=== PATIENT | male | born 1940 | race Caucasian/White ===

== ENCOUNTER 2023-02-25 11:55 | Emergency (ER) | payer MEDICARE, SELFPAY ==
[2023-02-25 12:07] VITALS: BP 155/83; PULSE 55; RESP 20; TEMP 36.6; O2SAT 96; BMI 21.4
--- NOTE | 2023-02-25 12:32 | ED.MALEGU1 ---
HPI - Male Genitourinary General Chief complaint: Urogenital-Male Stated complaint: ZULETA WHEN URINATING/GENERAL MALAISE Time Seen by Provider: 02/25/23 12:24 Source: patient Mode of arrival: walk-in Limitations: no limitations History of Present Illness HPI Narrative: Patient is an 82-year-old male presents to the Emergency Room with concerns of irritation to the tip of his penis. Patient states for the past two days he has noticed a burning sensation at the head when he urinates. Describes it is irritating and feels the area surrounding the glans of his penis is more red than usual. He denies any penile discharge. He is a patient of Dr. Lundberg and has known history of prostate hypertrophy and is on Flomax. Patient states his bladder empties as normal. Denies blood in his urine and denies any pain in his lower pelvis. Patient reports no symptoms at rest and no fever. Patient concerns about the possibility of infection and went to the urgent care and was told his urinalysis looked fine and to follow-up with urology or Emergency Room. Patient denies any testicular pain. He appears no distress. Reviewed triage note and discussed with patient, he denies abdominal pain states the discomfort is only to the tip/ head of his penis when urinating. Location: Reports penis Related Data Home Medications Medication Instructions Recorded Confirmed Lactobacillus acidophilus 10 100 mmu cells PO DAILY 02/25/23 02/25/23 billion cell capsule (Probacap) baclofen 10 mg tablet 10 mg PO DAILY 02/25/23 02/25/23 cholecalciferol (vitamin D3) 50 50 mcg PO DAILY 02/25/23 02/25/23 mcg (2,000 unit) capsule (D3-2000) gabapentin 600 mg tablet 600 mg PO DAILY 02/25/23 02/25/23 meloxicam 15 mg tablet 15 mg PO DAILY 02/25/23 02/25/23 omeprazole 20 mg capsule,delayed 20 mg PO DAILY 02/25/23 02/25/23 release polyethylene glycol 3350 17 gram 17 g PO DAILY 02/25/23 02/25/23 oral powder packet (Miralax) tamsulosin 0.4 mg capsule 0.4 mg PO DAILY 02/25/23 02/25/23 Allergies Allergy/AdvReac Type Severity Reaction Status Date / Time doxycycline Allergy Severe swelling Verified 02/25/23 12:07 to penis Review of Systems ROS Constitutional Reports: malaise; Denies: fever, chills or night sweats Eyes Denies: change in vision Ears, nose, mouth, and throat Denies: throat pain or neck pain Cardiovascular Denies: chest pain or palpitations Respiratory Denies: shortness of breath or cough Gastrointestinal Denies: abdominal pain, nausea or vomiting Genitourinary Reports: painful urination (Only with urination, irritation noted to the glans of the penis); Denies: urinary frequency, urinary urgency or penile discharge Integumentary/Breast Reports: rash, itching and redness Neurological Denies: headache Psychiatric Denies: anxiety or mood swings Hematologic/Lymphatic Denies: easy bruising PFSH PFSH Social History Smoking status: Former smoker Exam Narrative Exam Narrative: Nurses notes and vital signs reviewed and patient is not hypoxic. General: The patient appears well and in no apparent distress. Patient is resting comfortably on cart. Skin: Warm, dry, no pallor noted. No evidence of rash noted Head: Normocephalic, atraumatic Neck: Supple, trachea mid-line, no tenderness, no lymphadenopathy Eye: Pupils are equal, round and reactive to light, EOMI Ears, Nose, Mouth, and Throat: External exam unremarkable Cardiovascular: Regular Rate and Rhythm Respiratory: Patient is in no distress, no accessory muscle use, lungs are clear to auscultation, no wheezing, rales or rhonchi. Back: non-tender, no CVA tenderness Musculoskeletal: normal ROM, no tenderness, no swelling GI: Normal bowel sounds, no tenderness to palpation, no masses appreciated. No rebound, guarding, or rigidity noted. : Patient is a uncircumcised male, the glans of the penis with foreskin retracted noted for multiple erythematous satellite lesions concerning for yeast process, the skin is without evidence of cellulitis. There is no streaking or discharge. Patient has no tenderness to the bilateral testicles and no palpable inguinal hernia. No external rash appreciated. There are no vesicles. Neurological: A&O x4 Psychiatric: Cooperative Constitutional Vital Signs, click to edit/add: Last Vital Signs Temp 98 F 02/25/23 12:07 Pulse 60 02/25/23 14:08 Resp 18 02/25/23 14:08 BP 155/83 H 02/25/23 12:07 Pulse Ox 96 02/25/23 12:07 Course Vital Signs Vital signs: Vital Signs Temperature 98 F 02/25/23 12:07 Pulse Rate 55 L 02/25/23 12:07 Respiratory Rate 20 02/25/23 12:07 Blood Pressure 155/83 H 02/25/23 12:07 Pulse Oximetry 96 02/25/23 12:07 Temperature 98 F 02/25/23 12:07 Pulse Rate 60 02/25/23 14:08 Respiratory Rate 18 02/25/23 14:08 Blood Pressure 155/83 H 02/25/23 12:07 Pulse Oximetry 96 02/25/23 12:07 MDM - Male Genitourinary MDM Narrative Medical decision making narrative: Patient presents with burning only noted on urination, clinical exam concerning for balanitis given irritation to the glans of the penis or patient has his localized symptoms. He is given one pill of Diflucan 150 mg oral, may use topical hydrocortisone cream for irritation. Recommend keeping the area clean and dry. We'll obtain urinalysis to confirm no evidence of infection. Patient denies any acute symptoms of urinary obstruction. Patient has no CVA tenderness. Rechecked patient to discuss treatment with Diflucan.. Patient is drinking fluids but states he does not yet have the urge to urinate after recently providing a sample to the urgent care. Patient's significant other bedside expressed concerns about the patient's feeling of malaise. He denies any chest pain or shortness of breath, denies any nausea or vomiting or diarrhea. States he has felt warm at different times throughout the day. We discussed his age and medications and we'll check some labs to see if there is anything correlating given vague complaints... Discussed laboratory studies, chest x-ray and urinalysis. Patient will observe his symptoms. He may return to the Emergency Room symptoms worsen or new symptoms develop. We discussed treatment for his balanitis. Lab Data Labs: Lab Results 02/25/23 02/25/23 02/25/23 Range/Units 13:06 13:13 14:00 WBC 6.0 (4.0-11.0) 10^3/uL RBC 4.24 L (4.70-6.10) 10^6/uL Hgb 12.4 L (14.0-18.0) g/dL Hct 36.7 L (42.0-54.0) % MCV 86.6 (80.0-94.0) fL MCH 29.2 (25.9-34.0) pg MCHC 33.8 (29.9-35.2) g/dL RDW 13.5 (11.0-15.0) % Plt Count 165 (150-450) 10^3/uL MPV 9.7 (9.5-13.5) fL Neut % (Auto) 72.4 (43.0-75.0) % Lymph % (Auto) 13.1 L (20.5-60.0) % [place] % (Auto) 9.8 (1.7-12.0) % Eos % (Auto) 4.0 (0.9-7.0) % Baso % (Auto) 0.5 (0.2-2.0) % Neut # (Auto) 4.4 (1.4-6.5) 10^3/uL Lymph # (Auto) 0.8 L (1.2-3.8) 10^3/uL [place] # (Auto) 0.6 (0.3-0.8) 10^3/uL Eos # (Auto) 0.2 (0.0-0.7) 10^3/uL Baso # (Auto) 0.0 (0.0-0.1) 10^3/uL Abs Immat Gran (auto) 0.01 (0.00-0.03) 10^3/uL Imm/Tot Granulo (auto) 0.2 (0.0-0.5) % Sodium 135 L (136-145) mmol/L Potassium 4.2 (3.5-5.1) mmol/L Chloride 101 (98-107) mmol/L Carbon Dioxide 29.1 (21.0-32.0) mmol/L Anion Gap 9.1 BUN 15.0 (7.0-18.0) mg/dL Creatinine 0.83 (0.70-1.30) mg/dL Est GFR ( Amer) >60 (>=60) Est GFR (Non-Af Amer) >60 (>=60) BUN/Creatinine Ratio 18.1 Glucose 112 H (74-106) mg/dL Lactate 0.8 (0.4-2.0) mmol/L Calcium 8.2 L (8.5-10.1) mg/dL Total Bilirubin 0.3 (0.2-1.0) mg/dL AST 11 L (15-37) U/L ALT 17 (16-63) U/L Alkaline Phosphatase 82 (46-116) U/L Troponin I High Sens 4.5 (4.0-76.1) pg/mL Total Protein 6.0 L (6.4-8.2) g/dL Albumin 3.3 L (3.4-5.0) g/dL Globulin 2.7 g/dL Albumin/Globulin Ratio 1.2 TSH 1.229 (0.358-3.740) uIU/mL Urine Color Lt. yellow (YELLOW) Urine Clarity Clear (CLEAR) Urine pH 7.0 (5.0-9.0) Ur Specific [place] 1.010 (1.005-1.025) Urine Protein Negative (NEG/TRACE) mg/dL Urine Glucose (UA) Negative (NEGATIVE) mg/dL Urine Ketones Negative (NEGATIVE) mg/dL Urine Occult Blood Negative (NEGATIVE) Urine Nitrite Negative (NEGATIVE) Urine Bilirubin Negative (NEGATIVE) Urine Urobilinogen 1.0 (0.2-1.0) EU/dL Ur Leukocyte Esterase Negative (NEGATIVE) POC Glucose 109 H (74-106) mg/dL Imaging Data Chest x-ray: Radiologist's impression: Procedure: XR chest 1V EXAM: XR chest 1V HISTORY: fatigue COMPARISON: None. TECHNIQUE: AP view of the chest. FINDINGS: The cardiomediastinal silhouette is normal. The lungs are clear. There is no pneumothorax. No pleural effusion is noted. The osseous structures are intact. XR/XR chest 1V IMPRESSION: No acute cardiopulmonary process. Electronically authenticated by: MARNIE MANE Date: 02/25/2023 13:31 ECG Data Attestation: I personally reviewed and interpreted this ECG as follows: Interpretation: EKG interpretation: Emergency Department physician interpretation, normal sinus bradycardia, 47 bpm, first-degree AV block. No ectopy, no ST segment elevation, normal axis. Discharge Plan Discharge Chief Complaint: Urogenital-Male Clinical Impression: Balanitis, Anemia, Malaise and fatigue Patient Disposition: Home, Self-Care Time of Disposition Decision: 14:47 Condition: Good Prescriptions / Home Meds: No Action baclofen 10 mg tablet 10 mg PO DAILY gabapentin 600 mg tablet 600 mg PO DAILY meloxicam 15 mg tablet 15 mg PO DAILY tamsulosin 0.4 mg capsule 0.4 mg PO DAILY omeprazole 20 mg capsule,delayed release(DR/EC) 20 mg PO DAILY polyethylene glycol 3350 [Miralax] 17 gram powder in packet 17 g PO DAILY cholecalciferol (vitamin D3) [D3-2000] 50 mcg (2,000 unit) capsule 50 mcg PO DAILY Probacap 10 billion cell capsule 100 mmu cells PO DAILY Instructions: Jaylyn (ED) Additional Instructions: Hydrocortisone one percent two times a day to the glans of the penis. Apply scant thin amount. Allow for here to reach this region. Thoroughly dry after bathing. Recommend recheck with family doctor for malaise symptoms Tuesday or Tuesday Stand Alone Forms: Portal Instructions Referrals: KARISHMA RODRIGUEZ [Other] - As soon as possible Randy Lundberg MD [Physician] - 1 week
--- NOTE | 2023-02-25 12:54 | XR_ITS ---
The [address] [address] Patient Name: SEN ULLOA MRN: [id number] date: 1940 Sex: M Assigned Patient Location: ER Current Patient Location: ER Accession/Order Number: [id number] Exam Date: 02/25/2023 13:15 Report Date: 02/25/2023 13:31 At the request of: SKYE HERRERA Procedure: XR chest 1V EXAM: XR chest 1V HISTORY: fatigue COMPARISON: None. TECHNIQUE: AP view of the chest. FINDINGS: The cardiomediastinal silhouette is normal. The lungs are clear. There is no pneumothorax. No pleural effusion is noted. The osseous structures are intact. XR/XR chest 1V IMPRESSION: No acute cardiopulmonary process. Electronically authenticated by: MARNIE MANE Date: 02/25/2023 13:31
--- NOTE | 2023-02-25 12:54 | ECG_ITS ---
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
[2023-02-25] MEDS: FLUCONAZOLE 150 MG TABLET PO (13:02)
[2023-02-25 13:08] LABS: Glucometer 109 mg/dL (74-106)
[2023-02-25 13:19] LABS: Basophils Percent Auto 0.5 % (0.2-2.0); Eosinophils Absolute Auto 0.2 10^3/uL (0.0-0.7); Hematocrit 36.7 % (42.0-54.0); Hemoglobin 12.4 g/dL (14.0-18.0); Immature Granulocytes Abs Auto 0.01 10^3/uL (0.00-0.03); Immature Granulocytes Pct Auto 0.2 % (0.0-0.5); Lymphocytes Absolute Auto 0.8 10^3/uL (1.2-3.8); Lymphocytes Percent Auto 13.1 % (20.5-60.0); Mean Corpuscular HGB Conc 33.8 g/dL (29.9-35.2); Mean Corpuscular Hemoglobin 29.2 pg (25.9-34.0); Mean Corpuscular Volume 86.6 fL (80.0-94.0); Mean Platelet Volume 9.7 fL (9.5-13.5); Monocytes Absolute Auto 0.6 10^3/uL (0.3-0.8); Monocytes Percent Auto 9.8 % (1.7-12.0); Neutrophils Absolute Auto 4.4 10^3/uL (1.4-6.5); Neutrophils Percent Auto 72.4 % (43.0-75.0); Platelet Count 165 10^3/uL (150-450); Red Blood Count 4.24 10^6/uL (4.70-6.10); Red Cell Distribution Width 13.5 % (11.0-15.0)
[2023-02-25 13:37] LABS: Alanine Aminotransferase 17 U/L (16-63); Albumin Globulin Ratio 1.2; Albumin Level 3.3 g/dL (3.4-5.0); Alkaline Phosphatase 82 U/L (46-116); Anion Gap 9.1; Aspartate Amino Transferase 11 U/L (15-37); BUN Creatinine Ratio 18.1; Bilirubin Total 0.3 mg/dL (0.2-1.0); Calcium 8.2 mg/dL (8.5-10.1); Carbon Dioxide 29.1 mmol/L (21.0-32.0); Chloride 101 mmol/L (98-107); Estimated GFR (African America >60 (>=60); Estimated GFR (Non-African Ame >60 (>=60); Globulin 2.7 g/dL; Glucose 112 mg/dL (74-106); Potassium 4.2 mmol/L (3.5-5.1); Sodium 135 mmol/L (136-145)
[2023-02-25 13:46] LABS: Thyroid Stimulating Hormone 1.229 uIU/mL (0.358-3.740); Troponin I High Sensitivity 4.5 pg/mL (4.0-76.1)
[2023-02-25 14:08] VITALS: PULSE 60; RESP 18
[2023-02-25 14:09] LABS: Lactate/Lactic Acid 0.8 mmol/L (0.4-2.0)
[2023-02-25 14:37] LABS: Bilirubin Urine NEGATIVE (NEGATIVE); Blood Urine NEGATIVE (NEGATIVE); Clarity Urine CLEAR (CLEAR); Color Urine LT. YELLOW (YELLOW); Glucose Urine UA NEGATIVE (NEGATIVE); Ketones Urine NEGATIVE (NEGATIVE); Leukocyte Esterase Urine NEGATIVE (NEGATIVE); Nitrite Urine NEGATIVE (NEGATIVE); Protein Urine NEGATIVE (NEG/TRACE); Urine Microscopic Indicated NO
[2023-02-25 15:02] VITALS: BP 151/77
== END 2023-02-25 15:05 | disposition home or self-care (01) ==
PROVIDERS: Personal Emergency Response Attendant; Emergency Provider Emergency Medicine Emergency Medical Services
DX: N48.1 Balanitis (principal); D64.9 Anemia, unspecified; R53.81 Other malaise; R53.83 Other fatigue; Z79.899 Other long term (current) drug therapy
CPT/HCPCS: 36415; 71045; 80053; 81003; 82948; 83605; 84443; 84484; 85025; 93005; 99285

== ENCOUNTER 2023-08-12 11:11 | Outpatient (OUT) | payer MEDICARE, SELFPAY ==
[2023-08-12 13:08] LABS: Prostate Specific Antigen Dx 2.44 ng/mL (<=4.00)
== END 2023-08-12 11:12 | disposition home or self-care (01) ==
LOC: LAB 11:13
PROVIDERS: Visit Provider Urology
DX: N40.1 Benign prostatic hyperplasia with lower urinary tract symptoms (principal); N40.2 Nodular prostate without lower urinary tract symptoms; N41.1 Chronic prostatitis
CPT/HCPCS: 36415; 84153

== ENCOUNTER 2024-08-13 09:02 | Outpatient (OUT) | payer MEDICARE, SELFPAY ==
--- OUTSIDE RECORDS SUMMARY | 2024-08-13 09:13 | XMS_ITS | CCD ---
Author Organization [facility] Care Team Providers Care Clinic Nurse Name Role Phone Sondra SMITH Unavailable Unavailable ALLEN PARDO (TAYLOR) Unavailable Unavail able ALLEN PARDO (TAYLOR) Unavailable Unavail able Sondra SMITH Unavailable Unavailable SMITH R LOUIE Unavailable Unavailable LUIS R LOUIE Unavailable Unavailable Sondra SMITH Unavailable Unavailable JAZMIN MAN Unavailable Unavailabl e MARTIN, DR CANDIDO Brown Admitting Unavailable MARTIN, DR CANDIDO Brown Attending Unavailable CAS CROSS Consulting Unavailable MISC, DR DE SANTIAGO Primary Care Unavailable JOSELYN, DR BARRON Admitting Unavailable JOSELYN, DR BARRON Consulting Unavailable JOSELYN, DR BARRON Attending Unavailable MISC, DR DE SANTIAGO Primary Care Unavailable JOSELYN, DR BARRON Admitting Unavailable JOSELYN, DR BARRON Consulting Unavailable JOSELYN, DR BARRON Attending Unavailable MISC, DR DE SANTIAGO Primary Care Unavailable MISC, DR DE SANTIAGO Consulting Unavailable MARTIN, DR CANDIDO Brown Attending Unavailable MARTIN, DR CANDIDO Brown Admitting Unavailable CLINCAS EDMONDS Consulting Unavailable MISC, DR ED SANTIAGO Primary Care Unavailable ALLEN LUCAS Primary Care Physician Karishma Reddy Primary Care Physician Unavail able Karen Borja Unavailable Karen Borja Attending Unavailable Karen Borja Admitting Unavailable Karishma Reddy Primary Care Physician Unavail able DO Karishma Reddy Referring Unavailable Shahnaz Galvin Admitting Unavailable Shahnaz Galvin Attending Unavailable DO Karishma Reddy Referring Unavailable Shahnaz Galvin Attending Unavailable TAYLOR Galvin Admitting Unavailabl e Yared Zavala Referring Unavailable Yared Zavala Attending Unavailable DO Yared Zavala Admitting Unavailabl e Shahnaz Galvin Admitting Unavailable Shahnaz Galvin Referring Unavailable Shahnaz Galvin Attending Unavailable Shahnaz Galvin Attending Unavailable Shahnaz Galvin Admitting Unavailable DO Karishma Reddy Attending Unavailable DO Karishma Reddy Admitting Unavailable Bruno Abe Antonio Admitting Unavailable Bruno Abe Antonio Attending Unavailable Maureen, DO Karishma Robert Referring Unavailable Yared Zavala Attending Unavailable Yared Zavala Referring Unavailable Yared Zavala Attending Unavailable DO Yared Zavala Admitting Unavailabl e Yared Zavala Attending Unavailable Yared Zavala Referring Unavailable Beatrice ALVES Attending Unavailable Beatrice ALVES Attending Unavailable Maureen, DO Karishma Robert Referring Unavailable MD Abe Carr Admitting Unavailable Abe Carr Attending Unavailable Yared Zavala Admitting Unavailable Yared Zavala Attending Unavailable Maureen, DO Karishma Robert Referring Unavailable Kristel Churchill Referring Unavailable Shahnaz Galvin Attending Unavailable TAYLOR Galvin Shahnaz Admitting Unavailabl e Cromley, DO Karishma Robert Attending Unavailable Cromley, DO Karishma Robert Attending Unavailable Cromley, DO Karishma Robert Attending Unavailable Cromley, DO Karishma Robert Attending Unavailable Isabelmley, DO Karishma Robert Attending Unavailable Isabelmley, DO Karishma Robert Attending Unavailable Nickey, DO Karishma Robert Referring Unavailable Shahnaz Galvin Attending Unavailable TAYLOR Galvin Shahnaz Admitting Unavailabl e Yaerd Zavala Attending Unavailable Maureen, DO Karishma Robert Referring Unavailable DO Yared Zavala Admitting Unavailabl e Yared Zavala Attending Unavailable Yared Zavala Admitting Unavailable Yared Zavala Referring Unavailable MD Abe Carr Admitting Unavailable Bruno Abe Antonio Referring Unavailable Bruno Abe Antonio Attending Unavailable MD Abe Carr Admitting Unavailable Bruno Abe Antonio Referring Unavailable Heidi Carrshherminia Alvarez Attending Unavailable Maureen, DO Karishma Robert Referring Unavailable Shahnaz Galvin Admitting Unavailable Shahnaz Galvin Attending Unavailable Maureen, DO Karishma Robert Referring Unavailable Bruno Abe D Admitting Unavailable Bruno Abe Antonio Attending Unavailable Allergies Allergy Classification Reported Allergen(s) Allergy Type Date of Onset Reaction(s) Facility (20 sources) doxycycline; Translations: [DOXYCYCLINE] Drug Allergy 5 Swelling (morphologic abnormality), SWELLING [facility] Repository (20 sources) Penicillins; Translations: [PENICILLINS] Propensity to adverse reactions to drug (disorder) 5 AOF, Unknown [facility] Other [place] Repository (20 sources) Clindamycin; Translations: [clindamycin] Drug Allergy Swelling (finding) [facility] [place] Medications Current Medications Medication Drug Class(es) Dates Sig (Normalized) Sig (Original) Acetaminophen / Codeine (17 sources) Opioid Agonist Start: 11-24-2023 Tylenol with Codeine #3 Refill(s) 0 Start Date: 11/24/23 Status: Ordered Start: 02-21-2023 Tylenol with C odeine #3 oral tablet See Instructions, 45 tab(s), Refill(s) 0, 1 tab(s) po bid prn pain, [facility], 183, cm, 02/21/23 13:14:00 EDT, Height/Length Dosing, 71.3, kg, 02/17/23 11:31:00 EDT, Weight Dosing Start Date: 02/21/23 Status: Ordered Acetaminophen-Co deine #3 Active acetaminophen 325 mg / HYDROcodone bitartrate 5 mg oral tablet (20 sources) Opioid Agonist Start: 06-08-2022 take 1 tablet by mouth three times daily for pain [place] 325 mg-5 mg oral tablet 1 tab(s), Oral, TID for pain, 45 tab(s), Refill(s) 0, [facility], 183, cm, 05/17/22 8:51:00 EST, Height/Length Dosing, 72.6, kg, 04/06/22 7:59:00 EDT, Weight Dosing Start Date: 06/08/22 Status: Ordered Start: 02-09-2021 take 1 tablet by char th every six hours as needed for pain [place] 325 mg-5 mg oral tablet 1 tab(s), Oral, q6hr as needed for pain, 42 tab(s), Refill(s) 0, [facility], 183, cm, 01/27/21 7:56:00 EDT, Height/Length Dosing, 80.7, kg, 12/12/20 15:22:00 EDT, Weight Dosing Start Date: 02/09/21 Status: Ordered acetaminophen 325 mg / oxyCODONE hydrochloride 5 mg oral tablet (4 sources) Opioid Agonist Start: 06-21-2023 take 1 tablet by mouth every six hours Percocet 5 mg-325 mg oral tablet 1 tab(s), Oral, q6hr, 28 tab(s), Refill(s) 0, [facility], 183, cm, 06/21/23 12:01:00 EST, Height/Length Dosing, 69.6, kg, 05/20/23 8:22:00 EST, Weight Dosing Start Date: 06/21/23 Status: Ordered Azithromycin 3 Day Dose Pack 500 mg oral tablet (1 source) Start: 04-27-2022 Azithromycin 3 Day Dose Pack 500 mg oral tablet 500 mg = 1 tab(s), Oral, Daily, # 3 tab(s), Refills(s) 0, Pharmacy: [facility], 183, cm, 04/06/22 7:59:00 EDT, Height/Length Dosing, 72.6, kg, 04/06/22 7:59:00 EDT, Weight Dosing Start Date: 04/27/22 Status: Ordered baclofen 10 mg oral tablet (20 sources) gamma-Aminobut yric Acid-ergic Agonist Start: 02-08-2024 take 1 tablet by mouth at bedtime baclofen 10 mg Tab 10 mg = 1 tab(s), Oral, Bedtime, # 90 tab(s), Refills(s) 4, Pharmacy: [facility], 183, cm, 02/08/24 9:30:00 EDT, Height/Length Dosing, 71.6, kg, 02/08/24 9:30:00 EDT, Weight Dosing Start Date: 02/08/24 Status: Ordered Start: 03-15-2023 take 1 tablet by char th three times daily baclofen 10 mg Tab 10 mg = 1 tab(s), Oral, TID, # 270 tab(s), Refills(s) 1, Pharmacy: [facility] ([facility]), 183, cm, 02/21/23 13:14:00 EDT, Height/Length Dosing, 71.3, kg, 02/17/23 11:31:00 EDT, Weight Dosing Start Date: 03/15/23 Status: Ordered Start: 02-17-2023 baclofen Oral, Bedtime, Refills(s) 0 Start Date: 02/17/23 Status: Ordered Start: 07-28-2021 End: 01-06-2023 take 1 tablet by mouth once daily baclofen 10 mg Tab 10 mg = 1 tab(s), Oral, Daily, X 90 day(s), # 90 tab(s), Refills(s) 0, Pharmacy: [facility] 183, cm, 10/08/22 11:08:00 EDT, Height/Length Dosing, 71.6, kg, 10/08/22 11:08:00 EDT, Weight Dosing Start Date: 10/08/22 Stop Date: 01/06/23 Status: Ordered cephalexin 500 mg oral capsule (1 source) Cephalosporin Antibacterial Start: 06-21-2023 End: 06-28-2023 take 1 capsule by mouth every six hours Keflex 500 mg Cap 500 mg = 1 cap(s), Oral, q6hr, X 7 day(s), # 28 cap(s), Refills(s) 0, Pharmacy: [facility], 183, cm, 06/21/23 12:01:00 EST, Height/Length Dosing, 69.6, kg, 05/20/23 8:22:00 EST, Weight Dosing Start Date: 06/21/23 Stop Date: 06/28/23 Status: Ordered clindamycin 300 mg oral capsule (1 source) Lincosamide Antibacterial Start: 04-12-2023 End: 04-19-2023 take 1 capsule by mouth every six hours clindamycin 300 mg oral cap 300 mg = 1 cap(s), Oral, q6hr, X 7 day(s), # 28 cap(s), Refills(s) 0, Pharmacy: [facility], 183, cm, 04/12/23 7:39:00 EDT, Height/Length Dosing, 71.3, kg, 02/17/23 11:31:00 EDT, Weight Dosing Start Date: 04/12/23 Stop Date: 04/19/23 Status: Ordered diclofenac sodium 75 mg delayed release oral tablet (7 sources) Nonsteroidal Anti-inflammatory Drug Start: 06-30-2020 take 1 tablet by mouth twice daily Diclofenac 75mg Tab-DR 75 mg, Oral, BID, Inflammation Start Date: 06/30/20 Status: Ordered Diclofenac 75mg Tab-DR (7 sources) Start: 06-30-2020 take 1 tablet by mouth twice daily Diclofenac 75mg Tab-DR 75 mg, Oral, BID, Inflammation Start Date: 06/30/20 Status: Ordered gabapentin 600 mg oral tablet (20 sources) Anti-epileptic Agent Start: 12-13-2023 End: 07-21-2024 take 1 tablet by mouth three times daily gabapentin 600 mg Tab 600 mg = 1 tab(s), Oral, TID, # 270 tab(s), Refills(s) 4, Pharmacy: [facility], 183, cm, 02/08/24 9:30:00 EDT, Height/Length Dosing, 71.6, kg, 02/08/24 9:30:00 EDT, Weight Dosing Start Date: 02/08/24 Status: Ordered Start: 06-14-2023 End: 12-11-2023 take 1 tablet by mouth three times daily gabapentin 600 mg Tab 600 mg = 1 tab(s), Oral, TID, X 90 day(s), # 270 tab(s), Refills(s) 1, Pharmacy: [facility], 183, cm, 06/14/23 10:18:00 EST, Height/Length Dosing, 69.6, kg, 05/20/23 8:22:00 EST, Weight Dosing Start Date: 06/14/23 Stop Date: 12/11/23 Status: Ordered Start: 03-15-2023 take 1 tablet by char th three times daily gabapentin 600 mg Tab 600 mg = 1 tab(s), Oral, TID, # 270 tab(s), Refills(s) 1, Pharmacy: [facility] ([facility]), 183, cm, 02/21/23 13:14:00 EDT, Height/Length Dosing, 71.3, kg, 02/17/23 11:31:00 EDT, Weight Dosing Start Date: 03/15/23 Status: Ordered Start: 07-28-2021 take 1 tablet by char th three times daily gabapentin 600 mg Tab 600 mg = 1 tab(s), Oral, TID, # 270 tab(s), Refills(s) 1, Pharmacy: [facility] ([facility] ), 183, cm, 09/06/22 8:14:00 EST, Height/Length Dosing, 72.6, kg, 08/31/22 10:25:00 EST, Weight Dosing Start Date: 09/06/22 Status: Ordered LORazepam 0.5 mg oral tablet (7 sources) Benzodiazepine Start: 05-20-2023 take 0.5 tablet by mouth once daily at bedtime LORazepam 0.5 mg Tab See Instructions, 1/2 tab(s) Oral Once a day (at bedtime), # 15 tab(s), Refills(s) 2, Pharmacy: [facility], 183, cm, 05/20/23 8:22:00 EST, Height/Length Dosing, 69.6, kg, 05/20/23 8:22:00 EST, Weight Dosing Start Date: 05/20/23 Status: Ordered meloxicam 15 mg oral tablet (20 sources) Nonsteroidal Anti-inflammatory Drug Start: 02-08-2024 take 1 tablet by mouth once daily meloxicam 15 mg Tab 15 mg = 1 tab(s), Oral, Daily, # 90 tab(s), Refills(s) 4, Pharmacy: [facility], 183, cm, 02/08/24 9:30:00 EDT, Height/Length Dosing, 71.6, kg, 02/08/24 9:30:00 EDT, Weight Dosing Start Date: 02/08/24 Status: Ordered Start: 10-31-2023 take 1 tablet by char th once daily meloxicam 15 mg Tab 15 mg = 1 tab(s), Oral, Daily, # 90 tab(s), Refills(s) 4, Pharmacy: [facility], 183, cm, 09/30/23 12:50:00 EDT, Height/Length Dosing, 69, kg, 09/30/23 12:50:00 EDT, Weight Dosing Start Date: 10/31/23 Status: Ordered Start: 07-30-2022 take 1 tablet by char th once daily meloxicam 15 mg Tab 15 mg = 1 tab(s), Oral, Daily, # 90 tab(s), Refills(s) 4, Pharmacy: [facility] ([facility] 183, cm, 10/08/22 11:08:00 EDT, Height/Length Dosing, 71.6, kg, 10/08/22 11:08:00 EDT, Weight Dosing Start Date: 10/08/22 Status: Ordered MiraLax 17 GM/SCOOP (1 source) MiraLax 17 GM/SC OOP 1 scoop mixed with 8 ounces of fluid Orally Once a day Active Miralax 17 gram packet (20 sources) Start: 10-14-2020 take 17 g by mouth once daily Miralax 17 gram packet 17 gram, Oral, Daily, dissolve in water before taking, # 255 gram, Refills(s) 0 Start Date: 10/14/20 Status: Ordered omeprazole 20 mg delayed release oral capsule (20 sources) Proton Pump Inhibitor Start: 04-06-2022 take 1 capsule by mouth once daily as needed omeprazole 20 mg Cap-DR 20 mg = 1 cap(s), Oral, Daily, PRN Control of stomach acid, Refills(s) 0 Start Date: 04/06/22 Status: Ordered take 1 tablet by mouth once aurelia y PriLOSEC OTC 20 MG 1 tablet 30 minutes before morning meal Orally Once a day Active pantoprazole 20 mg delayed release oral tablet (9 sources) Proton Pump Inhibitor Start: 12-13-2023 take 20 mg by mouth once daily pantoprazole 20 mg, Oral, Daily, Refills(s) 0 Start Date: 12/13/23 Status: Ordered Start: 11-07-2023 take 1 tablet by char th once daily Pantoprazole [address] Tab 20 mg = 1 tab(s), Oral, Daily, Refills(s) 0 Start Date: 11/07/23 Status: Ordered Miralax (15 sources) Osmotic Laxative Start: 11-24-2023 MiraLax Refil l(s) 0 Start Date: 11/24/23 Status: Ordered Start: 10-14-2020 take 17 g by mouth once daily Miralax 17 gram packet 17 gram, Oral, Daily, dissolve in water before taking, # 255 gram, Refills(s) 0 Start Date: 10/14/20 Status: Ordered Probiotic & Acidophilus Ex St - (1 source) Probiotic & Acidophilus Ex St - as directed Orally Active Probiotic Formula (Bacillus Coagulans) (20 sources) Start: take 1 capsule by mouth once daily Probiotic Formula (Bacillus Coagulans) 1 cap(s), Oral, Daily, Refill(s) 0, Prophylaxis Start Date: 10/14/20 Status: Ordered tamsulosin hydrochloride 0.4 mg oral capsule (20 sources) alpha-Adrenergic Pedro Pablo Start: take 1 capsule by mouth twice daily tamsulosin 0.4 mg Cap 0.4 mg = 1 cap(s), Oral, BID, # 180 cap(s), Refills(s) 4, Pharmacy: [facility], 183, cm, 02/08/24 9:30:00 EDT, Height/Length Dosing, 71.6, kg, 02/08/24 9:30:00 EDT, Weight Dosing Start Date: 02/08/24 Status: Ordered Start: 01-23-2024 take 1 capsule by mo uth twice daily tamsulosin 0.4 mg Cap 0.4 mg = 1 cap(s), Oral, BID, TAKE ONE CAPSULE BY MOUTH TWICE A DAY, # 180 cap(s), Refills(s) 3, Pharmacy: [facility], 183, cm, 01/17/24 9:51:00 EDT, Height/Length Dosing, 69.5, kg, 11/24/23 13:06:00 EDT, Weight Dosing Start Date: 01/23/24 Status: Ordered Start: 03-15-2023 take 1 capsule by mo uth twice daily tamsulosin 0.4 mg Cap 0.4 mg = 1 cap(s), Oral, BID, TAKE ONE CAPSULE BY MOUTH TWICE A DAY, # 180 cap(s), Refills(s) 3, Pharmacy: [facility] ([facility]), 183, cm, 02/21/23 13:14:00 EDT, Height/Length Dosing, 71.3, kg, 02/17/23 11:31:00 EDT, Weight Dosing Start Date: 03/15/23 Status: Ordered Start: 11-30-2021 take 1 capsule by mo uth twice daily tamsulosin 0.4 mg Cap 0.4 mg = 1 cap(s), Oral, BID, TAKE ONE CAPSULE BY MOUTH TWICE A DAY, # 180 cap(s), Refills(s) 3, Pharmacy: [facility], 183, cm, 02/15/22 9:24:00 EDT, Height/Length Dosing, 77.1, kg, 02/15/22 9:24:00 EDT, Weight Dosing Start Date: 02/15/22 Status: Ordered Vitamin D (20 sources) Start: 10-14-2020 Vitamin D 50,0 00 International_Unit, Oral, Daily, Refills(s) 0 Start Date: 10/14/20 Status: Ordered Vitamin D (Cholecalciferol) 50 MCG (2000 UT) (1 source) take 1 capsule by mouth once daily Vitamin D (Cholecalciferol) 50 MCG (2000 UT) 1 capsule Orally Once a day Active Problems Active Problems Problem Classification Problem Date Documented Da te Episodic/Chronic Abdominal pain (20 sources) Right lower quadrant pain 12-12-2020 Episodic Deficiency and other anemia (1 source) Anemia; Translations: [Anemia, unspecified] Onset: 05-20-2023 Episodic Deficiency and other anemia (20 sources) Normocytic anemia 05-20-2023 Episodic Genitourinary symptoms and ill-defined conditions (5 sources) Unspecified symptoms and signs involving the genitourinary system; Translations: [Dysuria] Onset: 07-31-2021 Episodic Headache; including migraine (20 sources) Headache 12-12-2020 Episodic Hyperplasia of prostate (20 sources) Benign prostatic hyperplasia with lower urinary tract symptoms; Translations: [Nodular prostate without lower urinary tract symptoms] Onset: 08-10-2021 Chronic Inflammatory conditions of male genital organs (20 sources) Chronic prostatitis; Translations: [Chronic prostatitis] Onset: 08-16-2022 Chronic Inflammatory conditions of male genital organs (20 sources) Prostatitis; Translations: [Inflammatory disease of prostate, unspecified] Onset: 02-12-2022 08-17-2021 Episodic Malaise and fatigue (20 sources) Fatigue; Translations: [Other fatigue] Onset: 05-20-2023 Episodic Osteoarthritis (20 sources) Arthritis; Translations: [Osteoarthritis] Onset: 05-19-2023 06-30-2020 Chronic Other acquired deformities (3 sources) Other biomechanical lesions of lumbar region; Translations: [Spondylolisthesis, lumbar region] Onset: 10-01-2014 Episodic Other bone disease and musculoskeletal deformities (20 sources) Segmental and somatic dysfunction; Translations: [Segmental and somatic dysfunction of sacral region] Onset: 06-25-2022 Episodic Other bone disease and musculoskeletal deformities (20 sources) Somatic dysfunction of lower limb 06-25-2022 Episodic Other bone disease and musculoskeletal deformities (20 sources) Somatic dysfunction of lumbar region 06-25-2022 Episodic Other bone disease and musculoskeletal deformities (20 sources) Somatic dysfunction of sacral spine 06-25-2022 Episodic Other bone disease and musculoskeletal deformities (20 sources) Somatic dysfunction of thoracic region 06-25-2022 Episodic Other bone disease and musculoskeletal deformities (20 sources) Cervical somatic dysfunction 12-28-2022 Episodic Other bone disease and musculoskeletal deformities (20 sources) Somatic dysfunction of head region 12-28-2022 Episodic Other connective tissue disease (4 sources) Spasm; Translations: [Other muscle spasm] Onset: 12-28-2022 Episodic Other connective tissue disease (20 sources) Muscle spasm of cervical muscle of neck 12-28-2022 Episodic Other connective tissue disease (3 sources) Spasm of cervical paraspinous muscle 02-07-2024 Episodic Other diseases of kidney and ureters (5 sources) Urinary tract obstruction; Translations: [Other obstructive and reflux uropathy] Onset: 02-12-2022 Episodic Other ear and sense organ disorders (20 sources) Hearing loss; Translations: [Unspecified hearing loss, unspecified ear] Onset: 08-11-2023 06-30-2020 Chronic Other ear and sense organ disorders (3 sources) External hearing aid in situ; Translations: [Presence of external hearing-aid] Onset: 08-11-2023 Episodic Other ear and sense organ disorders (14 sources) Does use hearing aid 08-11-2023 Episodic Other gastrointestinal disorders (5 sources) Digestive system finding; Translations: [Other specified symptoms and signs involving the digestive system and abdomen] Onset: 06-28-2022 Episodic Other gastrointestinal disorders (20 sources) Abdominal weakness 06-28-2022 Episodic Other gastrointestinal disorders (4 sources) Other constipation; Translations: [Other constipation] Onset: 08-31-2022 Episodic Other gastrointestinal disorders (20 sources) Chronic constipation 08-31-2022 Episodic Other lower respiratory disease (1 source) Cough; Translations: [Cough] Episodic Other nervous system disorders (1 source) Chronic pain syndrome; Translations: [CHRONIC PAIN SYNDROME] Onset: 09-05-2020 Chronic Other nervous system disorders (2 sources) Sciatic nerve lesion; 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, unspecified lower limb] Onset: 06-25-2022 Chronic Other nervous system disorders (20 sources) Piriformis syndrome 06-25-2022 Chronic Other nervous system disorders (1 source) Chronic pain; Translations: [Other chronic pain] Chronic Other nutritional; endocrine; and metabolic disorders (1 source) Hypocalcemia; Translations: [Hypocalcemia] Onset: 05-20-2023 Chronic Other nutritional; endocrine; and metabolic disorders (20 sources) Hypocalcemia 05-20-2023 Chronic Other nutritional; endocrine; and metabolic disorders (1 source) Abnormal weight loss; Translations: [Abnormal weight loss] Onset: 07-30-2022 Episodic Other nutritional; endocrine; and metabolic disorders (8 sources) Unexplained weight loss 07-30-2022 Episodic Other upper respiratory infections (1 source) Sinusitis; Translations: [Chronic infection of sinus NOS] Chronic Residual codes; unclassified (8 sources) Body mass index 20-24 - normal; Translations: [Body mass index (BMI) 21.0-21.9, adult] Onset: 07-30-2022 Episodic Residual codes; unclassified (20 sources) Insomnia; Translations: [Insomnia, unspecified] Onset: 08-31-2022 Episodic Spondylosis; intervertebral disc disorders; other back problems (20 sources) Spondylosis without myelopathy or radiculopathy, lumbar region; Translations: [Post-laminectomy syndrome] Onset: 09-05-2020 12-12-2020 Chronic Spondylosis; intervertebral disc disorders; other back problems (20 sources) Low back pain; Translations: [Low back pain] Onset: 09-01-2020 Episodic Unclassified (1 source) Unknown / UNK(Unknown) Onset: 10-17-2017 Unclassified (20 sources) Spondylosis of thoracolumbar spine 06-25-2022 Past or Other Problems Problem Classification Problem Date Documented Date Episodic/Chronic Medical examination/evaluatio n (2 sources) Encounter for other preprocedural examination; Translations: [Encounter for other preprocedural examination] Onset: 10-01-2014 Episodic Results Test Name Value Interpretation Reference Range Facil ity Ambulatory Visit Summaryon 0 02-23-2024 Ambulatory Visit Summary Ambulatory Visit Summary ESN ULLOA :1940 Visit Date:02/23/2024 Ambulatory Visit Instructions Your Diagnosis Encounter for annual wellness visit (AWV) in Medicare patient BPH with urinary obstruction Sacroiliitis Insomnia Wears hearing aid in both ears Other obstructive and reflux uropathy Your Care Team Attending Physician - Karishma Reddy DO Primary Care Physician - Karishma Reddy DO This Is Your Medications List bacillus coagulans-inulin (Probiotic Formula (Bacillus Coagulans)) baclofen (baclofen 10 mg Tab) ergocalciferol (Vitamin D) gabapentin (gabapentin 600 mg Tab) meloxicam (meloxicam 15 mg Tab) pantoprazole polyethylene glycol 3350 (MiraLax) tamsulosin (tamsulosin 0.4 mg Cap) Procedures Performed Injection into facet joint of cervical spine using fluoroscopic guidance (12/13/2023), Injection into facet joint of cervical spine using fluoroscopic guidance (11/21/2023), Implantation of permanent spinal cord stimulator (06/21/2023), Spinal cord stimulator trial (06/21/2023), Spinal cord stimulator trial (04/12/2023), Injection of sacroiliac joint using fluoroscopic guidance (02/01/2023), Radiofrequency ablation of medial branch of lumbar nerve using fluoroscopic guidance (11/09/2022), Injection of sacroiliac joint using fluoroscopic guidance (09/14/2022), Injection of hip using ultrasound (US) guidance (03/23/2022), Radiofrequency ablation of medial branch of lumbar nerve using fluoroscopic guidance (01/25/2022), Injection of facet joint using fluoroscopic guidance (01/04/2022), Injection of facet joint using fluoroscopic guidance (11/30/2021), Injection of sacroiliac joint using fluoroscopic guidance (10/19/2021), Radiofrequency ablation of medial branch of lumbar nerve using fluoroscopic guidance (04/28/2021), Injection of facet joint using fluoroscopic guidance (03/23/2021), Injection of facet joint using fluoroscopic guidance (02/23/2021), Revisional laminectomy excision of lumbar intervertebral disc (12/16/2020), Injection of nerve root of lumbar spine using fluoroscopic guidance (09/30/2020), Injection of nerve root of lumbar spine using fluoroscopic guidance (09/30/2020), Trigger point injection (08/04/2020), TRUS - Transrectal ultrasonography (07/31/2020), Radiofrequency ablation of medial branch of lumbar nerve using fluoroscopic guidance (07/15/2020), Radiofrequency ablation of medial branch of lumbar nerve using fluoroscopic guidance (07/08/2020), Injection of facet joint using fluoroscopic guidance (05/06/2020), Injection of facet joint using fluoroscopic guidance (03/18/2020), TPI - Trigger point injection (01/28/2020), History of lumbar discectomy (2017), Cataract, Colonoscopy, Injection of nerve root of lumbar spine using fluoroscopic guidance, Post-surgery back pain. Discharge Vitals Heart Rate (Peripheral) 50 Respiratory Rate 16 Blood Pressure 120/70 Height 183 cm Height 72 in Weight 72 kg Weight 158.4 lb BMI 21.5 What to do next Scheduled Follow-Up Appointments Tuesday 9:30 AM EDT With: Yared Zavala DO Where: [facility] Tuesday 9:15 AM EST With: Beatrice ALVES MD Where: [facility] [address] [place] [id number]- Tuesday 8:30 AM EDT With: Where: [place] [address] [address] [place] [address]- Tuesday 9:00 AM EDT With: Karishma Reddy DO Where: [place] [address] [address] [facility] [address] [place] [address]- Medications What How Much When Why Instructions Unchanged bacillus coagulans-inulin (Probiotic Formula (Bacillus Coagulans)) 1 Capsules By Mouth Every day Unchanged baclofen (baclofen 10 mg Tab) 1 Tablets By Mouth At bedtime Lumbar post-laminectomy syndrome Unchanged ergocalciferol (Vitamin D) 50,000 International unit By Mouth Every day Unchanged gabapentin (gabapentin 600 mg Tab) 1 Tablets By Mouth 3 times a day Chronic pain Cervical arthritis Unchanged meloxicam (meloxicam 15 mg Tab) 1 Tablets By Mouth Every day Sacroiliitis Unchanged pantoprazole 20 Milligram By Mouth Every day Unchanged polyethylene glycol 3350 (MiraLax) Unchanged tamsulosin (tamsulosin 0.4 mg Cap) 1 Capsules By Mouth 2 times a day BPH with urinary obstruction Allergies clindamycin (Swelling) penicillins (Unknown) doxycycline (Swelling) Problems Ongoing - Any problem that you are currently receiving treatment for. Abdominal weakness Arthritis BPH with urinary obstruction Cervical arthritis Chronic constipation Chronic prostatitis Fatigue Hard of hearing Hypocalcemia Insomnia Normocytic anemia Piriformis syndrome Prostate nodule Sacroiliitis Somatic dysfunction of cervical region Somatic dysfunction of head region Somatic dysfunction of lower extremiti (more content not included)... Normal [facility] Family Medicine Office/Clini c Noteon 02-23-2024 Family Medicine Office/Clinic Note Family Medicine Office/Clinic Note Chief Complaint Subsequent AWV History of Present Illness I was in the office and available for consultation and to provide direct supervision at the time of this visit. I have provided supervision of the care team and have reviewed this chart and office note and agree with the plan of care. Review of Systems PHQ Score Initial Depression Screen Score: 0 SCORE Physical Exam Vitals & Measurements HR: 50(Peripheral) RR: 16 BP: 120/70 SpO2: 97% HT: 183 cm HT: 72 in WT: 72 kg WT: 158.4 lb BMI: 21.5 Assessment/Plan 1. Encounter for annual wellness visit (AWV) in Medicare patient (Z00.00: Encounter for general adult medical examination without abnormal findings) The patient was given a customized and personalized print out of all the current AHRQ USPSTF?s recommendations for preventative services and all current CDC recommended immunizations, relevant risk recommendations and the following patient brochures were given. Reviewed What can I expect during my Medicare preventative care visit CDC-Falls Prevention and home safety screening reviewed. Patient denies any falls in last 12 months, voices no worry about falling, exhibits no problems with sitting and standing. Pt voices understanding with keeping walk way area free of clutter to prevent tripping and/or falling. [place] Advance Directives reviewed, on file in chart. No changes are needed. Patient denies any problems with ADL?s and Instrumental ADL?s. Cognitive screening completed with memory and clock face drawing. Immunization Record reviewed with the patient. Discussed Shingrix vaccine with educational handout and availability. COVID vaccines have been administered, immunization record is up to date. Allergies and medications reviewed and up to date. Patient denies concerns with taking medication as prescribed, reviewed OTC medications with patient with medication list up to date. Blood tests were reviewed: Discussed what tests need to be updated. [facility] Colonoscopy up to date, due for repeat PRN. Reviewed concerns with bladder control over past 6 months with no concerns. Pt follows Urologist, Dr. Alves. Reviewed pain symptoms with patient: 0/10, sees pain management Reviewed all outside providers that patient follows. Last visit summary notes available in chart and/or have been requested. Follow up scheduled 02/27/2025 AWV has been scheduled 02/27/2025 Medicare provides yearly screening for alcohol and depression concerns. This is completed during our Medicare wellness visit for those who do not have a current diagnosis of depression or concerns with alcohol use. I spent a total of 10 minutes on this date of service which included preparing to see the patient, face to face patient care, completing clinical documentation, obtaining and/or reviewing separately obtained history, counseling and educating the patient with handouts. Explanations were provided with reviewing questionnaires. AUDIT risk assessment screening completed, risk score (2) with patient denying concerns with use. Completed PHQ-2 risk assessment for depression with risk score (0), negative findings. Patient has been reminded to notify the provider if there would be a change or concerns with symptoms with fear, unable to sleep, worrying too much or feeling down and/or sad with lost of interest with daily activities. Will continue to monitor with screening yearly during Medicare wellness visits. 2. BPH with urinary obstruction (N40.1: Benign prostatic hyperplasia with lower urinary tract symptoms) Pt is currently seeing Urology and taking Tamsulosin daily as directed. No concerns with urinary issues today. Pt to follow up with Urology and PCP as directed. 3. Sacroiliitis (M46.1: Sacroiliitis, not elsewhere classified) Pain level today is a 0/10 Pt taking Meloxicam and Gabapentin daily as directed. P to follow up with PCP as directed. 4. Insomnia (G47.00: Insomnia, unspecified) Pt is currently taking Baclofen at bedtime. Pt voices effectiveness and is sleeping well throughout the night. Pt follows with PCP as directed. 5. Wears hearing aid in both ears (Z97.4: Presence of external hearing-aid) Stable. Other obstructive and reflux uropathy (N13.8: Other obstructive and reflux uropathy) See # 2. Follow-up No qualifying data available Patient Education Preventive Care 65 Years and Older, Male Benign Prostatic Hyperplasia Problem List/Past Medical History Ongoing Abdominal weakness Arthritis BPH with urinary obstruction Cervical arthritis Chronic constipation Chronic prostatitis Fatigue Hard of hearing Hypocalcemia Insomnia Normocytic anemia Piriformis syndrome Prostate nodule Sacroiliitis Somatic dysfunction of cervical region Somatic dysfunction of head region Somatic dysfunction of lower extremities Somatic dysfunction of lumbar region Somatic dysfunction of sacral spine Somatic dysfunction of tho (more content not included)... Normal [facility] Comment on above: Result Comment: Elec tronically Signed By: Salvatore Mccrary DO\.br\Date and Time Signed: 02/23/24 11:28 EDT\.br\Electronically Co-Signed By: Arpan Gilliam LPN\.br\Date and Time Co-Signed: 02/23/24 10:38 EDT Family Medicine Office/Clini c Noteon 02-10-2024 Family Medicine Office/Clinic Note Family Medicine Office/Clinic Note Chief Complaint 6 Month F/U HPI Staff Patient here for 6 month F/U Insomnia, Fatigue,LBP CLAUDIA 08/12/23 Labs 05/20/23 No real concerns today Interval: RFA done 01/17/24 left RFA Done 01/31/24 right History of Present Illness 83 Years old Male here for 6 mo f/u for med review HPI staff / Chief Complaint confirmed with the patient Social: Patient is to [employer] Patient is retired since age 58; worked in [employer] in [place] for a year, then worked at [employer] for 37 years The patient has child(di) - Shahnaz Galvin who works in pain management 2 grandchild(di) his is here today Screening: aged out of screening *urology is monitoring PSA Smokers/ former smokers: Low dose lung CT: _ List of Providers: Pain management - Dr. Walter Zavala Pain management - Shahnaz Galvin Urologist - Dr. Beatrice Alves To do list: _ HPI staff / Chief Complaint confirmed with the patient Interval history: left side of his neck is feeling better right side of his neck still feels like it's burning more sore than anything 1/10 minimal pain deep in the neck fatigue has improved sleep is better January 31, 2024 - Pain management - Dr. Walter Zavala procedure note right cervical medial branch radiofrequency ablation to target C3-4 and C4-5 facet joints January 17, 2024-pain management-Dr. Walter Zavala Procedure note Left cervical medial branch radiofrequency ablation to target the sensory innervation of left C3-4 and C4-5 facet joints December 15, 2023-pain management-silvia Zavala History of cervical spondyloarthropathy and lumbar postlaminectomy pain syndrome Recent bilateral C3-5 medial branch blocks on December 13, 2023 resulted in 100% relief for several hours Pain has returned and rated 6 out of 10 in severity nonradiating in nature Dull ache that can occasionally be sharp and stabbing localized to his axial cervical spine Agreeable to proceed with radiofrequency ablation Continue gabapentin and baclofen Stop meloxicam prior to the ablations Follow-up 1 month postinjection Noted that the patient should turn off his spinal cord stimulator prior to the ablation December 13, [address] Walter Zavala Procedure note Bilateral diagnostic cervical medial branch block targeting C3-C4 and C5 November 24, 2023-pain management-Dr. Walter Zavala Recent bilateral C3-5 medial branch blocks performed on November 21, 2023 Resulted in 100% relief of his pain for 3 hours Patient would like to proceed with a second block Pain rated 4 out of 10 At worst can be 7 out of 10 Continues to be aggravated with turning bending On gabapentin 600 mg 3 times daily as well as baclofen Follow-up 1 month after procedure November 21, 2023-pain management-Dr. Walter Zavala Procedure note Bilateral diagnostic and cervical medial branch blocks targeting C3, C4, C5 November 06/2024- Pain management - Shahnaz Galvin Follow-up after recent cervical MRI Continues to have neck pain No radicular symptoms Worse with turning his head Worse with looking certain ways Is difficult for him to get comfortable Has undergone therapy in the past without any long-term benefit Continues to do stretching at home Rates his pain 6 out of 10 both sides of his neck On gabapentin and meloxicam Tries to avoid [place] or Tylenol with codeine because it causes significant constipation Recommend diagnostic medial branch block follow-up 2 weeks after procedure September 30, 2023- Pain management - Shahnaz Galvin Postop follow-up after undergoing spinal cord stimulator implant on 06/21/2023 Mary implant was placed Doing well No complaints No pain However he does now complain of increased neck pain rated 8 out of 10 with significant effect on his life Taking baclofen 10 mg 3 times a day Taking gabapentin 600 mg 3 times a day Also taking meloxicam daily Noted that he tries to avoid [place] is much as possible due to significant constipation Noted that physical therapy did not make much of a difference for his neck in the past Continues to perform exercises at home though they do not provide lasting relief Recommend cervical MRI Follow-up after MRI August 19, 2023 - Urologist - Dr. Beatrice Alves BPH with urinary obstruction taking tamsulosin 0.4 mg twice daily No voiding or urinary complaints Continue tamsulosin Prostate nodule biopsy negative in 2020 PSA stable Continue to monitor PSA in 1 year August 12, 2023-last appointment here *see tagged info below Insomnia improved with gabapentin Fatigue improved; recent labs all within normal months Trap spasm continue with baclofen 10 mg 3 times daily, meloxicam 15 mg daily OMT as needed Sacroiliitis significant improvement with spinal cord stimulator Hard of hearing-wears hearing aid in both ears Follow-up 6 months (anything tagged from the patients medical record will be at the bottom of this section) LABS Cr/eGFR: eGFR: >6 (more content not included)... Normal [facility] Comment on above: Result Comment: Elec tronically Signed By: Karishma Reddy DO\.br\Date and Time Signed: 02/10/24 18:35 EDT Ambulatory Visit Summaryon 0 02-08-2024 Ambulatory Visit Summary Ambulatory Visit Summary SEN ULLOA KARISHMA CARVAJALB:1940 Visit Date:02/08/2024 Ambulatory Visit Instructions Your Diagnosis Cervical arthritis Sacroiliitis Wears hearing aid in both ears BPH with urinary obstruction Fatigue Insomnia Spasm of cervical paraspinous muscle BMI 21.0-21.9, adult Chronic pain Lumbar post-laminectomy syndrome Other obstructive and reflux uropathy Your Care Team Attending Physician - Karishma Reddy DO Primary Care Physician - Karishma Reddy DO This Is Your Medications List baclofen (baclofen 10 mg Tab) gabapentin (gabapentin 600 mg Tab) meloxicam (meloxicam 15 mg Tab) pantoprazole tamsulosin (tamsulosin 0.4 mg Cap) Contact prescribing physician if questions or concerns acetaminophen-hydrocodone ([place] 325 mg-5 mg oral tablet) bacillus coagulans-inulin (Probiotic Formula (Bacillus Coagulans)) ergocalciferol (Vitamin D) polyethylene glycol 3350 (MiraLax) Procedures Performed Injection into facet joint of cervical spine using fluoroscopic guidance (12/13/2023), Injection into facet joint of cervical spine using fluoroscopic guidance (11/21/2023), Implantation of permanent spinal cord stimulator (06/21/2023), Spinal cord stimulator trial (06/21/2023), Spinal cord stimulator trial (04/12/2023), Injection of sacroiliac joint using fluoroscopic guidance (02/01/2023), Radiofrequency ablation of medial branch of lumbar nerve using fluoroscopic guidance (11/09/2022), Injection of sacroiliac joint using fluoroscopic guidance (09/14/2022), Injection of hip using ultrasound (US) guidance (03/23/2022), Radiofrequency ablation of medial branch of lumbar nerve using fluoroscopic guidance (01/25/2022), Injection of facet joint using fluoroscopic guidance (01/04/2022), Injection of facet joint using fluoroscopic guidance (11/30/2021), Injection of sacroiliac joint using fluoroscopic guidance (10/19/2021), Radiofrequency ablation of medial branch of lumbar nerve using fluoroscopic guidance (04/28/2021), Injection of facet joint using fluoroscopic guidance (03/23/2021), Injection of facet joint using fluoroscopic guidance (02/23/2021), Revisional laminectomy excision of lumbar intervertebral disc (12/16/2020), Injection of nerve root of lumbar spine using fluoroscopic guidance (09/30/2020), Injection of nerve root of lumbar spine using fluoroscopic guidance (09/30/2020), Trigger point injection (08/04/2020), TRUS - Transrectal ultrasonography (07/31/2020), Radiofrequency ablation of medial branch of lumbar nerve using fluoroscopic guidance (07/15/2020), Radiofrequency ablation of medial branch of lumbar nerve using fluoroscopic guidance (07/08/2020), Injection of facet joint using fluoroscopic guidance (05/06/2020), Injection of facet joint using fluoroscopic guidance (03/18/2020), TPI - Trigger point injection (01/28/2020), History of lumbar discectomy (2017), Cataract, Colonoscopy, Injection of nerve root of lumbar spine using fluoroscopic guidance, Post-surgery back pain. Discharge Vitals Heart Rate (Peripheral) 63 Blood Pressure 104/54 Height 183 cm Height 72 in Weight 71.6 kg Weight 157.52 lb BMI 21.38 What to do next Scheduled Follow-Up Appointments 2023 9:30 AM EDT With: Where: [facility] [place] [address] [facility] [address] [place] [address]- Tuesday 9:30 AM EDT With: Yared Zavala DO Where: [facility] Tuesday 9:15 AM EST With: JOSELYN GALEANA, Beatrice Amaro Where: [facility] [address] [place] [address] [place] [address]- You Need to Schedule the Following Appointments Follow Up with Karishma Reddy DO, FAM, PED When: Within 1 year Comments: To go instructions: Ok to take tylenol on bad days *When you see providers outside of [facility], please request that they send office visit notes every time you're seen there - this helps us take better care of you Screening guidelines: Colon cancer screening starts at age 45 for most people; cologuard every three years or colonoscopy every ten years (for average risk patients) Prostate cancer screening with PSA should begin at age 50 Dental exams and cleanings every 6 months is recommended - oral health is a predictor of your future Smokers who have averaged a pack a day for over twenty years should have annual low dose Chest CT to screen for lung cancer starting at age 50 Follow up 1 year Where: [address] [facility] [address] [place] [id number] Medications What How Much When Why Instructions Changed baclofen (baclofen 10 mg Tab) 1 Tablets By Mouth At bedtime Lumbar post-laminectomy syndrome Pickup at [facility] Changed gabapentin (gabapentin 600 mg Tab) 1 Tablets By Mouth 3 times a day Chronic pain Cervical arthritis Pickup at [facility] Changed tamsulosin (tamsulosin 0.4 mg Cap) 1 Capsul (more content not included)... Normal [facility] Ambulatory Visit Summary Ambulatory Visit Summary SEN ULLOA :1940 Visit Date:02/08/2024 Ambulatory Visit Instructions Your Diagnosis Cervical arthritis Sacroiliitis Wears hearing aid in both ears BPH with urinary obstruction Fatigue Insomnia Spasm of cervical paraspinous muscle BMI 21.0-21.9, adult Chronic pain Lumbar post-laminectomy syndrome Other obstructive and reflux uropathy Your Care Team Attending Physician - Karishma Reddy DO Primary Care Physician - Karishma Reddy DO This Is Your Medications List baclofen (baclofen 10 mg Tab) gabapentin (gabapentin 600 mg Tab) meloxicam (meloxicam 15 mg Tab) pantoprazole tamsulosin (tamsulosin 0.4 mg Cap) Contact prescribing physician if questions or concerns acetaminophen-hydrocodone ([place] 325 mg-5 mg oral tablet) bacillus coagulans-inulin (Probiotic Formula (Bacillus Coagulans)) ergocalciferol (Vitamin D) polyethylene glycol 3350 (MiraLax) Procedures Performed Injection into facet joint of cervical spine using fluoroscopic guidance (12/13/2023), Injection into facet joint of cervical spine using fluoroscopic guidance (11/21/2023), Implantation of permanent spinal cord stimulator (06/21/2023), Spinal cord stimulator trial (06/21/2023), Spinal cord stimulator trial (04/12/2023), Injection of sacroiliac joint using fluoroscopic guidance (02/01/2023), Radiofrequency ablation of medial branch of lumbar nerve using fluoroscopic guidance (11/09/2022), Injection of sacroiliac joint using fluoroscopic guidance (09/14/2022), Injection of hip using ultrasound (US) guidance (03/23/2022), Radiofrequency ablation of medial branch of lumbar nerve using fluoroscopic guidance (01/25/2022), Injection of facet joint using fluoroscopic guidance (01/04/2022), Injection of facet joint using fluoroscopic guidance (11/30/2021), Injection of sacroiliac joint using fluoroscopic guidance (10/19/2021), Radiofrequency ablation of medial branch of lumbar nerve using fluoroscopic guidance (04/28/2021), Injection of facet joint using fluoroscopic guidance (03/23/2021), Injection of facet joint using fluoroscopic guidance (02/23/2021), Revisional laminectomy excision of lumbar intervertebral disc (12/16/2020), Injection of nerve root of lumbar spine using fluoroscopic guidance (09/30/2020), Injection of nerve root of lumbar spine using fluoroscopic guidance (09/30/2020), Trigger point injection (08/04/2020), TRUS - Transrectal ultrasonography (07/31/2020), Radiofrequency ablation of medial branch of lumbar nerve using fluoroscopic guidance (07/15/2020), Radiofrequency ablation of medial branch of lumbar nerve using fluoroscopic guidance (07/08/2020), Injection of facet joint using fluoroscopic guidance (05/06/2020), Injection of facet joint using fluoroscopic guidance (03/18/2020), TPI - Trigger point injection (01/28/2020), History of lumbar discectomy (2017), Cataract, Colonoscopy, Injection of nerve root of lumbar spine using fluoroscopic guidance, Post-surgery back pain. Discharge Vitals Heart Rate (Peripheral) 63 Blood Pressure 104/54 Height 183 cm Height 72 in Weight 71.6 kg Weight 157.52 lb BMI 21.38 What to do next Scheduled Follow-Up Appointments 2023 9:30 AM EDT With: Where: [facility] [place] [address] [address] [place] [address]- Tuesday 9:30 AM EDT With: Yared Zavala DO Where: [facility] Tuesday 9:15 AM EST With: Beatrice ALVES MD Where: [facility] [address] [facility] [place] [address]- You Need to Schedule the Following Appointments Follow Up with Karishma Reddy DO, FAM, PED When: Within 1 year Comments: To go instructions: Ok to take tylenol on bad days *When you see providers outside of [facility], please request that they send office visit notes every time you're seen there - this helps us take better care of you Screening guidelines: Colon cancer screening starts at age 45 for most people; cologuard every three years or colonoscopy every ten years (for average risk patients) Prostate cancer screening with PSA should begin at age 50 Dental exams and cleanings every 6 months is recommended - oral health is a predictor of your future Smokers who have averaged a pack a day for over twenty years should have annual low dose Chest CT to screen for lung cancer starting at age 50 Follow up 1 year Where: [address] [place] [id number] Medications What How Much When Why Instructions Changed baclofen (baclofen 10 mg Tab) 1 Tablets By Mouth At bedtime Lumbar post-laminectomy syndrome Pickup at [facility] Changed gabapentin (gabapentin 600 mg Tab) 1 Tablets By Mouth 3 times a day Chronic pain Cervical arthritis Pickup at [facility] Changed tamsulosin (tamsulosin 0.4 mg Cap) 1 Capsul (more content not included)... Normal [facility] Main OR Intraoperative Recor don 01-31-2024 Main OR Intraoperative Record Main OR Intraoperative Record IntraOp Document Type FTPM Summary Primary Physician: Yared Zavala DO Finalized Date/Time: 01/31/24 13:42:36 Pt. Name: SEN ULLOA/Sex: 1940 Male Med Rec #: [id number] Physician: Yared Zavala DO Financial #: [id number] Pt. Type: P Room/Bed: / Admit/Disch: 01/31/24 11:24:57 - Institution: Case Times FTPM Entry 1 Patient Times In Room 01/31/24 13:26:00 Out Room 01/31/24 13:43:00 Procedure Times Start 01/31/24 13:29:00 Stop 01/31/24 13:42:00 Anesthesia Times Last Modified By: Marry Beltran RN 01/31/24 13:42:23 Case Attendance FTPM Entry 1 Entry 2 Entry 3 Case Attendee Yared Zavala DO, RN, Marry Frazier RN, [facility] Role Performed Surgeon - Primary Salesperson [employer] - Primary Scrub - Primary Time In 01/31/24 13:26:00 01/31/24 13:26:00 01/31/24 13:26:00 Time Out 01/31/24 13:43:00 01/31/24 13:43:00 01/31/24 13:43:00 Procedure CERVICAL RADIO CERVICAL RADIO CERVICAL RADIO FREQUENCY FREQUENCY FREQUENCY ABLATION(Right) ABLATION(Right) ABLATION(Right) Comments Last Modified By: Devin MAHMOOD, Marry Beltran RN, Marry Mart RN 01/31/24 13:42:24 01/31/24 13:42:24 01/31/24 13:42:24 Entry 4 Entry 5 Case Attendee Sony MAHMOOD, Angelic FALK, Hi P Role Performed Embossing Machine Tender Embossing Machine Tender Time In 01/31/24 13:26:00 01/31/24 13:26:00 Time Out 01/31/24 13:43:00 01/31/24 13:43:00 Procedure CERVICAL RADIO CERVICAL RADIO FREQUENCY FREQUENCY ABLATION(Right) ABLATION(Right) Comments Last Modified By: Devin MAHMOOD, Marry Beltran RN, Marry Robert 01/31/24 13:42:24 01/31/24 13:42:24 Perioperative Protocols FTPM Pre-Care Text: Implements protective measures prior to operative or invasive procedure, confirms identity before the operative or invasive procedure, verifies operative procedure, surgical site, and laterality Entry 1 Procedure(s) CERVICAL RADIO Patient Identity Birthday, ID Band FREQUENCY Verified (select at Check, Patient ABLATION(Right) least 2): Participation Consents / H and P H&P, Surgery/Procedure Operative Site Present Verified Consent Marking Verified Surgical Site Yes Laterality Verified Yes Verified Procedure Verified Yes Correct Patient Yes Position Verified Availability Equipment, Medication, Prep Dry Yes Verified (If X-ray Applicable) PreOp Antibiotic No Time Out Yared Zavala DO, Given Participants Devin MAHMOOD, Freddie Hollingsworth RN, Sony Gastelum RN, Terri Atwood, Hi P Time Out Complete 01/31/24 13:26:00 Outcomes Met? Yes Last Modified By: Marry Beltran RN 01/31/24 13:29:07 Post-Care Text: The patient is free from signs and symptoms of injury caused by extraneous objects Allergy Information FTPM Pre-Care Text: Verifies allergies Entry 1 Allergies Reviewed? Yes Allergies Reviewed Self/Patient With Outcomes Met? Yes Last Modified By: Marry Beltran RN 01/31/24 13:23:07 Post-Care Text: The patient received appropriate medication(s) safely administered during the perioperative period Surgical Procedures FTPM Entry 1 Procedure Description Procedure CERVICAL RADIO Modifiers Right FREQUENCY ABLATION Surgeon Description C3-5 MBB RFA FOR C3/4 + C4/5 FACETS Primary Procedure Yes Primary Surgeon Yared Zavala DO Start 01/31/24 13:29:00 Stop 01/31/24 13:42:00 Anesthesia Type None Surgical Service Pain Management Wound Class 1 - Clean Last Modified By: Marry Beltran RN 01/31/24 13:42:32 General Case Data FTPM Pre-Care Text: Classifies surgical wound, implements aseptic technique, initiates traffic control Entry 1 Case Information OR Pain Proc Room Case Level Level 2 Wound Class 1 - Clean Specialty Pain Management Preop Diagnosis M47.812 Postop Same As Preop Yes Postop Diagnosis M47.812 Outcomes Met? Yes Last Modified By: Marry Beltran RN 01/31/24 13:29:20 Post-Care Text: The patient is free from signs and symptoms of infection Skin Assessment (Pre Procedure) FTPM Pre-Care Text: Implements protective measures to prevent skin/ tissue injury due to thermal or mechanical sources Evaluates for signs and symptoms of physical injury to skin and tissue Entry 1 Skin Integrity Intact, Marceline, Warm, & Skin Abnormality No Dry Outcomes Met? Yes Last Modified By: Marry Beltran RN 01/31/24 13:23:14 Post-Care Text: The patient is free from signs and symptoms of injury caused by extraneous objects Patient Positioning FTPM Pre-Care Text: Identifies physical alterations that require additional precautions for procedure-specific positioning, verifies presence of prosthetics or corrective devices, positions the patient, evaluates the patient for signs and symptoms of injury as a result of positioning Entry 1 Procedure CERVICAL RADIO Body Position Prone FREQUENCY ABLATION(Right) Feet Uncrossed? Yes Left Arm Position Resting at Side Right (more content not included)... Normal [facility] Main OR Preoperative Recordo n 01-31-2024 Main OR Preoperative Record Main OR Preoperative Record Holding Area Document Type FT Summary Primary Physician: Yared Zavala DO Finalized Date/Time: 01/31/24 11:35:27 Pt. Name: SEN ULLOA/Sex: 1940 Male Med Rec #: [id number] Physician: Yared Zavala DO Financial #: [id number] Pt. Type: P Room/Bed: / Admit/Disch: 01/31/24 11:24:57 - Institution: Case Times Holding FTPM Pre-Care Text: Verifies consent for planned procedure, identifies individual values and wishes concerning care, includes family members in perioperative teaching Secures patient's records' belongings, and valuables, maintains patient's dignity and privacy, and maintains patient confidentiality Entry 1 In Holding 01/31/24 11:33:00 Outcomes Met? Yes Last Modified By: Ana Carrillo RN 01/31/24 11:33:36 Post-Care Text: The patient participates in decisions affecting his or her perioperative plan of care The patient's right to privacy is maintained Surgery Checklist FTPM Entry 1 Patient Birthday, ID Band Procedure History and Physical, Identification: Check, Patient Verification: Surgical Consent, With Participation Patient NPO after Midnight: No Date/Time: 01/31/24 11:33:00 Results Reviewed 0630 eggs, sweet Personal Items: Cataract Lens Implant, Comments: potatoes and coffee Dentures Personal Items Pt. wearing upper Complaints of Pain: Yes Comment: partial. He has a history of bilateral cataract lens implants. Pain Comment: 8/10 right neck pain Operative Site Yes Marking: Marked By: Dr. Zavala Location: right C3-C5 Availability Equipment, X-Ray Verified: Does Patient Smoke No Patient states Yes Comment - Adult -Yolanda postop adult Supervision supervision available Case Cancelled in No Holding Area see comments below for reason Last Modified By: Ana Carrillo RN 01/31/24 11:35:23 Finalized By: Ana Carrillo RN Document Signatures Signed By: Ana Carrillo RN 01/31/24 11:35 Normal [facility] Operative Reporton 4 Operative Report Operative Report Diagnosis: M47.812, cervical spondyloarthropathy Procedure: Right cervical medial branch radiofrequency ablation to target the C3/4 and C4/5 facet joints Anesthesia: Local Complications: None After informed consent was obtained, the patient was brought to the procedure room and placed in the prone position. The back area is prepped and draped in usual sterile fashion. The patient was placed on monitors via the anesthesia team. Using fluoroscopic guidance skin and subcutaneous tissue overlying needle trajectories to the target sites were anesthetized with 2% lidocaine. 20-gauge radiofrequency needles were advanced under fluoroscopic guidance to the appropriate anatomic landmarks. Needle tip position was confirmed on both sides in both the AP and lateral views. Next, all levels were stimulated at 2Hz for motor stimulation at 2.0V with no upper extremity motor contractions. Next 0.5mL of 2.0% lidocaine was injected through each needle tip. Thereafter, radiofrequency lesioning was carried out at 80 degrees for 80 seconds twice. Next 0.5mL of 2.0% lidocaine was injected through each needle tip. Thereafter, radiofrequency lesioning was carried out at 80 degrees for 80 seconds twice. The needles were removed. The patient was then transferred to the recovery room in stable condition. Postprocedure upper and lower extremity strength 5/5 bilaterally. Follow-up: Discharge instructions provided. The patient agrees to continue currently prescribed/recommended therapies. [facility] Comment on above: Result Comment: Elec tronically Signed By: Yared Zavala DO\.br\Date and Time Signed: 01/31/24 13:45 EDT Main OR Intraoperative Recor don 01-17-2024 Main OR Intraoperative Record Main OR Intraoperative Record IntraOp Document Type FTPM Summary Primary Physician: Yared Zavala DO Finalized Date/Time: 01/17/24 11:42:04 Pt. Name: SEN ULLOA/Sex: 1940 Male Med Rec #: [id number] Physician: Yared Zaavla DO Financial #: [id number] Pt. Type: P Room/Bed: / Admit/Disch: 01/17/24 09:38:26 - Institution: Case Times FTPM Entry 1 Patient Times In Room 01/17/24 11:13:00 Out Room 01/17/24 11:35:00 Procedure Times Start 01/17/24 11:16:00 Stop 01/17/24 11:34:00 Anesthesia Times Last Modified By: Marry Beltran RN 01/17/24 11:34:39 Case Attendance FTPM Entry 1 Entry 2 Entry 3 Case Attendee Yared Zavala DO, RN, Marry Frazier RN, Woodlyn Bertrand Role Performed Surgeon - Primary Salesperson [employer] - Primary Scrub - Primary Time In 01/17/24 11:13:00 01/17/24 11:13:00 01/17/24 11:13:00 Time Out 01/17/24 11:35:00 01/17/24 11:35:00 01/17/24 11:35:00 Procedure CERVICAL RADIO CERVICAL RADIO CERVICAL RADIO FREQUENCY ABLATION(Left) FREQUENCY ABLATION(Left) FREQUENCY ABLATION(Left) Comments Last Modified By: Marry Beltran RN, RN, Marry Mart RN 01/17/24 11:34:40 01/17/24 11:34:40 01/17/24 11:34:40 Entry 4 Case Attendee Geovanna HICKS)Jennifer Role Performed Embossing Machine Tender Time In 01/17/24 11:13:00 Time Out 01/17/24 11:35:00 Procedure CERVICAL RADIO FREQUENCY ABLATION(Left) Comments Last Modified By: Marry Beltran RN 01/17/24 11:34:40 Perioperative Protocols FTPM Pre-Care Text: Implements protective measures prior to operative or invasive procedure, confirms identity before the operative or invasive procedure, verifies operative procedure, surgical site, and laterality Entry 1 Procedure(s) CERVICAL RADIO Patient Identity Birthday, ID Band FREQUENCY ABLATION(Left) Verified (select at Check, Patient least 2): Participation Consents / H and P HandP, Surgery/Procedure Operative Site Present Verified Consent Marking Verified Surgical Site Yes Laterality Verified Yes Verified Procedure Verified Yes Correct Patient Yes Position Verified Availability Equipment, Medication, Prep Dry Yes Verified (If X-ray Applicable) PreOp Antibiotic No Time Out Marry Beltran RN, Given Nixon Frazier RN, Lucas Gastelum DO, Bradford A., Christman RT(R)Jennifer Time Out Complete 01/17/24 11:13:00 Outcomes Met? Yes Last Modified By: Marry Beltran RN 01/17/24 11:15:09 Post-Care Text: The patient is free from signs and symptoms of injury caused by extraneous objects Allergy Information FTPM Pre-Care Text: Verifies allergies Entry 1 Allergies Reviewed? Yes Allergies Reviewed Self/Patient With Outcomes Met? Yes Last Modified By: Marry Beltran RN 01/17/24 11:10:34 Post-Care Text: The patient received appropriate medication(s) safely administered during the perioperative period Surgical Procedures FTPM Entry 1 Procedure Description Procedure CERVICAL RADIO Modifiers Left FREQUENCY ABLATION Surgeon Description C3-5 MBB RFA FOR C3/4+5/5 FACETS Primary Procedure Yes Primary Surgeon Yared Zavala DO Start 01/17/24 11:16:00 Stop 01/17/24 11:34:00 Anesthesia Type None Surgical Service Pain Management Wound Class 1 - Clean Last Modified By: Marry Beltran RN 01/17/24 11:34:41 General Case Data FTPM Pre-Care Text: Classifies surgical wound, implements aseptic technique, initiates traffic control Entry 1 Case Information OR Pain Proc Room Case Level Level 2 Wound Class 1 - Clean Specialty Pain Management Preop Diagnosis M47.812 Postop Same As Preop Yes Postop Diagnosis M47.812 Outcomes Met? Yes Last Modified By: Marry Beltran RN 01/17/24 11:15:41 Post-Care Text: The patient is free from signs and symptoms of infection Skin Assessment (Pre Procedure) FTPM Pre-Care Text: Implements protective measures to prevent skin/ tissue injury due to thermal or mechanical sources Evaluates for signs and symptoms of physical injury to skin and tissue Entry 1 Skin Integrity Intact, Marceline, Warm, and Skin Abnormality No Dry Outcomes Met? Yes Last Modified By: Marry Beltran RN 01/17/24 11:10:42 Post-Care Text: The patient is free from signs and symptoms of injury caused by extraneous objects Patient Positioning FTPM Pre-Care Text: Identifies physical alterations that require additional precautions for procedure-specific positioning, verifies presence of prosthetics or corrective devices, positions the patient, evaluates the patient for signs and symptoms of injury as a result of positioning Entry 1 Procedure CERVICAL RADIO Body Position Prone FREQUENCY ABLATION(Left) Feet Uncrossed? Yes Left Arm Position Resting at Side Right Arm Position Resting at Side Left Leg Position Extended Right Leg Position Extended Positioning Device Pillow Under Head Large, Safety Strap, Pillow Large Under Knees (more content not included)... Normal [facility] Main OR Preoperative Recordo n 01-17-2024 Main OR Preoperative Record Main OR Preoperative Record Holding Area Document Type FT Summary Primary Physician: Yared Zavala DO Finalized Date/Time: 01/17/24 09:45:07 Pt. Name: SEN ULLOA Jelly/Sex: 1940 Male Med Rec #: [id number] Physician: Yared Zavala DO Financial #: [id number] Pt. Type: P Room/Bed: / Admit/Disch: 01/17/24 09:38:26 - Institution: Case Times Holding FTPM Pre-Care Text: Verifies consent for planned procedure, identifies individual values and wishes concerning care, includes family members in perioperative teaching Secures patient's records' belongings, and valuables, maintains patient's dignity and privacy, and maintains patient confidentiality Entry 1 In Holding 01/17/24 09:43:00 Outcomes Met? Yes Last Modified By: Ana Carrillo RN 01/17/24 09:43:22 Post-Care Text: The patient participates in decisions affecting his or her perioperative plan of care The patient's right to privacy is maintained Surgery Checklist FTPM Entry 1 Patient Birthday, ID Band Procedure History and Physical, Identification: Check, Patient Verification: Surgical Consent, With Participation Patient NPO after Midnight: No Date/Time: 01/17/24 09:43:00 Results Reviewed 0700 toast, eggs and Personal Items: Cataract Lens Implant, Comments: coffee Dentures Personal Items Pt. wearing upper Complaints of Pain: Yes Comment: partial. He has a history of bilateral cataract lens implants. Pain Comment: 01/17 neck pain Operative Site Yes Marking: Marked By: Dr. Zavala Location: left C3-C5 Availability Equipment, X-Ray Verified: Does Patient Smoke No Patient states Yes Comment - Adult -Yolanda postop adult Supervision supervision available Case Cancelled in No Holding Area see comments below for reason Last Modified By: Ana Carrillo RN 01/17/24 09:45:06 Finalized By: Ana Carrillo RN Document Signatures Signed By: Ana Carrillo RN 01/17/24 09:45 Normal [facility] Operative Reporton Operative Report Operative Report Diagnosis: M47.812, cervical spondyloarthropathy Procedure: Left cervical medial branches radiofrequency ablation to target the sensory innervation of left C3/4 and C4/5 facet joints Anesthesia: Local Complications: None After informed consent was obtained, the patient was brought to the procedure room and placed in the prone position. The back area is prepped and draped in usual sterile fashion. The patient was placed on monitors via the anesthesia team. Using fluoroscopic guidance skin and subcutaneous tissue overlying needle trajectories to the target sites were anesthetized with 2% lidocaine. 20-gauge radiofrequency needles were advanced under fluoroscopic guidance to the appropriate anatomic landmarks. Needle tip position was confirmed on both sides in both the AP and lateral views. Next, all levels were stimulated at 2Hz for motor stimulation at 2.0V with no upper extremity motor contractions. Next 0.5mL of 2.0% lidocaine was injected through each needle tip. Thereafter, radiofrequency lesioning was carried out at 80 degrees for 80 seconds twice. Next 0.5mL of 2.0% lidocaine was injected through each needle tip. Thereafter, radiofrequency lesioning was carried out at 80 degrees for 80 seconds twice. The needles were removed. The patient was then transferred to the recovery room in stable condition. Postprocedure upper and lower extremity strength 5/5 bilaterally. Follow-up: Discharge instructions provided. The patient agrees to continue currently prescribed/recommended therapies. [facility] Comment on above: Result Comment: Elec tronically Signed By: Yared Zavala DO.br\Date and Time Signed: 01/17/24 11:36 EDT Patient Correspondenceon Patient Correspondence [id number]#1.00TIFF [facility] Insurance Correspondence Off iceon 12-16-2023 Insurance Correspondence Office [id number]#1.00TIFF [facility] Consent for Treatmenton Consent for Treatment [id number]#1.00TIFF [facility] Consultation Noteon 12-15-19 Consultation Note Patient is presentin g with with a history of cervical spondyloarthropathy and lumbar postlaminectomy pain syndrome. He recently underwent bilateral C3-5 medial branch blocks target the C3/4 and C4/5 facet joints under fluoroscopic guidance on 12/13/2023. This was his second medial branch block of these levels and resulted in 100% relief for several hours. Unfortunately his pain is since returned and he rates it as a 6/10 in severity, nonradiating in nature, describes a dull ache that can be sharp/stabbing. Purely localized to his axial cervical spine. He feels that these medial branches were very helpful would like to proceed with the ablation at these levels. He would like to perform the left side first as we discussed that performing bilateral procedures can result in proprioceptive disturbances for several weeks and we would like to avoid this for him. In addition we discussed continuation of gabapentin as well as baclofen as well as stopping meloxicam prior to this injection in the neck. DIANN Score: 31% PHQ-2: 0 Patient denies any symptoms of progressively worsening upper/lower extremity weakness, progressively worsening gait abnormality, new onset bowel/bladder incontinence/ urinary retention, or saddle anesthesia. No new or worsening symptoms of fever, chills, night sweats. 14 Point Review of systems negative unless otherwise noted. General: No acute distress. Patient appears well-nourished. HEENT: Head is normocephalic and external ears are normal in appearance. Cardiovascular: No signs of poor perfusion and no peripheral edema Pulmonary: Nonlabored breathing, symmetric chest movement. GI: Abdomen nondistended Integumentary: No lesions Neurologic: Alert, oriented x3. 5/5 strength grossly in the bilateral upper extremities. Sensation intact to light touch in the bilateral upper extremities. MSK/Special Testing: Negative Anh sign bilaterally, tenderness palpation cervical paraspinal musculature with pain reproduced with cervical facet loading bilaterally. History, physical examination, and personal review of pertinent imaging results indicate a diagnosis of: -Cervical spondyloarthropathy -Lumbar postlaminectomy pain syndrome Plan: -Patient agree response to bilateral cervical medial branch blocks to target the C3/4 and C4-6/5 facet joints under fluoroscopic guidance, we will plan to perform a left-sided cervical medial branch radiofrequency ablation to target the C3/4 and C4/5 facet joints under fluoroscopic guidance. We will then perform a right-sided procedure at the exact same levels at a later date if he still has persistent pain to avoid any component of proprioceptive disturbances that may occur when performing these procedures bilaterally as an ablation. -Continue gabapentin and baclofen, discussed stopping meloxicam prior to these ablations -Follow-up 1 month postinjection or sooner if needed Patient was counseled on the above diagnosis and treatment, all questions were answered and patient agrees to adhere to the plan above. Risk and benefits of appropriate procedures and medications were reviewed as well with patient, who voiced understanding and agreeance. Patient was counseled on appropriate use of opioids if prescribed or renewed today and naloxone was offered to patient if opioids were prescribed or maintained at this visit. PHQ-2 scoring reviewed with patient and discussed seeking treatment for depression or mood disorder as appropriate. Patient was counseled on smoking cessation and/or continuing to abstain from nicotine/tobacco products as appropriate based on history; as smoking/nicotine can contribute to increased pain overall and decreased wound healing. Patient counseled on maintaining a healthy BMI as part of the total treatment of their pain and to reduce stress/strain on joints. Patient invited to return or call with any questions or concerns that arise. In addition patient will have to turn off his spinal cord stimulator for this ablation. [facility] Comment on above: Result Comment: Elec tronically Signed By: Lucas CARVAJAL, Yared Lagunas.br\Date and Time Signed: 12/15/23 16:06 EDT Office/Clinic Note-Physician on 12-15-2023 Office/Clinic Note-Physician [id number]#1.00TIFF [facility] Patient Correspondenceon Patient Correspondence [id number]#1.00TIFF [facility] Patient Correspondence [id number]#1.00TIFF [facility] Patient Correspondence [id number]#1.00TIFF [facility] Patient History Officeon Patient History Office [id number]#1.00TIFF [facility] Consent for Procedure/Surger yon 12-14-2023 Consent for Procedure/Surgery [id number]#1.00TIFF [facility] Discharge Instructionson Discharge Instructions [id number]#1.00TIFF Normal [facility] IntraOperative Documentson 0 12-14-2023 IntraOperative Documents [id number]#1.00TIFF Normal [facility] IntraOperative Documents [id number]#1.00TIFF Normal [facility] Consent for Treatmenton 0 Consent for Treatment [id number]#1.00TIFF Normal [facility] Main OR Intraoperative Recor don 12-13-2023 Main OR Intraoperative Record IntraOp Document Type FTPM Summary Primary Physician: Yared Zavala DO Finalized Date/Time: 12/13/23 14:32:42 Pt. Name: SEN ULLOA/Sex: 1940 Male Med Rec #: [id number] Physician: Yared Zavala DO Financial #: [id number] Pt. Type: P Room/Bed: / Admit/Disch: 12/13/23 12:57:26 - Institution: Case Times FTPM Entry 1 Patient Times In Room 12/13/23 14:16:00 Out Room 12/13/23 14:32:00 Procedure Times Start 12/13/23 14:19:00 Stop 12/13/23 14:31:00 Anesthesia Times Last Modified By: Marry Beltran RN 12/13/23 14:32:31 Case Attendance FTPM Entry 1 Entry 2 Entry 3 Case Attendee Yared Zavala DO, RN, Angelic Burnham RN Role Performed Surgeon - Primary Salesperson Automobiles - Primary Scrub - Primary Time In 12/13/23 14:16:00 12/13/23 14:16:00 12/13/23 14:16:00 Time Out 12/13/23 14:32:00 12/13/23 14:32:00 12/13/23 14:32:00 Procedure MEDIAL BRANCH MEDIAL BRANCH MEDIAL BRANCH BLOCK(Bilateral) BLOCK(Bilateral) BLOCK(Bilateral) Comments Last Modified By: Marry Beltran RN, RN, Marry Mart RN 12/13/23 14:32:31 12/13/23 14:32:31 12/13/23 14:32:31 Entry 4 Case Attendee Eva Do Role Performed Embossing Machine Tender Time In 12/13/23 14:16:00 Time Out 12/13/23 14:32:00 Procedure MEDIAL BRANCH BLOCK(Bilateral) Comments Last Modified By: Marry Beltran RN 12/13/23 14:32:31 Perioperative Protocols FTPM Pre-Care Text: Implements protective measures prior to operative or invasive procedure, confirms identity before the operative or invasive procedure, verifies operative procedure, surgical site, and laterality Entry 1 Procedure(s) MEDIAL BRANCH Patient Identity Birthday, ID Band BLOCK(Bilateral) Verified (select at Check, Patient least 2): Participation Consents / H and P HandP, Surgery/Procedure Operative Site Present Verified Consent Marking Verified Surgical Site Yes Laterality Verified Yes Verified Procedure Verified Yes Correct Patient Yes Position Verified Availability Equipment, Medication, Prep Dry Yes Verified (If X-ray Applicable) PreOp Antibiotic No Time Out Marry Beltran RN, Given Participants Smith RN, Lucas Atwood DO, Bradford A., Daniel, Alissa M Time Out Complete 12/13/23 14:16:00 Outcomes Met? Yes Last Modified By: Marry Beltran RN 12/13/23 14:17:05 Post-Care Text: The patient is free from signs and symptoms of injury caused by extraneous objects Allergy Information FTPM Pre-Care Text: Verifies allergies Entry 1 Allergies Reviewed? Yes Allergies Reviewed Self/Patient With Outcomes Met? Yes Last Modified By: Marry Beltran RN 12/13/23 14:14:53 Post-Care Text: The patient received appropriate medication(s) safely administered during the perioperative period Surgical Procedures FTPM Entry 1 Procedure Description Procedure MEDIAL BRANCH BLOCK Modifiers Bilateral Surgeon Description C3-5 MBB Primary Procedure Yes Primary Surgeon Yared Zavala DO Start 12/13/23 14:19:00 Stop 12/13/23 14:31:00 Anesthesia Type None Surgical Service Pain Management Wound Class 1 - Clean Last Modified By: Marry Beltran RN 12/13/23 14:32:39 General Case Data FTPM Pre-Care Text: Classifies surgical wound, implements aseptic technique, initiates traffic control Entry 1 Case Information OR Pain Proc Room Case Level Level 2 Wound Class 1 - Clean Specialty Pain Management Preop Diagnosis M47.812 Postop Same As Preop Yes Postop Diagnosis M47.812 Outcomes Met? Yes Last Modified By: Marry Beltran RN 12/13/23 14:17:18 Post-Care Text: The patient is free from signs and symptoms of infection Skin Assessment (Pre Procedure) FTPM Pre-Care Text: Implements protective measures to prevent skin/ tissue injury due to thermal or mechanical sources Evaluates for signs and symptoms of physical injury to skin and tissue Entry 1 Skin Integrity Intact, Marceline, Warm, and Skin Abnormality No Dry Outcomes Met? Yes Last Modified By: Marry Beltran RN 12/13/23 14:15:01 Post-Care Text: The patient is free from signs and symptoms of injury caused by extraneous objects Patient Positioning FTPM Pre-Care Text: Identifies physical alterations that require additional precautions for procedure-specific positioning, verifies presence of prosthetics or corrective devices, positions the patient, evaluates the patient for signs and symptoms of injury as a result of positioning Entry 1 Procedure MEDIAL BRANCH Body Position Prone BLOCK(Bilateral) Feet Uncrossed? Yes Left Arm Position Resting at Side Right Arm Position Resting at Side Left Leg Position Extended Right Leg Position Extended Positioning Device Pillow Under Head Large, Safety Strap, Pillow Large Under Knees Press Points Checked Yes By Marry Beltran RN Outcomes Met? Yes Last Modified By: Marry Beltran RN 12/13/23 14:17:26 Post-Care Text: Th (more content not included)... Normal [facility] Main OR Preoperative Recordo n 12-13-2023 Main OR Preoperative Record Holding Area Document Type FTPM Summary Primary Physician: Yared Zavala DO Finalized Date/Time: 12/13/23 13:23:19 Pt. Name: SEN ULLOA/Sex: 1940 Male Med Rec #: [id number] Physician: Yared Zavala DO Financial #: [id number] Pt. Type: P Room/Bed: / Admit/Disch: 12/13/23 12:57:26 - Institution: Case Times Holding FTPM Pre-Care Text: Verifies consent for planned procedure, identifies individual values and wishes concerning care, includes family members in perioperative teaching Secures patient's records' belongings, and valuables, maintains patient's dignity and privacy, and maintains patient confidentiality Entry 1 In Holding 12/13/23 13:21:00 Outcomes Met? Yes Last Modified By: Ana Carrillo RN 12/13/23 13:21:34 Post-Care Text: The patient participates in decisions affecting his or her perioperative plan of care The patient's right to privacy is maintained Surgery Checklist FTPM Entry 1 Patient Birthday, ID Band Procedure History and Physical, Identification: Check, Patient Verification: Surgical Consent, With Participation Patient NPO after Midnight: No Date/Time: 12/13/23 13:21:00 Results Reviewed 1000 banana Personal Items: Cataract Lens Implant, Comments: Dentures Personal Items Pt. wearing upper Complaints of Pain: Yes Comment: dentures. He has a history of bilateral cataract lens implants. Pain Comment: 02/17 neck pain Operative Site Yes Marking: Marked By: Dr. Zavala Location: bilateral C3-C5 Availability Equipment, X-Ray Verified: Does Patient Smoke No Patient states Yes Comment - Adult -Yolanda postop adult Supervision supervision available Case Cancelled in No Holding Area see comments below for reason Last Modified By: Ana Carrillo RN 12/13/23 13:23:16 Finalized By: Ana Carrillo RN Document Signatures Signed By: Ana Carrillo RN 12/13/23 13:23 Ana Carrillo RN 12/13/23 13:23 [facility] Patient Correspondenceon Patient Correspondence [id number]#1.00TIFF [facility] Consent for Treatmenton 11-08 Consent for Treatment [id number]#1.00TIFF [facility] Consultation Noteon 11-24-19 Consultation Note Patient is presentin g with a past medical history of cervical spine stenosis, cervical spondyloarthropathy, lumbar postlaminectomy pain syndrome. He is status post bilateral C3-5 medial branch blocks to target the C3/4 and C4/5 facet joints bilaterally, this was performed on 11/21/2023. He received 100% relief from this injection for 3 hours. He had no pain in his neck. Overall he feels that this was a significant result and he would like to proceed with a second test block. At present his pain is returned and he rates it as a 4/10 now but it can be a 7/10 when significantly exacerbated for him. This is still worse with twisting turning bending and nonradiating in nature and is secondary to his spondyloarthropathy. We did review his cervical spine MRI again with him today. We discussed medications and if any changes are needed, patient is stable on gabapentin 600 mg 3 times daily as well as baclofen to be taken as needed for muscle spasticity. Overall he feels that this area of his neck is making forward progress with these injections and he would like to continue with this therapy and treatment DIANN Score: 20% Patient denies any symptoms of progressively worsening upper/lower extremity weakness, progressively worsening gait abnormality, new onset bowel/bladder incontinence/ urinary retention, or saddle anesthesia. No new or worsening symptoms of fever, chills, night sweats. 14 Point Review of systems negative unless otherwise noted. General: No acute distress. Patient appears well-nourished. HEENT: Head is normocephalic and external ears are normal in appearance. Cardiovascular: No signs of poor perfusion and no peripheral edema Pulmonary: Nonlabored breathing, symmetric chest movement. GI: Abdomen nondistended Integumentary: No lesions Neurologic: Alert, oriented x3. 5/5 strength grossly in the bilateral upper extremities. Sensation intact to light touch in the bilateral upper extremities. 5/5 strength grossly in the bilateral lower extremities. Sensation intact to light touch in the bilateral lower extremities. MSK/Special Testing: Negative Anh sign bilaterally, tenderness palpation cervical paraspinal musculature bilaterally, cervical spine facet loading did reproduce axial pain bilaterally. History, physical examination, and personal review of pertinent imaging results indicate a diagnosis of: -Bilateral cervical spondyloarthropathy -Cervical spine stenosis -Lumbar postlaminectomy pain syndrome Plan: -Patient on XR sponsored bilateral C3-5 medial branch blocks to target the C3/4 and C4/5 facet joints, we will plan to repeat cervical spine medial branch block at C3-5 for second time in anticipation of radiofrequency ablation as long as this provides significant lasting relief -We also discussed his gabapentin medication we will continue this at 60 mg 3 times daily as well as continue his baclofen -Will follow-up as soon as able postinjection to evaluate his response and consideration of radiofrequency ablation Patient was counseled on the above diagnosis and treatment, all questions were answered and patient agrees to adhere to the plan above. Risk and benefits of appropriate procedures and medications were reviewed as well with patient, who voiced understanding and agreeance. Patient was counseled on appropriate use of opioids if prescribed or renewed today and naloxone was offered to patient if opioids were prescribed or maintained at this visit. PHQ-2 scoring reviewed with patient and discussed seeking treatment for depression or mood disorder as appropriate. Patient was counseled on smoking cessation and/or continuing to abstain from nicotine/tobacco products as appropriate based on history; as smoking/nicotine can contribute to increased pain overall and decreased wound healing. Patient counseled on maintaining a healthy BMI as part of the total treatment of their pain and to reduce stress/strain on joints. Patient invited to return or call with any questions or concerns that arise. Spinal cord: The visualized spinal cord is normal in signal and caliber. Paraspinal soft tissues: Paraspinal soft tissues are unremarkable. Craniovertebral junction: Visualized posterior fossa structures and craniovertebral junction are unremarkable. C2-3: Mild hypertrophic facet changes, without central spinal stenosis, neural foraminal narrowing, or a discrete disc protrusion. C3-4: Mild disc space narrowing, mild to moderate posterolateral endplate osteophytosis with associated broad-based disc protrusion and mild to moderate hypertrophic facet changes, which results in mild central spinal stenosis and moderate to marked right neural foraminal narrowing. C4-5: Mild left and moderate to marked right hypertrophic facet changes, which results in moderate to marked right neural foraminal narrowing. C5-6: Mild disc space narrowing, mild to moderate posterolateral endplate osteophytosis with associated broad-based disc protrusion and mild to moder (more content not included)... Normal [facility] Comment on above: Result Comment: Elec tronically Signed By: Yared Zavala DO.br\Date and Time Signed: 11/24/23 13:51 EDT Office/Clinic Note-Physician on 11-24-2023 Office/Clinic Note-Physician [id number]#1.00TIFF Normal [facility] Patient Correspondenceon Patient Correspondence [id number]#1.00TIFF Normal [facility] Patient Correspondence [id number]#1.00TIFF Normal [facility] Patient Correspondence [id number]#1.00TIFF Normal [facility] Patient History Officeon Patient History Office [id number]#1.00TIFF Normal [facility] Consent for Procedure/Surger yon 11-21-2023 Consent for Procedure/Surgery [id number]#1.00TIFF Normal [facility] Consent for Treatmenton 11-08 Consent for Treatment [id number]#1.00TIFF Normal [facility] Discharge Instructionson Discharge Instructions [id number]#1.00TIFF Normal [facility] IntraOperative Documentson 0 11-21-2023 IntraOperative Documents [id number]#1.00TIFF Normal [facility] IntraOperative Documents [id number]#1.00TIFF Normal [facility] Main OR Intraoperative Recor don 11-21-2023 Main OR Intraoperative Record IntraOp Document Type [facility] Summary Primary Physician: Yared Zavala DO Finalized Date/Time: 11/21/23 08:51:05 Pt. Name: SEN ULLAO/Sex: 1940 Male Med Rec #: [id number] Physician: Yared Zavala DO Financial #: [id number] Pt. Type: P Room/Bed: / Admit/Disch: 11/21/23 07:20:26 - Institution: Case Times FTPM Entry 1 Patient Times In Room 11/21/23 08:36:00 Out Room 11/21/23 08:51:00 Procedure Times Start 11/21/23 08:39:00 Stop 11/21/23 08:50:00 Anesthesia Times Last Modified By: Marry Beltran RN 11/21/23 08:50:51 Case Attendance FTPM Entry 1 Entry 2 Entry 3 Case Attendee Yared Zavala DO, RN, Marry Cardoza RN, Angelic Role Performed Surgeon - Primary [employer]person [employer] - Primary Scrub - Primary Time In 11/21/23 08:36:00 11/21/23 08:36:00 11/21/23 08:36:00 Time Out 11/21/23 08:51:00 11/21/23 08:51:00 11/21/23 08:51:00 Procedure MEDIAL BRANCH MEDIAL BRANCH MEDIAL BRANCH BLOCK(Bilateral) BLOCK(Bilateral) BLOCK(Bilateral) Comments Last Modified By: Devin MAHMOOD, Marry Beltran RN, Marry Mart RN 11/21/23 08:50:52 11/21/23 08:50:52 11/21/23 08:50:52 Entry 4 Case Attendee Calvin Rogers Role Performed Embossing Machine Tender Time In 11/21/23 08:36:00 Time Out 11/21/23 08:51:00 Procedure MEDIAL BRANCH BLOCK(Bilateral) Comments Last Modified By: Marry Beltran RN 11/21/23 08:50:52 Perioperative Protocols FTPM Pre-Care Text: Implements protective measures prior to operative or invasive procedure, confirms identity before the operative or invasive procedure, verifies operative procedure, surgical site, and laterality Entry 1 Procedure(s) MEDIAL BRANCH Patient Identity Birthday, ID Band BLOCK(Bilateral) Verified (select at Check, Patient least 2): Participation Consents / H and P HandP, Surgery/Procedure Operative Site Present Verified Consent Marking Verified Surgical Site Yes Laterality Verified Yes Verified Procedure Verified Yes Correct Patient Yes Position Verified Availability Equipment, Medication, Prep Dry Yes Verified (If X-ray Applicable) PreOp Antibiotic No Time Out Marry Beltran RN, Karen Cardoza RN, Lucas Atwood DO, Bradford A., Calvin Rogers Time Out Complete 11/21/23 08:36:00 Outcomes Met? Yes Last Modified By: Marry Beltran RN 11/21/23 08:37:31 Post-Care Text: The patient is free from signs and symptoms of injury caused by extraneous objects Allergy Information FTPM Pre-Care Text: Verifies allergies Entry 1 Allergies Reviewed? Yes Allergies Reviewed Self/Patient With Outcomes Met? Yes Last Modified By: Marry Beltran RN 11/21/23 08:37:38 Post-Care Text: The patient received appropriate medication(s) safely administered during the perioperative period Surgical Procedures FTPM Entry 1 Procedure Description Procedure MEDIAL BRANCH BLOCK Modifiers Bilateral Surgeon Description C3/4 + C4/5 MBB Primary Procedure Yes Primary Surgeon Yared Zavala DO Start 11/21/23 08:39:00 Stop 11/21/23 08:50:00 Anesthesia Type None Surgical Service Pain Management Wound Class 1 - Clean Last Modified By: Marry Beltran RN 11/21/23 08:51:02 General Case Data FTPM Pre-Care Text: Classifies surgical wound, implements aseptic technique, initiates traffic control Entry 1 Case Information OR Pain Proc Room Case Level Level 2 Wound Class 1 - Clean Specialty Pain Management Preop Diagnosis M47.812 Postop Same As Preop Yes Postop Diagnosis M47.812 Outcomes Met? Yes Last Modified By: Marry Beltran RN 11/21/23 08:38:17 Post-Care Text: The patient is free from signs and symptoms of infection Skin Assessment (Pre Procedure) FTPM Pre-Care Text: Implements protective measures to prevent skin/ tissue injury due to thermal or mechanical sources Evaluates for signs and symptoms of physical injury to skin and tissue Entry 1 Skin Integrity Intact, Marceline, Warm, and Skin Abnormality No Dry Outcomes Met? Yes Last Modified By: Marry Beltran RN 11/21/23 08:38:25 Post-Care Text: The patient is free from signs and symptoms of injury caused by extraneous objects Patient Positioning FTPM Pre-Care Text: Identifies physical alterations that require additional precautions for procedure-specific positioning, verifies presence of prosthetics or corrective devices, positions the patient, evaluates the patient for signs and symptoms of injury as a result of positioning Entry 1 Procedure MEDIAL BRANCH Body Position Prone BLOCK(Bilateral) Feet Uncrossed? Yes Left Arm Position Resting at Side Right Arm Position Resting at Side Left Leg Position Extended Right Leg Position Extended Positioning Device Pillow Under Head Large, Safety Strap, Pillow Large Under Knees Press Points Checked Yes By Marry Beltran RN Outcomes Met? Yes Last Modified By: Marry Beltran RN 11/21/23 08:38:32 Post-Care Text: (more content not included)... Normal [facility] Main OR Preoperative Recordo n 11-21-2023 Main OR Preoperative Record Holding Area Document Type FTPM Summary Primary Physician: Yared Zavala DO Finalized Date/Time: 11/21/23 07:33:31 Pt. Name: SEN ULLOA KARISHMA Mosqueda./Sex: 1940 Male Med Rec #: [id number] Physician: Yared Zavala DO Financial #: [id number] Pt. Type: P Room/Bed: / Admit/Disch: 11/21/23 07:20:26 - Institution: Case Times Holding FTPM Pre-Care Text: Verifies consent for planned procedure, identifies individual values and wishes concerning care, includes family members in perioperative teaching Secures patient's records' belongings, and valuables, maintains patient's dignity and privacy, and maintains patient confidentiality Entry 1 In Holding 11/21/23 07:29:00 Outcomes Met? Yes Last Modified By: Shama Cleaning RN 11/21/23 07:29:08 Post-Care Text: The patient participates in decisions affecting his or her perioperative plan of care The patient's right to privacy is maintained Surgery Checklist FTPM Entry 1 Patient Birthday, ID Band Procedure History and Physical, Identification: Check, Patient Verification: Surgical Consent, With Participation Patient NPO after Midnight: No Date/Time: 11/21/23 07:29:00 Results Reviewed coffee Personal Items: Cataract Lens Implant, Comments: Dentures Personal Items bilateral cataract sx, Complaints of Pain: Yes Comment: SCS, x2 rings, watch and partial denture Pain Comment: 01/17 neck pain Operative Site Yes Marking: Marked By: Dr Zavala Location: bilateral C3-5 MBB Availability Equipment, X-Ray Verified: Does Patient Smoke No Patient states Yes Comment - Adult -ken postop adult Supervision supervision available Case Cancelled in No Holding Area see comments below for reason Last Modified By: Shama Cleaning RN 11/21/23 07:31:18 Finalized By: Shama Cleaning RN Document Signatures Signed By: Shama Cleaning RN 11/21/23 07:33 Normal [facility] Patient Correspondenceon Patient Correspondence [id number]#1.00TIFF [facility] Insurance Correspondence Off iceon 11-08-2023 Insurance Correspondence Office [id number]#1.00TIFF [facility] Consent for Treatmenton 10-10 Consent for Treatment [id number]#1.00TIFF [facility] Consultation Noteon 11-07-19 Consultation Note Patient: LETY ULLOA Age: 83 years Sex: Male : 1940 Associated Diagnoses: None Author: Shahnaz Galvin PA-C Subjective Chief complaint 11/07/2023 8:51 EDT neck pain . Patient is an 83-year-old male. He presents today for follow-up after undergoing a cervical MRI scan. He continues to have neck pain. No radicular symptoms. It is worse with turning his head. It is worse with looking certain ways. This affects his ability to get comfortable and do things. He has undergone therapy in the past without any long-term relief. He continues to do stretching at home. Unfortunate, he still has pain that is a 6/10. Bilateral on both sides of his neck. Sometimes 1 side hurts more than the other but both are present. Both affect his ability to get comfortable. It is a stabbing type discomfort. He is on meloxicam as well. Gabapentin. He has not been using the [place] or the Tylenol with codeine because it causes constipation. He does not want to take these any longer if he does not have to. Health Status Allergies: Allergic Reactions (Selected) Moderate Clindamycin- Swelling. Mild Penicillins- Unknown. Severity Not Documented Doxycycline- Swelling., Allergies (3) Active Severity Reaction clindamycin Moderate Swelling penicillins Mild Unknown doxycycline Swelling Current medications: (Selected) Prescriptions Prescribed [place] 325 mg-5 mg oral tablet: 1 tab(s), Oral, TID for pain, 45 tab(s), Refill(s) 0, [facility], 183, cm, 05/17/22 8:51:00 EST, Height/Length Dosing, 72.6, kg, 04/06/22 7:59:00 EDT, Weight Dosing baclofen 10 mg Tab: 10 mg = 1 tab(s), Oral, TID, # 270 tab(s), Refills(s) 1, Pharmacy: [facility] ([facility]), 183, cm, 02/21/23 13:14:00 EDT, Height/Length Dosing, 71.3, kg, 02/17/23 11:31:00 EDT, Weight Dosing gabapentin 600 mg Tab: 600 mg = 1 tab(s), Oral, TID, X 90 day(s), # 270 tab(s), Refills(s) 1, Pharmacy: [facility], 183, cm, 06/14/23 10:18:00 EST, Height/Length Dosing, 69.6, kg, 05/20/23 8:22:00 EST, Weight Dosing meloxicam 15 mg Tab: 15 mg = 1 tab(s), Oral, Daily, # 90 tab(s), Refills(s) 4, Pharmacy: [facility], 183, cm, 09/30/23 12:50:00 EDT, Height/Length Dosing, 69, kg, 09/30/23 12:50:00 EDT, Weight Dosing tamsulosin 0.4 mg Cap: 0.4 mg = 1 cap(s), Oral, BID, TAKE ONE CAPSULE BY MOUTH TWICE A DAY, # 180 cap(s), Refills(s) 3, Pharmacy: [facility] ([facility]), 183, cm, 02/21/23 13:14:00 EDT, Height/Length Dosing, 71.3, kg, 02/17/23 11:31:00 EDT, Weight Dosing... 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 Prostate nodule / SNOMED CT 6593746038 / Confirmed Piriformis syndrome / SNOMED CT 114239461 / Confirmed Spondylosis of thoracolumbar spine / SNOMED CT 9158726628 / Confirmed Sacroiliitis / SNOMED CT 47330944 / Confirmed Somatic dysfunction of lower extremities / SNOMED CT 3281586032 / Confirmed Somatic dysfunction of sacral spine / SNOMED CT 0583263108 / Confirmed Somatic dysfunction of lumbar region / SNOMED CT 7868560919 / Confirmed Somatic dysfunction of thoracic region / SNOMED CT 4422791411 / Confirmed Spasm of lumbar paraspinous muscle / SNOMED CT 4441994310 / Confirmed Abdominal weakness / SNOMED CT 772689116 / Confirmed Chronic prostatitis / SNOMED CT 72107125 / Confirmed Insomnia / SNOMED CT 173625184 / Confirmed Chronic constipation / SNOMED CT 403164009 / Confirmed Cervical arthritis / SNOMED CT 3774081682 / Confirmed Trapezius muscle spasm / SNOMED CT 4629869328 / Confirmed Somatic dysfunction of head region / SNOMED CT 3385745824 / Confirmed Somatic dysfunction of cervical region / SNOMED CT 7598319769 / Confirmed Normocytic anemia / SNOMED CT 561452782 / Confirmed Hypocalcemia / SNOMED CT 7809495 / Confirmed Fatigue / SNOMED CT 285853383 / Confirmed Hard of hearing / SNOMED CT 12696663 / Confirmed Wears hearing aid in both ears / SNOMED CT 328586846 / Confirmed Resolved: Headache / SNOMED CT 64934918 Resolved: Right lower quadrant pain / SNOMED CT 513147756 Canceled: Deafness / SNOMED CT 95638637 Canceled: Prostatitis / SNOMED CT 88291468 Canceled: Unexplained weight loss / SNOMED CT 6485190556 Objective Vital Signs 11/07/2023 8:51 EDT Peripheral Pulse Rate 51 bpm LOW Respiratory Rate 16 br/min Systolic Blood Pressure 130 mmHg Diastolic Blood Pressure 70 mmHg Mean Arterial Pressure, Cuff 90 mmHg General: Alert and oriented, No acute distress. Eye: Normal conjunctiva. HENT: Normocep (more content not included)... Normal [facility] Comment on above: Result Comment: Elec tronically Signed By: Shahnaz Galvin PA-C\.br\Date and Time Signed: 11/07/23 09:22 EDT\.br\Electronically Co-Signed By: Yared Zavala DO\.br\Date and Time Co-Signed: 11/07/23 11:01 EDT MRI Spine Cervical w/o Contr prerna 11-07-2023 MRI Spine Cervical w/o Contrast Exam Date/Time: 11/03/2023 12:29 EDT Reason for Exam: M54.12 Report IMPRESSION: MULTILEVEL CERVICAL SPONDYLOSIS AND DEGENERATIVE DISC DISEASE, DESCRIBED IN DETAIL. CLINICAL HISTORY: M54.12. COMPARISON: Cervical spine radiographs 01/10/2023. TECHNIQUE: Multiplanar MR imaging of the cervical spine was performed. FINDINGS: The spine is visualized from the craniovertebral junction nearly through the T2 level. Alignment: Mild levoscoliosis similar to 01/10/2023. Approximately 2 to 3 mm retrolisthesis of C3 over C4 and anterolisthesis of C5 over C6. Bone marrow signal/fracture: Minimal degenerative endplate changes. Otherwise unremarkable. Spinal cord: The visualized spinal cord is normal in signal and caliber. Paraspinal soft tissues: Paraspinal soft tissues are unremarkable. Craniovertebral junction: Visualized posterior fossa structures and craniovertebral junction are unremarkable. C2-3: Mild hypertrophic facet changes, without central spinal stenosis, neural foraminal narrowing, or a discrete disc protrusion. C3-4: Mild disc space narrowing, mild to moderate posterolateral endplate osteophytosis with associated broad-based disc protrusion and mild to moderate hypertrophic facet changes, which results in mild central spinal stenosis and moderate to marked right neural foraminal narrowing. C4-5: Mild left and moderate to marked right hypertrophic facet changes, which results in moderate to marked right neural foraminal narrowing. C5-6: Mild disc space narrowing, mild to moderate posterolateral endplate osteophytosis with associated broad-based disc protrusion and mild to moderate hypertrophic facet changes, which results in borderline central spinal stenosis and borderline to mild neural foraminal narrowing, greater on the right. C6-7: Mild to moderate hypertrophic facet changes, without central spinal stenosis, neural foraminal narrowing, or a discrete disc protrusion. Report C7-T1: Mild hypertrophic facet changes, without central spinal stenosis, neural foraminal narrowing, or a discrete disc protrusion. T1-T2: Mild hypertrophic facet changes, without central spinal stenosis, neural foraminal narrowing, or a discrete disc protrusion. Ordering Provider: Shahnaz Galvin FINAL REPORT Dictated: 11/07/2023 8:33 am Ruben Nice MD Signed (Electronic Signature): 11/07/2023 8:33 am Signed by: Ruben Nice MD Transcribed by: BENITA Technologist: JOSE FRANCISCO Normal [facility] Office/Clinic Note-Physician on 11-07-2023 Office/Clinic Note-Physician [id number]#1.00TIFF Normal [facility] Patient Correspondenceon Patient Correspondence [id number]#1.00TIFF Normal [facility] Patient Correspondence [id number]#1.00TIFF Normal [facility] Patient History Officeon Patient History Office [id number]#1.00TIFF Normal [facility] Clipboard Summaryon 11-05-19 24 Clipboard Summary {[id number]}XML Normal [facility] Consent for Treatmenton 10-10 Consent for Treatment [id number]#1.00TIFF Normal [facility] RAD - MRI Screening Formon 0 11-03-2023 RAD - MRI Screening Form [id number]#1.00TIFF Normal [facility] Physician Orderon 10-20-2023 Physician Order [id number]#1.00TIFF Normal [facility] Insurance Correspondence Off iceon 10-10-2023 Insurance Correspondence Office [id number]#1.00TIFF Normal [facility] Physician Orderon 10-10-2023 Physician Order [id number]#1.00TIFF [facility] Consent for Treatmenton 09-09 Consent for Treatment [id number]#1.00TIFF [facility] Consultation Noteon 09-30-19 Consultation Note Patient: LETY ULLOA Age: 83 years Sex: Male : 1940 Associated Diagnoses: None Author: Shahnaz Galvin PA-C Subjective Chief complaint 09/30/2023 12:40 EDT neck . Patient is an 82-year-old male. He presents today for another postoperative follow-up after undergoing a spinal cord stimulator implant on 06/21/2023. Hunt implant was placed. In regards to this, he is doing well. He has no pain. He has no complaints. He feels that the stimulator is working very well. Unfortunate, he is once again noticing the neck pain. It is just below the base of his skull. Worse with certain maneuvers but not always. It just kind of comes and goes. He cannot always predict it. He cannot control it. Nothing really makes it better or worse it just resolves on its own. He continues on baclofen 10 mg 3 times a day as needed and gabapentin 60 mg 3 times a day. He also has meloxicam and [place]. He does not like to take the [place] as it makes him constipated. He uses this very rarely. He underwent therapy last summer for his neck. It did not really make any differences. He continues to do home exercises daily. This unfortunately does not give him any long-term relief either. Health Status Allergies: Allergic Reactions (Selected) Moderate Clindamycin- Swelling. Mild Penicillins- Unknown. Severity Not Documented Doxycycline- Swelling., Allergies (3) Active Severity Reaction clindamycin Moderate Swelling penicillins Mild Unknown doxycycline Swelling Current medications: (Selected) Prescriptions Prescribed Elysburg 325 mg-5 mg oral tablet: 1 tab(s), Oral, TID for pain, 45 tab(s), Refill(s) 0, [facility], 183, cm, 05/17/22 8:51:00 EST, Height/Length Dosing, 72.6, kg, 04/06/22 7:59:00 EDT, Weight Dosing baclofen 10 mg Tab: 10 mg = 1 tab(s), Oral, TID, # 270 tab(s), Refills(s) 1, Pharmacy: [facility] ([facility]), 183, cm, 02/21/23 13:14:00 EDT, Height/Length Dosing, 71.3, kg, 02/17/23 11:31:00 EDT, Weight Dosing gabapentin 600 mg Tab: 600 mg = 1 tab(s), Oral, TID, X 90 day(s), # 270 tab(s), Refills(s) 1, Pharmacy: [facility], 183, cm, 06/14/23 10:18:00 EST, Height/Length Dosing, 69.6, kg, 05/20/23 8:22:00 EST, Weight Dosing meloxicam 15 mg Tab: 15 mg = 1 tab(s), Oral, Daily, # 90 tab(s), Refills(s) 4, Pharmacy: [facility] ([facility] ), 183, cm, 10/08/22 11:08:00 EDT, Height/Length Dosing, 71.6, kg, 10/08/22 11:08:00 EDT, Weight Dosing tamsulosin 0.4 mg Cap: 0.4 mg = 1 cap(s), Oral, BID, TAKE ONE CAPSULE BY MOUTH TWICE A DAY, # 180 cap(s), Refills(s) 3, Pharmacy: [facility] ([facility]), 183, cm, 02/21/23 13:14:00 EDT, Height/Length Dosing, 71.3, kg, 02/17/23 11:31:00 EDT, Weight Dosing... Documented Medications Documented Probiotic Formula (Bacillus Coagulans): 1 cap(s), Oral, Daily, Refill(s) 0, Prophylaxis Vitamin D: 50,000 International_Unit, Oral, Daily, Refills(s) 0 omeprazole 20 mg Cap-DR: 20 mg = 1 cap(s), Oral, Daily, PRN Control of stomach acid, Refills(s) 0 Problem list: All Problems Lower back pain / SNOMED CT 789370982 / Confirmed Post laminectomy syndrome / SNOMED CT 952444601 / Confirmed Arthritis / SNOMED CT 4157649 / Confirmed BPH with urinary obstruction / SNOMED CT 9646089447 / Confirmed Prostate nodule / SNOMED CT 9434964814 / Confirmed Piriformis syndrome / SNOMED CT 843656380 / Confirmed Spondylosis of thoracolumbar spine / SNOMED CT 4120273325 / Confirmed Sacroiliitis / SNOMED CT 66268675 / Confirmed Somatic dysfunction of lower extremities / SNOMED CT 0766294542 / Confirmed Somatic dysfunction of sacral spine / SNOMED CT 5773504945 / Confirmed Somatic dysfunction of lumbar region / SNOMED CT 9368492056 / Confirmed Somatic dysfunction of thoracic region / SNOMED CT 2048737313 / Confirmed Spasm of lumbar paraspinous muscle / SNOMED CT 9742236992 / Confirmed Abdominal weakness / SNOMED CT 439506731 / Confirmed Chronic prostatitis / SNOMED CT 88625652 / Confirmed Insomnia / SNOMED CT 091061125 / Confirmed Chronic constipation / SNOMED CT 635578445 / Confirmed Cervical arthritis / SNOMED CT 2892240247 / Confirmed Trapezius muscle spasm / SNOMED CT 2887254929 / Confirmed Somatic dysfunction of head region / SNOMED CT 6142159910 / Confirmed Somatic dysfunction of cervical region / SNOMED CT 6491519103 / Confirmed Normocytic anemia / SNOMED CT 635012400 / Confirmed Hypocalcemia / SNOMED CT 2998573 / Confirmed Fatigue / SNOMED CT 615183330 / Confirmed Hard of hearing / SNOMED CT 13909194 / Confirmed Wears hearing aid in both ears / SNOMED CT 647975853 / Confirmed Resolved: Headache / SNOMED CT 06073609 Resolved: Right lower quadrant pain / SNOMED CT 544996934 Canceled: Deafness / SNOMED CT 34678004 Canceled: Prostatitis / SNOMED CT 46226726 Canceled: Unexplained weight loss / SNOMED CT 3491825171 Objective Vital Signs 09/30/2023 12:40 EDT Peripheral Pulse Rate 60 bpm (more content not included)... Normal [facility] Comment on above: Result Comment: Elec tronically Signed By: Glenis VAZQUEZ, Shahnaz\.br\Date and Time Signed: 09/30/23 13:19 EDT Office/Clinic Note-Nurseon 0 09-30-2023 Office/Clinic Note-Nurse [id number]#1.00TIFF [facility] Office/Clinic Note-Physician on 09-30-2023 Office/Clinic Note-Physician [id number]#1.00TIFF [facility] Patient Correspondenceon Patient Correspondence [id number]#1.00TIFF [facility] Patient Correspondence [id number]#1.00TIFF [facility] Patient History Officeon Patient History Office [id number]#1.00TIFF [facility] Ambulatory Visit Summaryon 0 08-19-2023 Ambulatory Visit Summary SEN ULLOA :1940 Visit Date:08/19/2023 Ambulatory Visit Instructions Your Diagnosis BPH with urinary obstruction Prostate nodule Chronic prostatitis Your Care Team Attending Physician - JOSELYN GALEANA, Beatrice Amaro Primary Care Physician - Karishma Reddy DO This Is Your Medications List tamsulosin (tamsulosin 0.4 mg Cap) Contact prescribing physician if questions or concerns acetaminophen-hydrocodone ([place] 325 mg-5 mg oral tablet) bacillus coagulans-inulin (Probiotic Formula (Bacillus Coagulans)) baclofen (baclofen 10 mg Tab) ergocalciferol (Vitamin D) gabapentin (gabapentin 600 mg Tab) meloxicam (meloxicam 15 mg Tab) omeprazole (omeprazole 20 mg Cap-DR) Procedures Performed Implantation of permanent spinal cord stimulator (06/21/2023), Spinal cord stimulator trial (06/21/2023), Spinal cord stimulator trial (04/12/2023), Injection of sacroiliac joint using fluoroscopic guidance (02/01/2023), Radiofrequency ablation of medial branch of lumbar nerve using fluoroscopic guidance (11/09/2022), Injection of sacroiliac joint using fluoroscopic guidance (09/14/2022), Injection of hip using ultrasound (US) guidance (03/23/2022), Radiofrequency ablation of medial branch of lumbar nerve using fluoroscopic guidance (01/25/2022), Injection of facet joint using fluoroscopic guidance (01/04/2022), Injection of facet joint using fluoroscopic guidance (11/30/2021), Injection of sacroiliac joint using fluoroscopic guidance (10/19/2021), Radiofrequency ablation of medial branch of lumbar nerve using fluoroscopic guidance (04/28/2021), Injection of facet joint using fluoroscopic guidance (03/23/2021), Injection of facet joint using fluoroscopic guidance (02/23/2021), Revisional laminectomy excision of lumbar intervertebral disc (12/16/2020), Injection of nerve root of lumbar spine using fluoroscopic guidance (09/30/2020), Injection of nerve root of lumbar spine using fluoroscopic guidance (09/30/2020), Trigger point injection (08/04/2020), TRUS - Transrectal ultrasonography (07/31/2020), Radiofrequency ablation of medial branch of lumbar nerve using fluoroscopic guidance (07/15/2020), Radiofrequency ablation of medial branch of lumbar nerve using fluoroscopic guidance (07/08/2020), Injection of facet joint using fluoroscopic guidance (05/06/2020), Injection of facet joint using fluoroscopic guidance (03/18/2020), TPI - Trigger point injection (01/28/2020), History of lumbar discectomy (2018), Cataract, Colonoscopy, Injection of nerve root of lumbar spine using fluoroscopic guidance, Post-surgery back pain. Discharge Vitals Heart Rate (Peripheral) 70 Respiratory Rate 16 Blood Pressure 132/76 Height 183 cm Height 72 in Weight 76.1 kg Weight 167.42 lb BMI 22.72 What to do next Scheduled Follow-Up Appointments Tuesday 10:15 AM EDT With: Shahnaz Galvin PA-C Where: [facility] Tuesday 9:20 AM EDT With: Karishma Reddy DO Where: [facility] [place] Invalid Interpretation Code [address] [place] [address]-\.br\ Tuesday 9:15 AM EST \.br\ With: Beatrice ALVES MD\.br\ Where: [facility] Patient Educationon 08-19-19 Patient Education Oncology Prostate Cancer Screening Prostate cancer screening is testing that is done to check for the presence of prostate cancer in men. The prostate gland is a walnut-sized gland that is located below the bladder and in front of the rectum in males. The function of the prostate is to add fluid to semen during ejaculation. Prostate cancer is one of the most common types of cancer in men. Who should have prostate cancer screening? Screening recommendations vary based on age and other risk factors, as well as between the professional organizations who make the recommendations. In general, screening is recommended if: ? You are age 50 to 70 and have an average risk for prostate cancer. You should talk with your health care provider about your need for screening and how often screening should be done. Because most prostate cancers are slow growing and will not cause , screening in this age group is generally reserved for men who have a 10- to 15-year life expectancy. ? You are younger than age 50, and you have these risk factors: ? Having a father, brother, or uncle who has been diagnosed with prostate cancer. The risk is higher if your family member's cancer occurred at an early age or if you have multiple family members with prostate cancer at an early age. ? Being a male who is Black or is of [place] or sub-Saharan descent. In general, screening is not recommended if: ? You are younger than age 40. ? You are between the ages of 40 and 49 and you have no risk factors. ? You are 70 years of age or older. At this age, the risks that screening can cause are greater than the benefits that it may provide. If you are at high risk for prostate cancer, your health care provider may recommend that you have screenings more often or that you start screening at a younger age. How is screening for prostate cancer done? The recommended prostate cancer screening test is a blood test called the prostate-specific antigen (PSA) test. PSA is a protein that is made in the prostate. As you age, your prostate naturally produces more PSA. Abnormally high PSA levels may be caused by: ? Prostate cancer. ? An enlarged prostate that is not caused by cancer (benign prostatic hyperplasia, or BPH). This condition is very common in older men. ? A prostate gland infection (prostatitis) or urinary tract infection. ? Certain medicines such as male hormones (like testosterone) or other medicines that raise testosterone levels. A rectal exam may be done as part of prostate cancer screening to help provide information about the size of your prostate gland. When a rectal exam is performed, it should be done after the PSA level is drawn to avoid any effect on the results. Depending on the PSA results, you may need more tests, such as: ? A physical exam to check the size of your prostate gland, if not done as part of screening. ? Blood and imaging tests. ? A procedure to remove tissue samples from your prostate gland for testing (biopsy). This is the only way to know for certain if you have prostate cancer. What are the benefits of prostate cancer screening? ? Screening can help to identify cancer at an early stage, before symptoms start and when the cancer can be treated more easily. ? There is a small chance that screening may lower your risk of dying from prostate cancer. The chance is small because prostate cancer is a slow-growing cancer, and most men with prostate cancer from a different cause. What are the risks of prostate cancer screening? The main risk of prostate cancer screening is diagnosing and treating prostate cancer that would never have caused any symptoms or problems. This is called overdiagnosisand overtreatment. PSA screening cannot tell you if your PSA is high due to cancer or a different cause. A prostate biopsy is the only procedure to diagnose prostate cancer. Even the results of a biopsy may not tell you if your cancer needs to be treated. Slow-growing prostate cancer may not need any treatment other than monitoring, so diagnosing and treating it may cause unnecessary stress or other side effects. Questions to ask your health care provider ? When should I start prostate cancer screening? ? What is my risk for prostate cancer? ? How often do I need screening? ? What type of screening tests do I need? ? How do I get my test results? ? What do my results mean? ? Do I need treatment? Where to find more information ? The [place] [employer]: www.cancer.org ? [place] [employer]: www.auanet.org Contact a health care provider if: ? You have difficulty urinating. ? You have pain when you urinate or ejaculate. ? You have blood in your urine or semen. ? You have pain in your back or in the area of your prostate. Summary ? Prostate cancer is a common type of cancer in men. The prostate gland is located below the bladder and in front of the rectum. This gland adds flu (more content not included)... Normal [facility] Urology Office/Clinic Noteon 08-19-2023 Urology Office/Clinic Note Chief Complaint BPH with urinary obstruction, prostate nodule HPI Staff 1 year with PSA. Dx: BPH with urinary obstruction, prostate nodule right apex (negative bx 07/31/20) and chronic prostatitis. Tamsulosin 0.4mg BID PSA: 08/12/23 is 2.44 Dysuria: no Incomplete bladder emptying: no Hematuria: no Frequency: no Urgency: no Nocturia: 0-1 Stream: good steady no straining Leaking: no Post void dripping: no Wearing pads/ Depends: no Urge incontinence: no Stress incontinence: no Incontinence without Sensory Awareness: no Abdominal pain: no Flank pain: no Sexual complaints: no History of Present Illness Tests reviewed: reviewed UA, PSA I have reviewed the previous health record information and history for this patient from Dr. Alves. I have reviewed and verified the staff HPI to be accurate for this encounter. Review of Systems PHQ Score Initial Depression Screen Score: 0 SCORE ROS - Provider Constitutional: denies weight loss, denies hot flashes. Eyes: denies eye problems. Gastrointestinal: denies nausea, denies vomiting. Cardiovascular: denies chest pain or angina. Integumentary: no dryness Musculoskeletal: denies musculoskeletal symptoms. ENMT: denies otolaryngeal symptoms. Respiratory: no shortness of breath. Heme/Lymph: denies easy bleeding tendency, denies easy bruising tendency. Psychiatric: no confusion, no anxiety. Genitourinary: See HPI. Physical Exam Vitals & Measurements HR: 70(Peripheral) RR: 16 BP: 132/76 HT: 72 in HT: 183 cm WT: 76.1 kg WT: 167.42 lb BMI: 22.72 General Appearance: alert, no distress, well nourished, well developed male. Genitourinary: normal scrotum, normal testes, normal urethra, normal epididymis, normal vas deferens/spermatic cord. Flank Pain: none. Bladder: nonpalpable. Assessment/Plan 1. BPH with urinary obstruction (N40.1: Benign prostatic hyperplasia with lower urinary tract symptoms) Pt has spinal cord stimulator implant, has not affected urination UA today negative for blood and infection. Taking Tamsulosin 0.4mg bid. Works well. Not voicing any urinary complaints. -Cont Tamsulosin wo changes, pt to call for refills 2. Prostate nodule (N40.2: Nodular prostate without lower urinary tract symptoms) TRUS/bx 07/31/20 - neg. Nodule at Rt apex found 06/30/20 but resolved after that visit. JULIEN 08/16/22: 35g, no nodule. PSA 07/28/20 - 4.76 08/10/21 - 2.65 08/16/22 - 2.40 08/12/23 - 2.44 Discussed PSA level w/ pt, remains stable. Will continue to monitor. -PSA in 1 yr 3. Chronic prostatitis (N41.1: Chronic prostatitis) Asymptomatic. -Cont sx monitoring Follow-up With When Contact Information JOSELYN GALEANA, JOY Sebastian In 1 year [facility] [address], [place] [address]- [phone] Additional Instructions: w/ PSA Patient Education Prostate Cancer Screening I, Joyce Viera, personally scribed for Dr. Alves on 08/19/2023 09:02:13. . Documentation recorded by the scribe, Joyce Viera, accurately reflects the services(s) I performed and decisions made by me. Authenticated by Dr. Alves on 08/19/2023 09:06:32. Problem List/Past Medical History Ongoing Abdominal weakness Arthritis BPH with urinary obstruction Cervical arthritis Chronic constipation Chronic prostatitis Fatigue Hard of hearing Hypocalcemia Insomnia Normocytic anemia Piriformis syndrome Prostate nodule Sacroiliitis Somatic dysfunction of cervical region Somatic dysfunction of head region Somatic dysfunction of lower extremities Somatic dysfunction of lumbar region Somatic dysfunction of sacral spine Somatic dysfunction of thoracic region Spasm of lumbar paraspinous muscle Spondylosis of thoracolumbar spine Trapezius muscle spasm Wears hearing aid in both ears Historical Headache Right lower quadrant pain Procedure/Surgical History Implantation of permanent spinal cord stimulator (06/21/2023), Spinal cord stimulator trial (06/21/2023), Spinal cord stimulator trial (04/12/2023), Injection of sacroiliac joint using fluoroscopic guidance (02/01/2023), Radiofrequency ablation of medial branch of lumbar nerve using fluoroscopic guidance (11/09/2022), Injection of sacroiliac joint using fluoroscopic guidance (09/14/2022), Injection of hip using ultrasound (US) guidance (03/23/2022), Radiofrequency ablation of medial branch of lumbar nerve using fluoroscopic guidance (01/25/2022), Injection of facet joint using fluoroscopic guidance (01/04/2022), Injection of facet joint using fluoroscopic guidance (11/30/2021), Injection of sacroiliac joint using fluoroscopic guidance (10/19/2021), Radiofrequency ablation of medial branch of lumbar nerve using fluoroscopic guidance (04/28/2021), Injection of facet joint using fluoroscopic guidance (03/23/2021), Injection of facet joint using fluoroscopic guidance (02/23/2021), Revisional laminectomy excision of lumba (more content not included)... Normal [facility] Comment on above: Result Comment: Elec tronically Signed By: Beatrice ALVES MD\.br\Date and Time Signed: 08/19/23 09:06 EST\.br\Electronically Co-Signed By: Joyce Viera.br\Date and Time Co-Signed: 08/19/23 09:02 EST Lab Reportson 08-15-2023 Lab Reports [id number]#1.00TIFF Normal [facility] Laboratory Outside Office Co pyon 08-15-2023 Laboratory Outside Office Copy [id number]#1.00TIFF Normal [facility] Ambulatory Visit Summaryon 0 08-12-2023 Ambulatory Visit Summary SEN ULLOA :1940 Visit Date:08/12/2023 Ambulatory Visit Instructions Your Diagnosis Fatigue Insomnia Hypocalcemia Normocytic anemia Hard of hearing Wears hearing aid in both ears BMI 21.0-21.9, adult Your Care Team Attending Physician - Karishma Reddy DO Primary Care Physician - Karishma Reddy DO This Is Your Medications List Contact prescribing physician if questions or concerns acetaminophen-codeine (Tylenol with Codeine #3 oral tablet) acetaminophen-hydrocodone ([place] 325 mg-5 mg oral tablet) acetaminophen-oxycodone (Percocet 5 mg-325 mg oral tablet) bacillus coagulans-inulin (Probiotic Formula (Bacillus Coagulans)) baclofen (baclofen 10 mg Tab) ergocalciferol (Vitamin D) gabapentin (gabapentin 600 mg Tab) meloxicam (meloxicam 15 mg Tab) omeprazole (omeprazole 20 mg Cap-DR) polyethylene glycol 3350 (Miralax 17 gram packet) tamsulosin (tamsulosin 0.4 mg Cap) [Image Removed: STOP]Stop taking these medications lorazepam (LORazepam 0.5 mg Tab) Procedures Performed Spinal cord stimulator trial (06/21/2023), Spinal cord stimulator trial (04/12/2023), Injection of sacroiliac joint using fluoroscopic guidance (02/01/2023), Radiofrequency ablation of medial branch of lumbar nerve using fluoroscopic guidance (11/09/2022), Injection of sacroiliac joint using fluoroscopic guidance (09/14/2022), Injection of hip using ultrasound (US) guidance (03/23/2022), Radiofrequency ablation of medial branch of lumbar nerve using fluoroscopic guidance (01/25/2022), Injection of facet joint using fluoroscopic guidance (01/04/2022), Injection of facet joint using fluoroscopic guidance (11/30/2021), Injection of sacroiliac joint using fluoroscopic guidance (10/19/2021), Radiofrequency ablation of medial branch of lumbar nerve using fluoroscopic guidance (04/28/2021), Injection of facet joint using fluoroscopic guidance (03/23/2021), Injection of facet joint using fluoroscopic guidance (02/23/2021), Revisional laminectomy excision of lumbar intervertebral disc (12/16/2020), Injection of nerve root of lumbar spine using fluoroscopic guidance (09/30/2020), Injection of nerve root of lumbar spine using fluoroscopic guidance (09/30/2020), Trigger point injection (08/04/2020), TRUS - Transrectal ultrasonography (07/31/2020), Radiofrequency ablation of medial branch of lumbar nerve using fluoroscopic guidance (07/15/2020), Radiofrequency ablation of medial branch of lumbar nerve using fluoroscopic guidance (07/08/2020), Injection of facet joint using fluoroscopic guidance (05/06/2020), Injection of facet joint using fluoroscopic guidance (03/18/2020), TPI - Trigger point injection (01/28/2020), History of lumbar discectomy (2017), Cataract, Colonoscopy, Injection of nerve root of lumbar spine using fluoroscopic guidance, Post-surgery back pain. Discharge Vitals Heart Rate (Peripheral) 58 Blood Pressure 110/54 Height 183 cm Height 72 in Weight 71.3 kg Weight 156.86 lb BMI 21.29 What to do next Scheduled Follow-Up Appointments Tuesday 8:15 AM EST With: JOSELYN GALEANA, Beatrice Amaro Where: [facility] [address] [place] [address]-\.br\ Medications\.br \ What How Much When Why Instructions\.b r\ Unchanged acetaminophen-c odeine (Tylenol with Codeine #3 oral tablet) See instructions Lumbar post-laminectom y syndrome 1 tab(s) po bid prn pain Contact prescribing physician if questions or concerns \.br\ Unchanged acetaminophen-h ydrocodone ([place]lysburg 325 mg-5 mg oral tablet) 1 Tablets By Mouth 3 times a day as needed for for pain Failed back syndrome, lumbar Contact prescribing physician if questions or concerns \.br\ Unchanged acetaminophen-o xycodone (Percocet 5 mg-325 mg oral tablet) 1 Tablets By Mouth Every 6 hours Post-op pain Contact prescribing physician if questions or concerns \.br\ Unchanged bacillus coagulans-inuli n (Probiotic Formula (Bacillus Coagulans)) 1 Capsules By Mouth Every day Contact prescribing physician if questions or concerns \.br\ Unchanged baclofen (baclofen 10 mg Tab) 1 Tablets By Mouth 3 times a day Lumbar post-laminectom y syndrome Contact prescribing physician if questions or concerns \.br\ Unchanged ergocalciferol (Vitamin D) 50,000 International unit By Mouth Every day Contact prescribing physician if questions or concerns \.br\ Unchanged gabapentin (gabapentin 600 mg Tab) 1 Tablets By Mouth 3 times a day Chronic pain Duration: 90 Days Contact prescribing physician if questions or concerns \.br\ Unchanged meloxicam (meloxicam 15 mg Tab) 1 Tablets By Mouth Every day Sacroiliitis Contact prescribing physician if questions or concerns \.br\ Unchanged omeprazole (omeprazole 20 mg Cap-DR) 1 Capsules By Mouth Every day as needed for Control of stomach acid Contact prescribing physician if questions or concerns \.br\ Unchanged polyethylene glycol 3350 (Miralax 17 gram packet) 17 Gram By Mouth Every day dissolve in water before taking Contact prescribing physician if questions or concerns \.br\ Unchanged tamsulosin (tamsulosin 0.4 mg Cap) 1 Capsules By Mouth 2 times a day TAKE ONE CAPSULE BY MOUTH TWICE A DAY Contact prescribing physician if questions or concerns \.br\ \.br\ What How Much When Why Comments\.br\ Stop Taking lorazepam (LORazepam 0.5 mg Tab) See instructions Insomnia 1/ 2 tab(s) Oral Once a day (at bedtime) \.br\ Allergies\.br\ clindamycin (Swelling)\.br\ penicillins (Unknown)\.br\ doxycycline (Swelling)\.br\ Problems\.br\ Ongoing - Any problem that you are currently receiving treatment for.\.br\ Abdominal weakness\.br\ Arthritis\.br\ BPH with urinary obstruction\.br \ Cervical arthritis\.br\ Chronic constipation\.b r\ Chronic prostatitis\.br \ Fatigue\.br\ Hard of hearing\.br\ Hypocalcemia\.b r\ Insomnia\.br\ Normocytic anemia\.br\ Piriformis syndrome\.br\ Prostate nodule\.br\ Sacroiliitis\.b r\ Somatic dysfunction of cervical region\.br\ Somatic dysfunction of head region\.br\ Somatic dysfunction of lower extremities\.br \ Somatic dysfunction of lumbar region\.br\ Somatic dysfunction of sacral spine\.br\ Somatic dysfunction of thoracic region\.br\ Spasm of lumbar paraspinous muscle\.br\ Spondylosis of thoracolumbar spine\.br\ Trapezius muscle spasm\.br\ Wears hearing aid in both ears\.br\ Historical - Any problem that you are no longer receiving treatment for.\.br\ Headache\.br\ Right lower quadrant pain\.br\ Patient Survey\.br\ You may receive a survey via text or e-mail asking about your office visit. Please share your experience with us by completing your survey. We appreciate your feedback and thank you for choosing us for your care.\.br\ \.br\ [facility] Family Medicine Office/Clini c Noteon 08-12-2023 Family Medicine Office/Clinic Note Chief Complaint F/U HPI Staff Patient here today for 3 month F/U on chronic care. CLAUDIA 05/20/23 Labs 05/20/23 Spinal cord stimulator implanted 06/21/23 Patient states his back pain is much improved but still having neck issues Not taking Lorazepam any longer History of Present Illness Sen Ulloa is a 82 y/o M with PMHx of insomnia, arthritis, and recent spinal cord stimulator placement presenting for 3 month f/u. Social Hx: Patient is to Shiv Patient is retired since age 58; worked in [employer] in [place] for a year, then worked at [employer] for 37 years Other Providers: Pain Management -- Dr. Carr Interval Hx: He is here with his today Insomnia Not taking lorazepam Averaging 6 hours a night, no more than 7 says he is not as restless Back Pain On had spinal cord stimulator placed Has had multiple follow ups with pain management, states everything is going well Still has some pain, but very manageable He is still taking Gabapentin 600mg TID, Meloxicam 15mg daily, and Baclofen 10mg TID Now goes walking and shopping Want to travel around local areas in his [place] They have a late fall [employer] cruise scheduled Neck Pain Described as a left sided sudden shooting pain Rates it as 5/10 at worst Not having any pain right now He has done PT in the past Gets a massage once a month to neck and uses ice, which provides relief says he sometimes falls asleep with his head hanging from last note: his back pain continues to be slightly better than before his butt pain continues to be better he experienced some general malaise for several weeks energy is about back to normal now waxed the mustang still taking the gabapentin during the day and two at night; sleep is good [1] Review of Systems PHQ Score Initial Depression Screen Score: 0 SCORE 13 Point ROS is negative except for HPI Physical Exam Vitals & Measurements HR: 58(Peripheral) BP: 110/54 SpO2: 92% HT: 72 in HT: 183 cm WT: 71.3 kg WT: 156.86 lb BMI: 21.29 Constitutional: Well appearing, NAD Integumentary: Skin is warm and dry Head: NC/AT Neck: Soft. Good ROM with flexion. Slightly restricted extension and sidebending. Cardio: HRRR. No murmurs, rubs or gallops Respiratory: Lungs CTAB. No wheezes, rales, or rhonchi Abdomen: Soft, nondistended MSK: Gait is normal. Neuro: Alert and oriented. Speech is clear. Psych: Appropriate mood and affect. Cooperative. Assessment/Plan 1. Insomnia (G47.00: Insomnia, unspecified) Chronic Improving Continue gabapentin 600 mg TID since it is helping with insomnia F/U in 6 months 2. Fatigue (R53.83: Other fatigue) Improved Labs on 05/20/23 showed no evidence of anemia Iron, ferritin, B12, folate and thyroid levels were WNL F/U in 6 months 3. 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 Sacroiliitis (M46.1: Sacroiliitis, not elsewhere classified) Chronic Much Improved following spinal cord stimulator Continue gabapentin 600mg TID, meloxicam 15mg daily, and Baclofen 10mg TID F/U with pain management as scheduled 5. Hard of hearing (H91.90: Unspecified hearing loss, unspecified ear) 6. Wears hearing aid in both ears (Z97.4: Presence of external hearing-aid) BMI 21.0-21.9, adult (Z68.21: Body mass index [BMI] 21.0-21.9, adult) Total time spent TODAY preparing the chart, face to face with the patient and family and time spent documenting, reviewing, and ordering tests was 30 mins. Follow-up No qualifying data available Problem List/Past Medical History Ongoing Abdominal weakness Arthritis BPH with urinary obstruction Cervical arthritis Chronic constipation Chronic prostatitis Fatigue Hard of hearing Hypocalcemia Insomnia Normocytic anemia Piriformis syndrome Prostate nodule Sacroiliitis Somatic dysfunction of cervical region Somatic dysfunction of head region Somatic dysfunction of lower extremities Somatic dysfunction of lumbar region Somatic dysfunction of sacral spine Somatic dysfunction of thoracic region Spasm of lumbar paraspinous muscle Spondylosis of thoracolumbar spine Trapezius muscle spasm Wears hearing aid in both ears Historical Headache Right lower quadrant pain Procedure/Surgical History Spinal cord stimulator trial (06/21/2023), Spinal cord stimulator trial (04/12/2023), Injection of sacroiliac joint using fluoroscopic guidance (02/01/2023), Radiofrequency ablation of medial branch of lumbar nerve using fluoroscopic guidance (11/09/2022), Injection of sacroiliac joint using fluoroscopic guidance (09/14/2022), Injection of hip u (more content not included)... [facility] Comment on above: Result Comment: Elec tronically Signed By: Karishma Reddy DO\.br\Date and Time Signed: 08/12/23 18:23 EST\.br\Electronically Co-Signed By: Hortencia Walter\.br\Date and Time Co-Signed: 08/12/23 10:46 EST Consent for Treatmenton 07-12 Consent for Treatment [id number]#1.00TIFF [facility] Consent for Treatment [id number]#1.00TIFF [facility] Consultation Noteon 08-08-19 Consultation Note Patient: LETY ULLOA Age: 82 years Sex: Male : 1940 Associated Diagnoses: None Author: Shahnaz Galvin PA-C Subjective Chief complaint 08/08/2023 13:38 EST Back pain . Patient is an 82-year-old male. He presents today for another postoperative follow-up after undergoing a spinal cord stimulator implant on 06/21/2023. Hunt implant was placed. He is feeling well and doing well. He is comfortable and happy. He does not require any refills at this time. He feels that things are overall going well. He has some intermittent left-sided neck pain but at this time, he states that this is not anything he feels he needs to do anything about. Health Status Allergies: Allergic Reactions (Selected) Moderate Clindamycin- Swelling. Mild Penicillins- Unknown. Severity Not Documented Doxycycline- Swelling., Allergies (3) Active Reaction clindamycin Swelling penicillins Unknown doxycycline Swelling Current medications: (Selected) Prescriptions Prescribed LORazepam 0.5 mg Tab: See Instructions, 1/2 tab(s) Oral Once a day (at bedtime), # 15 tab(s), Refills(s) 2, Pharmacy: [facility], 183, cm, 05/20/23 8:22:00 EST, Height/Length Dosing, 69.6, kg, 05/20/23 8:22:00 EST, Weight Dosing Elysburg 325 mg-5 mg oral tablet: 1 tab(s), Oral, TID for pain, 45 tab(s), Refill(s) 0, [facility], 183, cm, 05/17/22 8:51:00 EST, Height/Length Dosing, 72.6, kg, 04/06/22 7:59:00 EDT, Weight Dosing Percocet 5 mg-325 mg oral tablet: 1 tab(s), Oral, q6hr, 28 tab(s), Refill(s) 0, [facility], 183, cm, 06/21/23 12:01:00 EST, Height/Length Dosing, 69.6, kg, 05/20/23 8:22:00 EST, Weight Dosing Tylenol with Codeine #3 oral tablet: See Instructions, 45 tab(s), Refill(s) 0, 1 tab(s) po bid prn pain, [facility], 183, cm, 02/21/23 13:14:00 EDT, Height/Length Dosing, 71.3, kg, 02/17/23 11:31:00 EDT, Weight Dosing baclofen 10 mg Tab: 10 mg = 1 tab(s), Oral, TID, # 270 tab(s), Refills(s) 1, Pharmacy: [facility] ([facility] 183, cm, 02/21/23 13:14:00 EDT, Height/Length Dosing, 71.3, kg, 02/17/23 11:31:00 EDT, Weight Dosing gabapentin 600 mg Tab: 600 mg = 1 tab(s), Oral, TID, X 90 day(s), # 270 tab(s), Refills(s) 1, Pharmacy: [facility], 183, cm, 06/14/23 10:18:00 EST, Height/Length Dosing, 69.6, kg, 05/20/23 8:22:00 EST, Weight Dosing meloxicam 15 mg Tab: 15 mg = 1 tab(s), Oral, Daily, # 90 tab(s), Refills(s) 4, Pharmacy: [facility] ([facility] 183, cm, 10/08/22 11:08:00 EDT, Height/Length Dosing, 71.6, kg, 10/08/22 11:08:00 EDT, Weight Dosing tamsulosin 0.4 mg Cap: 0.4 mg = 1 cap(s), Oral, BID, TAKE ONE CAPSULE BY MOUTH TWICE A DAY, # 180 cap(s), Refills(s) 3, Pharmacy: [facility] ([facility]), 183, cm, 02/21/23 13:14:00 EDT, Height/Length Dosing, 71.3, kg, 02/17/23 11:31:00 EDT, Weight Dosing... Documented Medications Documented Miralax 17 gram packet: 17 gram, Oral, Daily, dissolve in water before taking, # 255 gram, Refills(s) 0 Probiotic Formula (Bacillus Coagulans): 1 cap(s), Oral, Daily, Refill(s) 0, Prophylaxis Vitamin D: 50,000 International_Unit, Oral, Daily, Refills(s) 0 omeprazole 20 mg Cap-DR: 20 mg = 1 cap(s), Oral, Daily, PRN Control of stomach acid, Refills(s) 0 Problem list: All Problems Lower back pain / SNOMED CT 552816318 / Confirmed Post laminectomy syndrome / SNOMED CT 929429942 / Confirmed Arthritis / SNOMED CT 5165771 / Confirmed Deafness / SNOMED CT 13394961 / Confirmed BPH with urinary obstruction / SNOMED CT 3863665026 / Confirmed Prostate nodule / SNOMED CT 6871009948 / Confirmed Prostatitis / SNOMED CT 81719053 / Confirmed Piriformis syndrome / SNOMED CT 857107857 / Confirmed Spondylosis of thoracolumbar spine / SNOMED CT 3157985718 / Confirmed Sacroiliitis / SNOMED CT 93309381 / Confirmed Somatic dysfunction of lower extremities / SNOMED CT 3995413103 / Confirmed Somatic dysfunction of sacral spine / SNOMED CT 0456112882 / Confirmed Somatic dysfunction of lumbar region / SNOMED CT 1585333508 / Confirmed Somatic dysfunction of thoracic region / SNOMED CT 9174217998 / Confirmed Spasm of lumbar paraspinous muscle / SNOMED CT 9011997126 / Confirmed Abdominal weakness / SNOMED CT 175250901 / Confirmed Chronic prostatitis / SNOMED CT 25526783 / Confirmed Insomnia / SNOMED CT 799909228 / Confirmed Chronic constipation / SNOMED CT 518740552 / Confirmed Cervical arthritis / SNOMED CT 1583734781 / Confirmed Trapezius muscle spasm / SNOMED CT 5447616863 / Confirmed Somatic dysfunction of head region / SNOMED CT 9957134252 / Confirmed Somatic dysfunction of cervical region / SNOMED CT 1385739046 / Confirmed Normocytic anemia / SNOMED CT 838957670 / Confirmed Hypocalcemia / SNOMED CT 4647623 / Confirmed Fatigue / SNOMED CT 538757386 / Confirmed Resolved: Headache / SNOMED CT 32729982 Resolved: Right lower quadrant pain / SNOMED CT 063007438 Canceled: Unexplaine (more content not included)... Normal [facility] Comment on above: Result Comment: Elec tronically Signed By: Glenis VAZQUEZ, Shahnaz\.br\Date and Time Signed: 08/08/23 14:17 EST In office Testingon 08-08-19 In office Testing [id number]#1.00TIFF Normal [facility] Legal Correspondence Officeo n 08-08-2023 Legal Correspondence Office [id number]#1.00TIFF Normal [facility] Office/Clinic Note-Physician on 08-08-2023 Office/Clinic Note-Physician [id number]#1.00TIFF Normal [facility] Orders Officeon 08-08-2023 Orders Office [id number]#1.00TIFF Normal [facility] 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 Drug Screen-LCon 024 Test Name [id number] Invalid Interpretation Code [facility] Comment on above: Performed By: #### 1 [id number] ####[facility] [id number] [place] [address] Patient Correspondenceon Patient Correspondence [id number]#1.00TIFF Normal [facility] Patient Correspondence [id number]#1.00TIFF Normal [facility] Patient Correspondence [id number]#1.00TIFF Normal [facility] Patient Correspondence [id number]#1.00TIFF Normal [facility] Patient History Officeon Patient History Office [id number]#1.00TIFF Normal [facility] Reference Laboratory Testing Ordered By: Tyra Wang on 08-08-2023 Test Name [id number] Invalid Interpretation Code [facility] SendOutsSS Consent for Treatmenton 06-11 Consent for Treatment [id number]#1.00TIFF [place] [facility] Consultation Noteon 06-29-20 Consultation Note Patient: LETY ULLOA Age: 82 years Sex: Male : 1940 Associated Diagnoses: None Author: Shahnaz Galvin PA-C Subjective Chief complaint 06/29/2023 12:28 EST SCS implant f/u . Patient is an 82-year-old male. He presents today for a 1 week postoperative follow-up after undergoing a spinal cord stimulator implant on 06/21/2023. Hunt implant was placed. He states that things are overall going well. He feels that the stimulator is overall very helpful. He rates his discomfort a 0/10. He feels that his pain is overall very well-controlled. The rep is here today to work with him but at this time, he states that he is off almost all of his medications and at this time is very pleased with how things are going. Health Status Allergies: Allergic Reactions (Selected) Moderate Clindamycin- Swelling. Mild Penicillins- Unknown. Severity Not Documented Doxycycline- Swelling., Allergies (3) Active Reaction clindamycin Swelling penicillins Unknown doxycycline Swelling Current medications: (Selected) Prescriptions Prescribed LORazepam 0.5 mg Tab: See Instructions, 1/2 tab(s) Oral Once a day (at bedtime), # 15 tab(s), Refills(s) 2, Pharmacy: [facility], 183, cm, 05/20/23 8:22:00 EST, Height/Length Dosing, 69.6, kg, 05/20/23 8:22:00 EST, Weight Dosing E[place] 325 mg-5 mg oral tablet: 1 tab(s), Oral, TID for pain, 45 tab(s), Refill(s) 0, [facility], 183, cm, 05/17/22 8:51:00 EST, Height/Length Dosing, 72.6, kg, 04/06/22 7:59:00 EDT, Weight Dosing Percocet 5 mg-325 mg oral tablet: 1 tab(s), Oral, q6hr, 28 tab(s), Refill(s) 0, [facility], 183, cm, 06/21/23 12:01:00 EST, Height/Length Dosing, 69.6, kg, 05/20/23 8:22:00 EST, Weight Dosing Tylenol with Codeine #3 oral tablet: See Instructions, 45 tab(s), Refill(s) 0, 1 tab(s) po bid prn pain, [facility], 183, cm, 02/21/23 13:14:00 EDT, Height/Length Dosing, 71.3, kg, 02/17/23 11:31:00 EDT, Weight Dosing baclofen 10 mg Tab: 10 mg = 1 tab(s), Oral, TID, # 270 tab(s), Refills(s) 1, Pharmacy: [facility] ([facility] 183, cm, 02/21/23 13:14:00 EDT, Height/Length Dosing, 71.3, kg, 02/17/23 11:31:00 EDT, Weight Dosing gabapentin 600 mg Tab: 600 mg = 1 tab(s), Oral, TID, X 90 day(s), # 270 tab(s), Refills(s) 1, Pharmacy: [facility], 183, cm, 06/14/23 10:18:00 EST, Height/Length Dosing, 69.6, kg, 05/20/23 8:22:00 EST, Weight Dosing meloxicam 15 mg Tab: 15 mg = 1 tab(s), Oral, Daily, # 90 tab(s), Refills(s) 4, Pharmacy: [facility] ([facility] 183, cm, 10/08/22 11:08:00 EDT, Height/Length Dosing, 71.6, kg, 10/08/22 11:08:00 EDT, Weight Dosing tamsulosin 0.4 mg Cap: 0.4 mg = 1 cap(s), Oral, BID, TAKE ONE CAPSULE BY MOUTH TWICE A DAY, # 180 cap(s), Refills(s) 3, Pharmacy: [facility] ([facility]), 183, cm, 02/21/23 13:14:00 EDT, Height/Length Dosing, 71.3, kg, 02/17/23 11:31:00 EDT, Weight Dosing... Documented Medications Documented Miralax 17 gram packet: 17 gram, Oral, Daily, dissolve in water before taking, # 255 gram, Refills(s) 0 Probiotic Formula (Bacillus Coagulans): 1 cap(s), Oral, Daily, Refill(s) 0, Prophylaxis Vitamin D: 50,000 International_Unit, Oral, Daily, Refills(s) 0 omeprazole 20 mg Cap-DR: 20 mg = 1 cap(s), Oral, Daily, PRN Control of stomach acid, Refills(s) 0 Problem list: All Problems Lower back pain / SNOMED CT 045016301 / Confirmed Post laminectomy syndrome / SNOMED CT 263408687 / Confirmed Arthritis / SNOMED CT 7305089 / Confirmed Deafness / SNOMED CT 77281995 / Confirmed BPH with urinary obstruction / SNOMED CT 9824106382 / Confirmed Prostate nodule / SNOMED CT 6734055381 / Confirmed Prostatitis / SNOMED CT 67110043 / Confirmed Piriformis syndrome / SNOMED CT 330418364 / Confirmed Spondylosis of thoracolumbar spine / SNOMED CT 5158431845 / Confirmed Sacroiliitis / SNOMED CT 52024947 / Confirmed Somatic dysfunction of lower extremities / SNOMED CT 5450987966 / Confirmed Somatic dysfunction of sacral spine / SNOMED CT 5126347552 / Confirmed Somatic dysfunction of lumbar region / SNOMED CT 0820235545 / Confirmed Somatic dysfunction of thoracic region / SNOMED CT 3475910205 / Confirmed Spasm of lumbar paraspinous muscle / SNOMED CT 8682065057 / Confirmed Abdominal weakness / SNOMED CT 695215322 / Confirmed Chronic prostatitis / SNOMED CT 62224256 / Confirmed Insomnia / SNOMED CT 216639161 / Confirmed Chronic constipation / SNOMED CT 313766757 / Confirmed Cervical arthritis / SNOMED CT 9441442229 / Confirmed Trapezius muscle spasm / SNOMED CT 1359832036 / Confirmed Somatic dysfunction of head region / SNOMED CT 5479205892 / Confirmed Somatic dysfunction of cervical region / SNOMED CT 1575822209 / Confirmed Normocytic anemia / SNOMED CT 070426312 / Confirmed Hypocalcemia / SNOMED CT 3889272 / Confirmed Fatigue / SNOMED CT 632754943 / Confirmed Resolved: Headache / SNOMED CT 62060654 Resolve (more content not included)... Normal [facility] Comment on above: Result Comment: Elec tronically Signed By: Glenis VAZQUEZ, Shahnaz\.br\Date and Time Signed: 06/29/23 13:50 EST Office/Clinic Note-Physician on 06-29-2023 Office/Clinic Note-Physician [id number]#1.00TIFF Normal [facility] Patient Correspondenceon Patient Correspondence [id number]#1.00TIFF Normal [facility] Patient Correspondence [id number]#1.00TIFF Normal [facility] Patient History Officeon Patient History Office [id number]#1.00TIFF [facility] IntraOperative Documentson 1 08-23-2022 IntraOperative Documents [id number]#1.00TIFF [facility] Consent for Anesthesiaon Consent for Anesthesia [id number]#1.00TIFF [facility] Consent for Procedure/Surger yon 06-21-2023 Consent for Procedure/Surgery [id number]#1.00TIFF [facility] Consent for Treatmenton 06-10 Consent for Treatment [id number]#1.00TIFF [facility] Discharge Instructionson Discharge Instructions [id number]#1.00TIFF [facility] Insurance Correspondence Off iceon 06-21-2023 Insurance Correspondence Office [id number]#2.00TIFF [facility] IntraOperative Documentson 1 08-22-2022 IntraOperative Documents [id number]#1.00TIFF [place] [facility] Main OR Intraoperative Recor darby 06-21-2023 Main OR Intraoperative Record IntraOp Document Type FTPM Summary Primary Physician: Abe Carr MD Finalized Date/Time: 06/21/23 13:59:02 Pt. Name: SEN ULLOA Jelly/Sex: 1940 Male Med Rec #: [id number] Physician: Abe Carr MD Financial #: [id number] Pt. Type: P Room/Bed: / Admit/Disch: 06/21/23 10:57:04 - Institution: Case Times FTPM Entry 1 Patient Times In Room 06/21/23 12:51:00 Out Room 06/21/23 13:58:00 Procedure Times Start 06/21/23 12:54:00 Stop 06/21/23 13:46:00 Anesthesia Times Start 06/21/23 12:51:00 Stop 06/21/23 13:58:00 Last Modified By: Devin MAHMOOD, Marry Robert 06/21/23 13:58:11 Case Attendance FTPM Entry 1 Entry 2 Entry 3 Case Attendee Therese Mccracken CRNA, MD, Abe Beltran RN, Marry Robert Role Performed Anesthesiologist Surgeon - Primary Salesperson Automobiles - Primary Passenger Service Agent Time In 06/21/23 12:51:00 06/21/23 12:51:00 06/21/23 12:51:00 Time Out 06/21/23 13:58:00 06/21/23 13:58:00 06/21/23 13:58:00 Procedure SPINAL CORD STIMULATOR SPINAL CORD STIMULATOR SPINAL CORD STIMULATOR IMPLANT(.) IMPLANT(.) IMPLANT(.) Comments Last Modified By: Devin MAHMOOD, Marry Beltran RN, Marry Mart RN 06/21/23 13:58:15 06/21/23 13:58:15 06/21/23 13:58:15 Entry 4 Entry 5 Entry 6 Case Attendee Freddie MAHMOOD, Dana Austin RT(R), Padilla Huynh Jr., DO Role Performed Scrub - Primary Embossing Machine Tender Anesthesiologist of Record Time In 06/21/23 12:51:00 06/21/23 12:51:00 06/21/23 12:51:00 Time Out 06/21/23 13:58:00 06/21/23 13:58:00 06/21/23 13:58:00 Procedure SPINAL CORD STIMULATOR SPINAL CORD STIMULATOR SPINAL CORD STIMULATOR IMPLANT(.) IMPLANT(.) IMPLANT(.) Comments Last Modified By: Devin MAHMOOD, Marry Beltran RN, Marry Mart RN 06/21/23 13:58:15 06/21/23 13:58:15 06/21/23 13:58:15 Entry 7 Case Attendee Jazmin Grover Role Performed PLANER HAND/SA Time In 06/21/23 12:51:00 Time Out 06/21/23 13:58:00 Procedure SPINAL CORD STIMULATOR IMPLANT(.) Comments Last Modified By: Marry Beltran RN 06/21/23 13:58:15 Perioperative Protocols FTPM Pre-Care Text: Implements protective measures prior to operative or invasive procedure, confirms identity before the operative or invasive procedure, verifies operative procedure, surgical site, and laterality Entry 1 Procedure(s) SPINAL CORD STIMULATOR Patient Identity Birthday, ID Band IMPLANT(.) Verified (select at Check, Patient least 2): Participation Consents / H and P Anesthesia Consent, Operative Site Present Verified HandP, Surgery/Procedure Marking Verified Consent Surgical Site Yes Laterality Verified Yes Verified Procedure Verified Yes Correct Patient Yes Position Verified Availability Equipment, Medication, Prep Dry Yes Verified (If X-ray Applicable) PreOp Antibiotic Yes Time Out Devin MAHMOOD, Marry Robert, Given Participants Freddie MAHMOOD, Bruno Gastelum MD, Geovanna Armstrong RT(R), Nawaf Rodriguez CRNA, Brandy J., Boyer, James W Time Out Complete 06/21/23 12:52:00 Outcomes Met? Yes Last Modified By: Marry Beltran RN 06/21/23 13:00:01 Post-Care Text: The patient is free from signs and symptoms of injury caused by extraneous objects Allergy Information FTPM Pre-Care Text: Verifies allergies Entry 1 Allergies Reviewed? Yes Allergies Reviewed Self/Patient With Outcomes Met? Yes Last Modified By: Marry Beltran RN 06/21/23 12:36:04 Post-Care Text: The patient received appropriate medication(s) safely administered during the perioperative period Surgical Procedures FTPM Entry 1 Procedure Description Procedure SPINAL CORD STIMULATOR Modifiers . IMPLANT Surgeon Description SCS IMPLANT Primary Procedure Yes Primary Surgeon Abe Carr MD Start 06/21/23 12:52:00 Stop 06/21/23 13:46:00 Anesthesia Type MAC Surgical Service Pain Management Wound Class 1 - Clean Last Modified By: Marry Beltran RN 06/21/23 13:58:19 General Case Data FTPM Pre-Care Text: Classifies surgical wound, implements aseptic technique, initiates traffic control Entry 1 Case Information OR Pain Proc Room Case Level Level 2 Wound Class 1 - Clean Specialty Pain Management ASA Class 2 Preop Diagnosis M96.1, G89.29 Postop Same As Preop Yes Postop Diagnosis M96.1, G89.29 Outcomes Met? Yes Last Modified By: Marry Beltran RN 06/21/23 13:02:44 Post-Care Text: The patient is free from signs and symptoms of infection Skin Assessment (Pre Procedure) FTPM Pre-Care Text: Implements protective measures to prevent skin/ tissue injury due to thermal or mechanical sources Evaluates for signs and symptoms of physical injury to skin and tissue Entry 1 Skin Integrity Intact, Marceline, Warm, and Skin Abnormality Yes Dry, Rash (See Comments) Abnormality Location lateral lumbar sides of Abnormality Type Rash back-rash noted Outcomes Met? Yes Last Modified By: Marry Beltran RN 06/21/23 13:43:41 Po (more content not included)... Normal [facility] Main OR Preoperative Recordo n 06-21-2023 Main OR Preoperative Record Holding Area Document Type FTPM Summary Primary Physician: Abe Carr MD Finalized Date/Time: 06/21/23 12:21:42 Pt. Name: SEN ULLOA/Sex: 1940 Male Med Rec #: [id number] Physician: Abe Carr MD Financial #: [id number] Pt. Type: P Room/Bed: / Admit/Disch: 06/21/23 10:57:04 - Institution: Case Times Holding FTPM Pre-Care Text: Verifies consent for planned procedure, identifies individual values and wishes concerning care, includes family members in perioperative teaching Secures patient's records' belongings, and valuables, maintains patient's dignity and privacy, and maintains patient confidentiality Entry 1 In Holding 06/21/23 12:16:00 Outcomes Met? Yes Last Modified By: Ana Carrillo RN 06/21/23 12:16:39 Post-Care Text: The patient participates in decisions affecting his or her perioperative plan of care The patient's right to privacy is maintained Surgery Checklist FTPM Entry 1 Patient Birthday, ID Band Procedure History and Physical, Identification: Check, Patient Verification: Surgical Consent, With Participation Patient NPO after Midnight: Yes Date/Time: 06/21/23 12:16:00 Results Reviewed N/A Personal Items: Cataract Lens Implant, Comments: Jewelry Personal Items Pt. wearing upper Complaints of Pain: Yes Comment: partial. He has a history of bilateral cataract lens implants. Pain Comment: 12/18 lower back pain Operative Site Yes Marking: Marked By: Dr. Carr Location: SCS implant Availability Equipment, X-Ray Verified: Does Patient Smoke No Patient states Yes Comment - Adult -Yolanda postop adult Supervision supervision available Case Cancelled in No Holding Area see comments below for reason Last Modified By: Ana Carrillo RN 06/21/23 12:18:40 General Comments: Used CHG wipes to cleanse pt's entire back Finalized By: Ana Carrillo RN Document Signatures Signed By: Ana Carrillo RN 06/21/23 12:18 Ana Carrillo RN 06/21/23 12:21 Normal [facility] Operative Reporton 3 Operative Report Patient: LETY ULLOA Age: 82 years Sex: Male : 1940 Associated Diagnoses: None Author: Bruno GALEANA, Abe Alvarez Procedure Procedure: Spinal Cord Stimulator Implant with Fluoroscopic Guidance - Hunt Evoke Closed Loop Stimulator, 2 x 12 contact Evoke CAP-12 Percutaneous 60cm leads. Diagnosis: Lumbar Post-laminectomy Syndrome, chronic pain Anesthesia: MAC MAC anesthesia is medically necessary for the procedure due to the procedure requiring the patient to remain in a painful position for a prolonged period of time. Patient was responsive throughout the procedure. The increased risk of the procedure with use of sedation was discussed with the patient. The patient wished to proceed. Pre-op antibiotics were administered 30 minutes prior to incision. The patient was identified in the pre-op area. The procedure, including risks benefits and alternatives was discussed with the patient. The patient agreed to proceed. Informed consent was obtained and the site(s) marked. The patient was brought to the procedure room and placed in the prone position with padding under the abdomen to reduce lumbar lordosis. Time out was taken. The back was prepped and draped in surgical sterile fashion. Skin and subcutaneous tissues were anesthetized with 16 mL of Lidocaine 2% with epinephrine combined in a 50/50 mixture with 0.5% bupivacaine through a 25G needle. A 3 cm incision was made in the midline. Bovie cautery was used to dissect to the interspinous ligament. The T12/L1 epidural space was entered using a 14G Touhy needle using loss of resistance technique. The first 12-contact Hunt epidural lead was advanced in the posterior aspect of the epidural space to right of midline where the top of the lead overlied the bottom third of T7 vertebral body to the right of midline. A second 14G Touhy needle then was used to enter the T12/L1 epidural space using the same technique. A second 12-contact Hunt lead was then advanced under fluoroscopic guidance in the posterior aspect of the epidural space to where the tip of the lead overlied the bottom third of T7 to the left of midline. Complex intraoperative programming then took place for less than 30 minutes. The patient noted paresthesias in the areas of pain. The leads were then anchored to interspinous ligament using Evoke Active Anchors x2 and Fixate devicex1 and 2-0 silk suture x1. The generator pocket was then formed after first anesthetizing the skin and subcutaneous tissues with 10ml of the anesthetic mixture using bovie cautery and blunt dissection.. The leads were tunneled from the midline incision to the generator pocket. Both sites were irrigated with antibiotic irrigation. Impedances were checked and were ok. The leads were then fixed to the generator with the hex wrench. The pulsed generator was then placed in the pocket. Both sites were closed in layered fashion with Vicryl suture and liquiband. Antibiotic ointment and sterile dressing was then applied and the patient transferred to the recovery area. The patient was awakened and brought to the recovery room in good condition. IVF: 1000ml Blood loss: minimal Complications: none Specimens: none The patient was brought to the recovery area in stable condition and then monitored for an appropriate period of time. Further programming and education then took place with the telephone claims representative. The patient was discharged home in good condition with post-procedure instructions and antibiotics sent to the patient's pharmacy. Epidural injection procedure Physical Exam: vital signs Vital Signs 06/21/2023 12:01 EST Heart Rate Monitored 63 bpm SpO2 98 % 06/21/2023 12:00 EST Systolic Blood Pressure 143 mmHg HI Diastolic Blood Pressure 74 mmHg Mean Arterial Pressure, Monitered 97 mmHg 06/21/2023 11:59 EST Respiratory Rate 14 br/min 06/21/2023 11:59 EST Temperature Axillary 36.5 DegC . Normal [facility] Comment on above: Result Comment: Elec tronically Signed By: Abe Carr MD\.br\Date and Time Signed: 06/21/23 13:53 EST Progress Note-Physicianon Progress Note-Physician Patient: SEN ULLOA Age: 82 years Sex: Male : 1940 Associated Diagnoses: None Author: Padilla Burns Jr., DO Postoperative Information Postoperative disposition: Postoperative disposition: To PACU. Optimetrix number: Optimetrix number [id number]. Anesthetic utilized: Monitored anesthesia care. Physical Examination Vital signs stable. Pain Assessment: Controlled. General: Awake, Alert, Appropriate. Respiratory: Adequate air exchange, Equal bilateral chest wall expansion, Non-labored. Cardiovascular: Stable, Normal peripheral perfusion. Neurological: Normal sensory function. Assessment Anesthetic outcome No anesthetic complications noted. Review / Management Condition: Stable. Plan Transfer/Discharge: Transfer/Discharge Discharge when meets criteria. Normal [facility] Comment on above: Result Comment: Elec tronically Signed By: Padilla Burns Jr., DO\.br\Date and Time Signed: 06/21/23 15:03 EST Progress Note-Physician Patient: SEN ULLOA Age: 82 years Sex: Male : 1940 Associated Diagnoses: None Author: Padilla Burns Jr., DO Preoperative Information NPO after midnight Review of Systems Eye Respiratory: Negative except as documented in history of present illness. Cardiovascular: Negative except as documented in history of present illness. Health Status Allergies: Allergic Reactions (Selected) Moderate Clindamycin- Swelling. Mild Penicillins- Unknown. Severity Not Documented Doxycycline- Swelling., Allergies (3) Active Reaction clindamycin Swelling penicillins Unknown doxycycline Swelling Current medications: (Selected) Prescriptions Prescribed LORazepam 0.5 mg Tab: See Instructions, 1/2 tab(s) Oral Once a day (at bedtime), # 15 tab(s), Refills(s) 2, Pharmacy: [facility], 183, cm, 05/20/23 8:22:00 EST, Height/Length Dosing, 69.6, kg, 05/20/23 8:22:00 EST, Weight Dosing [place] 325 mg-5 mg oral tablet: 1 tab(s), Oral, TID for pain, 45 tab(s), Refill(s) 0, [facility], 183, cm, 05/17/22 8:51:00 EST, Height/Length Dosing, 72.6, kg, 04/06/22 7:59:00 EDT, Weight Dosing Tylenol with Codeine #3 oral tablet: See Instructions, 45 tab(s), Refill(s) 0, 1 tab(s) po bid prn pain, [facility], 183, cm, 02/21/23 13:14:00 EDT, Height/Length Dosing, 71.3, kg, 02/17/23 11:31:00 EDT, Weight Dosing baclofen 10 mg Tab: 10 mg = 1 tab(s), Oral, TID, # 270 tab(s), Refills(s) 1, Pharmacy: [facility] 183, cm, 02/21/23 13:14:00 EDT, Height/Length Dosing, 71.3, kg, 02/17/23 11:31:00 EDT, Weight Dosing gabapentin 600 mg Tab: 600 mg = 1 tab(s), Oral, TID, X 90 day(s), # 270 tab(s), Refills(s) 1, Pharmacy: [facility], 183, cm, 06/14/23 10:18:00 EST, Height/Length Dosing, 69.6, kg, 05/20/23 8:22:00 EST, Weight Dosing meloxicam 15 mg Tab: 15 mg = 1 tab(s), Oral, Daily, # 90 tab(s), Refills(s) 4, Pharmacy: [facility] ([facility] 183, cm, 10/08/22 11:08:00 EDT, Height/Length Dosing, 71.6, kg, 10/08/22 11:08:00 EDT, Weight Dosing tamsulosin 0.4 mg Cap: 0.4 mg = 1 cap(s), Oral, BID, TAKE ONE CAPSULE BY MOUTH TWICE A DAY, # 180 cap(s), Refills(s) 3, Pharmacy: [facility] ([facility]), 183, cm, 02/21/23 13:14:00 EDT, Height/Length Dosing, 71.3, kg, 02/17/23 11:31:00 EDT, Weight Dosing... Documented Medications Documented Miralax 17 gram packet: 17 gram, Oral, Daily, dissolve in water before taking, # 255 gram, Refills(s) 0 Probiotic Formula (Bacillus Coagulans): 1 cap(s), Oral, Daily, Refill(s) 0, Prophylaxis Vitamin D: 50,000 International_Unit, Oral, Daily, Refills(s) 0 omeprazole 20 mg Cap-DR: 20 mg = 1 cap(s), Oral, Daily, PRN Control of stomach acid, Refills(s) 0, Home Medications (11) Active baclofen 10 mg Tab 10 mg = 1 tab(s), Oral, TID gabapentin 600 mg Tab 600 mg = 1 tab(s), Oral, TID LORazepam 0.5 mg Tab See Instructions meloxicam 15 mg Tab 15 mg = 1 tab(s), Oral, Daily Miralax 17 gram packet 17 gram, Oral, Daily [place] 325 mg-5 mg oral tablet 1 tab(s), PRN, Oral, TID omeprazole 20 mg Cap-DR 20 mg = 1 cap(s), PRN, Oral, Daily Probiotic Formula (Bacillus Coagulans) 1 cap(s), Oral, Daily tamsulosin 0.4 mg Cap 0.4 mg = 1 cap(s), Oral, BID Tylenol with Codeine #3 oral tablet See Instructions Vitamin D 50,000 International_Unit, Oral, Daily , No qualifying data available Problem list: All Problems Abdominal weakness / SNOMED CT 027275936 / Confirmed Arthritis / SNOMED CT 2686792 / Confirmed 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 Cervical arthritis / SNOMED CT 0784938847 / Confirmed Chronic constipation / SNOMED CT 997623117 / Confirmed Chronic prostatitis / SNOMED CT 40666013 / Confirmed Deafness / SNOMED CT 44815523 / Confirmed Fatigue / SNOMED CT 018047040 / Confirmed Hypocalcemia / SNOMED CT 7430643 / Confirmed Insomnia / SNOMED CT 291514261 / Confirmed Lower back pain / SNOMED CT 053386956 / Confirmed Normocytic anemia / SNOMED CT 615558514 / Confirmed Piriformis syndrome / SNOMED CT 269370206 / Confirmed Post laminectomy syndrome / SNOMED CT 979386109 / Confirmed Prostate nodule / SNOMED CT 2757431249 / Confirmed Prostatitis / SNOMED CT 84603706 / Confirmed Sacroiliitis / SNOMED CT 68069652 / Confirmed Somatic dysfunction of cervical region / SNOMED CT 6999640682 / Confirmed Somatic dysfunction of head region / SNOMED CT 1326112106 / Confirmed Somatic dysfunction of lower extremities / SNOMED CT 6457643508 / Confirmed Somatic dysfunction of lumbar region / SNOMED CT 2058558432 / Confirmed Somatic dysfunction of sacral spine / SNOMED CT 1607115260 / Confirmed Somatic dysfunction of thoracic region / SNOMED CT 0371242836 / Confirmed Spasm of lumbar paraspinous muscle / SNOMED CT 9662056706 / Confirmed Spondylosis of thoracolumbar spine / SNOMED CT 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 Normal [facility] Comment on above: Result Comment: Elec tronically Signed By: Padilla Burns Jr., DO.br\Date and Time Signed: 06/21/23 10:13 EST MRSA Screenon 06-16-2023 MRSA DNA NIKKI+probe Ql (Unsp spec) Microbiology PROCEDURE: MRSA Screen [R1] SOURCE: Nasal BODY SITE: COLLECTED DATE/TIME: 06/14/2023 10:32 EST RECEIVED DATE/TIME: 06/14/2023 10:55 EST START DATE/TIME: 06/14/2023 10:55 EST FREE TEXT SOURCE: Bruno GALEANA, Abe Carr MD, Abe Alvarez FINAL REPORTS Final Report [] Verified Date/Time: 06/16/2023 07:10 EST MRSA Negative. Performing Locations R1: This test was performed at: [facility], [address] [place] [address], [address] [place] [address], [facility] Comment on above: Performed By: #### 1 [id number] ####[facility] [address] [place] [address] Consent for Treatmenton Consent for Treatment [id number]#1.00TIFF [facility] Consent for Treatment [id number]#1.00TIFF [facility] Physician Orderon 06-14-2023 Physician Order [id number]#1.00TIFF [facility] Physician Order [id number]#1.00TIFF [facility] Physician Orderon 06-13-2023 Physician Order [id number]#1.00TIFF [facility] Pre-Certification Formon Pre-Certification Form [id number]#1.00TIFF [facility] Erythropoiet Lvlon Erythropoietin (EPO) Qn 8.2 mIU/mL Invalid Interpretation Code 2.6-18.5 [facility] Comment on above: Result Comment: Decalog DxI 800 Immunoassay System Values obtained with different assay methods or kits cannot be used interchangeably. Results cannot be interpreted as absolute evidence of the presence or absence of malignant disease. Performed at: [address] [id number] PhD Regine Lucas Performed By: #### 5 [id number], 4471193, 8051524, 2441626, 8997879, 4734621, 2744242, 42968042, 7878290, 50590394, 1997974, 8942384 ####[facility] [address] [place] [address] Ionized Calciumon 05-23-2023 Calcium.ionized ISE [Mass/Vol] 4.8 mg/dL Invalid Interpretation Code 4.5-5.6 [facility] Comment on above: Result Comment: Perf ormed at: [address] [id number] PhD Regine Lucas Performed By: #### 5 [id number], 6748250, 9647867, 1267200, 9934158, 3426304, 2757156, 85611722, 4156130, 63066567, 1565403, 4600998 ####[facility] [address] [place] [address] PTH Intacton 05-21-2023 Parathyrin.intact [Mass/Vol] 33 pg/mL Invalid Interpretation Code 15-65 [facility] Comment on above: Result Comment: Perf ormed at: [address] [id number] PhD Regine Lucas Performed By: #### 1 [id number] ####[facility] [address] [place] [address] T3 Totalon 05-21-2023 T3 [Mass/Vol] 119 ng/dL Invalid Interpretation Code 71-180 [facility] Comment on above: Result Comment: Perf ormed at: [address] [id number] PhD Regine Lucas Performed By: #### 1 [id number] ####[facility] [address] [place] [address] Auto Diffon 05-20-2023 Basophils/100 WBC (Bld) 0.4 % Normal 0.0-2.0 [facility] Comment on above: Order Comment: Order Added by Discern Expert. Performed By: #### 5 [id number], 2475391, 6723533, 2124054, 7211931, 9596553, 5182263, 82727615, 3550723, 08902620, 2182659, 1015875 #### [facility] [address] [place] [address] Basophils/Leukocyt es Auto (Bld) [Pure # fraction] 0.0 E9/L Normal 0.0-0.2 [facility] Comment on above: Order Comment: Order Added by Discern Expert. Performed By: #### 5 [id number], 6954543, 7121905, 3504975, 1579484, 9008288, 8938224, 55670330, 8460278, 31244120, 9823228, 4355278 #### [facility] [address] [place] [address] Eosinophils/100 WBC (Bld) 3.4 % Normal 0.0-8.0 [facility] Comment on above: Order Comment: Order Added by Discern Expert. Performed By: #### 5 [id number], 7889951, 9796699, 4931840, 3126624, 2458621, 4132875, 39574624, 9494225, 28533803, 0642973, 5338177 #### [facility] [address] [place] [address] Eosinophils/Leukoc ytes Auto (Bld) [Pure # fraction] 0.2 E9/L Normal 0.0-0.5 [facility] Comment on above: Order Comment: Order Added by Discern Expert. Performed By: #### 5 [id number], 0390950, 2115795, 7748909, 1206661, 6607133, 1046892, 14184240, 4435839, 92276871, 4953296, 5653410 #### [facility] [address] [place] [address] Lymphocytes/100 WBC (Bld) 17.8 % Normal 14.0-50.0 [facility] Comment on above: Order Comment: Order Added by Discern Expert. Performed By: #### 5 [id number], 1012149, 9287703, 7687333, 7289713, 9316436, 1138027, 65217581, 2715934, 25438040, 5864304, 2866311 #### [facility] [address] [place] [address] Lymphocytes/Leukoc ytes Auto (Bld) [Pure # fraction] 0.8 E9/L Low 1.0-4.0 [facility] Comment on above: Order Comment: Order Added by Discern Expert. Performed By: #### 5 [id number], 7680292, 9105451, 4651374, 3823729, 5381356, 9129617, 29858318, 6029758, 84798360, 5206133, 4400412 #### [facility] [address] [place] [address] Monocytes/100 WBC (Bld) 15.2 % High 4.0-14.0 [facility] Comment on above: Order Comment: Order Added by Discern Expert. Performed By: #### 5 [id number], 3730987, 7185595, 3908480, 2640762, 8408540, 4899541, 19483706, 1114423, 71822508, 5732769, 2420528 #### [facility] [address] [place] [address] Monocytes/Leukocyt es Auto (Bld) [Pure # fraction] 0.7 E9/L Normal 0.2-1.0 [facility] Comment on above: Order Comment: Order Added by Discern Expert. Performed By: #### 5 [id number], 3907604, 8724466, 4712440, 6604386, 4355594, 7333514, 24356644, 4651782, 73530285, 9487282, 5925579 #### [facility] [address] [place] [address] Neutrophils/100 WBC (Bld) 63.2 % Normal 36.0-75.0 [facility] Comment on above: Order Comment: Order Added by Discern Expert. Performed By: #### 5 [id number], 9477672, 5829625, 0394253, 8387675, 1724900, 9716260, 02816269, 8884099, 17819922, 5088627, 4154577 #### [facility] [address] [place] [address] Neutrophils/Leukoc ytes Auto (Bld) [Pure # fraction] 2.9 E9/L Normal 2.0-7.5 [facility] Comment on above: Order Comment: Order Added by Discern Expert. Performed By: #### 5 [id number], 7352482, 7367850, 6581634, 7391215, 6902369, 1761683, 25690945, 2428223, 05800269, 6440942, 9621145 #### [facility] [address] [place] [address] CBC w/ Auto Diffon 3 Erythrocyte distribution width (RBC) [Ratio] 15.4 % High 10.9-14.2 [facility] Comment on above: Performed By: #### 5 19539384, 8989202, 6215702, 2686637, 5767722, 1870793, 4553844, 62110335, 0010251, 73115348, 8467971, 3553014 #### [facility] [address] [place] [address] Hematocrit (Bld) [Volume fraction] 41.2 % Normal 37.7-49.0 [facility] Comment on above: Performed By: #### 5 [id number], 9962485, 9631596, 5897268, 4104880, 1477656, 9564136, 36297286, 5154710, 25023202, 1829018, 0196726 #### [facility] [address] [place] [address] Hemoglobin (Bld) [Mass/Vol] 13.5 g/dL Normal 13.5-17.5 [facility] Comment on above: Performed By: #### 5 [id number], 0613949, 9625355, 7088410, 7930650, 5476061, 3234845, 35388661, 8494737, 42403988, 6587028, 7297951 #### [facility] [address] [place] [address] MCH (RBC) [Entitic mass] 28.6 pg Normal 27.0-34.0 [facility] Comment on above: Performed By: #### 5 [id number], 0378740, 1974982, 1031455, 8635530, 7222140, 5753838, 33938685, 6992947, 31456125, 0349309, 3470559 #### [facility] [address] [place] [address] MCHC (RBC) [Mass/Vol] 32.7 g/dL Normal 31.4-36.0 [facility] Comment on above: Performed By: #### 5 [id number], [id number], 3643236, 2466493, 1590238, 0238406, 5164194, 39567072, 9138475, 67165987, 2460317, 4932633 #### [facility] [address] [place] [address] MCV (RBC) [Entitic vol] 87.3 fL Normal 80.0-100.0 [facility] Comment on above: Performed By: #### 5 [id number], 9112157, 7707709, 1951925, 7364314, 8108504, 0871938, 45711401, 4705600, 32966088, 2893064, 5560432 #### [facility] [address] [place] [address] Platelet mean volume (Bld) [Entitic vol] 8.2 fL Normal 6.4-10.8 [facility] Comment on above: Performed By: #### 5 [id number], 8936570, 3981294, 8164230, 7943433, 7244309, 3402900, 63150166, 2393539, 73378942, 6633749, 5384165 #### [facility] [address] [place] [address] Platelets (Bld) [#/Vol] 198.0 E9/L Normal 150.0-500.0 [facility] Comment on above: Performed By: #### 5 [id number], 9097250, 1867428, 6232586, 0912663, 3210361, 5720048, 05932045, 2171179, 21877311, 3729450, 6034362 #### [facility] [address] [place] [address] RBC (Bld) [#/Vol] 4.7 E12/L Normal 4.3-5.9 [facility] Comment on above: Performed By: #### 5 [id number], 4067756, 3709924, 8509730, 4234600, 1137234, 1856871, 63394703, 7740266, 77532187, 9227892, 7975942 #### [facility] [address] [place] [address] WBC corrected for nucl RBC Auto (Bld) [#/Vol] 4.6 E9/L Normal 4.0-11.0 [facility] Comment on above: Performed By: #### 5 [id number], 4575960, 9111881, 0117275, 0553453, 5205242, 0984335, 51600794, 7600044, 65879723, 7677152, 5722568 #### [facility] [address] [place] [address] CHEMISTRYOrdered By: SYSTEM SYSTEM on 05-20-2023 25-hydroxyvitamin D3 [Mass/Vol] 54.1 ng/mL Normal 30.0 - 100.0 ng/mL [facility] Comment on above: Interpretive Data: Vitamin D deficiency has been defined as a level of serum 25-OH vitamin D less than 20 ng/mL (1,2) by the [place] of [employer] and an Endocrine Society practice guideline. The Endocrine Society further defined vitamin D insufficiency as a level between 21 and 29 ng/mL (2). 1. IOM ([place] of [employer]). 2010. Dietary reference intakes for calcium and D. [place]: The National Academies Press. 2. Shiv MF, Maximus ACOSTA, Ely VERMA, et al. Evaluation, treatment, and prevention of vitamin D deficiency: an Endocrine Society clinical practice guideline. JCEM. 2010; 96 (7):1911-30. Cobalamin (Vitamin B12) [Mass/Vol] 206 pg/mL Normal 50 - 1500 pg/mL [facility] Ferritin [Mass/Vol] 113 ng/mL Normal 24 - 336 ng/mL [facility] Comment on above: Interpretive Data: N ORMALS MEN <30 YRS 16-132 ng/mL MEN >30 YRS 8-338 ng/mL WOMEN (PREMEN) 6-104 ng/mL WOMEN (POSTMEN) 12-210 ng/mL Folate [Mass/Vol] 13.8 ng/mL Normal >=6.7ng/mL [facility] Iron [Mass/Vol] 63 ug/dL Normal 35 - 153 mcg/dL [facility] Phosphate [Mass/Vol] 3.5 mg/dL Normal 1.9 - 4.6 mg/dL [facility] TSH Qn 2.18 m[IU]/L Normal 0.34 - 5.60 mcIU/mL [facility] Consent for Treatmenton 05-11 Consent for Treatment [id number]#1.00TIFF Normal [facility] Family Medicine Office/Clini c Noteon 05-20-2023 Family Medicine Office/Clinic Note Chief Complaint F/U HPI Staff Patient here for 3 month F/U chronic pain and insomnia. LOV12/28/22 labs Patient states he has been seen for UA symptoms in February ended up in ER/ [place] didn't find anything really but labs showed anemic, calcium ,sodium low. wants to F/U on that. Also having neck pain History of Present Illness 82 Years old Male here to f/u for 3 month f/u chronic mksa HPI staff / Chief Complaint confirmed with the patient Interval history: after the February 25 appt - went to the [facility] had a CBC which revealed anemia a few other electrolytes were low spinal stimulator was removed a day early his back pain continues to be slightly better than before his butt pain continues to be better he experienced some general malaise for several weeks energy is about back to normal now waxed the lavonneang still taking the gabapentin during the day and two at night; sleep is good April 18, 2023-pain management-[place] Spinal cord stimulator lead removal Trial performed on 04/12/2023-reports 100% relief since the implant trial was placed However his wrist and neck pain resumed while off meloxicam Requesting to have the trial leads removed to get back on meloxicam His quality of life and ability to walk further distances increased while on the spinal cord stimulator Awaiting insurance authorization February 25, 2023-urgent care-[facility] Dysuria-UA negative in the office Sent for culture February 08, 2023-OMT Noted that physical therapy seem to help his neck pain and posture Noted that SI joint injection performed by Dr. Carr on February 01 was successful Continue meloxicam Insomnia has improved on gabapentin Manipulation performed and tolerated well Physical Exam Vitals & Measurements HR: 58(Peripheral) BP: 110/56 SpO2: 92% HT: 72 in HT: 183 cm WT: 69.6 kg WT: 153.12 lb BMI: 20.78 PHYSICAL EXAM Constitutional: Vital signs reviewed; ESN ULLOA is well nourished, no acute distress Lungs: Clear to auscultation, non-labored respiration - expansion is symmetric Heart: Normal rate and rhythm, normal peripheral perfusion Lymph: Deferred Abd: Deferred : Deferred MSK: Normal gait and station Skin: Warm, dry Neurologic: Awake, alert and oriented, speech is normal, no focal deficits, CN II-XII grossly intact Psychiatric: Cooperative, appropriate mood and affect, judgement is appropriate Assessment/Plan 1. Sacroiliitis (M46.1: Sacroiliitis, not elsewhere classified) Impression Acute on chronic Sub-optimal control of symptoms - overall improved This appears to be a combination of weak abdominals, poor posture, with significant arthritis OMT has been helpful in the past Plan: Continue with gabapentin and baclofen and meloxicam await spinal stimulator placement f/u PRN 2. Insomnia (G47.00: Insomnia, unspecified) Chronic Improved on gabapentin Briefly discussed behavioral techniques to modify behaviors which may undermine sleep quality Discussed how poor sleep can affect blood pressure, chronic pain, energy levels, daily cortisol/stress hormone levels Poor sleep can also undermine the patient's ability to maintain a healthy weight Patient reports understanding Continue gabapentin F/u 1 month 3. Arthritis (M19.90: Unspecified osteoarthritis, unspecified site) Chronic Sub-optimal control Discussed the rationale for NSAIDs and tylenol PRN in managing symptoms *avoid NSAIDS in patients who have contraindications Discussed the rationale for PRN meds vs scheduled vs maximal dosing per recs Topical vs oral meds discussed Discussed the rational for PT; deferred today Continue meloxicam F/u PRN 4. Hypocalcemia (E83.51: Hypocalcemia) mild on CMP prior derangement of vitamin D will check PTH, ionized calcium, vit D and phosphorus f/u 1 month Ordered: Calcium Level Ionized Phosphorus Level PTH Intact Vitamin D 25 Hydroxy 5. Fatigue (R53.83: Other fatigue) subacute improving slightly back to near baseline will address other labs as results come in f/u 3 months Ordered: T3 Total TSH With T4fr Reflex 6. Normocytic anemia (D64.9: Anemia, unspecified) New to me Unclear etiology Will re-check CBC Also, check iron, ferritin, B12 and folate F/u 1 month Ordered: CBC w/ Auto Diff Erythropoietin Level Ferritin Folate Level Iron Level Reticulocyte Count Vitamin B12 Level BMI 20.0-20.9, adult (Z68.20: Body mass index [BMI] 20.0-20.9, adult) Ordered: Body Mass Index (BMI) documented 3008F Current tobacco non-user 1036F Depression Screening Negative 3352F Fall Risk Screen 2 or more w/injury 1100F Influenza immunization administered or previously received 4274F Most recent diastolic blood pressure <80 mm Hg 3078F Systolic BP <130 mm Hg (Most Recent) 3074F Total time spent TODAY preparing the chart, face to face with the patient and family and time (more content not included)... Normal [facility] Comment on above: Result Comment: Elec tronically Signed By: Karishma Reddy DO\Date and Time Signed: 05/20/23 09:07 EST Ferritinon 05-20-2023 Ferritin [Mass/Vol] 113 ng/mL Normal 24-336 [facility] Comment on above: Result Comment: NORM ALS MEN <30 YRS 16-132 ng/mL MEN >30 YRS 8-338 ng/mL WOMEN (PREMEN) 6-104 ng/mL WOMEN (POSTMEN) 12-210 ng/mL Performed By: #### 5 [id number], 8765842, 7367289, 3103148, 2541586, 2384012, 6334691, 19618259, 6705568, 22292687, 9792796, 6153931 ####[facility] [id number] [place] [address] Folateon 05-20-2023 Folate [Mass/Vol] 13.8 ng/mL Normal >=6.7 [facility] Comment on above: Performed By: #### 5 [id number], 0891398, 7876653, 8544265, 9311954, 6624926, 8799238, 08883019, 5660246, 27972322, 6763096, 7937113 ####[facility] [address] [place] [address] HEMATOLOGYOrdered By: SYSTEM SYSTEM on 05-20-2023 Basophils/100 WBC (Bld) 0.4 % Normal 0.0 - 2.0 % [facility] HemeAutoSS Basophils/Leukocyt es Auto (Bld) [Pure # fraction] 0.0 E9/L Normal 0.0 - 0.2 E9/L [facility] HemeAutoSS Eosinophils/100 WBC (Bld) 3.4 % Normal 0.0 - 8.0 % [facility] HemeAutoSS Eosinophils/Leukoc ytes Auto (Bld) [Pure # fraction] 0.2 E9/L Normal 0.0 - 0.5 E9/L [facility]eAutoSS Lymphocytes/100 WBC (Bld) 17.8 % Normal 14.0 - 50.0 % [facility] HemeAutoSS Lymphocytes/Leukoc ytes Auto (Bld) [Pure # fraction] 0.8 E9/L Low 1.0 - 4.0 E9/L [facility]eAutoSS Monocytes/100 WBC (Bld) 15.2 % High 4.0 - 14.0 % [facility] HemeAutoSS Monocytes/Leukocyt es Auto (Bld) [Pure # fraction] 0.7 E9/L Normal 0.2 - 1.0 E9/L [facility]eAutoSS Neutrophils/100 WBC (Bld) 63.2 % Normal 36.0 - 75.0 % [facility] HemeAutoSS Neutrophils/Leukoc ytes Auto (Bld) [Pure # fraction] 2.9 E9/L Normal 2.0 - 7.5 E9/L [facility]eAutoSS HEMATOLOGYOrdered By: Lori Simental on 05-20-2023 Erythrocyte distribution width (RBC) [Ratio] 15.4 % High 10.9 - 14.2 % [facility]eAutoSS Hematocrit (Bld) [Volume fraction] 41.2 % Normal 37.7 - 49.0 % [facility]eAutoSS Hemoglobin (Bld) [Mass/Vol] 13.5 g/dL Normal 13.5 - 17.5 gm/dL [facility] MCH (RBC) [Entitic mass] 28.6 pg Normal 27.0 - 34.0 pg [facility] MCHC (RBC) [Mass/Vol] 32.7 g/dL Normal 31.4 - 36.0 gm/dL [facility] MCV (RBC) [Entitic vol] 87.3 fL Normal 80.0 - 100.0 fL [facility]eAuto[facility] Platelet mean volume (Bld) [Entitic vol] 8.2 fL Normal 6.4 - 10.8 fL [facility]eAutoSS Platelets (Bld) [#/Vol] 198.0 E9/L Normal 150.0 - 500.0 E9/L [facility] RBC (Bld) [#/Vol] 4.7 E12/L Normal 4.3 - 5.9 E12/L [facility] Reticulocytes/100 RBC (Bld) 0.6 % Normal 0.5 - 1.5 % [facility]eAuto[facility] WBC corrected for nucl RBC Auto (Bld) [#/Vol] 4.6 E9/L Normal 4.0 - 11.0 E9/L [facility] HemeAutoSS Ironon 05-20-2023 Iron [Mass/Vol] 63 microgram/dL Normal 35-153 [facility] Comment on above: Performed By: #### 5 [id number], 1560639, 9853275, 5297270, 0946681, 1299190, 4685531, 68445597, 5495692, 13979126, 4029390, 9387354 #### [facility] [address] [place] [address] Phosphoruson 05-20-2023 Phosphate [Mass/Vol] 3.5 mg/dL Normal 1.9-4.6 [facility] Comment on above: Performed By: #### 5 [id number], 4068945, 2778714, 8127871, 8597794, 3538210, 5728474, 09247014, 4215622, 22472546, 4367147, 4090048 #### [facility] [address] [place] [address] Retic Counton 05-20-2023 Reticulocytes/100 RBC (Bld) 0.6 % Normal 0.5-1.5 [facility] Comment on above: Performed By: #### 5 [id number], 0710175, 6911493, 3585637, 0538004, 4240281, 1199479, 96821522, 0696005, 78900534, 2169211, 7478165 #### [facility] [address] [place] [address] TSH With T4fr Reflexon 05-20 TSH Qn 2.18 m[IU]/L Normal 0.34-5.60 [facility] Comment on above: Performed By: #### 5 [id number], 6021186, 3367092, 4046931, 4581110, 2243874, 0913503, 01110282, 9045969, 54108981, 4254291, 1445322 ####[facility] [address] [place] [address] Vit B12on 05-20-2023 Cobalamin (Vitamin B12) [Mass/Vol] 206 pg/mL Normal 50-1500 [facility] Comment on above: Performed By: #### 5 [id number], 8504581, 2292846, 6638413, 7609032, 3304355, 3298689, 19848625, 2847165, 96875034, 2166558, 3348138 ####[facility] [address] [place] [address] Vitamin D 25 Hydroxyon 05-20 25-hydroxyvitamin D3 [Mass/Vol] 54.1 ng/mL Normal 30.0-100.0 [facility] Comment on above: Result Comment: Vit stovall D deficiency has been defined as a level of serum 25-OH vitamin D less than 20 ng/mL (1,2) by the [place] of [employer] and an Endocrine Society practice guideline. The Endocrine Society further defined vitamin D insufficiency as a level between 21 and 29 ng/mL (2). 1. IOM ([place] of [employer]). 2010. Dietary reference intakes for calcium and D. [place]: The National Academies Press. 2. Shiv MF, Maximus ACOSTA, Ely VERMA, et al. Evaluation, treatment, and prevention of vitamin D deficiency: an Endocrine Society clinical practice guideline. JCEM. 2010; 96 (7):1911-30. Performed By: #### 5 [id number], 1455121, 3801550, 3783967, 1007317, 1280148, 2906791, 00075518, 1756366, 78800144, 2304218, 9259473 ####[facility] [address] [place] [address] Consent for Treatmenton Consent for Treatment [id number]#1.00TIFF Normal [facility] Consultation Noteon 04-18-20 Consultation Note Patient: LETY ULLOA Age: 82 years Sex: Male : 1940 Associated Diagnoses: None Author: Shahnaz Galvin PA-C Subjective Chief complaint Here for spinal cord stimulator trial removal. Patient is an 82-year-old male. He is here today for a spinal cord stimulator trial lead removal. He had the spinal cord stimulator trial implant done on 04/12/2023. He states that he has had 100% relief since the implant trial was placed. Unfortunately, after come off of the meloxicam after about a week coming off the meloxicam his wrist and neck have began to bother him. He is here today to have the trial leads removed to get back on the meloxicam. He feels that the stimulator trial was very successful. He was able to walk farther. He was able to walk a few blocks which she has not done for a while. He has been able to do a lot of things that he has not been able to do for quite a while. He was able to help with yard work and he was overall very happy with how much relief of his back and radicular symptoms he obtained. Health Status Allergies: Allergic Reactions (Selected) Mild Penicillins- Unknown. Severity Not Documented Doxycycline- Swelling., Allergies (2) Active Reaction penicillins Unknown doxycycline Swelling Current medications: (Selected) Prescriptions Prescribed [place] 325 mg-5 mg oral tablet: 1 tab(s), Oral, TID for pain, 45 tab(s), Refill(s) 0, [facility], 183, cm, 05/17/22 8:51:00 EST, Height/Length Dosing, 72.6, kg, 04/06/22 7:59:00 EDT, Weight Dosing Tylenol with Codeine #3 oral tablet: See Instructions, 45 tab(s), Refill(s) 0, 1 tab(s) po bid prn pain, [facility], 183, cm, 02/21/23 13:14:00 EDT, Height/Length Dosing, 71.3, kg, 02/17/23 11:31:00 EDT, Weight Dosing baclofen 10 mg Tab: 10 mg = 1 tab(s), Oral, TID, # 270 tab(s), Refills(s) 1, Pharmacy: [facility] 183, cm, 02/21/23 13:14:00 EDT, Height/Length Dosing, 71.3, kg, 02/17/23 11:31:00 EDT, Weight Dosing clindamycin 300 mg oral cap: 300 mg = 1 cap(s), Oral, q6hr, X 7 day(s), # 28 cap(s), Refills(s) 0, Pharmacy: [facility], 183, cm, 04/12/23 7:39:00 EDT, Height/Length Dosing, 71.3, kg, 02/17/23 11:31:00 EDT, Weight Dosing gabapentin 600 mg Tab: 600 mg = 1 tab(s), Oral, TID, # 270 tab(s), Refills(s) 1, Pharmacy: [facility] ([facility]), 183, cm, 02/21/23 13:14:00 EDT, Height/Length Dosing, 71.3, kg, 02/17/23 11:31:00 EDT, Weight Dosing meloxicam 15 mg Tab: 15 mg = 1 tab(s), Oral, Daily, # 90 tab(s), Refills(s) 4, Pharmacy: [facility] ([facility] 183, cm, 10/08/22 11:08:00 EDT, Height/Length Dosing, 71.6, kg, 10/08/22 11:08:00 EDT, Weight Dosing tamsulosin 0.4 mg Cap: 0.4 mg = 1 cap(s), Oral, BID, TAKE ONE CAPSULE BY MOUTH TWICE A DAY, # 180 cap(s), Refills(s) 3, Pharmacy: [facility] ([facility]), 183, cm, 02/21/23 13:14:00 EDT, Height/Length Dosing, 71.3, kg, 02/17/23 11:31:00 EDT, Weight Dosing... Documented Medications Documented Miralax 17 gram packet: 17 gram, Oral, Daily, dissolve in water before taking, # 255 gram, Refills(s) 0 Probiotic Formula (Bacillus Coagulans): 1 cap(s), Oral, Daily, Refill(s) 0, Prophylaxis Vitamin D: 50,000 International_Unit, Oral, Daily, Refills(s) 0 baclofen: Oral, Bedtime, Refills(s) 0 omeprazole 20 mg Cap-DR: 20 mg = 1 cap(s), Oral, Daily, PRN Control of stomach acid, Refills(s) 0 Problem list: All Problems Lower back pain / SNOMED CT 417629351 / Confirmed Post laminectomy syndrome / SNOMED CT 223077539 / Confirmed Arthritis / SNOMED CT 3850636 / Confirmed Deafness / SNOMED CT 75573654 / Confirmed 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 Prostate nodule / SNOMED CT 1910407912 / Confirmed Prostatitis / SNOMED CT 24538835 / Confirmed Piriformis syndrome / SNOMED CT 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 / Confirmed 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 Sacroiliitis / SNOMED CT 50119404 / Confirmed Somatic dysfunction of lower extremities / SNOMED CT 6846721651 / Confirmed Somatic dysfunction of sacral spine / SNOMED CT 8335552812 / Confirmed Somatic dysfunction of lumbar region / SNOMED CT 3485418896 / Confirmed Somatic dysfunction of thoracic region / SNOMED CT 6310023304 / Confirmed Spasm of lumbar paraspinous muscle / SNOMED CT 6085323220 / Confirmed Abdominal weakness / SNOMED CT 097494611 / Confirmed Chronic prostatitis / SNOMED CT 04850325 / Confirmed Insomnia / SNOMED CT 143134638 / Confirmed Chronic constipation / SNOMED CT 037843073 / Confirmed Cervical arthritis / SNOMED CT 2274090605 / Confirmed Trapezius muscle spasm / SNOMED CT 4752408709 / Confirmed Somatic dysfunction of head region / SNOMED CT 9639430525 / Confirmed Somatic dysfunction of cervical region / SNOMED CT 3809481939 / Confirmed Resolved: Headache / SNOMED CT 17282583 Resolved: Right lower quadrant pain / SNOMED CT 313393507 Canceled: (more content not included)... Normal [facility] Comment on above: Result Comment: Elec tronically Signed By: Shahnaz Galvin PA-C\.br\Date and Time Signed: 04/18/23 09:17 EDT\.br\Electronically Co-Signed By: Abe Carr MD\.br\Date and Time Co-Signed: 04/26/23 12:37 EDT Office/Clinic Note-Physician on 04-18-2023 Office/Clinic Note-Physician [id number]#1.00TIFF Normal [facility] Patient Correspondenceon Patient Correspondence [id number]#1.00TIFF Normal [facility] Patient Correspondence [id number]#1.00TIFF Normal [facility] Patient History Officeon Patient History Office [id number]#1.00TIFF [facility] IntraOperative Documentson 1 IntraOperative Documents [id number]#1.00TIFF [facility] Consent for Anesthesiaon Consent for Anesthesia [id number]#1.00CD:127 [facility] Consent for Procedure/Surger yon 04-12-2023 Consent for Procedure/Surgery [id number]#1.00CD:127 [facility] Consent for Treatmenton Consent for Treatment [id number]#1.00CD:127 [facility] Discharge Instructionson Discharge Instructions [id number]#1.00CD:127 [facility] IntraOperative Documentson 1 IntraOperative Documents [id number]#1.00CD:127 [facility] Main OR Intraoperative Recor don 04-12-2023 Main OR Intraoperative Record IntraOp Document Type [facility] Summary Primary Physician: Abe Carr MD Finalized Date/Time: 04/12/23 09:14:18 Pt. Name: SEN ULLOA/Sex: 1940 Male Med Rec #: [id number] Physician: Abe Carr MD Financial #: [id number] Pt. Type: P Room/Bed: / Admit/Disch: 04/12/23 07:01:07 - Institution: Case Times [facility] Entry 1 Patient Times In Room 04/12/23 08:20:00 Out Room 04/12/23 09:04:00 Procedure Times Start 04/12/23 08:23:00 Stop 04/12/23 08:55:00 Anesthesia Times Start 04/12/23 08:20:00 Stop 04/12/23 09:04:00 Last Modified By: Devin MAHMOOD, Marry Robert 04/12/23 09:05:05 Case Attendance [facility] Entry 1 Entry 2 Entry 3 Case Attendee Grant Ramirez DO, Padilla Carr MD, Abe Beltran RN, Marry Robert Role Performed Anesthesiologist of Surgeon - Primary [employer]person [employer] - Primary Record Time In 04/12/23 08:20:00 04/12/23 08:20:00 04/12/23 08:20:00 Time Out 04/12/23 09:04:00 04/12/23 09:04:00 04/12/23 09:04:00 Procedure SPINAL CORD STIMULATOR SPINAL CORD STIMULATOR SPINAL CORD STIMULATOR TRIAL(.) TRIAL(.) TRIAL(.) Comments Last Modified By: Devin MAHMOOD, Marry Beltran RN, Marry Mart RN 04/12/23 09:05:07 04/12/23 09:05:07 04/12/23 09:05:07 Entry 4 Entry 5 Entry 6 Case Attendee Freddie MAHMOOD, Dana Osei RN, Bruna Nunes Role Performed Scrub - Primary Scrub - Relief Embossing Machine Tender Time In 04/12/23 08:20:00 04/12/23 08:20:00 04/12/23 08:20:00 Time Out 04/12/23 09:04:00 04/12/23 09:04:00 04/12/23 09:04:00 Procedure SPINAL CORD STIMULATOR SPINAL CORD STIMULATOR SPINAL CORD STIMULATOR TRIAL(.) TRIAL(.) TRIAL(.) Comments Last Modified By: Devin MAHMOOD, Marry Beltran RN, Marry Beltran RN, Marry Robert 04/12/23 09:05:07 04/12/23 09:05:07 04/12/23 09:05:07 Perioperative Protocols [facility] Pre-Care Text: Implements protective measures prior to operative or invasive procedure, confirms identity before the operative or invasive procedure, verifies operative procedure, surgical site, and laterality Entry 1 Procedure(s) SPINAL CORD STIMULATOR Patient Identity Birthday, ID Band TRIAL(.) Verified (select at Check, Patient least 2): Participation Consents / H and P Surgery/Procedure Operative Site Present Verified Consent Marking Verified Surgical Site Yes Laterality Verified Yes Verified Procedure Verified Yes Correct Patient Yes Position Verified Availability Equipment, Medication, Time Out Padilla Burns Jr., DO Verified (If X-ray Participants G, Devin MAHMOOD, Marry Bahena) Freddie Robert RN, Bruno Gastelum MD, Abe Alvarez Time Out Complete 04/12/23 08:20:00 Outcomes Met? Yes Last Modified By: Marry Beltran RN 04/12/23 09:06:13 Post-Care Text: The patient is free from signs and symptoms of injury caused by extraneous objects Allergy Information [facility] Pre-Care Text: Verifies allergies Entry 1 Allergies Reviewed? Yes Allergies Reviewed Self/Patient With Outcomes Met? Yes Last Modified By: Marry Beltran RN 04/12/23 08:25:07 Post-Care Text: The patient received appropriate medication(s) safely administered during the perioperative period Surgical Procedures [facility] Entry 1 Procedure Description Procedure SPINAL CORD STIMULATOR Modifiers . TRIAL Surgeon Description SCS TRIAL 2 LEADS Primary Procedure Yes Primary Surgeon Bruno GALEANA, Abe Alvarez Start 04/12/23 08:23:00 Stop 04/12/23 08:55:00 Anesthesia Type MAC Surgical Service Pain Management Wound Class 1 - Clean Last Modified By: Marry Beltran RN 04/12/23 09:05:09 General Case Data [facility] Pre-Care Text: Classifies surgical wound, implements aseptic technique, initiates traffic control Entry 1 Case Information OR Pain Proc Room Case Level Level 2 Wound Class 1 - Clean Specialty Pain Management ASA Class 2 Preop Diagnosis M96.1, G89.29 Postop Same As Preop Yes Postop Diagnosis M96.1, G89.29 Outcomes Met? Yes Last Modified By: Marry Beltran RN 04/12/23 08:25:24 Post-Care Text: The patient is free from signs and symptoms of infection Skin Assessment (Pre Procedure) [facility] Pre-Care Text: Implements protective measures to prevent skin/ tissue injury due to thermal or mechanical sources Evaluates for signs and symptoms of physical injury to skin and tissue Entry 1 Skin Integrity Intact, Marceline, Warm, and Skin Abnormality No Dry Outcomes Met? Yes Last Modified By: Marry Beltran RN 04/12/23 08:25:34 Post-Care Text: The patient is free from signs and symptoms of injury caused by extraneous objects Patient Positioning FTPM Pre-Care Text: Identifies physical alterations that require additional precautions for procedure-specific positioning, verifies presence of prosthetics or corrective devices, positions the patient, evaluates the patient for signs and symptoms of injury as a result of positioning Entry 1 Procedure SPINAL CORD STIMULATOR Body Position Prone TRIAL(.) Feet Uncrossed? Yes (more content not included)... Normal [facility] Main OR Preoperative Recordo n 04-12-2023 Main OR Preoperative Record Holding Area Document Type FTPM Summary Primary Physician: Abe Carr MD Finalized Date/Time: 04/12/23 07:42:55 Pt. Name: LAILA SEN KARISHMA Reaves/Sex: 1940 Male Med Rec #: [id number] Physician: Abe Carr MD Financial #: [id number] Pt. Type: P Room/Bed: / Admit/Disch: 04/12/23 07:01:07 - Institution: Case Times Holding FTPM Pre-Care Text: Verifies consent for planned procedure, identifies individual values and wishes concerning care, includes family members in perioperative teaching Secures patient's records' belongings, and valuables, maintains patient's dignity and privacy, and maintains patient confidentiality Entry 1 In Holding 04/12/23 07:35:00 Outcomes Met? Yes Last Modified By: Doris Alvarez RN 04/12/23 07:35:18 Post-Care Text: The patient participates in decisions affecting his or her perioperative plan of care The patient's right to privacy is maintained Surgery Checklist FTPM Entry 1 Patient Birthday, ID Band Procedure History and Physical, Identification: Check, Patient Verification: Surgical Consent, With Participation Patient NPO after Midnight: Yes Date/Time: 04/11/23 18:00:00 Personal Items: Cataract Lens Implant, Personal Items cataract surgery Dentures Comment: bilaterally, partials in Complaints of Pain: Yes Pain Comment: 01/17 to lower back Operative Site Yes Marked By: operative site marked Marking: by Dr. Carr Location: lower back Availability Equipment, X-Ray Verified: Does Patient Smoke No Patient states Yes Comment - Adult Shiv-spouse postop adult Supervision supervision available Case Cancelled in No Holding Area see comments below for reason Last Modified By: Doris Alvarez RN 04/12/23 07:37:36 Finalized By: Doris Alvarez RN Document Signatures Signed By: Doris Alvarez RN 04/12/23 07:42 Normal [facility] Operative Reporton 3 Operative Report Patient: LETY ULLOA Age: 82 years Sex: Male : 1940 Associated Diagnoses: None Author: Abe Carr MD Procedure Procedure: Spinal Cord Stimulator Trial with Fluoroscopic Guidance - Hunt, 2- 12 contact leads, intraoperative programming for <30 minutes Diagnosis: Lumbar Post Laminectomy Syndrome, chronic pain Anesthesia: MAC MAC anesthesia is medically necessary for the procedure due to the procedure requiring the patient to remain in a painful position. The patient was identified in the pre-op area. The procedure, including risks benefits and alternatives was discussed with the patient. The patient agreed to proceed. Informed consent was obtained and the site(s) marked. The patient was brought to the procedure room and placed in the prone position with padding under the abdomen to reduce lumbar lordosis. Time out was taken. The back was prepped and draped in surgical sterile fashion. Skin and subcutaneous tissues were anesthetized with 16 mL of Lidocaine 2% with epinephrine through a 25G needle. The L1/2 epidural space was entered using a 14G Touhy needle using loss of resistance technique. The first 12-contact Hunt epidural lead was advanced in the posterior aspect of the epidural space to where the top of the lead overlied the top of T7 to the right of midline. A second 14G Touhy needle then was used to enter the L1/2 epidural space using the same technique. A second 12-contact Hunt lead was then advanced under fluoroscopic guidance in the posterior aspect of the epidural space to where the tip of the lead overlied the top of T7 to the left of midline. Complex intraoperative programming then took place for less than 30 minutes. The patient noted paresthesias in the areas of her pain. The leads were then anchored to the skin using 2-0 silk suture and Click anchors after removing the needles and stylettes. Antibiotic ointment and sterile dressing was then applied and the patient transferred to the recovery area. The patient was brought to the recovery area in stable condition and then monitored for an appropriate period of time. Further programming and education then took place with the telephone claims representative. The patient was discharged home in good condition with post-procedure instructions and antibiotics sent to her pharmacy. No apparent complications. Epidural injection procedure Physical Exam: vital signs Vital Signs 04/12/2023 9:14 EDT Heart Rate Monitored 55 bpm LOW SpO2 95 % 04/12/2023 9:14 EDT Systolic Blood Pressure 106 mmHg Diastolic Blood Pressure 62 mmHg Mean Arterial Pressure, Monitered 76 mmHg 04/12/2023 9:07 EDT Heart Rate Monitored 54 bpm LOW SpO2 96 % 04/12/2023 9:07 EDT Temperature Axillary 36.6 DegC 04/12/2023 9:07 EDT Respiratory Rate 14 br/min 04/12/2023 9:06 EDT Systolic Blood Pressure 103 mmHg Diastolic Blood Pressure 73 mmHg Mean Arterial Pressure, Monitered 83 mmHg 04/12/2023 8:55 EDT Heart Rate Monitored 56 bpm bpm Systolic Blood Pressure 105 mmHg mmHg Diastolic Blood Pressure 62 mmHg mmHg SpO2 100 % % 04/12/2023 8:50 EDT Heart Rate Monitored 60 bpm bpm Systolic Blood Pressure 114 mmHg mmHg Diastolic Blood Pressure 74 mmHg mmHg SpO2 100 % % 04/12/2023 8:45 EDT Heart Rate Monitored 64 bpm bpm Respiratory Rate 13 br/min br/min Systolic Blood Pressure 111 mmHg mmHg Diastolic Blood Pressure 69 mmHg mmHg SpO2 100 % % 04/12/2023 8:40 EDT Heart Rate Monitored 59 bpm bpm Systolic Blood Pressure 106 mmHg mmHg Diastolic Blood Pressure 63 mmHg mmHg SpO2 99 % % 04/12/2023 8:35 EDT Heart Rate Monitored 63 bpm bpm Systolic Blood Pressure 98 mmHg mmHg Diastolic Blood Pressure 63 mmHg mmHg SpO2 99 % % 04/12/2023 8:30 EDT Heart Rate Monitored 62 bpm bpm Respiratory Rate 14 br/min br/min Systolic Blood Pressure 99 mmHg mmHg Diastolic Blood Pressure 63 mmHg mmHg SpO2 99 % % 04/12/2023 8:25 EDT Heart Rate Monitored 57 bpm bpm Systolic Blood Pressure 104 mmHg mmHg Diastolic Blood Pressure 66 mmHg mmHg SpO2 100 % % 04/12/2023 8:22 EDT Systolic Blood Pressure 126 mmHg mmHg Diastolic Blood Pressure 75 mmHg mmHg 04/12/2023 7:39 EDT Heart Rate Monitored 55 bpm LOW SpO2 96 % 04/12/2023 7:39 EDT Temperature Axillary 36.4 DegC 04/12/2023 7:39 EDT Systolic Blood Pressure 120 mmHg Diastolic Blood Pressure 71 mmHg Mean Arterial Pressure, Monitered 87 mmHg 04/12/2023 7:39 EDT Respiratory Rate 12 br/min LOW . Normal [facility] Comment on above: Result Comment: Elec tronically Signed By: Abe Carr MD\.br\Date and Time Signed: 04/12/23 09:32 EDT Progress Note-Physicianon Progress Note-Physician Patient: SEN ULLOA Age: 82 years Sex: Male : 1940 Associated Diagnoses: None Author: Padilla Burns Jr., DO Postoperative Information Postoperative disposition: Postoperative disposition: To PACU. Optimetrix number: Optimetrix number [id number]. Anesthetic utilized: Monitored anesthesia care. Physical Examination Vital signs stable. Pain Assessment: Controlled. General: Awake, Alert, Appropriate. Respiratory: Adequate air exchange, Equal bilateral chest wall expansion, Non-labored. Cardiovascular: Stable, Normal peripheral perfusion. Neurological: Normal sensory function. Assessment Anesthetic outcome No anesthetic complications noted. Review / Management Condition: Stable. Plan Transfer/Discharge: Transfer/Discharge Discharge when meets criteria. Normal [facility] Comment on above: Result Comment: Elec tronically Signed By: Padilla Burns Jr., DO\.br\Date and Time Signed: 04/12/23 09:47 EDT Progress Note-Physician Patient: SEN ULLOA Age: 82 years Sex: Male : 1940 Associated Diagnoses: None Author: Padilal Burns Jr., DO Preoperative Information NPO after midnight Review of Systems Eye Respiratory: Negative except as documented in history of present illness. Cardiovascular: Negative except as documented in history of present illness. Health Status Allergies: Allergic Reactions (Selected) Mild Penicillins- Unknown. Severity Not Documented Doxycycline- Swelling., Allergies (2) Active Reaction penicillins Unknown doxycycline Swelling Current medications: (Selected) Prescriptions Prescribed [place] 325 mg-5 mg oral tablet: 1 tab(s), Oral, TID for pain, 45 tab(s), Refill(s) 0, [facility], 183, cm, 05/17/22 8:51:00 EST, Height/Length Dosing, 72.6, kg, 04/06/22 7:59:00 EDT, Weight Dosing Tylenol with Codeine #3 oral tablet: See Instructions, 45 tab(s), Refill(s) 0, 1 tab(s) po bid prn pain, [facility], 183, cm, 02/21/23 13:14:00 EDT, Height/Length Dosing, 71.3, kg, 02/17/23 11:31:00 EDT, Weight Dosing baclofen 10 mg Tab: 10 mg = 1 tab(s), Oral, TID, # 270 tab(s), Refills(s) 1, Pharmacy: [facility] 183, cm, 02/21/23 13:14:00 EDT, Height/Length Dosing, 71.3, kg, 02/17/23 11:31:00 EDT, Weight Dosing gabapentin 600 mg Tab: 600 mg = 1 tab(s), Oral, TID, # 270 tab(s), Refills(s) 1, Pharmacy: [facility] ([facility]), 183, cm, 02/21/23 13:14:00 EDT, Height/Length Dosing, 71.3, kg, 02/17/23 11:31:00 EDT, Weight Dosing meloxicam 15 mg Tab: 15 mg = 1 tab(s), Oral, Daily, # 90 tab(s), Refills(s) 4, Pharmacy: [facility] ([facility] 183, cm, 10/08/22 11:08:00 EDT, Height/Length Dosing, 71.6, kg, 10/08/22 11:08:00 EDT, Weight Dosing tamsulosin 0.4 mg Cap: 0.4 mg = 1 cap(s), Oral, BID, TAKE ONE CAPSULE BY MOUTH TWICE A DAY, # 180 cap(s), Refills(s) 3, Pharmacy: [facility] ([facility]), 183, cm, 02/21/23 13:14:00 EDT, Height/Length Dosing, 71.3, kg, 02/17/23 11:31:00 EDT, Weight Dosing... Documented Medications Documented Miralax 17 gram packet: 17 gram, Oral, Daily, dissolve in water before taking, # 255 gram, Refills(s) 0 Probiotic Formula (Bacillus Coagulans): 1 cap(s), Oral, Daily, Refill(s) 0, Prophylaxis Vitamin D: 50,000 International_Unit, Oral, Daily, Refills(s) 0 baclofen: Oral, Bedtime, Refills(s) 0 omeprazole 20 mg Cap-DR: 20 mg = 1 cap(s), Oral, Daily, PRN Control of stomach acid, Refills(s) 0, Home Medications (11) Active baclofen , Oral, Bedtime baclofen 10 mg Tab 10 mg = 1 tab(s), Oral, TID gabapentin 600 mg Tab 600 mg = 1 tab(s), Oral, TID meloxicam 15 mg Tab 15 mg = 1 tab(s), Oral, Daily Miralax 17 gram packet 17 gram, Oral, Daily [place] 325 mg-5 mg oral tablet 1 tab(s), PRN, Oral, TID omeprazole 20 mg Cap-DR 20 mg = 1 cap(s), PRN, Oral, Daily Probiotic Formula (Bacillus Coagulans) 1 cap(s), Oral, Daily tamsulosin 0.4 mg Cap 0.4 mg = 1 cap(s), Oral, BID Tylenol with Codeine #3 oral tablet See Instructions Vitamin D 50,000 International_Unit, Oral, Daily , No qualifying data available Problem list: All Problems Abdominal weakness / SNOMED CT 847851075 / Confirmed Arthritis / SNOMED CT 5070791 / Confirmed BPH with urinary obstruction / SNOMED CT 6047095686 / Confirmed Cervical arthritis / SNOMED CT 4613199052 / Confirmed Chronic constipation / SNOMED CT 638211606 / Confirmed Chronic prostatitis / SNOMED CT 46235101 / Confirmed Deafness / SNOMED CT 31113646 / Confirmed Insomnia / SNOMED CT 997178552 / Confirmed Lower back pain / SNOMED CT 970768421 / Confirmed Piriformis syndrome / SNOMED CT 192595086 / Confirmed Post laminectomy syndrome / SNOMED CT 538250401 / Confirmed Prostate nodule / SNOMED CT 0920736937 / Confirmed Prostatitis / SNOMED CT 16611365 / Confirmed Sacroiliitis / SNOMED CT 99159175 / Confirmed Somatic dysfunction of cervical region / SNOMED CT 6783422902 / Confirmed Somatic dysfunction of head region / SNOMED CT 6885234536 / Confirmed Somatic dysfunction of lower extremities / SNOMED CT 4075661975 / Confirmed Somatic dysfunction of lumbar region / SNOMED CT 0796955421 / Confirmed Somatic dysfunction of sacral spine / SNOMED CT 0123000997 / Confirmed Somatic dysfunction of thoracic region / SNOMED CT 6609710010 / Confirmed Spasm of lumbar paraspinous muscle / SNOMED CT 4571995599 / Confirmed Spondylosis of thoracolumbar spine / SNOMED CT 7015215405 / Confirmed Trapezius muscle spasm / SNOMED CT 7519317964 / Confirmed Resolved: Headache / SNOMED CT 27807674 Resolved: Right lower quadrant pain / SNOMED CT 234733467 Canceled: Unexplained weight loss / SNOMED CT 0834971178 Histories Past Medical History: Resolved Headache (50282149): Resolved. Right lower quadrant pain (738727345): Resolved. Procedure history: Left SIJ ([id number]) on 02/01/2023 at 82 Years. Comments: 02/21/2023 13 (more content not included)... Normal [facility] Comment on above: Result Comment: Elec tronically Signed By: Padilla Burns Jr., DO\.br\Date and Time Signed: 04/12/23 07:01 EDT Insurance Correspondence Off iceon 04-07-2023 Insurance Correspondence Office [id number]#3.00CD:127 [facility] Consent for Treatmenton 03-12 Consent for Treatment [id number]#1.00CD:127 [facility] Patient Correspondenceon Patient Correspondence [id number]#1.00CD:127 [facility] Outside Records Officeon Outside Records Office [id number]#1.00CD:127 [facility] Urine Cultureon 02-25-2023 Bacteria identified Cx Nom (U) No Growth 2 Days PERFORMED BY: [facility] [address] [place] [address] PATHOLOGIST GROUP HOME SUPERVISOR LUCY BHAGAT M.D. Normal [facility] Comment on above: Performed By: #### C UU #### [facility] [address] [id number] [facility] Reference Laboratory Testing Ordered By: Tyra Wang on 02-21-2023 Test Name ToxAssure flex Invalid Interpretation Code [facility] SendOutsSS CHEMISTRYOrdered By: SYSTEM SYSTEM on 08-16-2022 Prostate specific Ag [Mass/Vol] 2.4 ng/mL Normal 0.1 - 3.5 ng/mL [facility] Remisol Reference Laboratory Testing Ordered By: Milly Arroyo on 04-06-2022 Test Name manager cargo urine Invalid Interpretation Code [facility] SendOutsSS CULTURE URINEon 07-31-2021 CULTURE URINE Culture Observations : LIGHT GROWTH OF MIXED SKIN JACKIE. NO POTENTIAL PATHOGENS SEEN. Normal [facility] Comment on above: Performed By: #### U RCX #### [facility] [address] [place] [address] Dr. Belle Edwarsd ANES Kaur 12-29-2017 ANES POST HNO ID: [id number] thor: Mary Ruizervice: AnesthesiologyAuthor Type: AnesthesiologistType: Anesthesia PostOpFiled: 12/29/2017 9:47 AMNote Text:POST ANESTHESIA EVALUATION NOTESERVICE DATE: 12/29/2017SERVICE TIME: 9:47 amDOB: 1940Vitals: 12/29/1808Temp: 36.6 ?C (97.9 ?F) 36.3 ?C (97.3 ?F) 12/29/18085BP: 143/84 142/83 144/84 147/78 12/29/1808Pulse: 76 77 78 75 12/29/1808Resp: 16 16 16 16 12/29/1808SpO2: 95% 95% 96% 99%Validated Vital Signs: YesPOST ANES STATUS: No apparent anesthetic complications. The patient isappropriately hydrated with stable respiratory and cardiovascular status.Patient has safe and adequate airway control. The patient has appropriatepain relief and no significant post operative nausea or vomiting. Thepatient has achieved baseline mental status.Further assessment by Anesthesia Service: NoneOther Remarks:SIGNATURE: Mary Juarez MD PATIENT NAME: Sen JohnsATE: December 29, 2017 : 9:47 AM PAGER/CONTACT #: [phone] [facility] ANES PREOPon 12-29-2017 ANES PREOP HNO ID: [id number] thor: Mary Ruizervice: AnesthesiologyAuthor Type: AnesthesiologistType: Anesthesia PreOpFiled: 12/29/2017 7:26 AMNote Text: ANESTHESIOLOGY DAY OF SURGERY NOTESERVICE DATE: 12/29/2017SERVICE TIME: 714DOB: 3Procedure(s) (LRB):DECOMPRESSION LAMINECTOMY LUMBAR POSTERIOR LEVEL 1 (Right)Surgeon(s):Sondra Powell (Res) SiqueiraEstimated body mass index is 23.33 kg/m? as calculated from the following: Height as of 12/23/17: 182.9 cm (6'). Weight as of 12/23/17: 78 kg (172 lb).Most recent hematocrit and potassium results:Hematocrit 44.8 12/23/2017Potassium 4.7 12/23/2017ANES DOS/PREOP NOTE:Vitals: 651BP: 123/71Pulse: 62Resp: 16Temp: 36.6 ?C (97.9 ?F)TempSrc: Temporal ArterySpO2: 96%ACTIVE PROBLEM LISTArthritisRib FracturesChronic Right Sacroiliac Joint PainForaminal Stenosis of Lumbosacral RegionSpondylolisthesis At L3-L4 LevelRenal CystPre-Op TestingPAST MEDICAL HISTORYDiagnosis Date- Arthritis- Former light cigarette smoker (1-9 per day)- Rib [facility] H[facility]ORYProcedure Laterality Date- COLONOSCOPY- PAST SURGICAL HISTORY OF multiple lumbar injections- WRIST SURGERY HX Right 1990s right sideFAMILY HISTORYProblem Relation Age of Onset- Diabetes Father- heart attack [OTHER] Father 80s- Arthritis Mother- alzheimers [OTHER] MotherSocial History:Social HistorySubstance Use Topics- Smoking status: Former Smoker Years: 20.00 Types: Cigarettes, Pipe, Cigars Quit date: 12/24/1983- Smokeless tobacco: Never Used Comment: 1 pp week (light smoker- Alcohol use Yes Comment: occasionalNo current facility-administered medications on file prior to encounter.Current Outpatient Prescriptions on File Prior to Encounter:diclofenac, EC, (VOLTAREN) 75 mg EC tablet Take 75 mg by mouth once daily.Current Facility-Administered Medications:lidocaine 10 mg/mL (1 %) 1-2 mg injection (XYLOCAINE) 0.1-0.2 mLINTRADERMAL PRN R Louie Orrlactated ringers infusion 5-30 mL/hr INTRAVENOUS CONTINUOUS R Louie OrrLast Rate: 30 mL/hr at 12/29/17 0716 30 mL/hr at 12/29/17 0716ceFAZolin iv piggyback 2 g in D5W (iso-osmotic) 100 mL (ANCEF) 2 gINTRAVENOUS ONCE R Louie OrroxyCODONE-acetaminophen 5-325 mg 1-2 tablet (PERCOCET) 1-2 tablet ORAL q 4H PRN Natasha (Res) SiqueiraAllergies:ALLERGIE SAllergen Reactions- Doxycycline Rash Caused penile ulcers- Penicillins Other: See Comments Syncopal episode age 12 when given an injection of PenicillinDOS EXAM: Adequate NPO status: YesAnesthetic risks, benefits, alternatives, personnel and consent discussed:YesWill accept bloodPatient agrees to proceed: YesPrevious Anesthesia: No history of adverse event.Airway Assessment: MP 3; Neck ROM: Full ROM without neurologic symptoms;Airway Evaluation: No significant abnormalitiesSymptoms of Sleep Apnea: NoneDentition: Dentures: upperRemovable partial: upperAdditional Physical Exam:Lungs: Patient health status unchanged since recent history and physical.See history and physical for exam findings.Cardiac: Patient health status unchanged since recent history andphysical. See history and physical for exam findings.Additional Pertinent Findings: N/ABlood Products: Not anticipated for this procedure.Anesthetic Plan: General, Standard ASA MonitorsPain Management Plan: Parenteral or OralASA Class: 2-error; ASA 3Other Medical Problems: NoneChronic Beta Pedro Pablo medication administered within 24 hours: N/AI have interviewed and examined the patient. I have reviewed the medicalrecord and/or the pre-anesthesia evaluation, pertinent labs, and testresults.Significant changes in the patient's condition since the History andPhysical, not otherwise documented in primary service progress notes: NoThis contains updated information obtained within 48 hours ofSurgery/Procedure.SIGNAT URE: ELLIOTT Ugalde PATIENT NAME: Sen JohnsATE: December 29, 2017 : 7:20 AM CSN: [id number] [facility] BRIEF OP NOTon 12-29-2017 BRIEF OP NOT HNO ID: [id number] thor: Natasha QuesadaService: Orthopaedic SurgeryAuthor Type: ResidentType: Brief Op NoteFiled: 12/29/2017 8:44 AMNote Text:BRIEF OPERATIVE / PROCEDURE NOTELOG ID: [id number]/Procedure Date: 12/29/2017Incision/Procedur e Start Time: 7:57 AMIncision Close/Procedure End Time: 8:36 AMSurgeon(s)/Proceduralist (s) and Passenger Service Agent(s):Surgeon(s) and Role: Ryan Smith - Primary * Natasha Quesada - Resident - Assisting * Jeana Wilks (Fel) - Resident - AssistingProcedure(s):Proc edure(s) (LRB):DECOMPRESSION LAMINECTOMY LUMBAR POSTERIOR LEVEL 1 (Right)Anesthesia: GeneralApproach: PosteriorFindings: see op noteEstimated Blood Loss: 20 mlsSpecimens: NoneComplications: NonePre-Op/Pre-Procedure Diagnosis: Pre-op testing [Z01.818]Foraminal stenosis of lumbosacral region [M99.83]Post-Op/Post-Proce dure Diagnosis: Pre-op testing [Z01.818]Foraminal stenosis of lumbosacral region [M99.83]Weight Bearing Status: Weight Bearing As ToleratedSIGNATURE: NATASHA QUESADA MD PATIENT NAME: Sen JohnsATE: December 29, 2017 : 8:43 AM PAGER/CONTACT #: [facility] NURSING PROGon 12-29-2017 NURSING PROG HNO ID: [id number] thor: Xenia (Rn) MIRELA Adamservice: (none)Author Type: Registered NurseType: Nursing Progress NoteFiled: 12/29/2017 11:49 AMNote Text: Nursing Progress NotePatient Name: Sen KerrN: [id number] Location: [facility]/* Dai ly Note:Attempted to void, not because he needed to, but just as he wasgetting ready to leave. Unable. Dr. Smith notifed, and okayed pt to bedischarged now. Fluids encouraged for home, and pt / aware re: ER ifunable later.This note was completed by: Xenia Adams RN [facility] NURSING PROG HNO ID: [id number] thor: Xenia (Rn) MIRELA Adamservice: (none)Author Type: Registered NurseType: Nursing Progress NoteFiled: 12/29/2017 10:20 AMNote Text: Nursing Progress NotePatient Name: Sen KerrN: [id number] Location: [facility]/* Dai ly Note:Spoke with Dr. Juarez re: pt's pain. She suggested we give himFentanyl 25 mcg to start, and monitor vitals, as pt. Thought he would havedifficulty swallowing a pill. Still sleepy.This note was completed by: Xenia Adams RN [facility] NURSING PROG HNO ID: [id number] thor: Trisha MckeonRn) Kiana Melendezice: (none)Author Type: Registered NurseType: Nursing Progress NoteFiled: 12/29/2017 9:03 AMNote Text:Discharge Status:Patient is Awakening, and is extubated. Skin condition was WNL.Transported to recovery room via cart with siderails up. Accompanied byanesthetist and nurse. [facility] NURSING PROG HNO ID: [id number] thor: Sumeet MckeonRn) MIRELA Brewerervice: NursingAuthor Type: Registered NurseType: Nursing Progress NoteFiled: 12/29/2017 7:35 AMNote Text:Patient transported to the OR via cart, accompanied by TIMOTEO GALLAGHER.Level of consciousness: Alert and Oriented x 3Emotional Status:CalmSensory Impairments: NoLanguage Barrier: NoMobility Impairments: NoAddressed any patient concerns regarding consents, OR environment, andanesthetics.Body temperature maintained by maintaining OR room temperature [id number] degrees F, providing patient with warm bath blankets, limiting areasof exposure and providing warm irrigation fluid. [facility] NURSING PROG HNO ID: [id number] thor: Mirella Leyva) Kiana Pinedaice: (none)Author Type: Registered NurseType: Nursing Progress NoteFiled: 12/29/2017 7:24 AMNote Text: Nursing Progress NotePatient Name: Sen KerrN: [id number] Location: -OPERATING ROOM [place]/* Dai ly Note: Pt aware of procedure. Alert and oriented x 3. Pt states a7/10 pain in the back. 2+ dp/pt pulses bilaterally. Adequate push/pulls inbilateral feet. IV tolerated well. IV fluids running. Safety maintained.This note was completed by: Mirella Pineda RN [facility] OPERATIVE NOon 12-29-2017 OPERATIVE NO HNO ID: [id number] thor: R Louie OrrService: NeurosurgeryAuthor Type: PhysicianType: Operative ReportFiled: 12/30/2017 3:04 PMNote Text:[facility] - Operative ReportSEN ULLOA RDOB: 1940 AGE: 77 SEX: MMRN: [id number] CSN: [id number] SVC: LOCATION: [address] PHYSICIAN: Brandon Smith M.D.,FRCSCDATE OF PROCEDURE: 12/29/2017PREOPERATIVE DIAGNOSIS: Lumbar spinal stenosis.POSTOPERATIVE DIAGNOSIS: Same.NAME OF OPERATION: Right-sided L5-S1 laminotomy and L5 foraminotomy.SURGEON: Brandon Smith M.D.,FRCSCASSISTANT: Dr. Jolie Wilks and Dr. Natasha Quesada.ANESTHESIA: General.INDICATIONS: This 76-year-old male presents, complaining ofactivity-related right lower extremity pain and numbness. Imaginginvestigation shows significant lateral recess stenosis at L5-S1 andsevere L5 foraminal stenosis. Epidural injection at this levelprovided good, but brief pain relief.OPERATIVE NOTE: The patient was brought to the operating roomand under endotracheal general anesthesia, was placed in the proneposition on a Ilia frame. The back prepped and draped in astandard fashion. Presumptive incision was marked and an 18-gaugespinal needle placed at the mid point of the presumptive incision. Skin was infiltrated with local anesthetic. Incision was made.Incision was carried down to the spine, where we exposed the L5-S1 interspace. Repeat check x-ray was taken to confirm levels. Second surgeon confirmation was provided by Dr. Mehul Navarrete. Microscopewas brought in and the remainder of the procedure done undermicroscopic visualization. Small portion of the trailing edge of theL5 lamina was resected with a high-speed tessa. Ligamentum was detachedfrom the trailing edge of the lamina. Ligamentum was resected.Then, utilizing combination of straight and curved Kerrison rongeurs, wedecompressed the lateral recess until we were flushed with the medialborder of the S1 pedicle. We then decompressed the L5 foramen until a4-mm bullet probe would pass easily out the foramen. Wound was thenprofusely irrigated. Gelfoam was placed over the dura. Wound wasclosed in multiple layers. The patient was awakened and discharged tothe recovery room in stable condition.PROCEDURE STATEMENT: I was scrubbed for the entire procedure otherthan the exposure and closure, which were performed by Dr. Lashaun Quesada.SPECIMENS: None.DRAINS: None.ESTIMATED BLOOD LOSS: 30 mL.Incision/Procedure Start Time: 7:57 AMIncision Close/Procedure End Time: 8:36 AMR. Louie Smith M.D.,[facility]ITALrtdav[facility] and medical centeredic SurgeryRDO:[id number]: 12/29/2017 14:23:29T: 12/29/2017 15:37:39Job #: [id number] [facility] PT EDon 12-29-2017 PT ED HNO ID: [id number] thor: Xenia MckeonRn) Kiana Adamsice: (none)Author Type: Registered NurseType: Patient EducationFiled: 12/29/2017 10:45 AMNote Text:PATIENT EDUCATION TOPIC: PROCEDURE / SURGERY: Post-op Teaching:PATIENT NAME: Sen KerrN: [id number] [facility] [place]/*READINESS TO LEARNCOGNITIVE ABILITY: Alert and orientedMOTIVATION TO LEARN: InterestedFAMILY SUPPORT: High - Very involved in pt careINSTRUCTION PROVIDED TO: Patient and family memberPATIENT LEARNS BEST BY: Written Instruction - Hand-outsFACTORS AFFECTING LEARNING: NonePHYSICAL LIMITATIONS AFFECTING LEARNING: NoneLEARNING RESPONSEPATIENT/FAMILY RESPONSE: Verbalizes understanding of: POST-OPERATIVEINSTRUCTIONS -Correct actions to take to reduce postoperative complicationsMETHOD OF INSTRUCTION: Written instruction - handoutsFOLLOW-UP PLAN: Complete - No need for follow-upINSTRUCTIONAL AIDS USED: NASUPPLEMENTAL MATERIAL PROVIDED TO PATIENT: NoneREFERRAL (RECOMMENDATION): NoneElectronically Signed By: Xenia Adams RN [facility] PT ED HNO ID: [id number] thor: Carie MckeonRn) Kiana Hernandezice: (none)Author Type: Registered NurseType: Patient EducationFiled: 12/29/2017 6:21 AMNote Text:PATIENT EDUCATION TOPIC: PROCEDURE / SURGERY: Procedure/Surgery:PATIENT NAME: Sen KerrN: [id number] LOCATION: [facility]-OPERATING ROOM POOL/L*READINESS TO LEARNCOGNITIVE ABILITY: Alert and orientedMOTIVATION TO LEARN: EagerFAMILY SUPPORT: High - Very involved in pt careINSTRUCTION PROVIDED TO: Patient and family memberPATIENT LEARNS BEST BY: Individual InstructionFACTORS AFFECTING LEARNING: NonePHYSICAL LIMITATIONS AFFECTING LEARNING: NoneLEARNING RESPONSEDIAGNOSIS: ADULT:PATIENT/FAMILY RESPONSE: Verbalizes understanding of: PRE-OPERATIVEINSTRUCTIONS- Correct action to take to follow pre-operative instructionsMETHOD OF INSTRUCTION: Verbal instructionFOLLOW-UP PLAN: Complete - No need for follow-upINSTRUCTIONAL AIDS USED: NASUPPLEMENTAL MATERIAL PROVIDED TO PATIENT: NoneREFERRAL (RECOMMENDATION): NoneElectronically Signed By: Carie Hernandez RN [facility] XR LUMBAR SPECIFY 1Von 12-29 XR LUMBAR SPECIFY 1V * * *Final Report* * *DATE OF EXAM: Dec 29 2017 8:13AM [facility] [place] LUMBAR SPECIFY 1V / REASON: Foraminal stenosis of lumbosacral region * * * * Physician Interpretation * * * * Lateral lumbar spineHistory: Intraoperative localization for spinal surgery.Findings: Orthopedic marker is posterior to the L5-S1 disc space level.Algebra Teacher: [employer] Transcribe Date/Time: Dec 29 2017 8:16ADictated by : Keira DHILLON examination was interpreted and the report reviewed and electronically signed by: MARNIE SMYTH MD on Dec 29 2017 8:16AM [id number] [facility] XR LUMBAR SPECIFY 1V * * *Final Report* * *DATE OF EXAM: Dec 29 2017 7:57AM [facility] [place] XR LUMBAR SPECIFY 1V / REASON: Foraminal stenosis of lumbosacral region * * * * Physician Interpretation * * * * Lateral lumbar spineHistory: Intraoperative localization for spinal surgery.Findings: Orthopedic marker is posterior to the S1-S2 level.Algebra Teacher: PSCB Transcribe Date/Time: Dec 29 2017 8:00ADictated by : Keira DHILLON examination was interpreted and the report reviewed and electronically signed by: MARNIE SMYTH MD on Dec 29 2017 8:00AM [id number] [facility] NURSING PROGon 12-26-2017 NURSING PROG HNO ID: [id number] thor: Jacquelyn (Rn) Jalil, RNService: General SurgeryAuthor Type: Registered NurseType: Nursing Progress NoteFiled: 12/26/2017 10:24 AMNote Text:PACC Nurse Progress NoteHistory AND Physical:PACC Visit Date: 8-62-59Ufqzttha HANDP Date: N/AED visit Date: N/AOutside HANDP Scanned Date: N/ALabs Within Last 6 Months:CBC: Date 12-23-17BMP/CMP: Date 8-52-79LLNMOR: Date 12-23-17TYPE AND SCREEN: Date 7-72-51Yoyvzj: Date 1-66-71Kackpi acceptable limits, results in [facility].Imaging Within Last 12 Months:Chest X-ray 9-84-88Azdwxit in [facility].Cardiac Testing:EKG in last 12 Months: Yes: Date: 12-23-17, Comment: Confirmed in [facility].Last Menstrual Period:LMP Date: N/APostmenopausal >1yr: N/A,S/P Hysterectomy: N/ABMI Percentile (PEDS):N/ARisk Assessment:N/AAnesthesia Review:N/ANarrative:N/APre -op Considerations:N/AChart Check:Shalom Jimenes RNJunwilda 2017 10:22 AM [facility] Basic Metabolic Panlon 12-23 Anion gap 9 mmol/L Normal 9-18 [facility] Calcium 8.9 mg/dL Normal 8.6-10.0 [facility] Chloride 104 mmol/L Normal 97-105 [facility] CO2 29 mmol/L Normal 22-30 [facility] Creatinine 1.12 mg/dL Normal 0.73-1.22 [facility] eGFR (non-black) mL/min/{1.73_m2} Normal [facility] Comment on above: Result Comment: eGFR (Estimated GFR) Units of measure: mL/min/1.73 meters squaredeGFR is derived from the reexpressed MDRD Study equation using the following parameters: serum creatinine, age, gender and race. The creatinine assay has been calibrated to be traceable to IDMS.An eGFR <60 mL/min/1.73m2 for >3 months is consistent with chronic kidney disease. Refer to KDOQI guidelines for clinical interpretation.In patients with unstable renal function, e.g. those with acute kidney injury, the eGFR may not accurately reflect actual GFR. Glucose mass conc 93 mg/dL Normal 74-99 [facility] Comment on above: Result Comment: The [place] Diabetes Association (ADA) provides guidance for cutoff values for fasting glucose and random glucose. The ADA defines fasting as no caloric intake for at least 8 hours. Fasting plasma glucose results between 100 to 125 mg/dL indicate increased risk for diabetes (prediabetes).Fasting plasma glucose results greater than or equal to 126 mg/dL meet the criteria for diagnosis of diabetes. In the absence of unequivocal hyperglycemia, results should be confirmed by repeat testing. In a patient with classic symptoms of hyperglycemia or hyperglycemic crisis, random plasma glucose results greater than or equal to 200 mg/dL meet the criteria for diagnosis of diabetes.Reference: Standards of Medical Care in Diabetes 2016, [place] Diabetes Association. Diabetes Care. 2016.39(Suppl 1). Potassium molar conc 4.7 mmol/L Normal 3.7-5.1 [facility] Sodium 142 mmol/L Normal 136-144 [facility] Urea nitrogen 20 mg/dL Normal 9-24 [facility] CBC and Differentialon 12-23 Abs Baso 0.04 k/uL Normal <0.11 [facility] Abs Becker 1.01 k/uL High <0.87 [facility] Abs Neut 7.62 k/uL High 1.45-7.50 [facility] Basophils/100 WBC Auto (Bld) 0.4 % Normal [facility] DTYPE Auto Diff Normal [facility] Eosinophils 0.16 10*3/uL Normal <0.46 [facility] Eosinophils/100 leukocytes 1.5 % Normal [facility] Erythrocyte distribution width Auto Ratio (RBC) 13.3 % Normal 11.5-15.0 [facility] Erythrocytes (RBC) 4.99 10*6/uL Normal 4.20-6.00 [facility] Erythrocytes (RBC) 0.0 /100 WBC Normal 0 [facility] Erythrocytes (RBC) 10*6/uL Normal <0.01 [facility] Hematocrit (HCT) 44.8 % Normal 39.0-51.0 [facility] Hemoglobin mass conc (Bld) 14.8 g/dL Normal 13.0-17.0 [facility] Lymphocytes 1.63 10*3/uL Normal 1.00-4.00 [facility] Lymphocytes/100 leukocytes 15.6 % Normal [facility] MCH 29.7 pG Normal 26.0-34.0 [facility] MCHC mass conc (RBC) 33.0 g/dL Normal 30.5-36.0 [facility] MCV 89.8 fL Normal 80.0-100.0 [facility] Monocytes/100 leukocytes 9.7 % Normal [facility] Neutrophils/100 WBC Auto (Bld) 72.8 % Normal [facility] Platelet mean volume (PMV) 9.6 fL Normal 9.0-12.7 [facility] Platelets 241 10*3/uL Normal 150-400 [facility] WBC (Leukocytes) 10.46 10*3/uL Normal 3.70-11.00 [facility] Confirm Blood Typeon 018 ABO/RH(D) Positive Normal [facility] Comment on above: Performed By: #### C ONABO ####[facility] [phone] EKGon 12-23-2017 EKG NAME : SKINNY ULLOA D : [id number] : 1940 Gender : MaleRace : CaucasianORD : Procedure Date : Dec 23 2017 12:37:37Edit Date : Dec 25 2017 08:04:48 Diagnosis:Sinus bradycardiaIncomplete right bundle branch blockBorderline ECGNo previous ECGs availableConfirmed by ISABELLE MARTÍNEZ M.D. ([id number]) on 12/25/2017 8:04:47 AM Ventricular Rate : 57 BPMAtrial Rate : 57 BPMP-R Interval : 188 msQRS Duration : 110 msQ-T Interval : 418 msQTC Calculation(Bezet) : 406 msP Townsend : 60 degreesR Townsend : 13 degreesT Townsend : 33 degrees Test Reason : Location : [facility] : [facility] Overread By : ISABELLE MARTÍNEZ M.D.Edited By : ISABELLE MARTÍNEZ M.D.Referred By : LUISRAcquired by : Philly corral [facility] HISTORY PHYSICALon 8 HISTORY PHYSICAL HNO ID: [id number] thor: Kiley Platt ([facility]) Sudik, PAService: (none)Author Type: Physician AssistantType: HANDPFiled: 12/23/2017 1:43 PMNote Text:HISTORY AND PHYSICAL EXAMINATIONSERVICE DATE: 12/23/2017SERVICE TIME: 1:14 [facility] PHYSICIAN: SÁNCHEZ Escalera FOR VISIT:Sen Ulloa is a 77 year old male who is scheduled for Right L5-C8kzfiaryfvq, foraminotomy at the request of Dr. Sondra Smith forconsultation. My final recommendation will be communicated back to therequesting physician by way of shared medical record or letter.The patient has the following:ACTIVE PROBLEM LISTArthritisRib FracturesChronic Right Sacroiliac Joint PainForaminal Stenosis of Lumbosacral RegionSpondylolisthesis At L3-L4 LevelRenal CystPre-Op TestingSubjectiveCHIEF COMPLAINT: Back pain and right leg painHPI: This is a 77 year old male who complains of constant lower back painradiating down right leg to knee for the last 3 years. He reports up to10/10 sharp pain and paresthesias. He reports leg numbness with prolongedwalking. 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 History Main Topics Smoking status: Former Smoker Packs/day: 0.00 Years: 20.00 Types: Cigarettes, Pipe, Cigars Quit date: 12/24/1983 Smokeless tobacco: Never Used Comment: 1 pp week (light smoker Alcohol use: Yes Comment: occasional Drug use: NoMEDICATIONS:Prior to Admission medications as of 12/23/17 1309Medication Sig Last Dose TakingHYDROcodone-acetamin ophen (NORCO) 5-325 mg per tablet Yesdiclofenac, EC, (VOLTAREN) 75 mg EC tablet Take 75 mg by mouth once daily.Medication Comments documented by Kiley MckeonPacDANNY Banks on 12/23/2017 [id number].Diclofenac is held for surgeryCURRENT ALLERGIES:ALLERGIESAllerge n Reactions- Doxycycline Rash Caused penile ulcers- Penicillins Other: See Comments Syncopal episode age 12 when given an injection of PenicillinREVIEW OF SYSTEMS:PAIN ASSESSMENT:General: No weight loss, malaise or fevers.Neuro: Postive for past migraines - none recently, Negative for SeizuresStroke-residual deficit Parkinson's Disease Multiple SclerosisRespiratory: Positive for Former light smoker (Quit 34 years ago),Negative for Asthma, COPD, URI < 2 weeksCardiovascular: No history of HTN requiring medication, no history ofangina, CHF, PA, cardiac surgery or stents. Denies rest pain, gangrene orrevascularization/amputa tion for PVD. No history of cardiovascularsymptoms or problems.GI: No history of GI symptoms or problems. No history of esophagealvarices, recent ascites, or ETOH greater than 2 drinks per day.: No history of dysuria, frequency or incontinence,, stones or chronickidney diseaseEndocrine: Medrol dose pack 12/15/2017 to 12/20/[address]to toleratelong car drive home from vacationHematology: No history of bleeding or clotting disorder. Pt is not takinganti-coagulation or platelet medications. No history of hematologicalsymptoms or problems.Oncology: No history of CA metastasis, chemo within 30 days, orradiotherapy within 90 days. Has not lost 10% of body wt in 6 months. Nohistory of oncological symptoms or problems.Psych: No history of psychiatric symptoms or problems.Musculoskeletal: See HPISkin: Negative for lesions, rash and itching.ObjectivePHYSICAL EXAM:VITALS:BP 111/74 Pulse 77 Temp (Src) 98 (Temporal Artery) Resp 16 Ht 6'0 (1.83m) Wt 172 lb (78.0kg) SpO2 97% BMI 23.32 kg/(m2).General: Alert and oriented, No acute distressSkin: Normal color, no rash, no lesions.HEENT: EOM, pupils equal, round and reactive., No carotid bruitsCardiovascular: Normal S1 AND S2, no rubs, murmurs or gallops. No JVD. Pulseregular.Lungs: Normal breath sounds, no wheezes or crackles.Abdomen: Soft, non-tender, no rigidity.Extremities: No deformity, no edema or tenderness, no joint swelling orclubbing.Neurological: Normal cognition and motor skills. Gait normal.Pulses: Carotid and radial pulses normal +2. Pedal pulses normal +2.Diagnostic tests reviewed for today's visit:Labs and CXR are PENDING in [facility] 12/23/2017 (Pending review from physician/electronic parts designer) sinusbradycardia, incomplete RBBBAssessmentASSESSMENTPa sheila has the following medical conditionsHistory of migrainesFormer light smoker for 20 years (quit 34 years ago)History of medrol dose pack taken for back pain 12/15/2017-12/20/2017METS:Wal k a block or two on level ground (2.75 METs)Do moderate work around the house such as vacuuming, sweeping floors, orcarrying in groceries (3.50 METs)Do yardwork, such as raking leaves, weeding,or pushing a power mower (4.50METs)Climb a flight of stairs or walk up a hill (5.50 METs)Patient denies any chest pain or undue shortness of breath with the abovephysical activity.Limited activity due to back pain, Mows the lawn, climbed 3 flights ofrecently without difficultyASA Class: 2ANESTHESIA FINDINGS:Intubation History: No history of difficult intubationSignificant Anesthesia Considerations: NoneAirway Exam: General: Normal appearance Mallampati Score is CLASS III ULBT: Class I - Lower incisors can bite the upper lip above thevermillion line Neck: Normal appearance and function, Distance from hyoid to mentumduring neck extension is at least 3 finger breaths Mouth: Normal tongue size and Mouth opening greater than 2 finger breaths Dentition: Partial, Caps/crowns and BridgeAirway History: No abnormal airway historySTOP BANG Score:Criteria:TiredAge over 50 (77 year old)Male genderScore = 3PLANThis patient is optimally prepared for surgery pending LABS, EKG and CXR.CONSULTS:Patient does not require consults for optimization at this time.The Following Tests/Procedures Have Been Initiated:[facility]hetic: GeneralInstructions Given to Patient:Patient given verbal and written preop instructions and voicescomprehension and compliance.SIGNATURE: Kiley Kaur PA-C PATIENT NAME: Sen JohnsATE: December 23, 2017 : 1:14 PM PAGER/CONTACT #: [facility] PROGRESSon 12-23-2017 PROGRESS HNO ID: [id number] thor: Cecy Platt (Rt) Talon Acunavice: RadiologyAuthor Type: TechnicianType: Progress NotesFiled: 12/23/2017 1:50 PMNote Text: Radiology Service Progress NotePATIENT NAME: Sen DanRN: [id number] OF SERVICE: December 23, 2017TIME: 1:46 PMPATIENT IDENTITY VERIFICATION COMPLETED USING TWO (2) METHODS: Patientconfirmed name verbally and Date of .PATIENT GENDER DATA: MalePATIENT RELEVANT IMPLANT DATA REVIEWED: Not ApplicableRADIOLOGY DEPARTMENT: General X-ray: Exam(s) Completed: Chest X-RayPERIPHERAL IV DATA: Not applicableSIGNED BY: Celena Manuel 2017 1:46 PM [facility] Staph aureus PCRon 8 MRSA PCR Negative [facility] Comment on above: Performed By: #### S APCR ####[facility] [place], [place] [phone] S aureus Spec Source Nasal [facility] Comment on above: Performed By: #### S APCR ####[facility] [place], [place] [phone] Staph aureus PCR Negative [facility] Comment on above: Performed By: #### S APCR ####[place] [address] [place], [place] [phone] Type and SCR (30D)on 018 ABO/RH(D) Positive [facility] Comment on above: Performed By: #### T SCR30 ####[facility] [phone] Antibody Screen Negative [facility] Comment on above: Performed By: #### T SCR30 ####[facility] [phone] XR CHEST 2V FRONTAL/LATon XR CHEST 2V FRONTAL/LAT * * *Final Report* * *DATE OF EXAM: Dec 23 2017 1:50PM VHX [id number] - XR CHEST 2V FRONTAL/LAT / REASON: multiple diagnoses * * * * Physician Interpretation * * * * EXAMINATION: CHEST RADIOGRAPH (2 VIEW FRONTAL and LATERAL)Clinical History: Other biomechanical lesions of lumbar region Encounter for other preprocedural examinationMQ: XC2_5Comparison: NoneRESULT:Lines, tubes, and devices: None.Lungs and pleura: There is mild bibasilar interstitial prominence. No focal infiltrate or pleural effusion.Cardiomediastinal silhouette: Exaggerated cardiomediastinal silhouette.Other: There is mild degenerative change of the thoracic spine.IMPRESSION:NO ACUTE RADIOGRAPHIC ABNORMALITY.Transcriptioni st: PSCB Transcribe Date/Time: Dec 23 2017 11:28PDictated by : LEVI LEES MDThis examination was interpreted and the report reviewed and electronically signed by: LEVI LEES MD on Dec 23 2017 11:29PM [id number] [facility] HOSPon 10-24-2017 HOSP Patient:Sen Ulloa RMRN: Height:6' 0 (1.829 m)Weight:172 lb (78.019 kg)Outpatient Medications as of 12/29/17:oxyCODONE ir (OXYIR) 5 mg capsuledocusate sodium (COLACE) 100 mg capsulediclofenac, EC, (VOLTAREN) 75 mg EC tabletAdmission/Clinic Administered Medications as of 12/29/17:lidocaine 10 mg/mL (1 %) 1-2 mg injection (XYLOCAINE)lactated ringers infusionceFAZolin iv piggyback 2 g in D5W (iso-osmotic) 100 mL (ANCEF)oxyCODONE-acetamino phen 5-325 mg 1-2 tablet (PERCOCET)Problem List:Arthritis [M19.90]Rib fractures [S22.39XA]Chronic right sacroiliac joint pain [M53.3, G89.29]Foraminal stenosis of lumbosacral region [M99.83]Spondylolisthesis at L3-L4 level [M43.16]Renal cyst [N28.1]Pre-op testing [Z01.818]Allergies:Doxycyc linePenicillinsDate Verified: 12/29/17Lab ValuesLab Value Units Date High LowPOTA* 4.7 mmol/L 12/23/2017 5.1 3.7HEMA* 44.8 % 12/23/2017 51.0 39.0Progress Notes ([facility]):Cecy Acuna, OREMAN, Tech 12/23/2017 1:50 PM Signed Radiology Service Progress NotePATIENT NAME: Sen Mcbride: [id number] OF SERVICE: December 23, 2017TIME: 1:46 PMPATIENT IDENTITY VERIFICATION COMPLETED USING TWO (2) METHODS: Patientconfirmed name verbally and Date of .PATIENT GENDER DATA: MalePATIENT RELEVANT IMPLANT DATA REVIEWED: Not ApplicableRADIOLOGY DEPARTMENT: General X-ray: Exam(s) Completed: Chest X-RayPERIPHERAL IV DATA: Not applicableSIGNED BY: Cecy Acuna, RTPerson [facility] 2017 1:46 PMProgress Notes ([facility] REJ):Barbara Urrutia 12/14/2017 9:58 AM SignedPatients spouse Yolanda is calling in regards to the surgery scheduled for12/29/17. Yolanda is requesting a return call to discuss. Please advise.Britt Murphy 12/14/2017 10:09 AM SignedSpoke with . She states she called outside facility to fax MRI report andwas checking to see if we have received it. Report has not been scanned intoEPIC. Will continue to watch for report and contact patient/spouse oncereceived.Britt Murphy 12/15/2017 9:05 AM SignedReports are scanned in [facility] Vital Signs Date Time Vital Sign Value Performing Clinician Facility 02-29-2024 09:20-0400 Diastolic blood pressure 60 mm[Hg] Yared Zavala [facility] 02-29-2024 09:20-0400 Heart rate 67 /min Yared Zvaala [facility] 02-29-2024 09:20-0400 Mean blood pressure 78 mm[Hg] Yared Zavala [facility] 02-29-2024 09:20-0400 Respiratory rate 16 /min Vail Zavala [facility] 02-29-2024 09:20-0400 Systolic blood pressure 113 mm[Hg] Yared Zavala [facility] 02-23-2024 09:40-0400 Blood Pressure Location [facility] 02-23-2024 09:40-0400 Diastolic blood pressure 70 mm[Hg] [facility] 02-23-2024 09:40-0400 Heart rate 50 /min [facility] 02-23-2024 09:40-0400 Respiratory rate 16 /min [facility] 02-23-2024 09:40-0400 SaO2% (BldA) [Mass fraction] 97 % [facility] 02-23-2024 09:40-0400 Systolic blood pressure 120 mm[Hg] [facility] 02-08-2024 09:25-0400 Blood Pressure Location [facility] 02-08-2024 09:25-0400 Diastolic blood pressure 54 mm[Hg] [facility] 02-08-2024 09:25-0400 Heart rate 63 /min [facility] 02-08-2024 09:25-0400 SaO2% (BldA) [Mass fraction] 91 % [facility] 02-08-2024 09:25-0400 Systolic blood pressure 104 mm[Hg] [facility] 01-31-2024 13:46-0400 Heart rate 55 /min Yared Zavala [facility] 01-31-2024 13:46-0400 SaO2% (BldA) [Mass fraction] 98 % Yared Zavala [facility] 01-31-2024 13:45-0400 Diastolic blood pressure 74 mm[Hg] Yared Zavala [facility] 01-31-2024 13:45-0400 Mean blood pressure 92 mm[Hg] Yared Zaavla [facility] 01-31-2024 13:45-0400 Systolic blood pressure 127 mm[Hg] Yared Zavala [facility] 01-31-2024 13:31-0400 Diastolic blood pressure 70 mm[Hg] Vail Lucas [facility] 01-31-2024 13:31-0400 Heart rate 58 /min Yared Zavala [facility] 01-31-2024 13:31-0400 SaO2% (BldA) [Mass fraction] 96 % Yared Zavala [facility] 01-31-2024 13:31-0400 Systolic blood pressure 138 mm[Hg] Yared Zavala [facility] 01-31-2024 11:37-0400 Heart rate 56 /min Vail Lucas [facility] 01-31-2024 11:37-0400 SaO2% (BldA) [Mass fraction] 96 % Yared Lucas [facility] 01-31-2024 11:36-0400 Body temperature 97.52 [degF] Yared Zavala [facility] 01-31-2024 11:36-0400 Diastolic blood pressure 75 mm[Hg] Yared Zavala [facility] 01-31-2024 11:36-0400 Mean blood pressure 98 mm[Hg] Yared Zavala [facility] 01-31-2024 11:36-0400 Systolic blood pressure 143 mm[Hg] Yared Zavala [facility] 01-31-2024 11:36-0400 Respiratory rate 14 /min Yared Zavala [facility] 01-17-2024 11:40-0400 Diastolic blood pressure 73 mm[Hg] Yared Zavala [facility] 01-17-2024 11:40-0400 Heart rate 69 /min Yared Zavala [facility] 01-17-2024 11:40-0400 Respiratory rate 16 /min Yared Zavala [facility] 01-17-2024 11:40-0400 SaO2% (BldA) [Mass fraction] 96 % Yared Zavala [facility] 01-17-2024 11:40-0400 Systolic blood pressure 140 mm[Hg] Yared Zavala [facility] 01-17-2024 11:17-0400 Diastolic blood pressure 90 mm[Hg] Yared Zavala [facility] 01-17-2024 11:17-0400 Heart rate 63 /min Yared Zavala [facility] 01-17-2024 11:17-0400 SaO2% (BldA) [Mass fraction] 97 % Yared Zavala [facility] 01-17-2024 11:17-0400 Systolic blood pressure 145 mm[Hg] Vail Lucas [facility] 01-17-2024 09:50-0400 Heart rate 57 /min Vail Lucas [facility] 01-17-2024 09:50-0400 SaO2% (BldA) [Mass fraction] 96 % Yared Lucas [facility] 01-17-2024 09:50-0400 Body temperature 97.52 [degF] Yared Zavala [facility] 01-17-2024 09:50-0400 Diastolic blood pressure 72 mm[Hg] Yared Zavala [facility] 01-17-2024 09:50-0400 Mean blood pressure 88 mm[Hg] Yared Zavala [facility] 01-17-2024 09:50-0400 Systolic blood pressure 119 mm[Hg] Yared Zavala [facility] 01-17-2024 09:50-0400 Respiratory rate 14 /min Yared Zavala [facility] 12-15-2023 14:54-0400 Diastolic blood pressure 68 mm[Hg] Yared Zavala [facility] 12-15-2023 14:54-0400 Heart rate 56 /min Yared Zavala [facility] 12-15-2023 14:54-0400 Mean blood pressure 86 mm[Hg] Yared Zavala [facility] 12-15-2023 14:54-0400 Systolic blood pressure 123 mm[Hg] Yared Zavala [facility] 12-13-2023 14:35-0400 Heart rate 57 /min Yared Zavala [facility] 12-13-2023 14:35-0400 SaO2% (BldA) [Mass fraction] 97 % Vail Lucas [facility] 12-13-2023 14:35-0400 Diastolic blood pressure 71 mm[Hg] Vail Lucas [facility] 12-13-2023 14:35-0400 Mean blood pressure 89 mm[Hg] Yared Zavala [facility] 12-13-2023 14:35-0400 Systolic blood pressure 126 mm[Hg] Yared Zavala [facility] 12-13-2023 14:35-0400 Respiratory rate 16 /min Yared Zavala [facility] 12-13-2023 14:20-0400 Diastolic blood pressure 68 mm[Hg] Yared Zavala [facility] 12-13-2023 14:20-0400 Heart rate 69 /min Yared Zavala [facility] 12-13-2023 14:20-0400 SaO2% (BldA) [Mass fraction] 95 % Yared Zavala [facility] 12-13-2023 14:20-0400 Systolic blood pressure 142 mm[Hg] Vail Lucas [facility] 12-13-2023 13:20-0400 Heart rate 59 /min Yared Zavala [facility] 12-13-2023 13:20-0400 SaO2% (BldA) [Mass fraction] 96 % Yared Zavala [facility] 12-13-2023 13:20-0400 Respiratory rate 12 /min Yared Zavala [facility] 12-13-2023 13:19-0400 Body temperature 98.06 [degF] Yared Lucas [facility] 12-13-2023 13:19-0400 Diastolic blood pressure 67 mm[Hg] Yared Zavala [facility] 12-13-2023 13:19-0400 Mean blood pressure 87 mm[Hg] Yared Zavala [facility] 12-13-2023 13:19-0400 Systolic blood pressure 128 mm[Hg] [facility]ared Zavala [facility] 11-24-2023 12:55-0400 Diastolic blood pressure 64 mm[Hg] Yared Zavala [facility] 11-24-2023 12:55-0400 Heart rate 59 /min Yared Zavala [facility] 11-24-2023 12:55-0400 Mean blood pressure 83 mm[Hg] Yared Zavala [facility] 11-24-2023 12:55-0400 Respiratory rate 14 /min Yared Zavala [facility] 11-24-2023 12:55-0400 Systolic blood pressure 122 mm[Hg] Yared Zavala [facility] 11-21-2023 08:54-0400 Heart rate 61 /min Yared Zavala [facility] 11-21-2023 08:54-0400 SaO2% (BldA) [Mass fraction] 96 % Yared Zavala [facility] 11-21-2023 08:54-0400 Diastolic blood pressure 78 mm[Hg] Yared Zavala [facility] 11-21-2023 08:54-0400 Mean blood pressure 97 mm[Hg] Yared Zavala [facility] 11-21-2023 08:54-0400 Systolic blood pressure 136 mm[Hg] Yared Zavala [facility] 11-21-2023 08:54-0400 Respiratory rate 16 /min Yared Zavala [facility] 11-21-2023 08:39-0400 Diastolic blood pressure 60 mm[Hg] Yared Zavala [facility] 11-21-2023 08:39-0400 Heart rate 66 /min Yared Zavala [facility] 11-21-2023 08:39-0400 SaO2% (BldA) [Mass fraction] 97 % Yared Zavala [facility] 11-21-2023 08:39-0400 Systolic blood pressure 108 mm[Hg] Yared Zavala [facility] 11-21-2023 07:32-0400 Heart rate 60 /min Yared Zavala [facility] 11-21-2023 07:32-0400 SaO2% (BldA) [Mass fraction] 96 % Yared Zavala [facility] 11-21-2023 07:32-0400 Diastolic blood pressure 72 mm[Hg] Yared Zavala [facility] 11-21-2023 07:32-0400 Mean blood pressure 92 mm[Hg] Yared Zavala [facility] 11-21-2023 07:32-0400 Systolic blood pressure 131 mm[Hg] Yared Zavala [facility] 11-21-2023 07:31-0400 Body temperature 97.88 [degF] Yared Zavala [facility] 11-21-2023 07:31-0400 Respiratory rate 14 /min Yared Zavala [facility] 11-07-2023 08:51-0400 Diastolic blood pressure 70 mm[Hg] Shahnaz Galvin [facility] 11-07-2023 08:51-0400 Heart rate 51 /min Shahnaz Galvin [facility] 11-07-2023 08:51-0400 Mean blood pressure 90 mm[Hg] Shahnaz Galvin [facility] 11-07-2023 08:51-0400 Respiratory rate 16 /min Shahnaz Galvin [facility] 11-07-2023 08:51-0400 Systolic blood pressure 130 mm[Hg] Shahnaz Galvin [facility] 09-30-2023 12:40-0400 Diastolic blood pressure 63 mm[Hg] Shahnaz Galvin [facility] 09-30-2023 12:40-0400 Heart rate 60 /min Shahnaz Galvin [facility] 09-30-2023 12:40-0400 Mean blood pressure 83 mm[Hg] Shahnaz Galvin [facility] 09-30-2023 12:40-0400 Respiratory rate 16 /min Shahnaz Galvin [facility] 09-30-2023 12:40-0400 Systolic blood pressure 122 mm[Hg] Shahnaz Galvin [facility] 08-19-2023 08:27-0500 Blood Pressure Location Beatrice ALVES [facility] 08-19-2023 08:27-0500 Diastolic blood pressure 76 mm[Hg] Beatrice ALVES [facility] 08-19-2023 08:27-0500 Heart rate 70 /min Beatrice ALVES [facility] 08-19-2023 08:27-0500 Respiratory rate 16 /min Betarice ALVES [facility] 08-19-2023 08:27-0500 Systolic blood pressure 132 mm[Hg] Beatrice ALVES [facility] 08-12-2023 09:32-0500 Blood Pressure Location Karishma Reddy [facility] 08-12-2023 09:32-0500 Diastolic blood pressure 54 mm[Hg] Karishma Reddy [facility] 08-12-2023 09:32-0500 Heart rate 58 /min Karishma Hallmley [facility] 08-12-2023 09:32-0500 SaO2% (BldA) [Mass fraction] 92 % [place] Maureen [facility] 08-12-2023 09:32-0500 Systolic blood pressure 110 mm[Hg] [place] Maureen [facility] 06-29-2023 12:28-0500 Diastolic blood pressure 48 mm[Hg] Shahnaz Galvin [facility] 06-29-2023 12:28-0500 Heart rate 56 /min Shahnaz Galvin [facility] 06-29-2023 12:28-0500 Mean blood pressure 72 mm[Hg] Shahnaz kidthing [facility] 06-29-2023 12:28-0500 Systolic blood pressure 120 mm[Hg] Shahnaz kidthing [facility] 06-21-2023 14:09-0500 Heart rate 66 /min Abe Bruno [facility] 06-21-2023 14:09-0500 SaO2% (BldA) [Mass fraction] 94 % Abe Bruno [facility] 06-21-2023 14:09-0500 Body temperature 97.52 [degF] Abe Bruno [facility] 06-21-2023 14:09-0500 Respiratory rate 16 /min Abe Bruno [facility] 06-21-2023 14:08-0500 Diastolic blood pressure 81 mm[Hg] Abe Bruno [facility] 06-21-2023 14:08-0500 Mean blood pressure 100 mm[Hg] Abe Bruno [facility] 06-21-2023 14:08-0500 Systolic blood pressure 137 mm[Hg] Abe Bruno [facility] 06-21-2023 14:01-0500 Heart rate 69 /min Abe Bruno [facility] 06-21-2023 14:01-0500 SaO2% (BldA) [Mass fraction] 97 % Abe Bruno [facility] 06-21-2023 14:01-0500 Diastolic blood pressure 71 mm[Hg] Abe Bruno [facility] 06-21-2023 14:01-0500 Mean blood pressure 91 mm[Hg] Abe Bruno [facility] 06-21-2023 14:01-0500 Systolic blood pressure 130 mm[Hg] Abe Bruno [facility] 06-21-2023 13:55-0500 Heart rate 74 /min Abe Bruno [facility] 06-21-2023 13:55-0500 Respiratory rate 15 /min Abe Bruno [facility] 06-21-2023 13:55-0500 SaO2% (BldA) [Mass fraction] 98 % Abe Bruno [facility] 06-21-2023 13:54-0500 Diastolic blood pressure 73 mm[Hg] Abe Bruno [facility] 06-21-2023 13:54-0500 Systolic blood pressure 120 mm[Hg] Abe Bruno [facility] 06-21-2023 13:50-0500 Respiratory rate 13 /min Abe Bruno [facility] 06-21-2023 12:00-0500 Mean blood pressure 97 mm[Hg] Abe Bruno [facility] 06-21-2023 11:59-0500 Body temperature 97.7 [degF] Abe Bruno [facility] 06-14-2023 09:56-0500 Diastolic blood pressure 66 mm[Hg] Abe Bruno [facility] 06-14-2023 09:56-0500 Heart rate 55 /min Abe Bruno [facility] 06-14-2023 09:56-0500 Respiratory rate 18 /min Abe Bruno [facility] 06-14-2023 09:56-0500 Systolic blood pressure 146 mm[Hg] Abe Bruno [facility] 05-20-2023 08:16-0500 Blood Pressure Location [facility] 05-20-2023 08:16-0500 Diastolic blood pressure 56 mm[Hg] [facility] 05-20-2023 08:16-0500 Heart rate 58 /min [facility] 05-20-2023 08:16-0500 SaO2% (BldA) [Mass fraction] 92 % [facility] 05-20-2023 08:16-0500 Systolic blood pressure 110 mm[Hg] [facility] 04-12-2023 09:14-0400 Heart rate 55 /min Abe Bruno [facility] 04-12-2023 09:14-0400 SaO2% (BldA) [Mass fraction] 95 % Abe Bruno [facility] 04-12-2023 09:14-0400 Diastolic blood pressure 62 mm[Hg] Bae Bruno [facility] 04-12-2023 09:14-0400 Mean blood pressure 76 mm[Hg] Abe Bruno [facility] 04-12-2023 09:14-0400 Systolic blood pressure 106 mm[Hg] Abe Bruno [facility] 04-12-2023 09:07-0400 Heart rate 54 /min Abe Bruno [facility] 04-12-2023 09:07-0400 SaO2% (BldA) [Mass fraction] 96 % Abe Bruno [facility] 04-12-2023 09:07-0400 Body temperature 97.88 [degF] Abe Bruno [facility] 04-12-2023 09:07-0400 Respiratory rate 14 /min Abe Bruno [facility] 04-12-2023 09:06-0400 Diastolic blood pressure 73 mm[Hg] Abe Bruno [facility] 04-12-2023 09:06-0400 Mean blood pressure 83 mm[Hg] Abe Bruno [facility] 04-12-2023 09:06-0400 Systolic blood pressure 103 mm[Hg] Abe Bruno [facility] 04-12-2023 08:55-0400 Diastolic blood pressure 62 mm[Hg] Abe Bruno [facility] 04-12-2023 08:55-0400 Heart rate 56 /min Abe Bruno [facility] 04-12-2023 08:55-0400 SaO2% (BldA) [Mass fraction] 100 % Abe Bruno [facility] 04-12-2023 08:55-0400 Systolic blood pressure 105 mm[Hg] Abe Bruno [facility] 04-12-2023 08:45-0400 Respiratory rate 13 /min Abe Bruno [facility] 04-12-2023 08:30-0400 Respiratory rate 14 /min Abe Bruno [facility] 04-12-2023 07:39-0400 Body temperature 97.52 [degF] Abe Bruno [facility] 04-12-2023 07:39-0400 Mean blood pressure 87 mm[Hg] Abe Bruno [facility] 04-05-2023 09:34-0400 Diastolic blood pressure 101 mm[Hg] Abe Bruno [facility] 04-05-2023 09:34-0400 Heart rate 58 /min Abe Bruno [facility] 04-05-2023 09:34-0400 Mean blood pressure 124 mm[Hg] Abe Bruno [facility] 04-05-2023 09:34-0400 Respiratory rate 14 /min Abe Bruno [facility] 04-05-2023 09:34-0400 Systolic blood pressure 171 mm[Hg] Abe Bruno [facility] 02-21-2023 13:04-0400 Diastolic blood pressure 72 mm[Hg] Abe Bruno [facility] 02-21-2023 13:04-0400 Heart rate 55 /min Abe Bruno [facility] 02-21-2023 13:04-0400 Mean blood pressure 95 mm[Hg] Abe Bruno [facility] 02-21-2023 13:04-0400 Respiratory rate 14 /min Abe Carr [facility] 02-21-2023 13:04-0400 Systolic blood pressure 140 mm[Hg] Abe Bruno [facility] 02-17-2023 11:01-0400 Blood Pressure Location [facility] 02-17-2023 11:01-0400 Diastolic blood pressure 58 mm[Hg] [facility] 02-17-2023 11:01-0400 Heart rate 76 /min [facility] 02-17-2023 11:01-0400 Respiratory rate 16 /min [facility] 02-17-2023 11:01-0400 SaO2% (BldA) [Mass fraction] 98 % [facility] 02-17-2023 11:01-0400 Systolic blood pressure 100 mm[Hg] [facility] 02-08-2023 08:58-0400 Blood Pressure Location [facility] 02-08-2023 08:58-0400 Diastolic blood pressure 60 mm[Hg] [facility] 02-08-2023 08:58-0400 Heart rate 52 /min [facility] 02-08-2023 08:58-0400 SaO2% (BldA) [Mass fraction] 92 % [facility] 02-08-2023 08:58-0400 Systolic blood pressure 110 mm[Hg] [facility] 01-25-2023 09:49-0400 Diastolic blood pressure 84 mm[Hg] Abe Carr [facility] 01-25-2023 09:49-0400 Heart rate 62 /min Abe Bruno [facility] 01-25-2023 09:49-0400 Mean blood pressure 102 mm[Hg] Abe Bruno [facility] 01-25-2023 09:49-0400 Respiratory rate 14 /min Abe Bruno [facility] 01-25-2023 09:49-0400 Systolic blood pressure 139 mm[Hg] Abe Bruno [facility] 01-10-2023 07:40-0400 Diastolic blood pressure 75 mm[Hg] Abe Bruno [facility] 01-10-2023 07:40-0400 Heart rate 62 /min Abe Bruno [facility] 01-10-2023 07:40-0400 Mean blood pressure 90 mm[Hg] Abe Bruno [facility] 01-10-2023 07:40-0400 Respiratory rate 18 /min Abe Bruno [facility] 01-10-2023 07:40-0400 Systolic blood pressure 120 mm[Hg] Abe Bruno [facility] 12-28-2022 07:57-0400 Blood Pressure Location [facility] 12-28-2022 07:57-0400 Diastolic blood pressure 58 mm[Hg] [facility] 12-28-2022 07:57-0400 Heart rate 61 /min [facility] 12-28-2022 07:57-0400 Respiratory rate 95 /min [facility] 12-28-2022 07:57-0400 Systolic blood pressure 118 mm[Hg] [facility] 12-21-2022 09:15-0400 Heart rate 54 /min Abe Bruno [facility] 12-21-2022 09:15-0400 SaO2% (BldA) [Mass fraction] 97 % Abe Bruno [facility] 12-21-2022 09:15-0400 Respiratory rate 16 /min Abe Bruno [facility] 12-21-2022 09:14-0400 Diastolic blood pressure 75 mm[Hg] Abe Bruno [facility] 12-21-2022 09:14-0400 Mean blood pressure 98 mm[Hg] Abe Bruno [facility] 12-21-2022 09:14-0400 Systolic blood pressure 144 mm[Hg] Abe Bruno [facility] 12-21-2022 09:12-0400 Diastolic blood pressure 75 mm[Hg] Abe Bruno [facility] 12-21-2022 09:12-0400 Heart rate 55 /min Abe Bruno [facility] 12-21-2022 09:12-0400 Respiratory rate 14 /min Abe Bruno [facility] 12-21-2022 09:12-0400 SaO2% (BldA) [Mass fraction] 97 % Abe Bruno [facility] 12-21-2022 09:12-0400 Systolic blood pressure 143 mm[Hg] Abe Bruno [facility] 12-21-2022 08:38-0400 Heart rate 54 /min Abe Bruno [facility] 12-21-2022 08:38-0400 SaO2% (BldA) [Mass fraction] 96 % Abe Carr [facility] 12-21-2022 08:38-0400 Diastolic blood pressure 74 mm[Hg] Abe Carr [facility] 12-21-2022 08:38-0400 Mean blood pressure 95 mm[Hg] Abe Carr [facility] 12-21-2022 08:38-0400 Systolic blood pressure 135 mm[Hg] Abe Carr [facility] 12-21-2022 08:38-0400 Body temperature 97.88 [degF] Abe Carr [facility] 12-21-2022 08:38-0400 Respiratory rate 14 /min Abe Carr [facility] 11-16-2022 08:53-0400 Blood Pressure Location [facility] 11-16-2022 08:53-0400 Body temperature 97.7 [degF] [facility] 11-16-2022 08:53-0400 Diastolic blood pressure 64 mm[Hg] [facility] 11-16-2022 08:53-0400 Heart rate 56 /min [facility] 11-16-2022 08:53-0400 SaO2% (BldA) [Mass fraction] 94 % [facility] 11-16-2022 08:53-0400 Systolic blood pressure 110 mm[Hg] [facility] 11-09-2022 10:29-0400 Heart rate 58 /min Abe Carr [facility] 11-09-2022 10:29-0400 SaO2% (BldA) [Mass fraction] 97 % Abe Carr [facility] 11-09-2022 10:29-0400 Diastolic blood pressure 78 mm[Hg] Abe Bruno [facility] 11-09-2022 10:29-0400 Mean blood pressure 94 mm[Hg] Abe Bruno [facility] 11-09-2022 10:29-0400 Systolic blood pressure 126 mm[Hg] Abe Bruno [facility] 11-09-2022 10:29-0400 Respiratory rate 16 /min Abe Bruno [facility] 11-09-2022 10:20-0400 Diastolic blood pressure 74 mm[Hg] Abe Bruno [facility] 11-09-2022 10:20-0400 Heart rate 56 /min Abe Bruno [facility] 11-09-2022 10:20-0400 Respiratory rate 16 /min Abe Bruno [facility] 11-09-2022 10:20-0400 SaO2% (BldA) [Mass fraction] 97 % Abe Bruno [facility] 11-09-2022 10:20-0400 Systolic blood pressure 138 mm[Hg] Abe Bruno [facility] 11-09-2022 09:42-0400 Heart rate 57 /min Abe Bruno [facility] 11-09-2022 09:42-0400 SaO2% (BldA) [Mass fraction] 97 % Abe Bruno [facility] 11-09-2022 09:42-0400 Body temperature 98.06 [degF] Abe Bruno [facility] 11-09-2022 09:42-0400 Diastolic blood pressure 79 mm[Hg] Abe Bruno [facility] 11-09-2022 09:42-0400 Mean blood pressure 98 mm[Hg] Abe Bruno [facility] 11-09-2022 09:42-0400 Systolic blood pressure 137 mm[Hg] Abe Bruno [facility] 11-09-2022 09:41-0400 Respiratory rate 18 /min Abe Bruno [facility] 10-08-2022 11:02-0400 Blood Pressure Location [facility] 10-08-2022 11:02-0400 Body temperature 98.78 [degF] [facility] 10-08-2022 11:02-0400 Diastolic blood pressure 60 mm[Hg] [facility] 10-08-2022 11:02-0400 Heart rate 58 /min [facility] 10-08-2022 11:02-0400 SaO2% (BldA) [Mass fraction] 93 % [facility] 10-08-2022 11:02-0400 Systolic blood pressure 118 mm[Hg] [facility] 10-05-2022 10:42-0400 Diastolic blood pressure 63 mm[Hg] Abe Bruno [facility] 10-05-2022 10:42-0400 Heart rate 62 /min Abe Bruno [facility] 10-05-2022 10:42-0400 Mean blood pressure 81 mm[Hg] Abe Bruno [facility] 10-05-2022 10:42-0400 Respiratory rate 18 /min Abe Bruno [facility] 10-05-2022 10:42-0400 Systolic blood pressure 118 mm[Hg] Abe Bruno [facility] 09-14-2022 10:31-0500 Heart rate 59 /min Abe Bruno [facility] 09-14-2022 10:31-0500 SaO2% (BldA) [Mass fraction] 98 % Abe Bruno [facility] 09-14-2022 10:31-0500 Diastolic blood pressure 81 mm[Hg] Abe Bruno [facility] 09-14-2022 10:31-0500 Mean blood pressure 102 mm[Hg] Abe Bruno [facility] 09-14-2022 10:31-0500 Systolic blood pressure 144 mm[Hg] Abe Bruno [facility] 09-14-2022 10:31-0500 Respiratory rate 14 /min Abe Bruno [facility] 09-14-2022 10:28-0500 Diastolic blood pressure 81 mm[Hg] Abe Bruno [facility] 09-14-2022 10:28-0500 Heart rate 54 /min Abe Bruno [facility] 09-14-2022 10:28-0500 Respiratory rate 16 /min Abe Bruno [facility] 09-14-2022 10:28-0500 SaO2% (BldA) [Mass fraction] 98 % Abe Bruno [facility] 09-14-2022 10:28-0500 Systolic blood pressure 148 mm[Hg] Abe Bruno [facility] 09-14-2022 09:09-0500 Heart rate 59 /min Abe Carr [facility] 09-14-2022 09:09-0500 SaO2% (BldA) [Mass fraction] 98 % Abe Carr [facility] 09-14-2022 09:08-0500 Diastolic blood pressure 80 mm[Hg] Abe Carr [facility] 09-14-2022 09:08-0500 Mean blood pressure 104 mm[Hg] Abe Carr [facility] 09-14-2022 09:08-0500 Systolic blood pressure 152 mm[Hg] Abe Carr [facility] 09-14-2022 09:06-0500 Body temperature 97.88 [degF] Abe Carr [facility] 09-14-2022 09:06-0500 Respiratory rate 12 /min Abe Carr [facility] 08-31-2022 10:21-0500 Blood Pressure Location [facility] 08-31-2022 10:21-0500 Body temperature 97.88 [degF] [facility] 08-31-2022 10:21-0500 Diastolic blood pressure 56 mm[Hg] [facility] 08-31-2022 10:21-0500 Heart rate 52 /min [facility] 08-31-2022 10:21-0500 SaO2% (BldA) [Mass fraction] 94 % [facility] 08-31-2022 10:21-0500 Systolic blood pressure 110 mm[Hg] [facility] 08-16-2022 10:20-0500 Blood Pressure Location Beatrice ALVES [facility] 08-16-2022 10:20-0500 Diastolic blood pressure 82 mm[Hg] Beatrice ALVES [facility] 08-16-2022 10:20-0500 Heart rate 72 /min Beatriceneda ALVES [facility] 08-16-2022 10:20-0500 Respiratory rate 16 /min Beatriceneda ALVES [facility] 08-16-2022 10:20-0500 Systolic blood pressure 125 mm[Hg] Beatrice ALVES [facility] 07-30-2022 10:50-0500 Blood Pressure Location [facility] 07-30-2022 10:50-0500 Body temperature 98.6 [degF] [facility] 07-30-2022 10:50-0500 Diastolic blood pressure 60 mm[Hg] [facility] 07-30-2022 10:50-0500 Heart rate 57 /min [facility] 07-30-2022 10:50-0500 SaO2% (BldA) [Mass fraction] 98 % [facility] 07-30-2022 10:50-0500 Systolic blood pressure 120 mm[Hg] [facility] 06-28-2022 14:08-0500 Blood Pressure Location [facility] 06-28-2022 14:08-0500 Body temperature 97.88 [degF] [facility] 06-28-2022 14:08-0500 Diastolic blood pressure 60 mm[Hg] [facility] 06-28-2022 14:08-0500 Heart rate 56 /min [facility] 06-28-2022 14:08-0500 SaO2% (BldA) [Mass fraction] 96 % [facility] 06-28-2022 14:08-0500 Systolic blood pressure 120 mm[Hg] [facility] 03-23-2022 08:21-0400 Diastolic blood pressure 74 mm[Hg] Abe Bruno [facility] 03-23-2022 08:21-0400 Diastolic blood pressure 72 mm[Hg] Abe Bruno [facility] 03-23-2022 08:21-0400 Heart rate 52 /min Abe Bruno [facility] 03-23-2022 08:21-0400 Heart rate 56 /min Abe Bruno [facility] 03-23-2022 08:21-0400 Mean blood pressure 89 mm[Hg] [facility] [facility] 03-23-2022 08:21-0400 Respiratory rate 14 /min Abe Bruno [facility] 03-23-2022 08:21-0400 Systolic blood pressure 131 mm[Hg] Abe Bruno [facility] 03-23-2022 08:21-0400 Systolic blood pressure 122 mm[Hg] Abe Bruno [facility] 03-09-2022 13:55-0400 Diastolic blood pressure 70 mm[Hg] Abe Bruno [facility] 03-09-2022 13:55-0400 Heart rate 60 /min Abe Bruno [facility] 03-09-2022 13:55-0400 Mean blood pressure 84 mm[Hg] Abe Bruno [facility] 03-09-2022 13:55-0400 Respiratory rate 18 /min Abe Bruno [facility] 03-09-2022 13:55-0400 Systolic blood pressure 113 mm[Hg] Abe Bruno [facility] 02-15-2022 09:23-0400 Blood Pressure Location Beatrice ALVES [facility] 02-15-2022 09:23-0400 Diastolic blood pressure 74 mm[Hg] Beatrice ALVES [facility] 02-15-2022 09:23-0400 Heart rate 56 /min Beatrice ALVES [facility] 02-15-2022 09:23-0400 Respiratory rate 16 /min Beatrice ALVES [facility] 02-15-2022 09:23-0400 Systolic blood pressure 125 mm[Hg] Beatrice ALVES [facility] 01-25-2022 09:29-0400 Diastolic blood pressure 74 mm[Hg] Abe Bruno [facility] 01-25-2022 09:29-0400 Heart rate 52 /min Abe Bruno [facility] 01-25-2022 09:29-0400 Respiratory rate 16 /min Abe Bruno [facility] 01-25-2022 09:29-0400 SaO2% (BldA) [Mass fraction] 95 % Abe Bruno [facility] 01-25-2022 09:29-0400 Systolic blood pressure 129 mm[Hg] Abe Bruno [facility] 01-25-2022 09:15-0400 Diastolic blood pressure 79 mm[Hg] Abe Bruno [facility] 01-25-2022 09:15-0400 Heart rate 54 /min Abe Bruno [facility] 01-25-2022 09:15-0400 Respiratory rate 16 /min Abe Bruno [facility] 01-25-2022 09:15-0400 SaO2% (BldA) [Mass fraction] 98 % Abe Bruno [facility] 01-25-2022 09:15-0400 Systolic blood pressure 134 mm[Hg] Abe Bruno [facility] 01-25-2022 09:00-0400 Body temperature 98.24 [degF] Abe Bruno [facility] 01-25-2022 09:00-0400 Diastolic blood pressure 73 mm[Hg] Abe Bruno [facility] 01-25-2022 09:00-0400 Heart rate 55 /min Abe Bruno [facility] 01-25-2022 09:00-0400 Mean blood pressure 91 mm[Hg] Abe Bruno [facility] 01-25-2022 09:00-0400 Respiratory rate 16 /min Abe Bruno [facility] 01-25-2022 09:00-0400 SaO2% (BldA) [Mass fraction] 97 % Abe Bruno [facility] 01-25-2022 09:00-0400 Systolic blood pressure 127 mm[Hg] Abe Bruno [facility] 01-12-2022 09:36-0400 Diastolic blood pressure 76 mm[Hg] Abe Bruno [facility] 01-12-2022 09:36-0400 Heart rate 55 /min Abe Bruno [facility] 01-12-2022 09:36-0400 Mean blood pressure 92 mm[Hg] Abe Bruno [facility] 01-12-2022 09:36-0400 Respiratory rate 16 /min Abe Bruno [facility] 01-12-2022 09:36-0400 Systolic blood pressure 125 mm[Hg] Abe Bruno [facility] 01-04-2022 09:44-0400 Diastolic blood pressure 80 mm[Hg] Abe Bruno [facility] 01-04-2022 09:44-0400 Heart rate 48 /min Abe Bruno [facility] 01-04-2022 09:44-0400 Mean blood pressure 103 mm[Hg] Abe Bruno [facility] 01-04-2022 09:44-0400 SaO2% (BldA) [Mass fraction] 98 % Abe Bruno [facility] 01-04-2022 09:44-0400 Systolic blood pressure 147 mm[Hg] Abe Bruno [facility] 01-04-2022 09:44-0400 Respiratory rate 12 /min Abe Bruno [facility] 01-04-2022 09:38-0400 Diastolic blood pressure 84 mm[Hg] Abe Bruno [facility] 01-04-2022 09:38-0400 Heart rate 52 /min Abe Bruno [facility] 01-04-2022 09:38-0400 Respiratory rate 14 /min Abe Bruno [facility] 01-04-2022 09:38-0400 SaO2% (BldA) [Mass fraction] 97 % Abe Bruno [facility] 01-04-2022 09:38-0400 Systolic blood pressure 136 mm[Hg] Abe Bruno [facility] 01-04-2022 08:55-0400 Body temperature 98.06 [degF] Abe Bruno [facility] 01-04-2022 08:55-0400 Heart rate 54 /min Abe Bruno [facility] 01-04-2022 08:55-0400 Respiratory rate 12 /min Abe Bruno [facility] 01-04-2022 08:55-0400 SaO2% (BldA) [Mass fraction] 97 % Abe Bruno [facility] 12-08-2021 07:44-0400 Diastolic blood pressure 71 mm[Hg] Abe Bruno [facility] 12-08-2021 07:44-0400 Heart rate 56 /min Abe Bruno [facility] 12-08-2021 07:44-0400 Mean blood pressure 90 mm[Hg] Abe Bruno [facility] 12-08-2021 07:44-0400 Respiratory rate 16 /min Abe Bruno [facility] 12-08-2021 07:44-0400 Systolic blood pressure 129 mm[Hg] Abe Bruno [facility] 11-30-2021 11:13-0400 Diastolic blood pressure 73 mm[Hg] Abe Bruno [facility] 11-30-2021 11:13-0400 Heart rate 52 /min Abe Bruno [facility] 11-30-2021 11:13-0400 Respiratory rate 16 /min Abe Bruno [facility] 11-30-2021 11:13-0400 SaO2% (BldA) [Mass fraction] 97 % Aeb Bruno [facility] 11-30-2021 11:13-0400 Systolic blood pressure 136 mm[Hg] Abe Bruno [facility] 11-30-2021 11:05-0400 Diastolic blood pressure 85 mm[Hg] Abe Bruno [facility] 11-30-2021 11:05-0400 Heart rate 57 /min Abe Bruno [facility] 11-30-2021 11:05-0400 Respiratory rate 18 /min Abe Bruno [facility] 11-30-2021 11:05-0400 SaO2% (BldA) [Mass fraction] 96 % Abe Bruno [facility] 11-30-2021 11:05-0400 Systolic blood pressure 135 mm[Hg] Abe Bruno [facility] 11-30-2021 10:31-0400 Body temperature 98.06 [degF] Abe Bruno [facility] 11-30-2021 10:31-0400 Diastolic blood pressure 87 mm[Hg] Abe Bruno [facility] 11-30-2021 10:31-0400 Heart rate 60 /min Abe Bruno [facility] 11-30-2021 10:31-0400 Mean blood pressure 106 mm[Hg] Abe Bruno [facility] 11-30-2021 10:31-0400 Respiratory rate 16 /min Abe Bruno [facility] 11-30-2021 10:31-0400 SaO2% (BldA) [Mass fraction] 96 % Abe Bruno [facility] 11-30-2021 10:31-0400 Systolic blood pressure 144 mm[Hg] Abe Bruno [facility] 11-17-2021 07:47-0400 Diastolic blood pressure 67 mm[Hg] Abe Bruno [facility] 11-17-2021 07:47-0400 Heart rate 53 /min Abe Bruno [facility] 11-17-2021 07:47-0400 Mean blood pressure 84 mm[Hg] Abe Bruno [facility] 11-17-2021 07:47-0400 Respiratory rate 16 /min Abe Bruno [facility] 11-17-2021 07:47-0400 Systolic blood pressure 118 mm[Hg] Abe Bruno [facility] 10-19-2021 09:15-0400 Diastolic blood pressure 79 mm[Hg] Abe Bruno [facility] 10-19-2021 09:15-0400 Heart rate 54 /min Abe Bruno [facility] 10-19-2021 09:15-0400 Mean blood pressure 104 mm[Hg] Abe Bruno [facility] 10-19-2021 09:15-0400 SaO2% (BldA) [Mass fraction] 96 % Abe Bruno [facility] 10-19-2021 09:15-0400 Systolic blood pressure 153 mm[Hg] Abe Bruno [facility] 10-19-2021 09:10-0400 Diastolic blood pressure 77 mm[Hg] Abe Bruno [facility] 10-19-2021 09:10-0400 Heart rate 81 /min Abe Bruno [facility] 10-19-2021 09:10-0400 Respiratory rate 16 /min Abe Bruno [facility] 10-19-2021 09:10-0400 SaO2% (BldA) [Mass fraction] 96 % Abe Bruno [facility] 10-19-2021 09:10-0400 Systolic blood pressure 136 mm[Hg] Abe Bruno [facility] 10-19-2021 08:25-0400 Body temperature 97.88 [degF] Abe Bruno [facility] 10-19-2021 08:25-0400 Diastolic blood pressure 72 mm[Hg] Abe Bruno [facility] 10-19-2021 08:25-0400 Heart rate 55 /min Abe Bruno [facility] 10-19-2021 08:25-0400 Mean blood pressure 97 mm[Hg] Abe Carr [facility] 10-19-2021 08:25-0400 Respiratory rate 16 /min Abe Bruno [facility] 10-19-2021 08:25-0400 SaO2% (BldA) [Mass fraction] 95 % Abe Carr [facility] 10-19-2021 08:25-0400 Systolic blood pressure 148 mm[Hg] Abe Bruno [facility] 10-07-2021 09:21-0400 Diastolic blood pressure 80 mm[Hg] Esvin Zumbar [facility] 10-07-2021 09:21-0400 Heart rate 57 /min Esvin Zumbar [facility] 10-07-2021 09:21-0400 Mean blood pressure 96 mm[Hg] Esvin Zumbar [facility] 10-07-2021 09:21-0400 Respiratory rate 16 /min Esvin Zumbar [facility] 10-07-2021 09:21-0400 Systolic blood pressure 128 mm[Hg] Esvin Zumbar [facility] Encounters Encounter Date Encounter Type Care Provider Facility Start: 02-29-2024 End: 02-29-2024 ambulatory DO Karishma Reddy Facility:[facility] Start: 02-29-2024 End: 02-29-2024 Pain Management Yared Zavala [facility] Start: 02-23-2024 End: 02-23-2024 ambulatory DO Karishma Reddy Facility:[facility] Start: 02-23-2024 End: 02-23-2024 Patient encounter procedure Karishma Reddy [facility] Start: 02-23-2024 End: 02-23-2024 Well adult monitoring check done Karishma Reddy [facility] Start: 02-08-2024 End: 02-08-2024 ambulatory DO Karishma Reddy Facility:[facility] Start: 02-08-2024 End: 02-08-2024 Patient encounter procedure Karishma Reddy [facility] Start: 01-31-2024 End: 01-31-2024 ambulatory Yared Zavala Facility:[facility] Start: 01-31-2024 End: 01-31-2024 Pain Management Yared Zavala [facility] Start: 01-17-2024 End: 01-17-2024 ambulatory Yared Zavala Facility:[facility] Start: 01-17-2024 End: 01-17-2024 Pain Management Yared Zavala [facility] Start: 12-15-2023 End: 12-15-2023 ambulatory aYred Zavala Facility:[facility] Start: 12-15-2023 End: 12-15-2023 Pain Management Yared Zavala [facility] Start: 12-13-2023 End: 12-13-2023 ambulatory Yared Zavala Facility:[facility] Start: 12-13-2023 End: 12-13-2023 Pain Management Yared Zavala [facility] Start: 11-24-2023 End: 11-24-2023 ambulatory Yared Zavala Facility:[facility] Start: 11-24-2023 End: 11-24-2023 Pain Management Yared Zavala [facility] Start: 11-21-2023 End: 11-21-2023 ambulatory Yared Zavala Facility:[facility] Start: 11-21-2023 End: 11-21-2023 Pain Management Yared Zavala [facility] Start: 11-07-2023 End: 11-07-2023 ambulatory Kristel Churchill Facility:[facility] Start: 11-07-2023 End: 11-07-2023 Pain Management Shahnaz Galvin [facility] Start: 11-03-2023 End: 11-03-2023 ambulatory Shahnaz Galvin Facility:[facility] Start: 11-03-2023 End: 11-03-2023 Patient encounter procedure Shahnaz Galvin [facility] Start: 09-30-2023 End: 09-30-2023 ambulatory DO Karishma Reddy Facility:[facility] Start: 09-30-2023 End: 09-30-2023 Pain Management Shahnaz Galvin [facility] Start: 08-19-2023 End: 08-19-2023 ambulatory Beatrice ALVES Facility:[facility] Start: 08-19-2023 End: 08-19-2023 Patient encounter procedure Beatrice ALVES [facility] Start: 08-12-2023 End: 08-12-2023 ambulatory DO Karishma Reddy Facility:[facility] Start: 08-12-2023 End: 08-12-2023 Patient encounter procedure Karishma Reddy [facility] Start: 08-08-2023 End: 08-08-2023 ambulatory Shahnaz Galvin Facility:[facility] Start: 08-08-2023 End: 08-08-2023 Patient encounter procedure Shahnaz Galvin [facility] Start: 08-08-2023 End: 08-08-2023 ambulatory DO Karishma Reddy Facility:[facility] Start: 06-29-2023 End: 06-29-2023 ambulatory DO Karishma Redyd Facility:[facility] Start: 06-29-2023 End: 06-29-2023 Pain Management Shahnaz Galvin [facility] Start: 06-21-2023 End: 06-21-2023 ambulatory MD Abe Carr Facility:[facility] Start: 06-21-2023 End: 06-21-2023 Pain Management Abe Carr [facility] Start: 06-14-2023 End: 06-14-2023 Patient encounter procedure Abe Carr [facility] Start: 06-14-2023 End: 06-14-2023 ambulatory Abe Carr Facility:[facility] Start: 06-14-2023 End: 06-14-2023 Pain Management Abe Carr [facility] Start: 05-20-2023 End: 05-20-2023 ambulatory DO Karishma Reddy Facility:[facility] Start: 05-20-2023 End: 05-20-2023 Patient encounter procedure Karishma Reddy [facility] Start: 05-20-2023 End: 05-20-2023 ambulatory DO Karishma Reddy Facility:[facility] Start: 05-20-2023 End: 05-20-2023 Patient encounter procedure Karishma Reddy [facility] Start: 04-18-2023 End: 04-18-2023 ambulatory DO Karishma Reddy Facility:[facility] Start: 04-12-2023 End: 04-12-2023 ambulatory MD Abe Carr Facility:[facility] Start: 04-12-2023 End: 04-12-2023 Pain Management Abe Carr [facility] Start: 04-05-2023 End: 04-05-2023 ambulatory DO Karishma Reddy Facility:[facility] Start: 04-05-2023 End: 04-05-2023 Pain Management Abe Carr [facility] Start: 02-28-2023 End: 02-28-2023 ambulatory Karen Borja Other [employer] Other Start: 02-28-2023 Telephone encounter Karen Borja [facility] Start: 02-25-2023 End: 02-25-2023 ambulatory Karen Borja Facility:[facility] Start: 02-21-2023 End: 02-21-2023 Patient encounter procedure Abe Carr [facility] Start: 02-21-2023 End: 02-21-2023 Pain Management Abe Carr [facility] Start: 02-17-2023 End: 02-17-2023 Patient encounter procedure Karishma Reddy [facility] Start: 02-17-2023 End: 02-17-2023 Well adult monitoring check done Karishma Reddy [facility] Start: 02-08-2023 End: 02-08-2023 Patient encounter procedure Karishma Reddy [facility] Start: 01-25-2023 End: 01-25-2023 Pain Management Abeherminia Carr [facility] Start: 01-13-2023 End: 05-15-2023 Recurring Abeyoli Carr [facility] Start: 01-10-2023 End: 01-10-2023 Patient encounter procedure Abe Carr [facility] Start: 01-10-2023 End: 01-10-2023 Pain Management Abe D Bruno [facility] Start: 12-28-2022 End: 12-28-2022 Patient encounter procedure Karishma Reddy [facility] Start: 12-21-2022 End: 12-21-2022 Pain Management Abeyoli Carr [facility] Start: 11-16-2022 End: 11-16-2022 Patient encounter procedure Karishma Reddy [facility] Start: 11-09-2022 End: 11-09-2022 Pain Management Abeherminia Carr [facility] Start: 10-08-2022 End: 10-08-2022 Patient encounter procedure Karishma Reddy [facility] Start: 10-05-2022 End: 10-05-2022 Pain Management Abe D Bruno [facility] Start: 09-14-2022 End: 09-14-2022 Pain Management Abe D Bruno [facility] Start: 08-31-2022 End: 08-31-2022 Patient encounter procedure Karishma Reddy [facility] Start: 08-16-2022 End: 08-16-2022 Lab Drop off Beatrice ALVES [facility] Start: 08-16-2022 End: 08-16-2022 Patient encounter procedure Beatrice ALVES [facility] Start: 07-30-2022 End: 07-30-2022 Patient encounter procedure Karishma Reddy [facility] Start: 06-28-2022 End: 06-28-2022 Patient encounter procedure Karishma Reddy [facility] Start: 04-06-2022 End: 04-06-2022 Patient encounter procedure Abe Carr [facility] Start: 03-23-2022 End: 03-23-2022 Pain Management Abe Carr [facility] Start: 03-09-2022 End: 03-09-2022 Pain Management Abe Carr [facility] Start: 02-15-2022 End: 02-15-2022 Patient encounter procedure Beatrice ALVES [facility] Start: 01-25-2022 End: 01-25-2022 Pain Management Abe Carr [facility] Start: 01-12-2022 End: 01-12-2022 Pain Management Abeyoli Carr [facility] Start: 01-04-2022 End: 01-04-2022 Pain Management Abe Carr [facility] Start: 12-08-2021 End: 12-08-2021 Pain Management Abe Carr [facility] Start: 11-30-2021 End: 11-30-2021 Pain Management Abe Carr [facility] Start: 11-17-2021 End: 11-17-2021 Pain Management Abeyoli Carr [facility] Start: 10-19-2021 End: 10-19-2021 Pain Management Abe Carr [facility] Start: 10-07-2021 End: 10-07-2021 Patient encounter procedure Esvin Prasad [facility] Start: 10-07-2021 End: 10-07-2021 Pain Management Esvin Prasad [facility] Start: 08-10-2021 End: 08-11-[address] BEATRICE ALVES Facility:[facility] Start: 07-31-2021 End: 08-01-[address] BEATRICE ALVES Facility:[facility] Start: 11-17-[address] CANDIDO SALAZAR Facili ty:[facility] Start: 09-01-2020 End: 09-02-[address] CANDIDO SALAZAR Facility:[facility] Start: 12-29-2017 End: 12-29-2017 Ambulatory [facility] Start: 12-23-2017 End: 12-23-2017 Ambulatory [facility] Start: 12-23-2017 Ambulatory [facility] Start: 10-17-2017 Ambulatory [facility] Procedures Date Procedure Procedure Detail Performing Clinician Start: 01-31-2024 Radiofrequency ablat ion of nerve root of cervical spine using fluoroscopic guidance Yared Zavala Comment on above: Left C3-5 100% relief Start: 01-17-2024 Radiofrequency ablat ion of nerve root of cervical spine using fluoroscopic guidance Yared Zavala Comment on above: Right C3-5 90% relie f Start: 12-13-2023 Injection into facet joint of cervical spine using fluoroscopic guidance Yared Zavala Comment on above: 100% relief Start: 11-21-2023 Injection into facet joint of cervical spine using fluoroscopic guidance Yared Zavala Comment on above: 90% relief Start: 06-21-2023 Implantation of perm anent spinal cord stimulator Beatrice ALVES Start: 06-21-2023 Implantation of temp orary spinal cord stimulator Shahnaz Galvin Comment on above: 100% relief Start: 04-12-2023 Implantation of temp orary spinal cord stimulator Abe Carr Comment on above: 100% relief for enti re trial Start: 02-01-2023 Injection of sacroil iac joint using fluoroscopic guidance Abe Carr Comment on above: L SIJ 85% Relief Start: 11-09-2022 Radiofrequency ablat ion of medial branch of lumbar nerve using fluoroscopic guidance Abe Carr Comment on above: Left L4/5, L5/S1 RFA -95% relief Start: 09-14-2022 Injection of sacroil iac joint using fluoroscopic guidance [employer] Comment on above: 90% relief Start: 03-23-2022 Injection of hip usi ng ultrasound guidance [employer] Comment on above: left pirformis-80% r elief Start: 01-25-2022 Radiofrequency ablat ion of medial branch of lumbar nerve using fluoroscopic guidance [employer] Comment on above: 75-80% relief for lo w back L4/5-50% relief 75-80% relief for lo w back L4/5-50% relief Start: 01-04-2022 Injection of facet j oint using fluoroscopic guidance [employer] Comment on above: bilat L4/5 L5/S1 MBB - 95% relief x 4 hrs bilat L4/5 L5/S1 MBB - 95% relief x 4 hrs Start: 11-30-2021 Injection of facet j oint using fluoroscopic guidance [employer] Comment on above: L4/5,L5/S1 100% reli ef. L4/5,L5/S1 100% reli ef. Start: 10-19-2021 Injection of sacroil iac joint using fluoroscopic guidance [employer] Comment on above: left SIJ- 99% relief left SIJ- 99% relief Start: 08-10-[address] CANDIDO SALAZAR Comment on above: Performed By: #### P SAD #### [facility] [address] [place] [address] Dr. Belle Edwards Start: 04-28-2021 Radiofrequency ablat ion of medial branch of lumbar nerve using fluoroscopic guidance [employer] Comment on above: L2/3-L3/4 70% relief . L2/3-L3/4 70% relief . Start: 03-23-2021 Injection of facet j oint using fluoroscopic guidance [employer] Comment on above: 100% relief for 2 ho urs, 90% for the next 6 hours and still 20% better at 24 hours. Within couple days back to baseline. 100% relief for 2 ho urs, 90% for the next 6 hours and still 20% better at 24 hours. Within couple days back to baseline. Start: 02-23-2021 Injection of facet j oint using fluoroscopic guidance [employer] Comment on above: L2-L4 90% x2 hours L2-L4 90% x2 hours Start: 12-16-2020 Revisional laminecto my excision of lumbar intervertebral disc [employer] Comment on above: Revision L5 laminect manuela, L4 laminectomy Revision L5 laminect manuela, L4 laminectomy Start: 09-30-2020 Injection of nerve r oot of lumbar spine using fluoroscopic guidance [employer] Comment on above: L5 90% relief x2 day s then 30% currently 80% relief x 24 hour s then right back to baseline L5 90% relief x2 day s then 30% currently 80% relief x 24 hour s then right back to baseline Start: 08-04-2020 Injection of trigger points [employer] Comment on above: right gluteal x1 TPI and right lumbar paravertebral muscles TPI x 2. Short term relief with both injections. Performed by Yarely Cross right gluteal x1 TPI and right lumbar paravertebral muscles TPI x 2. Short term relief with both injections. Performed by Yarely Cross Start: 07-31-2020 Ultrasonography by transrectal approach Esvin [employer] Start: 07-15-2020 Radiofrequency ablat ion of medial branch of lumbar nerve using fluoroscopic guidance [employer] Comment on above: Dr Salazar did right L 2,L3,L4,L5 MB RFA done at [facility] Dr Salazar did right L 2,L3,L4,L5 MB RFA done at [facility] Start: 07-08-2020 Radiofrequency ablat ion of medial branch of lumbar nerve using fluoroscopic guidance Esvinabisai Prasad Comment on above: Dr Elie reyes L3,L4 ,L5,S1 MB RFA at [facility] Dr Elie reyes L3,L4 ,L5,S1 MB RFA at [facility] Start: 05-06-2020 Injection of facet j oint using fluoroscopic guidance Esvinabisai Prasad Comment on above: corinna L3,L4,L5,S1 MB B- 90% relief x 1 day then 80% x 3-[address] Martin weinstein L3,L4,L5,S1 MB B- 90% relief x 1 day then 80% x 3-[address] Salazar Start: 03-18-2020 Injection of facet j oint using fluoroscopic guidance Esvin [employer] Comment on above: Dr Elie weinstein L3,L 4,L5,S1 MBB Dr Elie weinstein L3,L 4,L5,S1 MBB Start: 01-28-2020 Injection of trigger points Esvinabisai Prasad Comment on above: Dr Elie reyes lumba r TPI x 2. Dr Elie reyes lumba r TPI x 2. Start: 07-11-2017 History of lumbar discectomy Esvin [employer]porsche Comment on above: Marc Smith MD Cataract (morphologi c abnormality) Esvin Osmar Colonoscopy Esvin Prasad Injection of nerve r oot of lumbar spine using fluoroscopic guidance Abe Carr Comment on above: L5-S1 90% relief Post-surgery back pa in (finding) Esvin Zumbar Plan of Treatment Date Care Activity Detail Author Start: 02-27-2025 ambulatory Ambulatory Facility:[facility] Start: 08-20-2024 ambulatory Ambulatory Facility:[facility] Immunizations Immunization Date Immunization Notes Care Provider Fa joe 05-11-2023 influenza virus vaccine, unspecified formulation [facility] influenza virus vaccine, unspecified formulation [facility] 01-29-2022 SARS-CoV-2 mRNA (vfgbeallwar-vkaj-oeazd se) vaccine [facility] Comment on above: Result Comment: 2021: [id number] 04-23-2021 SARS-CoV-2 (COVID-19 ) mRNA BNT-162b2 vax [facility] Comment on above: Result Comment: 2021: [id number] 04-16-2021 influenza virus vaccine, unspecified formulation [facility] 08-28-2020 SARS-CoV-2 (COVID-19 ) mRNA BNT-162b2 vax Esvin Zumbar [facility] 08-07-2020 SARS-CoV-2 (COVID-19 ) mRNA BNT-162b2 vax Esvin Zumbar [facility] 04-21-2020 influenza virus vaccine, unspecified formulation Esvin Zumbar [facility] 03-28-2020 influenza virus vaccine, unspecified formulation [facility] 03-18-2020 influenza virus vaccine, unspecified formulation [facility] 04-04-2019 influenza virus vaccine, unspecified formulation [facility] 04-04-2018 influenza virus vaccine, unspecified formulation [facility] 05-06-2017 pneumococcal conjuga te vaccine, 13 valent [facility] 04-13-2017 influenza virus vaccine, unspecified [facility] [facility] influenza virus vaccine, unspecified formulation [facility] 05-05-2015 influenza virus vaccine, unspecified formulation [facility] 05-26-2013 influenza virus vaccine, unspecified formulation Karishma Reddy [facility] 05-17-2013 zoster vaccine, live Karishma Reddy [facility] 04-16-2009 influenza, whole Karishma Correa [facility] Payers Date Payer Category Payer Self-pay 2022 Private Health Insurance [id number] 1957 Medicare [id number] 1957 Medicare [id number] 1942 Unknown [id number] 2.16.84 0.1.100016.3.579.2.593 1942 Unknown [id number] 2.16.84 0.1.438916.3.579.2.593 1942 Unknown [id number] 2.16.84 0.1.687225.3.579.2.593 1942 Unknown [id number] 2.16.84 0.1.591041.3.579.2.593 1942 Unknown [id number] 2.16.8 40.1.467739.3.579.2.727 1942 Unknown [id number] 2.16.8 40.1.196796.3.579.2.727 1942 Unknown [id number] 2.16.8 40.1.705073.3.579.2.727 1942 Unknown [id number] 2.16.8 40.1.807532.3.579.2.727 1942 Unknown [id number] 2.16.8 40.1.462243.3.579.2.727 1942 Unknown [id number] 2.16.8 40.1.582665.3.579.2.727 1942 Unknown [id number] 2.16.8 40.1.870064.3.579.2.727 1942 Unknown [id number] 2.16.8 40.1.821368.3.579.2.727 1942 Unknown [id number] 2.16.8 40.1.472949.3.579.2.727 1942 Unknown [id number] 2.16.8 40.1.152349.3.579.2.72 1942 Unknown [id number] 2.16.8 40.1.779852.3.579.2 1942 Unknown [id number] 2.16.8 40.1.451315.3.579.2. 1942 Unknown [id number] 2.16.8 40.1.949106.3.579.2 1942 Unknown [id number] 2.16.8 40.1.036926.3.579.2 1942 Unknown [id number] 2.16.8 40.1.289137.3.579.2 1942 Unknown [id number] 2.16.8 40.1.319567.3.579.2 1942 Unknown [id number] 2.16.8 40.1.850534.3.579.2 1942 Unknown [id number] 2.16.8 40.1.159483.3.579.2. 1942 Unknown [id number] 2.16.8 40.1.284690.3.579.2 1942 Unknown [id number] 2.16.8 40.1.246521.3.579.2 1942 Unknown [id number] 2.16.8 40.1.621639.3.579.2 1942 Unknown [id number] 2.16.8 40.1.511081.3.579.2.72 1942 Unknown [id number] 2.16.8 40.1.309207.3.579.2 1942 Unknown [id number] 2.16.8 40.1.487676.3.579.2.727 1942 Unknown [id number] 2.16.8 40.1.040453.3.579.2.727 1942 Unknown [id number] 2.16.8 40.1.528041.3.579.2.727 1942 Unknown [id number] 2.16.8 40.1.546899.3.579.2.727 1942 Unknown [id number] 2.16.8 40.1.458278.3.579.2.727 Private Health Insurance [id number] 2.16.840.1.538685.19 Unknown [id number] 2.16.8 40.1.189259.3.579.2.531 Social History Date Type Detail Facility Start: 03-13-2021 End: 02-08-2024 Tobacco smoking status Ex-smoker (finding) [facility] Sex Assigned At Male [facility] Functional Status Date Assessment Result Facility 02-29-2024 Functional Status N/A [facility] 02-23-2024 Functional Status N/A [facility] 02-08-2024 Functional Status N/A [facility] 01-31-2024 Functional Status N/A [facility] 01-17-2024 Functional Status N/A [facility] 12-15-2023 Functional Status N/A [facility] 12-13-2023 Functional Status N/A [facility] 11-24-2023 Functional Status N/A [facility] 11-21-2023 Functional Status N/A [facility] 11-07-2023 Functional Status N/A [facility] 09-30-2023 Functional Status N/A [facility] 08-19-2023 Functional Status N/A [facility] 08-12-2023 Functional Status N/A [facility] 06-29-2023 Functional Status N/A [facility] 06-21-2023 Functional Status N/A [facility] 06-14-2023 Functional Status N/A [facility] 05-20-2023 Functional Status N/A [facility] 04-12-2023 Functional Status N/A [facility] 04-05-2023 Functional Status N/A [facility] 02-21-2023 Functional Status N/A [facility] 02-17-2023 Functional Status N/A [facility] 02-08-2023 Functional Status N/A [facility] 01-25-2023 Functional Status N/A [facility] 01-10-2023 Functional Status N/A [facility] 12-28-2022 Functional Status N/A [facility] 12-21-2022 Functional Status N/A [facility] 11-16-2022 Functional Status N/A [facility] 11-09-2022 Functional Status N/A [facility] 10-08-2022 Functional Status N/A [facility] 10-05-2022 Functional Status N/A [facility] 09-14-2022 Functional Status N/A [facility] 08-31-2022 Functional Status N/A [facility] 08-16-2022 Functional Status N/A [facility] 07-30-2022 Functional Status N/A [facility] 06-28-2022 Functional Status N/A [facility] 03-23-2022 N/A [facility] 03-09-2022 Functional Status N/A [facility] 02-15-2022 Functional Status N/A [facility] 01-25-2022 Functional Status N/A [facility] 01-12-2022 Functional Status N/A [facility] 01-04-2022 Functional Status N/A [facility] Clinical Notes 09-01-2020 to 02-29-2024 Note Date & Type Note Facility 02-29-2024 Evaluation + Plan note Extrac darryl from: Title:chronic pain Author:Yared Zavala DO Date:02/29/24 Patient is presenting with h istory of polyarthralgia, cervical spondyloarthropathy and lumbar postlaminectomy pain syndrome. He is status post left and then right cervical radiofrequency ablations to target the C3/4 and C4/5 facet joints. The left side provided 100% relief. The right sided provided 90% relief and he only has a twinge of pain in the upper cervical paraspinals occasionally on the right side. He rates his pain typically is a 0/10. He feels that he is significantly improved after this treatment. We did discuss continuation of NSAIDs and he is receiving these from his other physicians. We discussed monitoring for NSAID use as well as consideration of Celebrex if he has any GI disturbances. Overall patient feels pretty good and feels that there is no acute interventions warranted and we discussed a plan to follow-up in 1 year but he can call sooner if any thing is needed. DIANN Score: 11% PHQ-2: 0 Patient denies any symptoms of progressively worsening upper/lower extremity weakness, progressively worsening gait abnormality, new onset bowel/bladder incontinence/ urinary retention, or saddle anesthesia. No new or worsening symptoms of fever, chills, night sweats. 14 Point Review of systems negative unless otherwise noted. General: No acute distress. Patient appears well-nourished. HEENT: Head is normocephalic and external ears are normal in appearance. Cardiovascular: No signs of poor perfusion and no peripheral edema Pulmonary: Nonlabored breathing, symmetric chest movement. GI: Abdomen nondistended Integumentary: No lesions Neurologic: Alert, oriented x3. 5/5 strength grossly in the bilateral upper extremities. Sensation intact to light touch in the bilateral upper extremities. MSK/Special Testing: History, physical examination, and personal review of pertinent imaging results indicate a diagnosis of: -Cervical spondyloarthropathy -Polyarthralgia -Lumbar postlaminectomy pain syndrome Plan: -Discussed that we can repeat cervical radiofrequency ablations on as-needed basis as long as they provide a least the 6 months of effective lasting relief to target the C3/4 and C4/5 facet joints bilaterally. -The procedure will be performed unilaterally to reduce the risk of any balance deficits associated with cervical radiofrequency ablations in the future as well -Agree with continuation of NSAIDs, discussed that if he has any GI disturbances with NSAIDs he can consider Celebrex as well -Continue gabapentin as well as baclofen -Follow-up in 1 year or sooner if any issues arise minimal cervical paraspinal tenderness to palpation. Patient was counseled on the above diagnosis and treatment, all questions were answered and patient agrees to adhere to the plan above. Risk and benefits of appropriate procedures and medications were reviewed as well with patient, who voiced understanding and agreeance. Patient was counseled on appropriate use of opioids if prescribed or renewed today and naloxone was offered to patient if opioids were prescribed or maintained at this visit. PHQ-2 scoring reviewed with patient and discussed seeking treatment for depression or mood disorder as appropriate. Patient was counseled on smoking cessation and/or continuing to abstain from nicotine/tobacco products as appropriate based on history; as smoking/nicotine can contribute to increased pain overall and decreased wound healing. Patient counseled on maintaining a healthy BMI as part of the total treatment of their pain and to reduce stress/strain on joints. Patient invited to return or call with any questions or concerns that arise. Future Appointments Appointment Date:08/20/2024 09:15:00 AM Scheduled Provider:Beatrice ALVES MD Location:[facility] [place] Appointment Type:URO Office Visit Appointment Date:02/27/2025 08:30:00 AM Scheduled Provider: Location:[facility] Appointment Type:FM Medicare Wellness Subsequent Appointment Date:02/27/2025 09:00:00 AM Scheduled Provider:Karishma Reddy DO Location:[facility] Appointment Type:[facility] 08-21-2024 NoteConsultation Note Patient is presenting with history of polyarthralgia, cervical spondyloarthropathy and lumbar postlaminectomy pain syndrome. He is status post left and then right cervical radiofrequency ablations totarget the C3/4 and C4/5 facet joints. The left side provided 100% relief. The right sided % relief and he only has a twinge of pain in the upper cervical paraspinals occasionally on the right side. He rates his pain typically is a 0/10. He feels that he is significantly improved after this treatment. We did discuss continuation of NSAIDs and he is receiving these from his other physicians. We discussed monitoring for NSAID use as well as consideration of Celebrex if he has any GI disturbances. Overall patient feels pretty good and feels that there is no acute interventions warranted and we discussed a plan to follow-up in 1 year but he can call sooner if any thing is needed. DIANN Score: 11% PHQ-2: 0 Patient denies any symptoms of progressively worsening upper/lower extremity weakness, progressively worsening gait abnormality, new onset bowel/bladder incontinence/ urinary retention, or saddle anesthesia. No new or worsening symptoms of fever, chills, night sweats. 14 Point Review of systems negative unless otherwise noted. General: No acute distress. Patient appears well-nourished. HEENT: Head is normocephalic and external ears are normal in appearance. Cardiovascular: No signs of poor perfusion and no peripheral edema Pulmonary: Nonlabored breathing, symmetric chest movement. GI: Abdomen nondistended Integumentary: No lesions Neurologic: Alert, oriented x3. 5/5 strength grossly in the bilateral upper extremities. Sensation intact to light touch in the bilateral upper extremities. MSK/Special Testing: History, physical examination, and personal review of pertinent imaging results indicate a diagnosis of: -Cervical spondyloarthropathy -Polyarthralgia -Lumbar postlaminectomy pain syndrome Plan: -Discussed that we can repeat cervical radiofrequency ablations on as-needed basis as long as they provide a least the 6 months of effective lasting relief to target the C3/4 and C4/5 facet joints bilaterally. -The procedure will be performed unilaterally to reduce the risk of any balance deficits associatedwith cervical radiofrequency ablations in the future as well -Agree with continuation of NSAIDs, discussed that if he has any GI disturbances with NSAIDs he canconsider Celebrex as well -Continue gabapentin as well as baclofen -Follow-up in 1 year or sooner if any issues arise minimal cervical paraspinal tenderness to palpation. Patient was counseled on the above diagnosis and treatment, all questions were answered and patientagrees to adhere to the plan above. Risk and benefits of appropriate procedures and medications were reviewed as well with patient, who voiced understanding and agreeance. Patient was counseled on appropriate use of opioids if prescribed or renewed today and naloxone was offered to patient if opioids were prescribed or maintained at this visit. PHQ-2 scoring reviewed with patient and discussed seeking treatment for depression or mood disorder as appropriate. Patient was counseled on smoking cessation and/or continuing to abstain from nicotine/tobacco products as appropriate based on history; as smoking/nicotine can contribute to increased pain overall and decreased wound healing. Patient counseled on maintaining a healthy BMI as part of the total treatment of their pain and to reduce stress/strain on joints. Patient invited to return or call with any questions or concerns that arise.[facility]Result Comment: Electronically Signed By: Yared Zavala DO.br\Date and Time Signed: 02/29/24 10:21 [id number] Hospital Discharge instructions Patient Education 02/23/2024 10:30:57 Preventive Care 65 Years and Older, Male Preventive Care 65 Years and Older, Male Preventive care refers to lifestyle choices and visits with your health care provider that can promote health and wellness. Preventive care visits are also called wellness exams. What can I expect for my preventive care visit? Counseling During your preventive care visit, your health care provider may ask about your: Medical history, including: ?Past medical problems. ?Family medical history. ?History of falls. Current health, including: ?Emotional well-being. ?Home life and relationship well-being. ?Sexual activity. ?Memory and ability to understand (cognition). Lifestyle, including: ?Alcohol, nicotine or tobacco, and drug use. ?Access to firearms. ?Diet, exercise, and sleep habits. ?Work and work environment. ?Sunscreen use. ?Safety issues such as seatbelt and bike helmet use. Physical exam Your health care provider will check your: Height and weight. These may be used to calculate your BMI (body mass index). BMI is a measurement that tells if you are at a healthy weight. Waist circumference. This measures the distance around your waistline. This measurement also tells if you are at a healthy weight and may help predict your risk of certain diseases, such as type 2 diabetes and high blood pressure. Heart rate and blood pressure. Body temperature. Skin for abnormal spots. What immunizations do I need? Vaccines are usually given at various ages, according to a schedule. Your health care provider willrecommend vaccines for you based on your age, medical history, and lifestyle or other factors, suchas travel or where you work. What tests do I need? Screening Your health care provider may recommend screening tests for certain conditions. This may include: Lipid and cholesterol levels. Diabetes screening. This is done by checking your blood sugar (glucose) after you have not eaten for a while (fasting). Hepatitis C test. Hepatitis B test. HIV (human immunodeficiency virus) test. STI (sexually transmitted infection) testing, if you are at risk. Lung cancer screening. Colorectal cancer screening. Prostate cancer screening. Abdominal aortic aneurysm (AAA) screening. You may need this if you are a current or former smoker. Talk with your health care provider about your test results, treatment options, and if necessary, the need for more tests. Follow these instructions at home: Eating and drinking Eat a diet that includes fresh fruits and vegetables, whole grains, lean protein, and low-fat dairyproducts. Limit your intake of foods with high amounts of sugar, saturated fats, and salt. Take vitamin and mineral supplements as recommended by your health care provider. Do not drink alcohol if your health care provider tells you not to drink. If you drink alcohol: ?Limit how much you have to 0 2 drinks a day. ?Know how much alcohol is in your drink. In the [place] one drink equals one 12 oz bottle of beer (355 mL), one 5 oz glass of wine (148 mL), or one 1 oz glass of hard liquor (44 mL). Lifestyle [place] your teeth every morning and night with fluoride toothpaste. Floss one time each day. Exercise for at least 30 minutes 5 or more days each week. Do not use any products that contain nicotine or tobacco. These products include cigarettes, chewing tobacco, and vaping devices, such as e-cigarettes. If you need help quitting, ask your health careprovider. Do not use drugs. If you are sexually active, practice safe sex. Use a condom or other form of protection to prevent STIs. Take aspirin only as told by your health care provider. Make sure that you understand how much to take and what form to take. Work with your health care provider to find out whether it is safe and beneficial for you to take aspirin daily. Ask your health care provider if you need to take a cholesterol-lowering medicine (statin). Find healthy ways to manage stress, such as: ?Meditation, yoga, or listening to music. ?Journaling. ?Talking to a trusted person. ?Spending time with friends and family. Safety Always wear your seat belt while driving or riding in a vehicle. Do not drive: ?If you have been drinking alcohol. Do not ride with someone who has been drinking. ?When you are tired or distracted. ?While texting. ?If you have been using any mind-altering substances or drugs. Wear a helmet and other protective equipment during sports activities. If you have firearms in your house, make sure you follow all gun safety procedures. Minimize exposure to UV radiation to reduce your risk of skin cancer. What's next? Visit your health care provider once a year for an annual wellness visit. Ask your health care provider how often you should have your eyes and teeth checked. Stay up to date on all vaccines. This information is not intended to replace advice given to you by your health care provider. Make sure you discuss any questions you have with your health care provider. Document Revised: 12/23/2021 Document Reviewed: 12/23/2021 [employer] Patient Education 2022 [employer] 02/23/2024 10:30:53 Benign Prostatic Hyperplasia Benign Prostatic Hyperplasia Benign prostatic hyperplasia (BPH) is an enlarged prostate gland that is caused by the normal agingprocess. The prostate may get bigger as a man gets older. The condition is not caused by cancer. The prostate is a walnut-sized gland that is involved in the production of semen. It is located in front of the rectum and below the bladder. The bladder stores urine. The urethra carries stored urine ou t of the body. An enlarged prostate can press on the urethra. This can make it harder to pass urine. The buildup of urine in the bladder can cause infection. Back pressure and infection may progress to bladder damage and kidney (renal) failure. What are the causes? This condition is part of the normal aging process. However, not all men develop problems from thiscondition. If the prostate enlarges away from the urethra, urine flow will not be blocked. If it enlarges toward the urethra and compresses it, there will be problems passing urine. What increases the risk? This condition is more likely to develop in men older than 50 years. What are the signs or symptoms? Symptoms of this condition include: Getting up often during the night to urinate. Needing to urinate frequently during the day. Difficulty starting urine flow. Decrease in size and strength of your urine stream. Leaking (dribbling) after urinating. Inability to pass urine. This needs immediate treatment. Inability to completely empty your bladder. Pain when you pass urine. This is more common if there is also an infection. Urinary tract infection (UTI). How is this diagnosed? This condition is diagnosed based on your medical history, a physical exam, and your symptoms. Tests will also be done, such as: A post-void bladder scan. This measures any amount of urine that may remain in your bladder after you finish urinating. A digital rectal exam. In a rectal exam, your health care provider checks your prostate by putting a lubricated, gloved finger into your rectum to feel the back of your prostate gland. This exam detects the size of your gland and any abnormal lumps or growths. An exam of your urine (urinalysis). A prostate specific antigen (PSA) screening. This is a blood test used to screen for prostate cancer. An ultrasound. This test uses sound waves to electronically produce a picture of your prostate gland. Your health care provider may refer you to a specialist in kidney and prostate diseases (urologist). How is this treated? Once symptoms begin, your health care provider will monitor your condition (active surveillance or watchful waiting). Treatment for this condition will depend on the severity of your condition. Treatment may include: Observation and yearly exams. This may be the only treatment needed if your condition and symptoms are mild. Medicines to relieve your symptoms, including: ?Medicines to shrink the prostate. ?Medicines to relax the muscle of the prostate. Surgery in severe cases. Surgery may include: ?Prostatectomy. In this procedure, the prostate tissue is removed completely through an open incision or with a laparoscope or robotics. ?Transurethral resection of the prostate (TURP). In this procedure, a tool is inserted through the opening at the tip of the penis (urethra). It is used to cut away tissue of the inner core of the prostate. The pieces are removed through the same opening of the penis. This removes the blockage. ?Transurethral incision (TUIP). In this procedure, small cuts are made in the prostate. This lessens the prostate's pressure on the urethra. ?Transurethral microwave thermotherapy (TUMT). This procedure uses microwaves to create heat. The heat destroys and removes a small amount of prostate tissue. ?Transurethral needle ablation (TUNA). This procedure uses radio frequencies to destroy and remove a small amount of prostate tissue. ?Interstitial laser coagulation (ILC). This procedure uses a laser to destroy and remove a small amount of prostate tissue. ?Transurethral electrovaporization (TUVP). This procedure uses electrodes to destroy and remove a small amount of prostate tissue. ?Prostatic urethral lift. This procedure inserts an implant to push the lobes of the prostate away from the urethra. Follow these instructions at home: Take [id number] and prescription medicines only as told by your health care provider. Monitor your symptoms for any changes. Contact your health care provider with any changes. Avoid drinking large amounts of liquid before going to bed or out in public. Avoid or reduce how much caffeine or alcohol you drink. Give yourself time when you urinate. Keep all follow-up visits. This is important. Contact a health care provider if: You have unexplained back pain. Your symptoms do not get better with treatment. You develop side effects from the medicine you are taking. Your urine becomes very dark or has a bad smell. Your lower abdomen becomes distended and you have trouble passing urine. Get help right away if: You have a fever or chills. You suddenly cannot urinate. You feel light-headed or very dizzy, or you faint. There are large amounts of blood or clots in your urine. Your urinary problems become hard to manage. You develop moderate to severe low back or flank pain. The flank is the side of your body between the ribs and the hip. These symptoms may be an emergency. Get help right away. Call 911. Do not wait to see if the symptoms will go away. Do not drive yourself to the hospital. Summary Benign prostatic hyperplasia (BPH) is an enlarged prostate that is caused by the normal aging process. It is not caused by cancer. An enlarged prostate can press on the urethra. This can make it hard to pass urine. This condition is more likely to develop in men older than 50 years. Get help right away if you suddenly cannot urinate. This information is not intended to replace advice given to you by your health care provider. Make sure you discuss any questions you have with your health care provider. Document Revised: 01/13/2022 Document Reviewed: 01/13/2022 [employer] Patient Education 2022 [employer] [facility] 08-15-2024 NotePatient Education Preventive Health Preventive Care 65 Years and Older, Male Preventive care refers to lifestyle choices and visits with your health care provider that can promote health and wellness. Preventive care visits are also called wellness exams. What can I expect for my preventive care visit? Counseling During your preventive care visit, your health care provider may ask about your: ? Medical history, including: ? Past medical problems. ? Family medical history. ? History of falls. ? Current health, including: ? Emotional well-being. ? Home life and relationship well-being. ? Sexual activity. ? Memory and ability to understand (cognition). ? Lifestyle, including: ? Alcohol, nicotine or tobacco, and drug use. ? Access to firearms. ? Diet, exercise, and sleep habits. ? Work and work environment. ? Sunscreen use. ? Safety issues such as seatbelt and bike helmet use. Physical exam Your health care provider will check your: ? Height and weight. These may be used to calculate your BMI (body mass index). BMI is a measurement that tells if you are at a healthy weight. ? Waist circumference. This measures the distance around your waistline. This measurement also tells if you are at a healthy weight and may help predict your risk of certain diseases, such as type 2 diabetes and high blood pressure. ? Heart rate and blood pressure. ? Body temperature. ? Skin for abnormal spots. What immunizations do I need? Vaccines are usually given at various ages, according to a schedule. Your health care provider willrecommend vaccines for you based on your age, medical history, and lifestyle or other factors, suchas travel or where you work. What tests do I need? Screening Your health care provider may recommend screening tests for certain conditions. This may include: ? Lipid and cholesterol levels. ? Diabetes screening. This is done by checking your blood sugar (glucose) after you have not eaten for a while (fasting). ? Hepatitis C test. ? Hepatitis B test. ? HIV (human immunodeficiency virus) test. ? STI (sexually transmitted infection) testing, if you are at risk. ? Lung cancer screening. ? Colorectal cancer screening. ? Prostate cancer screening. ? Abdominal aortic aneurysm (AAA) screening. You may need this if you are a current or former smoker. Talk with your health care provider about your test results, treatment options, and if necessary, the need for more tests. Follow these instructions at home: Eating and drinking ? Eat a diet that includes fresh fruits and vegetables, whole grains, lean protein, and low-fat dairy products. Limit your intake of foods with high amounts of sugar, saturated fats, and salt. ? Take vitamin and mineral supplements as recommended by your health care provider. ? Do not drink alcohol if your health care provider tells you not to drink. ? If you drink alcohol: ? Limit how much you have to 0?2 drinks a day. ? Know how much alcohol is in your drink. In the [place] one drink equals one 12 oz bottle of beer (355 mL), one 5 oz glass of wine (148 mL), or one 1? oz glass of hard liquor (44 mL). Lifestyle ? [place] your teeth every morning and night with fluoride toothpaste. Floss one time each day. ? Exercise for at least 30 minutes 5 or more days each week. ? Do not use any products that contain nicotine or tobacco. These products include cigarettes, chewing tobacco, and vaping devices, such as e-cigarettes. If you need help quitting, ask your health care provider. ? Do not use drugs. ? If you are sexually active, practice safe sex. Use a condom or other form of protection to prevent STIs. ? Take aspirin only as told by your health care provider. Make sure that you understand how much totake and what form to take. Work with your health care provider to find out whether it is safe and beneficial for you to take aspirin daily. ? Ask your health care provider if you need to take a cholesterol-lowering medicine (statin). ? Find healthy ways to manage stress, such as: ? Meditation, yoga, or listening to music. ? Journaling. ? Talking to a trusted person. ? Spending time with friends and family. Safety ? Always wear your seat belt while driving or riding in a vehicle. ? Do not drive: ? If you have been drinking alcohol. Do not ride with someone who has been drinking. ? When you are tired or distracted. ? While texting. ? If you have been using any mind-altering substances or drugs. ? Wear a helmet and other protective equipment during sports activities. ? If you have firearms in your house, make sure you follow all gun safety procedures. ? Minimize exposure to UV radiation to reduce your risk of skin cancer. What's next? ? Visit your health care provider once a year for an annual wellness visit. ? Ask your health care provider how often you should have your eyes and t (more content not included)...[facility]07-23-2024 Evaluation + Plan noteExtracted from: Title:Right cervical RFA Author:Kathleen Zavala DO, rd Date:01/31/24 Diagnosis: M47.812, cervical spondyloarthropathy Procedure: Right cervical medial branch radiofrequency ablation to target the C3/4 and C4/5 facet joints Anesthesia: Local Complications: None After informed consent was obtained, the patient was brought to the procedure room and placed in the prone position. The back area is prepped and draped in usual sterile fashion. The patient was placed on monitors via the anesthesia team. Using fluoroscopic guidance skin and subcutaneous tissue overlying needle trajectories to the target sites were anesthetized with 2% lidocaine. 20-gauge radiofrequency needles were advanced under fluoroscopic guidance to the appropriate anatomic landmarks. Needle tip position was confirmed on both sides in both the AP and lateral views. Next, all levels were stimulated at 2Hz for motor stimulation at 2.0V with no upper extremity motor contractions. Next 0.5mL of 2.0% lidocaine was injected through each needle tip. Thereafter, radiofrequency lesioning was carried out at 80 degrees for 80 seconds twice. Next 0.5mL of 2.0% lidocaine was injected through each needle tip. Thereafter, radiofrequency lesioning was carried out at 80 degrees for 80 seconds twice. The needles were removed. The patient was then transferred to the recovery room in stable condition. Postprocedure upper and lower extremity strength 5/5 bilaterally. Follow-up: Discharge instructions provided. The patient agrees to continue currently prescribed/recommended therapies. Future Appointments Appointment Date:02/08/2024 09:20:00 AM Scheduled Provider:Karishma Reddy DO Location:[facility] Appointment Type:[facility] Appointment Date:02/23/2024 09:30:00 AM Scheduled Provider: Location:[facility] Appointment Type: Medicare Wellness Subsequent Appointment Date:02/29/2024 09:30:00 AM Scheduled Provider:Yared Zavala DO [facility]oint[facility] Type:Pain Management - Follow Up (FT) Appointment Date:08/20/2024 09:15:00 AM Scheduled Provider:Beatrice ALVES MD Location:[facility] Appointment Type:URO Office Visit [facility]07-09-2024 Evaluation + Plan noteExtracted from: Title:Left cervical RFA Author:Irais Zavala DO Date:01/17/24 Diagnosis: M47.812, cervical spondyloarthropathy Procedure: Left cervical medial branches radiofrequency ablation to target the sensory innervation of left C3/4 and C4/5 facet joints Anesthesia: Local Complications: None After informed consent was obtained, the patient was brought to the procedure room and placed in the prone position. The back area is prepped and draped in usual sterile fashion. The patient was placed on monitors via the anesthesia team. Using fluoroscopic guidance skin and subcutaneous tissue overlying needle trajectories to the target sites were anesthetized with 2% lidocaine. 20-gauge radiofrequency needles were advanced under fluoroscopic guidance to the appropriate anatomic landmarks. Needle tip position was confirmed on both sides in both the AP and lateral views. Next, all levels were stimulated at 2Hz for motor stimulation at 2.0V with no upper extremity motor contractions. Next 0.5mL of 2.0% lidocaine was injected through each needle tip. Thereafter, radiofrequency lesioning was carried out at 80 degrees for 80 seconds twice. Next 0.5mL of 2.0% lidocaine was injected through each needle tip. Thereafter, radiofrequency lesioning was carried out at 80 degrees for 80 seconds twice. The needles were removed. The patient was then transferred to the recovery room in stable condition. Postprocedure upper and lower extremity strength 5/5 bilaterally. Follow-up: Discharge instructions provided. The patient agrees to continue currently prescribed/recommended therapies. Future Appointments Appointment Date:02/08/2024 09:20:00 AM Scheduled Provider:Karishma Reddy DO Location:[facility] Appointment Type:FM Open Appointment Date:02/23/2024 09:30:00 AM Scheduled Provider: Location:[facility] Appointment Type:FM Medicare Wellness Subsequent Appointment Date:08/20/2024 09:15:00 AM Scheduled Provider:Beatrice ALVES MD Location:[facility] Appointment Type:URO Office Visit [facility]06-06-2024 Evaluation + Plan noteExtracted from: Title:chronic pain Author:Yared Zavala DO Date:12/15/23 Patient is presenting with w ith a history of cervical spondyloarthropathy and lumbar postlaminectomy pain syndrome. He recently underwent bilateral C3-5 medial branch blocks target the C3/4 and C4/5 facet joints under fluoroscopic guidance on 12/13/2023. This was his second medial branch block of these levels and resulted in 100% relief for several hours. Unfortunately his pain is since returned and he rates it as a 6/10 in severity, nonradiating in nature, describes a dull ache that can be sharp/stabbing. Purely localized to his axial cervical spine. He feels that these medial branches were very helpful would like to proceed with the ablation at these levels. He would like to perform the left side first as we discussed that performing bilateral procedures can result in proprioceptive disturbances for several weeks and we would like to avoid this for him. In addition we discussed continuation of gabapentin as well as baclofen as well as stopping meloxicam prior to this injection in the neck. DIANN Score: 31% PHQ-2: 0 Patient denies any symptoms of progressively worsening upper/lower extremity weakness, progressively worsening gait abnormality, new onset bowel/bladder incontinence/ urinary retention, or saddle anesthesia. No new or worsening symptoms of fever, chills, night sweats. 14 Point Review of systems negative unless otherwise noted. General: No acute distress. Patient appears well-nourished. HEENT: Head is normocephalic and external ears are normal in appearance. Cardiovascular: No signs of poor perfusion and no peripheral edema Pulmonary: Nonlabored breathing, symmetric chest movement. GI: Abdomen nondistended Integumentary: No lesions Neurologic: Alert, oriented x3. 5/5 strength grossly in the bilateral upper extremities. Sensation intact to light touch in the bilateral upper extremities. MSK/Special Testing: Negative Anh sign bilaterally, tenderness palpation cervical paraspinal musculature with pain reproduced with cervical facet loading bilaterally. History, physical examination, and personal review of pertinent imaging results indicate a diagnosis of: -Cervical spondyloarthropathy -Lumbar postlaminectomy pain syndrome Plan: -Patient agree response to bilateral cervical medial branch blocks to target the C3/4 and C4-6/5 facet joints under fluoroscopic guidance, we will plan to perform a left-sided cervical medial branch radiofrequency ablation to target the C3/4 and C4/5 facet joints under fluoroscopic guidance. We will then perform a right-sided procedure at the exact same levels at a later date if he still has persistent pain to avoid any component of proprioceptive disturbances that may occur when performing these procedures bilaterally as an ablation. -Continue gabapentin and baclofen, discussed stopping meloxicam prior to these ablations -Follow-up 1 month postinjection or sooner if needed Patient was counseled on the above diagnosis and treatment, all questions were answered and patient agrees to adhere to the plan above. Risk and benefits of appropriate procedures and medications were reviewed as well with patient, who voiced understanding and agreeance. Patient was counseled on appropriate use of opioids if prescribed or renewed today and naloxone was offered to patient if opioids were prescribed or maintained at this visit. PHQ-2 scoring reviewed with patient and discussed seeking treatment for depression or mood disorder as appropriate. Patient was counseled on smoking cessation and/or continuing to abstain from nicotine/tobacco products as appropriate based on history; as smoking/nicotine can contribute to increased pain overall and decreased wound healing. Patient counseled on maintaining a healthy BMI as part of the total treatment of their pain and to reduce stress/strain on joints. Patient invited to return or call with any questions or concerns that arise. Addendum by Kathleen Zavala DO, rd on December 15, 2023 16:06 EDT In addition patient will have to turn of f his spinal cord stimulator for this ablation. Future Appointments Appointment Date:02/08/2024 09:20:00 AM Scheduled Provider:Karishma Reddy DO Location:[facility] Appointment Type:FM Open Appointment Date:02/23/2024 09:30:00 AM Scheduled Provider: Location:[facility] Appointment Type: Medicare Wellness Subsequent Appointment Date:08/20/2024 09:15:00 AM Scheduled Provider:Beatrice ALVES MD Location:[facility] Appointment Type:URO Office Visit [facility]06-05-2024 Note [id number] NoteDiagnosis: m47.812 cervical spondyloarthropathy Procedure: Bilateral diagnostic cervical medial branch blocks under fluoroscopic guidance, targeting the C3, C4, and C5 medial branches that innervate the C3/4 and C4/5 facet joints Anesthesia: Local Complications: none This is cervical medial branch block for C3/4 100/5 facet joints #2. After informed consent was obtained, the patient was brought to the procedure room and placed in the prone position. The neck area is prepped and draped in usual sterile fashion. Using fluoroscopic guidance skin and subcutaneous tissue overlying needle trajectories to the target sites were anesthetized with 2% lidocaine. 22-gauge needles were advanced under fluoroscopic guidance to the appropriate anatomic landmarks. Needle tip position was confirmed on both sides. Injection of small amount of Omnipaque contrast each needle tip revealed appropriate spread without vascular take. Subsequently, 0.3 mL of 0.5% bupivacaine was injected at each needle tip. The needles were removed. The patient was then transferred to the recovery room in stable condition. Follow-up: Should the patient have pain relief, the patient may be a candidate for radiofrequency lesioning. The patient agrees to continue currently prescribed/recommended therapies.[facility]: Result Comment: Electronically Signed By: Yared Zavala DO\.br\Date and Time Signed: 12/13/23 14:33 [id number] Evaluation + Plan noteExtracted from: Title:chronic pain Author:Yared Zavala DO Date:11/24/23 Patient is presenting with a past medical history of cervical spine stenosis, cervical spondyloarthropathy, lumbar postlaminectomy pain syndrome. He is status post bilateral C3-5 medial branch blocks to target the C3/4 and C4/5 facet joints bilaterally, this was performed on 11/21/2023. He received 100% relief from this injection for 3 hours. He had no pain in his neck. Overall he feels that this was a significant result and he would like to proceed with a second test block. At present his pain is returned and he rates it as a 4/10 now but it can be a 7/10 when significantly exacerbated for him. This is still worse with twisting turning bending and nonradiating in nature and is secondary to his spondyloarthropathy. We did review his cervical spine MRI again with him today. We discussed medications and if any changes are needed, patient is stable on gabapentin 600 mg 3 times daily as well as baclofen to be taken as needed for muscle spasticity. Overall he feels that this area of his neck is making forward progress with these injections and he would like to continue with this therapy and treatment DIANN Score: 20% Patient denies any symptoms of progressively worsening upper/lower extremity weakness, progressively worsening gait abnormality, new onset bowel/bladder incontinence/ urinary retention, or saddle anesthesia. No new or worsening symptoms of fever, chills, night sweats. 14 Point Review of systems negative unless otherwise noted. General: No acute distress. Patient appears well-nourished. HEENT: Head is normocephalic and external ears are normal in appearance. Cardiovascular: No signs of poor perfusion and no peripheral edema Pulmonary: Nonlabored breathing, symmetric chest movement. GI: Abdomen nondistended Integumentary: No lesions Neurologic: Alert, oriented x3. 5/5 strength grossly in the bilateral upper extremities. Sensation intact to light touch in the bilateral upper extremities. 5/5 strength grossly in the bilateral lower extremities. Sensation intact to light touch in the bilateral lower extremities. MSK/Special Testing: Negative Anh sign bilaterally, tenderness palpation cervical paraspinal musculature bilaterally, cervical spine facet loading did reproduce axial pain bilaterally. History, physical examination, and personal review of pertinent imaging results indicate a diagnosis of: -Bilateral cervical spondyloarthropathy -Cervical spine stenosis -Lumbar postlaminectomy pain syndrome Plan: -Patient on XR sponsored bilateral C3-5 medial branch blocks to target the C3/4 and C4/5 facet joints, we will plan to repeat cervical spine medial branch block at C3-5 for second time in anticipation of radiofrequency ablation as long as this provides significant lasting relief -We also discussed his gabapentin medication we will continue this at 60 mg 3 times daily as well as continue his baclofen -Will follow-up as soon as able postinjection to evaluate his response and consideration of radiofrequency ablation Patient was counseled on the above diagnosis and treatment, all questions were answered and patient agrees to adhere to the plan above. Risk and benefits of appropriate procedures and medications were reviewed as well with patient, who voiced understanding and agreeance. Patient was counseled on appropriate use of opioids if prescribed or renewed today and naloxone was offered to patient if opioids were prescribed or maintained at this visit. PHQ-2 scoring reviewed with patient and discussed seeking treatment for depression or mood disorder as appropriate. Patient was counseled on smoking cessation and/or continuing to abstain from nicotine/tobacco products as appropriate based on history; as smoking/nicotine can contribute to increased pain overall and decreased wound healing. Patient counseled on maintaining a healthy BMI as part of the total treatment of their pain and to reduce stress/strain on joints. Patient invited to return or call with any questions or concerns that arise. Spinal cord: The visualized spinal cord is normal in signal and caliber. Paraspinal soft tissues: Paraspinal soft tissues are unremarkable. Craniovertebral junction: Visualized posterior fossa structures and craniovertebral junction are unremarkable. C2-3: Mild hypertrophic facet changes, without central spinal stenosis, neural foraminal narrowing, or a discrete disc protrusion. C3-4: Mild disc space narrowing, mild to moderate posterolateral endplate osteophytosis with associated broad-based disc protrusion and mild to moderate hypertrophic facet changes, which results in mild central spinal stenosis and moderate to marked right neural foraminal narrowing. C4-5: Mild left and moderate to marked right hypertrophic facet changes, which results in moderate to marked right neural foraminal narrowing. C5-6: Mild disc space narrowing, mild to moderate posterolateral endplate osteophytosis with associated broad-based disc protrusion and mild to moderate hypertrophic facet changes, which results in borderline central spinal stenosis and borderline to mild neural foraminal narrowing, greater on the right. C6-7: Mild to moderate hypertrophic facet changes, without central spinal stenosis, neural foraminal narrowing, or a discrete disc protrusion. C7-T1: Mild hypertrophic facet changes, without central spinal stenosis, neural foraminal narrowing, or a discrete disc protrusion. T1-T2: Mild hypertrophic facet changes, without central spinal stenosis, neural foraminal narrowing, or a discrete disc protrusion. Future Appointments Appointment Date:02/08/2024 09:20:00 AM Scheduled Provider:Karishma Reddy DO Location:[facility] Appointment Type:FM Open Appointment Date:02/23/2024 09:30:00 AM Scheduled Provider: Location:[facility] Appointment Type: Medicare Wellness Subsequent Appointment Date:08/20/2024 09:15:00 AM Scheduled Provider:Beatrice ALVES MD Location:[facility] Appointment Type:URO Office Visit [facility]05-13-2024 Evaluation + Plan noteExtracted from: Title:Bilateral C3-5 medial branch block #1 Auth or:Yared Zavala DO Date:11/21/23 Diagnosis: m47.812 cervical spondyloarthropathy Procedure: Bilateral diagnostic cervical medial branch blocks under fluoroscopic guidance, targeting the C3, C4, and C5 medial branches that innervate the C3/4 and C4/5 facet joints Anesthesia: Local Complications: none This is bilateral cervical medial branch block C3-5 #1. After informed consent was obtained, the patient was brought to the procedure room and placed in the prone position. The neck area is prepped and draped in usual sterile fashion. Using fluoroscopic guidance skin and subcutaneous tissue overlying needle trajectories to the target sites were anesthetized with 2% lidocaine. 22- gauge needles were advanced under fluoroscopic guidance to the appropriate anatomic landmarks. Needle tip position was confirmed on both sides. Injection of small amount of Omnipaque contrast each needle tip revealed appropriate spread without vascular take. Subsequently, 0.2 mL of 0.5% bupivacaine was injected at each needle tip. The needles were removed. The patient was then transferred to the recovery room in stable condition. Follow-up: Should the patient have pain relief, the patient may be a candidate for radiofrequency lesioning. The patient agrees to continue currently prescribed/recommended therapies. Future Appointments Appointment Date:11/24/2023 01:00:00 PM Scheduled Provider:Yared Zavala DO Location:[facility] Appointment Type:Pain Management - Follow Up (FT) Appointment Date:02/08/2024 09:20:00 AM Scheduled Provider:Karishma Reddy DO Location:[facility] Appointment Type: Open Appointment Date:02/23/2024 09:30:00 AM Scheduled Provider: Location:[facility] Appointment Type: Medicare Wellness Subsequent Appointment Date:08/20/2024 09:15:00 AM Scheduled Provider:Beatrice ALVES MD Location:[facility] Appointment Type:URO Office Visit [facility]05-13-2024 Note [id number] NoteDiagnosis: m47.812 cervical spondyloarthropathy Procedure: Bilateral diagnostic cervical medial branch blocks under fluoroscopic guidance, targeting the C3, C4, and C5 medial branches that innervate the C3/4 and C4/5 facet joints Anesthesia: Local Complications: none This is bilateral cervical medial branch block C3-5 #1. After informed consent was obtained, the patient was brought to the procedure room and placed in the prone position. The neck area is prepped and draped in usual sterile fashion. Using fluoroscopic guidance skin and subcutaneous tissue overlying needle trajectories to the target sites were anesthetized with 2% lidocaine. 22-gauge needles were advanced under fluoroscopic guidance to the appropriate anatomic landmarks. Needle tip position was confirmed on both sides. Injection of small amount of Omnipaque contrast each needle tip revealed appropriate spread without vascular take. Subsequently, 0.2 mL of 0.5% bupivacaine was injected at each needle tip. The needles were removed. The patient was then transferred to the recovery room in stable condition. Follow-up: Should the patient have pain relief, the patient may be a candidate for radiofrequency lesioning. The patient agrees to continue currently prescribed/recommended therapies.[facility] CampusComment on above: Result Comment: Electronically Signed By: Yared Zavala DO.br\Date and Time Signed: 11/21/23 08:52 [id number] Evaluation + Plan noteExtracted from: Title:Pain Managment Follow up Author:Shahnaz Thomason Date:11/07/23 Impression and Plan Patient is an 83-year-old male with a past medical history significant for cervical spondylosis, neck pain and postlaminectomy syndrome. He is doing well in regards to his Hunt spinal cord stimulator. At this time his main concern is neck pain. We reviewed his cervical MRI scan. He has previously trialed and failed all reasonable conservative treatments including a full course of physical therapy and meloxicam. He also uses gabapentin. He takes a muscle relaxer as needed. He has neck pain that he rates a 6/10 that appears facet mediated on physical examination. I recommended bilateral C3-4 and C4-5 medial branch block under fluoroscopy for diagnostic purposes. If patient gets significant short-term relief he may be future candidate for RFA. Procedure was discussed. Risk and benefits were discussed. Patient is agreeable. He will follow-up within 1 week of the injection for reevaluation. Call the clinic sooner if necessary. DIANN score: 22% Future Appointments Appointment Date:02/08/2024 09:20:00 AM Scheduled Provider:Karishma Reddy DO Location:[facility] Appointment Type: Open Appointment Date:02/23/2024 09:30:00 AM Scheduled Provider: Location:[facility] Appointment Type: Medicare Wellness Subsequent Appointment Date:08/20/2024 09:15:00 AM Scheduled Provider:Beatrice ALVES MD Location:[facility] JOSE RAUL Mcgregor Appointment Type:URO Office Visit [facility]03-22-2024 Evaluation + Plan noteExtracted from: Title:Pain Managment Follow up Author:Shahnaz Thomason Date:09/30/23 Impression and Plan Patient is an 83-year-old male with a past medical history significant for postlaminectomy syndrome, intermittent lumbar neuritis, sacroiliitis, neck pain and cervical neuritis. In regards to his postlaminectomy syndrome he is doing well with his medications and he is doing very well with the stimulator. It has given him almost complete relief of his pain. He states that things are going well. He just has the neck pain. He rates an 8/10. It is not always present. It comes and goes. Nothing significant really brings it on. It just presents itself and then can go away. It affects his ability to get hold. Affects his quality of life. Affects his activities. Affects his ability to do the things he wants to do. We reviewed the x-ray. We discussed different options. At this time I would recommend an MRI scan for possible injection options versus surgical consultation depend on the results. Patient is agreeable. Follow-up after. It should be noted that patient does have a Hunt spinal cord stimulator. It is MRI conditional. We have a copy of the card. The telephone claims representative can be available for his MRI. We will facilitate the MRI and he will follow-up after. OARRS reviewed DIANN score: 12% Future Appointments Appointment Date:02/08/2024 09:20:00 AM Scheduled Provider:Karishma Reddy DO Location:[facility] Appointment Type: Open Appointment Date:02/23/2024 09:30:00 AM Scheduled Provider: Location:[facility] Appointment Type:FM Medicare Wellness Subsequent Appointment Date:08/20/2024 09:15:00 AM Scheduled Provider:Beatrice ALVES MD Location:[facility] Appointment Type:URO Office Visit [facility]03-04-2024 Evaluation + Plan noteExtracted from: Title:Bilateral cervical med ial branch blocks target the C3/4 and C4/5 facet joints #2 Author:Yared Zavala DO Date:12/13/23 Diagnosis: m47.812 cervical spondyloarthropathy Procedure: Bilateral diagnostic cervical medial branch blocks under fluoroscopic guidance, targeting the C3, C4, and C5 medial branches that innervate the C3/4 and C4/5 facet joints Anesthesia: Local Complications: none This is cervical medial branch block for C3/4 100/5 facet joints #2. After informed consent was obtained, the patient was brought to the procedure room and placed in the prone position. The neck area is prepped and draped in usual sterile fashion. Using fluoroscopic guidance skin and subcutaneous tissue overlying needle trajectories to the target sites were anesthetized with 2% lidocaine. 22- gauge needles were advanced under fluoroscopic guidance to the appropriate anatomic landmarks. Needle tip position was confirmed on both sides. Injection of small amount of Omnipaque contrast each needle tip revealed appropriate spread without vascular take. Subsequently, 0.3 mL of 0.5% bupivacaine was injected at each needle tip. The needles were removed. The patient was then transferred to the recovery room in stable condition. Follow-up: Should the patient have pain relief, the patient may be a candidate for radiofrequency lesioning. The patient agrees to continue currently prescribed/recommended therapies. Future Appointments Appointment Date:12/15/2023 02:45:00 PM Scheduled Provider:Yared Zavala DO Location:[facility] Appointment Type:Pain Management - Follow Up (FT) Appointment Date:02/08/2024 09:20:00 AM Scheduled Provider:Karishma Reddy DO Location:[facility] Appointment Type: Open Appointment Date:02/23/2024 09:30:00 AM Scheduled Provider: Location:[facility] Appointment Type:FM Medicare Wellness Subsequent Appointment Date:08/20/2024 09:15:00 AM Scheduled Provider:Beatrice ALVES MD Location:[facility] [place] Appointment Type:URO Office Visit [facility]02-09-2024 Hospital Discharge instructions Patient Education 08/19/2023 09:01:52 Prostate Cancer Screening Prostate Cancer Screening Prostate cancer screening is testing that is done to check for the presence of prostate cancer in men. The prostate gland is a walnut-sized gland that is located below the bladder and in front of therectum in males. The function of the prostate is to add fluid to semen during ejaculation. Prostatecancer is one of the most common types of cancer in men. Who should have prostate cancer screening? Screening recommendations vary based on age and other risk factors, as well as between the professional organizations who make the recommendations. In general, screening is recommended if: You are age 50 to 70 and have an average risk for prostate cancer. You should talk with your healthcare provider about your need for screening and how often screening should be done. Because most prostate cancers are slow growing and will not cause , screening in this age group is generally reserved for men who have a 10- to 15-year life expectancy. You are younger than age 50, and you have these risk factors: ?Having a father, brother, or uncle who has been diagnosed with prostate cancer. The risk is higherif your family member's cancer occurred at an early age or if you have multiple family members withprostate cancer at an early age. ?Being a male who is Black or is of [place] or sub-Saharan descent. In general, screening is not recommended if: You are younger than age 40. You are between the ages of 40 and 49 and you have no risk factors. You are 70 years of age or older. At this age, the risks that screening can cause are greater than the benefits that it may provide. If you are at high risk for prostate cancer, your health care provider may recommend that you have screenings more often or that you start screening at a younger age. How is screening for prostate cancer done? The recommended prostate cancer screening test is a blood test called the prostate-specific antigen(PSA) test. PSA is a protein that is made in the prostate. As you age, your prostate naturally produces more PSA. Abnormally high PSA levels may be caused by: Prostate cancer. An enlarged prostate that is not caused by cancer (benign prostatic hyperplasia, or BPH). This condition is very common in older men. A prostate gland infection (prostatitis) or urinary tract infection. Certain medicines such as male hormones (like testosterone) or other medicines that raise testosterone levels. A rectal exam may be done as part of prostate cancer screening to help provide information about the size of your prostate gland. When a rectal exam is performed, it should be done after the PSA level is drawn to avoid any effect on the results. Depending on the PSA results, you may need more tests, such as: A physical exam to check the size of your prostate gland, if not done as part of screening. Blood and imaging tests. A procedure to remove tissue samples from your prostate gland for testing (biopsy). This is the only way to know for certain if you have prostate cancer. What are the benefits of prostate cancer screening? Screening can help to identify cancer at an early stage, before symptoms start and when the cancer can be treated more easily. There is a small chance that screening may lower your risk of dying from prostate cancer. The chance is small because prostate cancer is a slow-growing cancer, and most men with prostate cancer from a different cause. What are the risks of prostate cancer screening? The main risk of prostate cancer screening is diagnosing and treating prostate cancer that would never have caused any symptoms or problems. This is called overdiagnosisand overtreatment. PSA screening cannot tell you if your PSA is high due to cancer or a different cause. A prostate biopsy is the only procedure to diagnose prostate cancer. Even the results of a biopsy may not tell you if your cancer needs to be treated. Slow-growing prostate cancer may not need any treatment other than monitoring, so diagnosing and treating it may cause unnecessary stress or other side effects. Questions to ask your health care provider When should I start prostate cancer screening? What is my risk for prostate cancer? How often do I need screening? What type of screening tests do I need? How do I get my test results? What do my results mean? Do I need treatment? Where to find more information The [place] [employer]: www.cancer.org [place] [employer]: www.auanet.org Contact a health care provider if: You have difficulty urinating. You have pain when you urinate or ejaculate. You have blood in your urine or semen. You have pain in your back or in the area of your prostate. Summary Prostate cancer is a common type of cancer in men. The prostate gland is located below the bladder and in front of the rectum. This gland adds fluid to semen during ejaculation. Prostate cancer screening may identify cancer at an early stage, when the cancer can be treated more easily and is less likely to have spread to other areas of the body. The prostate-specific antigen (PSA) test is the recommended screening test for prostate cancer, butit has associated risks. Discuss the risks and benefits of prostate cancer screening with your health care provider. If you are age 70 or older, the risks that screening can cause are greater than the benefits that it may provide. This information is not intended to replace advice given to you by your health care provider. Make sure you discuss any questions you have with your health care provider. Document Revised: 12/21/2021 Document Reviewed: 12/21/2021 [employer] Patient Education 2022 [employer] Follow Up Care 08/16/2022 11:24:36 With:JOSELYN GALEANA, Beatrice Amaro, URL Address: [facility] [address], [place] [address] [phone] When:Within 1 Year(s) Comments:w/ PSA [facility] 02-02-2024 Hospital Discharge instructions Follow Up Care 08/12/2023 10:31:19 With:Maureen CARVAJAL, CORINNE Steiner, PED Address: [address] [place] [address] [phone] When:1 year Comments:To go instructions:Ok to take tylenol on bad days*When you see providers outside of [facility], please request that they send office visit notes every time you're seen there - this helps us take better care of youScreening guidelines:Colon cancer screening starts at age 45 for most people; cologuard every three years or colonoscopy every ten years (for average risk patients)Prostate cancer screening with PSA should begin at age 50Dental exams and cleanings every 6 months is recommended - oralhealth is a predictor of your futureSmokers who have averaged a pack a day for over twenty years should have annual low dose Chest CT to screen for lung cancer starting at age 50Follow up 1 year [facility] 12-20-2023 Evaluation + Plan noteExtracted from: Title:Pain Managment Follow up Author:Shahnaz Thomason Date:06/29/23 Impression and Plan Patient is an 82-year-old male with a past medical history significant for postlaminectomy syndrome, chronic pain and lumbar neuritis. At this time, things are going well. He is feeling well. He is comfortable. He is happy. He states that this fluid implant is working well for him. He does not have any issues at this time. The rep is here today to work with him. They had some questions and fine-tuning that they were going to pursue but at this time, he does not have any pain and does not feel that he requires anything from our services. He states that he has come off almost all the medications. At this time, he is going to follow-up in 4 to 6 weeks for another postoperative follow-up just to make sure things are continuing to move in the right direction and he will call the clinic sooner should he require anything from our services DIANN score: 11% Future Appointments Appointment Date:08/08/2023 01:45:00 PM Scheduled Provider:Shahnaz Galvin PA-C Location:[facility] [place] Appointment Type:Pain Management - Follow Up (FT) Appointment Date:08/12/2023 09:20:00 AM Scheduled Provider:Karishma Reddy DO Location:[facility] Appointment Type:FM Open Appointment Date:08/19/2023 08:15:00 AM Scheduled Provider:Beatrice ALVES MD Location:[facility] Appointment Type:URO Office Visit Appointment Date:02/23/2024 09:30:00 AM Scheduled Provider: Location:[facility] Appointment Type: Medicare Wellness Subsequent [facility]12-12-2023 Note [id number] Evaluation + Plan noteExtracted from: Title:ANES Post-operative Note - MAC Author:Padilla Lorenzo Jr., DO Date:06/21/23 Plan Transfer/Discharge: Transfer/Discharge Discharge when meets criteria. Extracted from: Title:ANES Pre-operative Note - Pain Mgt Author: Padilla Burns Jr., DO Date:06/21/23 Plan [place] [employer]esthesiologists (ASA) physical status classification: Class II. Future Appointments Appointment Date:06/29/2023 02:00:00 PM Scheduled Provider:Shahnaz Galvin PA-C [facility] Appointment Type:Pain Management - Follow Up (FT) Appointment Date:08/12/2023 09:20:00 AM Scheduled Provider:Karishma Reddy DO Location:[facility] Appointment Type: Open Appointment Date:08/19/2023 08:15:00 AM Scheduled Provider:Beat[facility] ALVES MD [facility] Type[facility]O Office Visit Appointment Date:02/23/2024 09:30:00 AM Scheduled Provider: Location:[facility] Appointment Type:FM Medicare Wellness [facility]10-03-2023 Evaluation + Plan noteExtracted from: Title:ANES Post-operative Note - MAC Author:Padilla Lroenzo Jr., DO Date:04/12/23 Plan Transfer/Discharge: Transfer/Discharge Discharge when meets criteria. Extracted from: Title:ANES Pre-operative Note - Pain Mgt Author: Padilla Burns Jr., DO Date:04/12/23 Plan [place] [employer] Anesthesiologists (ASA) physical status classification: Class II. Future Appointments Appointment Date:04/19/2023 09:45:00 AM Scheduled Provider:Abe Carr MD [facility] Appointment Type:Pain Management - Follow Up (FT) Appointment Date:05/20/2023 08:20:00 AM Scheduled Provider:Karishma Reddy DO Location:[facility] Appointment Type: Open Appointment Date:08/19/2023 08:15:00 AM Scheduled Provider:Beatrice ALVES MD [facility] Type:URO Office Visit Appointment Date:02/23/2024 09:30:00 AM Scheduled Provider: Location:[facility] Appointment Type:FM Medicare Wellness Subsequent [facility]10-03-2023 Note [id number]:127[facility] 02-21-2023 Evaluation + Plan noteExtracted from: Title:FUV Author:Abe Carr MD Date :02/21/23 Impression and Plan 82-year-old gent with lumbar postlaminectomy syndrome, sacroiliitis, and lumbar radiculitis with significantly improved sacroiliac joint related pain following the sacroiliac joint injection. He has ongoing 85% relief from the injection. He does have migrating pains consistent with lumbar postlaminectomy syndrome. The patient, his daughter, and I had a long discussion about the potential option for spinal cord stimulation. I believe the patient would be a very good clinical candidate. Written information was provided to the patient today. He would like to proceed with the process towards trial. Psychological evaluation referral was placed. Plan to follow-up 1 week after the trial assuming psych eval comes back favorable. We discussed the option of switching the [place] to Tylenol #3. 1-2 p.o. daily as needed. #45 will be sent to the patient's pharmacy. [place] automated Rx report was reviewed and is appropriate. Narcan has been offered and declined. Urine drug screen sent today for compliance. Previous urine drug screen did demonstrate alcohol. The patient does not drink alcohol when taking opioids. Patient agrees with plan of care. Future Appointments Appointment Date:05/20/2023 08:20:00 AM Scheduled Provider:Karishma Reddy DO Location:[facility] Appointment Type:FM Open Appointment Date:08/19/2023 08:15:00 AM Scheduled Provider:Beatrice ALVES MD Location:[facility] JO[facility] RAUL Mcgregor Appointment Type:URO Office Visit Appointment Date:02/23/2024 09:30:00 AM Scheduled Provider: Location:[facility] Appointment Type: Medicare Wellness Subsequent [facility]08-01-2023 Hospital Discharge instructions Follow Up Care 02/08/2023 09:48:58 With:Karishma Reddy DO, CORINNE, PED Address: [address] [place] [address] [address] [place] [address] [phone] When:3 months Comments:3 month [facility] [place] 07-18-2023 Evaluation + Plan noteExtracted from: Title:FUV Author:Abe Carr MD Date :01/25/23 Impression and Plan 82-year-old gentleman with a history of lumbar postlaminectomy syndrome, chronic pain, sacroiliac joint dysfunction and sacroiliitis. He is experiencing exacerbation of his sacroiliac joint related pain. The pain is not responding to regular use of high-dose NSAIDs, muscle relaxants, and therapy exercises. We discussed the option of repeating the left sacroiliac joint injection for therapeutic purposes. This injection has provided the patient significant relief for 4 months at a time. Risk, benefits, and alternatives were reviewed. The patient would like to proceed. Plan to follow-up 2 weeks after the injection to assess response. Patient agrees with plan of care. Future Appointments Appointment Date:01/26/2023 08:00:00 AM Scheduled Provider: Location[facility] [place] Appointment Type:PT 45 (FT) Appointment Date:01/28/2023 07:45:00 AM Scheduled Provider: Location[facility] [place] Appointment Type:PT 45 (FT) Appointment Date:01/31/2023 07:30:00 AM Scheduled Provider: Location[facility] [place] Appointment Type:PT Re-Eval 45 (FT) Appointment Date:01/31/2023 11:00:00 AM Scheduled Provider: Location:[facility] Appointment Type:FM Medicare Wellness Subsequent Appointment Date:02/02/2023 07:15:00 AM Scheduled Provider: Location[facility] [place] Appointment Type:PT 45 (FT) Appointment Date:02/04/2023 11:45:00 AM Scheduled Provider: Location[facility] [place] Appointment Type:PT 45 (FT) Appointment Date:02/07/2023 08:00:00 AM Scheduled Provider: Location[facility] [place] Appointment Type:PT 45 (FT) Appointment Date:02/08/2023 09:00:00 AM Scheduled Provider:Karishma Reddy DO Location:[facility] Appointment Type:FM Open Appointment Date:02/09/2023 08:00:00 AM Scheduled Provider: Location[facility] [place] Appointment Type:PT 45 (FT) Appointment Date:02/10/2023 08:00:00 AM Scheduled Provider: Location[place] [place] Appointment Type:PT 45 (FT) Appointment Date:02/14/2023 07:45:00 AM Scheduled Provider: Location[facility] [place] Appointment Type:PT Re-Eval 45 (FT) Appointment Date:08/19/2023 08:15:00 AM Scheduled Provider:Beatrice ALVES MD [facility]07[facility] Evaluation + Plan noteExtracted from: Title:FU Author:Abe Carr MD Date :01/10/23 Impression and Plan 82-year-old gentleman with a history of lumbar radiculitis and postlaminectomy syndrome much improved following the transforaminal epidural steroid injection. I recommend the patient continue with his home exercise program with regards to his low back. I recommend he continue current medications. [place] automated Rx report and most recent urine drug screen were both reviewed and are appropriate. No need for refills at this time. The patient will call with ample notice when he is due for refill. The neck pain appears facet mediated. The pain is severe. Has not responded to high-dose meloxicam. I recommend obtaining an x-ray of the cervical spine for further evaluation and if appropriate starting a physical therapy program pending x-ray results. Patient agrees. He will follow-up after physical therapy has been completed and call the clinic in the meanwhile with any questions or concerns. Patient agrees to plan of care Future Appointments Appointment Date:01/13/2023 06:45:00 AM Scheduled Provider: Location:.[place] [place] Appointment Type:PT Ernie () Appointment Date:02/08/2023 09:00:00 AM Scheduled Provider:Karishma Reddy DO Location:[facility] Appointment Type: Open Appointment Date:02/08/2023 09:30:00 AM Scheduled Provider: Location:[facility] Appointment Type: Medicare Wellness Subsequent Appointment Date:08/19/2023 08:15:00 AM Scheduled Provider:Beatrice ALVES MD [facility] Appointment Type:URO Office Visit [facility]03-28-2023 Evaluation + Plan noteExtracted from: Title:FUV Author:Abe Carr MD Date :10/05/22 Impression and Plan 82-year-old gentleman with a history of sacroiliitis now completely resolved following the sacroiliac joint injection on the left. His axial lumbar pain is lumbar facet mediated. It has responded to radiofrequency ablation in the past with over 80% relief for nearly a year. We can repeat the radiofrequency ablation at the patient's convenience. He will call to schedule. Risk, benefits, and alternatives were reviewed with the patient. Current medications are helpful without noticeable side effect. [place] automated Rx report was reviewed and is consistent with medications prescribed. Most recent urine drug screen is appropriate. Refill for baclofen 10 mg p.o. daily as needed will be sent to the patient's pharmacy electronically today. Plan to follow-up 4 weeks after the RFA to assess response. Patient agrees with plan of care. Future Appointments Appointment Date:10/08/2022 10:40:00 AM Scheduled Provider:Karishma Reddy DO Location:[facility] Appointment Type:FM Open Appointment Date:08/19/2023 08:15:00 AM Scheduled Provider:Beatrice ALVES MD Location:[facility] Appointment Type:URO Office Visit [facility]02-06-2023 Hospital Discharge instructions Patient Education 08/16/2022 08:22:43 Prostatitis Prostatitis Prostatitis is swelling or inflammation of the prostate gland. The prostate is a walnut-sized glandthat is involved in the production of semen. It is located below a man's bladder, in front of the rectum. There are four types of prostatitis: Chronic nonbacterial prostatitis. This is the most common type of prostatitis. It may be associatedwith a viral infection or autoimmune disorder. Acute bacterial prostatitis. This is the least common type of prostatitis. It starts quickly and isusually associated with a bladder infection, high fever, and shaking chills. It can occur at any age. Chronic bacterial prostatitis. This type usually results from acute bacterial prostatitis that happens repeatedly (is recurrent) or has not been treated properly. It can occur in men of any age but is most common among middle-aged men whose prostate has begun to get larger. The symptoms are not as severe as symptoms caused by acute bacterial prostatitis. Prostatodynia or chronic pelvic pain syndrome (CPPS). This type is also called pelvic floor disorder. It is associated with increased muscular tone in the pelvis surrounding the prostate. What are the causes? Bacterial prostatitis is caused by infection from bacteria. Chronic nonbacterial prostatitis may becaused by: Urinary tract infections (UTIs). Nerve damage. A response by the body s disease-fighting system (autoimmune response). Chemicals in the urine. The causes of the other types of prostatitis are usually not known. What are the signs or symptoms? Symptoms of this condition vary depending upon the type of prostatitis. If you have acute bacterialprostatitis, you may experience: Urinary symptoms, such as: ?Painful urination. ?Burning during urination. ?Frequent and sudden urges to urinate. ?Inability to start urinating. ?A weak or interrupted stream of urine. Vomiting. Nausea. Fever. Chills. Inability to empty the bladder completely. Pain in the: ?Muscles or joints. ?Lower back. ?Lower abdomen. If you have any of the other types of prostatitis, you may experience: Urinary symptoms, such as: ?Sudden urges to urinate. ?Frequent urination. ?Difficulty starting urination. ?Weak urine stream. ?Dribbling after urination. Discharge from the urethra. The urethra is a tube that opens at the end of the penis. Pain in the: ?Testicles. ?Penis or tip of the penis. ?Rectum. ?Area in front of the rectum and below the scrotum (perineum). Problems with sexual function. Painful ejaculation. Bloody semen. How is this diagnosed? This condition may be diagnosed based on: A physical and medical exam. Your symptoms. A urine test to check for bacteria. An exam in which a health care provider uses a finger to feel the prostate (digital rectal exam). A test of a sample of semen. Blood tests. Ultrasound. Removal of prostate tissue to be examined under a microscope (biopsy). Tests to check how your body handles urine (urodynamic tests). A test to look inside your bladder or urethra (cystoscopy). How is this treated? Treatment for this condition depends on the type of prostatitis. Treatment may involve: Medicines to relieve pain or inflammation. Medicines to help relax your muscles. Physical therapy. Heat therapy. Techniques to help you control certain body functions (biofeedback). Relaxation exercises. Antibiotic medicine, if your condition is caused by bacteria. Warm water baths (sitz baths). Sitz baths help with relaxing your pelvic floor muscles, which helpsto relieve pressure on the prostate. Follow these instructions at home: Take thko-mks-vewlwot and prescription medicines only as told by your health care provider. If you were prescribed an antibiotic, take it as told by your health care provider. Do not stop taking the antibiotic even if you start to feel better. If physical therapy, biofeedback, or relaxation exercises were prescribed, do exercises as instructed. Take sitz baths as directed by your health care provider. For a sitz bath, sit in warm water that is deep enough to cover your hips and buttocks. Keep all follow-up visits as told by your health care provider. This is important. Contact a health care provider if: Your symptoms get worse. You have a fever. Get help right away if: You have chills. You feel nauseous. You vomit. You feel light-headed or feel like you are going to faint. You are unable to urinate. You have blood or blood clots in your urine. This information is not intended to replace advice given to you by your health care provider. Make sure you discuss any questions you have with your health care provider. Document Released: 06/24/2001 Document Revised: 09/09/2018 Document Reviewed: 03/17/2017 [employer] Patient Education 2020 [employer] Follow Up Care 02/15/2022 10:25:53 With:JOSELYN GALEANA, Beatrice Amaro, URL Address: [facility] [address] , [place] [id number]- [phone] When:08/16/2023 Comments:PSA [facility] 01-18-2023 Hospital Discharge instructions Patient Education 07/28/2022 20:11:54 Heat Therapy, Jhmx-cw-Qvrs Heat Therapy Heat therapy can help ease sore, stiff, injured, and tight muscles and joints. Heat relaxes your muscles, which may help ease your pain and muscle spasms. Do not use heat therapy unless your doctor tells you to use it. How to use heat therapy There are several different kinds of heat therapy, including: Moist heat pack. Hot water bottle. Electric heating pad. Heated gel pack. Heated wrap. Warm water bath. Your doctor will tell you how to use heat therapy. In general, you should: 1.Place a towel between your skin and the heat source. 2.Leave the heat on for 20 30 minutes. Your skin may turn pink. 3.Remove the heat if your skin turns bright red. You should remove the heat source if you are unable to feel pain, heat, or cold. You are more likely to get burned if you leave it on the skin for toolong. Your doctor may also tell you to take a warm water bath. To do this: 1.Put a non-slip pad in the bathtub to prevent a fall. 2.Fill the bathtub with warm water. 3.Check the water temperature. 4.Soak in the water for 15 20 minutes, or as told by your doctor. 5.Be careful when you stand up after the bath. You may feel dizzy. 6.Pat yourself dry after the bath. Do not rub your skin to dry it. General recommendations for heat therapy Do not sleep while using heat therapy. Only use heat therapy while you are awake. Your skin may turn pink while using heat therapy. Do not use heat therapy if your skin turns red. Do not use heat therapy if you have a new injury. High heat or using heat for a long time can cause jasso. Be careful not to burn your skin when using heat therapy. Do not use heat therapy on areas of your skin that are already irritated, such as with a rash or sunburn. Get help if you have: Blisters, redness, swelling (puffiness), or numbness. New pain. Pain that is getting worse. Summary Heat therapy is the use of heat to help ease sore, stiff, injured, and tight muscles and joints. There are different types of heat therapy. Your doctor will tell you which one to use. Only use heat therapy while you are awake. Watch your skin to make sure you do not get burned while using heat therapy. This information is not intended to replace advice given to you by your health care provider. Make sure you discuss any questions you have with your health care provider. Document Released: 09/18/2012 Document Revised: 08/20/2019 Document Reviewed: 07/08/2018 [employer] Patient Education 2020 [employer] Follow Up Care 06/28/2022 15:25:59 With:Maureen CARVAJAL, CORINNE Steiner, PED Address: [address], [facility] [place] [address] When:1 month only if needed Comments:40 mins [facility] 12-16-2022 Hospital Discharge instructions Patient Education 06/25/2022 19:29:25 Heat Therapy, Jlot-ra-Yusm Heat Therapy Heat therapy can help ease sore, stiff, injured, and tight muscles and joints. Heat relaxes your muscles, which may help ease your pain and muscle spasms. Do not use heat therapy unless your doctor tells you to use it. How to use heat therapy There are several different kinds of heat therapy, including: Moist heat pack. Hot water bottle. Electric heating pad. Heated gel pack. Heated wrap. Warm water bath. Your doctor will tell you how to use heat therapy. In general, you should: 1.Place a towel between your skin and the heat source. 2.Leave the heat on for 20 30 minutes. Your skin may turn pink. 3.Remove the heat if your skin turns bright red. You should remove the heat source if you are unable to feel pain, heat, or cold. You are more likely to get burned if you leave it on the skin for toolong. Your doctor may also tell you to take a warm water bath. To do this: 1.Put a non-slip pad in the bathtub to prevent a fall. 2.Fill the bathtub with warm water. 3.Check the water temperature. 4.Soak in the water for 15 20 minutes, or as told by your doctor. 5.Be careful when you stand up after the bath. You may feel dizzy. 6.Pat yourself dry after the bath. Do not rub your skin to dry it. General recommendations for heat therapy Do not sleep while using heat therapy. Only use heat therapy while you are awake. Your skin may turn pink while using heat therapy. Do not use heat therapy if your skin turns red. Do not use heat therapy if you have a new injury. High heat or using heat for a long time can cause jasso. Be careful not to burn your skin when using heat therapy. Do not use heat therapy on areas of your skin that are already irritated, such as with a rash or sunburn. Get help if you have: Blisters, redness, swelling (puffiness), or numbness. New pain. Pain that is getting worse. Summary Heat therapy is the use of heat to help ease sore, stiff, injured, and tight muscles and joints. There are different types of heat therapy. Your doctor will tell you which one to use. Only use heat therapy while you are awake. Watch your skin to make sure you do not get burned while using heat therapy. This information is not intended to replace advice given to you by your health care provider. Make sure you discuss any questions you have with your health care provider. Document Released: 09/18/2012 Document Revised: 08/20/2019 Document Reviewed: 07/08/2018 [employer] Patient Education 2019 [employer] Follow Up Care 05/20/2022 12:24:24 With:Maureen CARVAJAL, CORINNE Steiner, PED Address: [address], [place] [place] [address] When:1 month only if needed Comments:40 mins [facility] 08-30-2022 Evaluation + Plan noteExtracted from: Title:FUV Author:Abe Carr MD Date :03/09/22 Impression and Plan 81-year-old gentleman with significantly improved lumbar pain following radiofrequency ablation of the lower lumbar facet joints bilaterally. His persistent pain is consistent with left piriformis syndrome. The pain significantly past quality life and activities of daily living. We discussed the option of an ultrasound- guided left piriformis injection for both diagnostic and hopefully therapeutic purposes. Risk benefits and alternatives were reviewed. Patient wishes to proceed. If the patient does not experience significant relief with that injection consider left L5 transforaminal epidural. Patient agrees with plan of care. Future Appointments Appointment Date:08/16/2022 10:15:00 AM Scheduled Provider:Beatrice ALVES MD Location:[facility] Appointment Type:URO Office Visit [facility]08-08-2022 Hospital Discharge instructions Patient Education 02/15/2022 10:07:36 Prostatitis, Wnir-fp-Fnyl Prostatitis Prostatitis is swelling of the prostate gland. The prostate helps to make semen. It is below a man's bladder, in front of the rectum. There are different types of prostatitis. Follow these instructions at home: Take jzps-ycs-rcntqmu and prescription medicines only as told by your doctor. If you were prescribed an antibiotic medicine, take it as told by your doctor. Do not stop taking the antibiotic even if you start to feel better. If your doctor prescribed exercises, do them as directed. Take sitz baths as told by your doctor. To take a sitz bath, sit in warm water that is deep enough to cover your hips and butt. Keep all follow-up visits as told by your doctor. This is important. Contact a doctor if: Your symptoms get worse. You have a fever. Get help right away if: You have chills. You feel sick to your stomach (nauseous). You throw up (vomit). You feel light-headed. You feel like you might pass out (faint). You cannot pee (urinate). You have blood or clumps of blood (blood clots) in your pee (urine). This information is not intended to replace advice given to you by your health care provider. Make sure you discuss any questions you have with your health care provider. Document Released: 12/26/2012 Document Revised: 06/09/2018 Document Reviewed: 03/17/2017 [employer] Patient Education 2020 [employer] Follow Up Care 08/17/2021 10:05:07 With:JOSELYN GALEANA, Beatrice Amaro, URL Address: [facility] [address], [place] [phone] When:Within 6 Month(s) [facility] 07-05-2022 Evaluation + Plan noteExtracted from: Title:FUV Author:Bruno GALEANA, Abe Alvarez Date :01/12/22 Impression and Plan 81-year-old gentleman with chronic severe low back pain consistent with lumbar facet mediated pain. He has now undergone 2 sets of diagnostic facet blocks with excellent short-term relief and improved function following each. The patient, his , and I discussed the option of radiofrequency ablation to the innervation of the bilateral L4-5 and L5-S1 facet joints to provide longer lasting relief. Risk, benefits, and alternatives were reviewed with the patient. He would like to proceed. Follow-up 4 weeks after the procedure to assess response. Current medications are helpful without noticeable side effect. [place] automated Rx report was reviewed and is consistent with medications prescribed. No need for refill. Patient agrees with plan of care. Future Appointments Appointment Date:02/15/2022 09:15:00 AM Scheduled Provider:Beatrice ALVES MD Location:[facility] Appointment Type:URO Office Visit [facility]05-31-2022 Evaluation + Plan noteExtracted from: Title:SOAP Note: Simple * Author:Denys Carr MD Date:12/08/21 Impression and Plan 81-year-old gentleman with significant chronic axial low back pain that appears facet mediated based on response to his first set of diagnostic facet blocks at L4-5 and L5-S1. The patient was much more active as a result of the 100% relief he experienced during the 6 hours directly following the procedure. We discussed the option of repeating the procedure to confirm etiology of pain. If the patient experiences significant short-lived relief with improved function during that period of time he would then be a candidate for radiofrequency ablation to provide longer lasting relief. The process was reviewed with the patient in great detail including its risk benefits and alternatives. The patient's questions were addressed. He wishes to proceed. Plan to follow-up 1 week after the diagnostic blocks to assess response. Patient agrees with plan of care. Current medications are helpful without noticeable side effects. The patient did not require refill of the gabapentin [place] or baclofen. [place] automated Rx report was reviewed as well as most recent urine drug screen. Both are appropriate. I recommend the patient continue with his current medications for now. Future Appointments Appointment Date:02/15/2022 09:15:00 AM Scheduled Provider:Beatrice ALVES MD Location:[facility] Appointment Type:URO Office Visit [facility]05-10-2022 Evaluation + Plan noteExtracted from: Title:FUV Author:Abe Carr MD Date :11/17/21 Impression and Plan 81-year-old gentleman history of lumbar laminectomy at L4 and L5 following up from sacroiliac joint injection with significant improvement of the sacroiliac joint related pain on the left. His persistent low back pain is consistent with lumbar facet mediated pain. The pain has not responded to a full course of physical therapy as well as regular use of high-dose NSAIDs. The pain does significantly impact quality life and activities of daily living. There are considerable degenerative changes noted on x-ray. We discussed the option of diagnostic facet blocks to the bilateral L4-5 and L5-S1 joints to ascertain the degree to which his pain is facet mediated. If the patient does experience significant short-lived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 Address: Address: [address] [place], [place] [address] Personnel Name: Karishma Reddy DO Address: Address: [address] [place], [place] [address] Personnel Name: Karishma Reddy DO Address: Address: [address] [place], [place] [address] [place] [address]- Personnel Name: Karishma Reddy DO Address: Address: [address] [place], [place] [address] [place] [address] [place] [address]- Personnel Name: Karishma Reddy DO Address: Address: [address] [place], [place] [address] [place] [address] [place] [address]- Personnel Name: Karishma Reddy DO Address: Address: [address] [place], [place] [address] [place] [address] [place] [address]- Personnel Name: Karishma Reddy DO Address: Address: [address] [place], [place] [address] [address] [address] [place] [address]- Personnel Name: Karishma Reddy DO Address: Address: [address] [place], [place] [address] [place] [address] [place] [address]- Personnel Name: Karishma Reddy DO Address: Address: [address] [place], [place] [address] [place] [address] [place] [address]- Personnel Name: Karishma Reddy DO Address: Address: [address] [place], [place] [address] [place] [address] [place] [address]- Personnel Name: Karishma Reddy DO Address: Address: [address] [place], [place] [address] [place] [address] [address] [place] [address]- Personnel Name: Karishma Reddy DO Address: Address: [address] [id number] Personnel Name: Karishma Reddy DO Address: Address: [address] [address] [address] [place] [phone] Personnel Name: Karishma Reddy DO Address: Address: [address] [address] [address] [place] [phone] Personnel Name: Karishma Reddy DO Address: Address: [address] [facility] [address] [facility] [address] [place] [phone] [place] Personnel Name: Karishma Reddy DO Address: Address: [address] [address] [place] [address] Personnel Name: Karishma Reddy DO Address: Address: [address] [address] [address] [place] [phone] Personnel Name: Karishma Reddy DO Address: Address: [address] [address] [address] [place] [phone] Personnel Name: Karishma Reddy DO Address: Address: [address] [address] [address] [place] [phone] [place] Personnel Name: Karishma Reddy DO Address: Address: [address] [place], [place] [phone] Personnel Name: Karishma Reddy DO Address: Address: [address] [facility] [address] [place] [phone] Personnel Name: Kairshma Reddy DO Address: Address: [address] [id number] Personnel Name: Karishma Reddy DO Address: Address: [address] [address] [address] [place] [phone] Personnel Name: Karishma Reddy DO Address: Address: [address] [id number] Personnel Name: Karishma Reddy DO Address: Address: [address] [phone] Personnel Name: Karishma Reddy DO Address: Address: [address] [phone] Personnel Name: Karishma Reddy DO Address: Address: [address] [phone] Personnel Name: Karishma Reddy DO Address: Address: [address] [place], [place] [phone] Personnel Name: Karishma Reddy DO Address: Address: [address] [id number] Personnel Name: Karishma Reddy DO Address: Address: [address] [place], [place] [phone] Personnel Name: Karishma Reddy DO Address: Address: [address] [id number] Personnel Name: Karishma Reddy DO Address: Address: [address] [id number] [place] Personnel Name: Karishma Reddy DO Address: Address: [address] [place], [place] [phone] FOR RECORDS PERTAINING TO PATIENTS WHO ARE OR HAVE BEEN ENROLLED IN A CHEMICAL DEPENDENCY/SUBSTANCEABUSE PROGRAM, SOME INFORMATION MAY BE OMITTED. This clinical summary was aggregated from multiple sources. Caution should be exercised in using it in the provision of clinical care. This summary normalizes information from multiple sources, and as a consequence, information in this document may materially change the coding, format and clinical context of patient data. In addition, data may be omitted in some cases. CLINICAL DECISIONS SHOULD BE BASED ON THE PRIMARY CLINICAL RECORDS. [facility] [employer] [facility]. provides no warranty or guarantee of the accuracy or completeness of information in this document.
[2024-08-13 11:04] LABS: Prostate Specific Antigen Dx 2.71 ng/mL (<=4.00)
== END 2024-08-13 09:03 | disposition home or self-care (01) ==
LOC: LAB 09:04
PROVIDERS: Visit Provider Urology
DX: N40.1 Benign prostatic hyperplasia with lower urinary tract symptoms (principal)
CPT/HCPCS: 36415; 84153